=== PATIENT | male | born 1950 | race Caucasian/White ===

== ENCOUNTER 2023-12-16 07:11 | Day surgery (SDC) | payer MEDICARE, SELFPAY ==
[2023-12-16 12:31] VITALS: BP 158/77; BMI 25.2
[2023-12-16] MEDS: TYLENOL 1000 MG PO (12:37)
[2023-12-16] MEDS: CELEBREX 200 MG PO (12:37)
[2023-12-16] MEDS: NORMOSOL-R 1000 IV (12:49)
[2023-12-16 16:51] VITALS: BP 119/63
[2023-12-16 17:00] VITALS: BP 133/67
[2023-12-16 17:15] VITALS: BP 141/69
--- NOTE | 2023-12-16 17:21 | OR.RPT ---
Operative Report
Operative Report
DATE OF OPERATION: 12/16/2023
SURGEON: Chester Santana MD
PREOPERATIVE DIAGNOSIS: Anal pain, anal mass
POSTOPERATIVE DIAGNOSIS: Anal pain, anal mass, moderate anal stenosis
OPERATION: Exam under anesthesia, flexible sigmoidoscopy, diagnostic anoscopy with Rasheed-Cut core biopsy, bilateral pudendal nerve block
ASSISTANTS:
1. None
ANESTHESIA: MAC w/ local
ESTIMATED BLOOD LOSS: 5 mL
FINDINGS:
1. 1.5 cm x 1.2 cm anal mass, located in the left posterior quadrant of the anal canal at the level of the anal verge; within the anal canal at the base of this mass appeared a fissure
2. On retroflexion during sigmoidoscopy, the mass was not visible
SPECIMENS:
1. Anal mass biopsies
DRAINS: None
COMPLICATIONS: None
INDICATIONS: The patient is a 73-year-old male who presented to my office with 3 to 4 months of fecal urgency and 4 weeks of anorectal pain. An anoscopy was attempted in the office, but the patient was unable to tolerate this due to pain.
Therefore, the patient was recommended to have surgery for exam under anesthesia and possible biopsies.
The operation was discussed with the patient in detail, including the risks, benefits and alternatives. Risks described included, but not limited to bleeding, infection, damage to nearby structures such as the anal sphincter, fecal incontinence,
urinary retention, and anesthetic risks. The patient understood and agreed to proceed. The consent was signed and placed in the chart.
PROCEDURE IN DETAIL: The patient was taken to the operating room and placed on the left lateral position on the hospital bed. Sequential compression devices were placed bilaterally. Sedation was commenced without complication. The buttocks were
taped apart. The perineum was shaved, prepped and draped in the usual fashion. A time-out was then performed verifying the correct patient, procedure, operative site, positioning, and special equipment.
I began with the flexible sigmoidoscopy. A digital rectal exam was done, confirming a left posterior hard mass. The sigmoidoscope was passed transanally until about 20 cm without difficulty. The prep was excellent. No intraluminal pathology was
noted at the rectosigmoid junction or in the remainder of the rectum. Retroflexion showed internal hemorrhoids except for an area of flattening with erythema in the left posterior quadrant, but no visible mass was noted.
Next, I proceeded with the exam under anesthesia with the patient in the same position. Local anesthesia used was a mixture of 60 mL of 0.25% Marcaine and 0.6 mL of dexamethasone. 40 mL was injected perianally at the beginning of the case. The
anorectal exam was performed assessing all four quadrants of the anal canal using Hill-Espinosa retractors in progressively increasing size. However, due to anal stenosis, the anus would only accommodate a small Hill-Espinosa and nothing larger.
There were mild-sized internal hemorrhoids in the right anterior and right posterior position that were not irritated, swollen or bleeding. There was a hard 1.2 cm wide mass in the left posterior quadrant of the anal canal, just at the level of the
anal verge. It extended into the anal canal by 1.5 cm. Using the small Hill-Espinosa for visualization, 5 Rasheed-Cut core biopsies were obtained, each from a different location of the mass. Hemostasis was achieved after holding pressure for
approximately 2 minutes. Surgicel was placed in the anal canal prophylactically. At the end of the case, the remaining 20 mL of local were injected. 5 mL was injected bilaterally for a pudendal nerve block. 10 mL was injected around the surgical
site and perianally.
At this point, the procedure was complete. All needle, sponge and instrument counts were correct. The patient tolerated the procedure well and was transferred to the recovery room in stable condition with gauze dressing in place secured with silk
tape.
DICTATED BY: Chester Santana MD
[2023-12-16 17:30] VITALS: BP 120/66
[2023-12-16 17:45] VITALS: BP 150/78
== END 2023-12-16 18:25 | disposition home or self-care (01) ==
LOC: SDS 07:11
PROVIDERS: ATTENDING PHYSICIAN Surgery
DX: C21.0 Malignant neoplasm of anus, unspecified (principal); K62.4 Stenosis of anus and rectum; K64.8 Other hemorrhoids
CPT/HCPCS: 45331; 88305; 88341; 88342

== ENCOUNTER → 2023-12-23 11:56 | Outpatient (REF) | payer MEDICARE, SELFPAY ==
[2023-12-23 13:54] LABS: PSA, Total - Screen 1.14 ng/ml (0.0-4.0)
== END ==
LOC: OLABPV 11:56
PROVIDERS: ATTENDING PHYSICIAN Student in an Organized Health Care Education/Training Program
DX: R39.198 Other difficulties with micturition (principal); Z12.5 Encounter for screening for malignant neoplasm of prostate
CPT/HCPCS: 36415; G0103

== ENCOUNTER → 2023-12-30 09:53 | Outpatient (REF) | payer MEDICARE, SELFPAY ==
[2023-12-30 11:41] LABS: CEA 24.2 ng/ml
== END ==
LOC: REG 09:53
PROVIDERS: ATTENDING PHYSICIAN Surgery; FAMILY PHYSICIAN Student in an Organized Health Care Education/Training Program
DX: C20 Malignant neoplasm of rectum (principal)
CPT/HCPCS: 36415; 82378

== ENCOUNTER 2023-12-31 12:17 | Emergency (ER) | payer MEDICARE, SELFPAY ==
[2023-12-31] VITALS (18 sets, daily range): BP systolic 104–153; BP diastolic 67–117
[2023-12-31 12:52] LABS: % Basophils 0.3 % (0-2); % Eosinophils 1.2 % (0-6); % Immature Granulocytes 0.3 % (0-0.5); % Lymphocytes 14.3 % (20.5-51.1); % Monocytes 7.5 % (1.7-9.3); % Neutrophils 76.4 % (42.2-75.2); Absolute Eosinophils 0.1 10^3/uL (0-0.7); Absolute Monocytes 0.6 10^3/uL (0.1-0.6); Absolute Neutrophils 5.6 10^3/uL (1.4-6.5); Hematocrit 38.4 % (39.0-52.0); Hemoglobin 13.6 g/dL (13.0-18.0); Mean Corp Hgb Conc. 35.4 g/dL (33.0-37.0); Mean Corpuscular Hgb 32.5 pg (27.0-31.0); Mean Corpuscular Volume 91.9 fL (80.0-94.0); Mean Platelet Volume 9.5 fL (7.4-10.4); Nucleated Red Blood Cells % 0 % (-); Platelet Count 215 10^3/uL (130-400); Red Blood Cell Count 4.18 10^6/uL (4.70-6.10); Red Cell Dist. Width 13.1 % (11.5-14.5); White Blood Cell Count 7.3 10^3/uL (4.8-10.8)
[2023-12-31 13:04] LABS: Blood Urea Nitrogen 14 mg/dl (9-20); Calcium 8.8 mg/dl (8.4-10.2); Carbon Dioxide 22 mmol/L (22-30); Chloride 104 mmol/L (98-107); Glucose 100 mg/dl (70-99); Potassium 4.3 mmol/L (3.5-5.1); Sodium 132 mmol/L (135-145); eGFR > 60.00
[2023-12-31 13:35] LABS: TSH Reflex To Free T4 1.31 uIU/ml (0.47-4.68)
--- NOTE | 2023-12-31 13:48 | ED.GENMED ---
History of Present Illness
General
Chief Complaint: Heart Rate Problem
Source: patient
Exam Limitations: none
Time Seen by Provider: 12/31/23 12:28
Travel History
Have you had any contact with someone who has COVID-19?: No
Do you have any symptoms of coronavirus? Fever > 100 degrees, chills, cough, shortness of breath, sore throat, loss of taste or smell, muscle aches, or headache?: No
History of Present Illness
History of Present Illness:
73-year-old male sudden onset of heart racing palpitations and some fatigue at 4 AM. History of atrial fibrillation. On Eliquis. Faithful with meds. Took 200 mg of flecainide at 8 AM.
Past History
Past History
ED Past Medical History: Arrthythmia (Atrial fibrillation/flutter), HTN, Valvular disease and Hypothyroidism; Negative Hypercholesterolemia, IDDM, NIDDM or LA
Social History
Tobacco: Non-smoker
Review of Systems
Review of Systems
All Other Systems: Not applicable
Constitutional: Denies fever
Cardiac: Denies chest pain or syncope
Phy Exam
Physical Exam
Physical Exam:
GENERAL: Alert and oriented in no apparent distress
EYE: Orbits normal.
NECK: Supple, no significant adenopathy. Airway clear. No dentures or bridges
CARDIAC: Irregular irregular tachycardic
LUNGS: Clear breath sounds,normal
ABDOMEN: Soft, without focal tenderness or distention
NEUROLOGICAL: Alert and oriented , grossly non-focal
SKIN: Warm and dry, no rash or lesion, no discoloration, skin intact.
MUSCULOSKELETAL: No edema,no deformity.Good color
PSYCH: Normal and appropriate interaction.
Course
Orders/Labs/Results
Orders:
Orders
12/31/23 12:19
Electrocardiogram (*1) Urgent
Reason for Study: Atrial Fibrillation
EKG- Treatment ONCE
12/31/23 12:41
IV Insert/Care/Rem.- Treatment PRN
12/31/23 12:44
Basic Metabolic Panel Urgent
Complete Blood Count/With Diff Urgent
TSH Reflex To Free T4 Urgent
12/31/23 13:03
Propofol [Diprivan] 20 ml .ROUTE .STK-MED
12/31/23 13:39
Electrocardiogram (*1) Urgent
Reason for Study: Abnormal EKG
12/31/23 13:40
EKG- Treatment ONCE
Abnormal Lab Results
12/31/23
12:44
RBC 4.18 L 10^6/uL
(4.70-6.10)
Hct 38.4 L %
(39.0-52.0)
MCH 32.5 H pg
(27.0-31.0)
Absolute Lymphs (auto) 1.0 L 10^3/uL
(1.2-3.4)
Neutrophils % 76.4 H %
(42.2-75.2)
Lymphocytes % 14.3 L %
(20.5-51.1)
Sodium 132 L mmol/L
(135-145)
Glucose 100 H mg/dl
(70-99)
12/31/23 12:44
12/31/23 12:44
Vital Signs
Initial and Last Documented VS:
Initial Vital Signs
Temp Pulse Resp BP Pulse Ox
97.5 F 84 20 153/67 100
12/31/23 12:20 12/31/23 12:20 12/31/23 12:20 12/31/23 12:20 12/31/23 12:20
Last Documented Vital Signs
Temp Pulse Resp BP Pulse Ox
98.2 F 59 16 131/89 100
12/31/23 13:55 12/31/23 14:10 12/31/23 14:10 12/31/23 14:10 12/31/23 14:10
Procedures
Cardioversion
Indication:: Afib
Performed by:: Myself
Synchronized?: Yes
Energy Used: 150 joules
Number of attempts: 1
Successful?: Yes
Complications: None
Any reaction or bad outcome to prior sedation/anesthesia?: No history of a reaction
Sedation level to be attained: moderate
Chart and allergies reviewed: Yes
Patient reassessed prior to sedation: Yes
Time out completed at (validating right patient & procedure): 13:30
History of difficult intubation: No
Airway free of obstruction: Yes
Patient has a gag reflex: Yes
Patient is able to open mouth: Yes
Patient has no dentures: Yes
Patient has no loose teeth: Yes
Medication administered by Provider during Moderate Sedation: IV Propofol (mg)
Total dose administered: 100
Time drug administered: 13:32
Start Time: 13:30
Stop Time: 13:43
*Pulse Oximetry
Patient hypoxic: no
*EKG
Interpreted by ED Provider?: Yes
Interpretation: abnormal
Comparison EKG: changes noted
Heart Rate: 129
Rate: tachycardiac
Rhythm: a-fib
[place]: left axis deviation
Interval: normal interval
QRS Pattern: wide non-specific
Ischemia: non-specific ST changes
*[employer] Interpretation
Rate: tachycardiac
Interpretation: abnormal
Heart Rate: 125
Rhythm: a-fib
*Critical Care Note
Total Time (30-74mins, 75-104mins- exclusive of procedures): Not Applicable
Update Note
Update Note:
Discussed with cardiology. Reluctant to do rate control with patient's baseline bradycardia. Reviewed with patient. Risk-benefit of cardioversion reviewed carefully.
Patient fully awake. Repeat EKG normal sinus rhythm left axis deviation nonspecific interventricular conduction delay.
1435... Patient has remained stable. Discharged to follow-up with cardiology.
ED Attending Note
-
Portions of this chart may have been created with voice recognition software.� Occasional wrong word or��sound alike� substitutions may have occurred due to the inherent limitations of voice recognition software.
Discharge Plan
Departure
Patient Disposition: Home (Routine Discharge)
Date of Disposition: 12/31/23
Time of Disposition: 14:34
Patient with high blood pressure during this ER visit?: Yes
Discharge Problem:
Paroxysmal atrial fibrillation/flutter, Rapid ventricular response
Instructions: Atrial Fibrillation (DC), Cardioversion (DC), MODERATE SEDATION ADULT, BLOOD PRESSURE
Prescriptions:
No Action
levothyroxine 100 mcg Tablet
100 mcg PO DAILY
tamsulosin 0.4 mg Capsule
0.4 mg PO HS
flecainide 100 mg Tablet
100 mg PO BIDPRN PRN (Reason: high HR)
irbesartan 150 mg Tablet
150 mg PO DAILY
hydrochlorothiazide 12.5 mg Tablet
12.5 mg PO DAILY
Eliquis 5 mg Tablet
5 mg PO BID
acetaminophen [Tylenol] 325 mg Tablet
650 mg PO TIDPRN PRN (Reason: mild pain)
tramadol 50 mg tablet
50 mg PO Q6HPRN PRN (Reason: severe pain)
Patient Comments:
12/31/2023, pt. filled this med. on 12/16/2023 for 20 tablets according to PDMP.
Referrals:
Michaelle Gross DO [Family Provider] - Follow up in 2-3 days
Salomón Campbell MD [Active] - Follow up in 5-7 days
Activity Restrictions/Additional Instructions:
Call your pleater Tuesday for close follow-up
Interventions
Interventions:
*Risk Screen - Suicide Last Done: 12/31/23 12:35
*General Assessment Last Done: 12/31/23 12:35
*Neglect/Abuse Screening Last Done: 12/31/23 12:35
*ED COVID-19 Vaccine History Last Done: 12/31/23 12:35
ED- Cardiac Assessment Last Done: 12/31/23 12:35
ED- Pulmonary Assessment Last Done: 12/31/23 12:35
== END 2023-12-31 14:58 | disposition home or self-care (01) ==
LOC: EMR 12:17
PROVIDERS: EMERGENCY PHYSICIAN Emergency Medicine; FAMILY PHYSICIAN Student in an Organized Health Care Education/Training Program
DX: I48.0 Paroxysmal atrial fibrillation (principal); I48.92 Unspecified atrial flutter; I10 Essential (primary) hypertension; Z79.01 Long term (current) use of anticoagulants
CPT/HCPCS: 92960; 99285; 99152; 80048; 84443; 85025; 93005

== ENCOUNTER → 2024-01-02 12:24 | Outpatient (REF) | payer MEDICARE, SELFPAY | LOC: HWRAD 12:24 | PROVIDERS: ATTENDING PHYSICIAN Surgery; FAMILY PHYSICIAN Student in an Organized Health Care Education/Training Program | DX: C20 Malignant neoplasm of rectum (principal) | CPT/HCPCS: 71260; 74177; Q9967 ==

== ENCOUNTER → 2024-01-03 08:07 | Outpatient (REF) | payer MEDICARE, SELFPAY | LOC: MRI 08:07 | PROVIDERS: ATTENDING PHYSICIAN Surgery; FAMILY PHYSICIAN Student in an Organized Health Care Education/Training Program; REFERRING PHYSICIAN Radiology Diagnostic Radiology | DX: C20 Malignant neoplasm of rectum (principal); Z13.89 Encounter for screening for other disorder | CPT/HCPCS: 72197; 73130; 73560; A9575 ==

== ENCOUNTER → 2024-01-23 06:35 | Day surgery (SDC) | payer MEDICARE, SELFPAY | LOC: GI 06:35 | PROVIDERS: ATTENDING PHYSICIAN Surgery | DX: Z12.11 Encounter for screening for malignant neoplasm of colon (principal); Z86.010 Personal history of colon polyps; K57.30 Diverticulosis of large intestine without perforation or abscess without bleeding; K62.89 Other specified diseases of anus and rectum; D12.2 Benign neoplasm of ascending colon; D12.3 Benign neoplasm of transverse colon; C21.0 Malignant neoplasm of anus, unspecified | CPT/HCPCS: 45385; 88305; 93005 ==

== ENCOUNTER → 2024-01-25 06:28 | Day surgery (SDC) | payer MEDICARE, SELFPAY ==
[2024-01-25] VITALS (9 sets, daily range): BP systolic 101–145; BP diastolic 59–79; BMI 24.7
[2024-01-25] MEDS: NORMOSOL-R 1000 IV (14:49)
[2024-01-25] MEDS: CELEBREX 200 MG PO (14:49)
[2024-01-25] MEDS: TYLENOL 1000 MG PO (14:49)
--- NOTE | 2024-01-25 17:16 | OR.RPT ---
Operative Report
Operative Report
DATE OF OPERATION: 01/25/2024
SURGEON: Chester Santana MD
PREOPERATIVE DIAGNOSIS: Anal adenocarcinoma
POSTOPERATIVE DIAGNOSIS: Anal adenocarcinoma
OPERATION: Right subclavian port-a-cath insertion
ASSISTANTS:
1. None
ANESTHESIA: MAC w/ local
ESTIMATED BLOOD LOSS: 5 mL
FINDINGS:
1. After placement, the tip of port catheter visualized at level of the cavoatrial junction on fluoroscopy
2. Once sutured in position, port tested with Ng needle and there was good withdrawal of blood and instillation of heparinized saline without resistance
SPECIMENS: None
DRAINS: None
COMPLICATIONS: No immediate complications.
INDICATIONS: The patient is a 73-year-old male with anal adenocarcinoma. Neoadjuvant chemotherapy and chemoradiation was recommended. Therefore, I recommended port placement. The operation was discussed with the patient in detail including risks
and benefits. Risks discussed included, but are not limited to, bleeding, infection, hemothorax, pneumothorax, and anesthetic risks. The patient understood and agreed to proceed. The consent was signed and placed in the chart.
PROCEDURE: Patient was taken to the operating room and placed on the operating table in supine position. Sequential compression devices were placed bilaterally. Sedation was commenced without complication. Bilateral arms were tucked and the head
tilted toward the left. The right neck and chest wall area were shaved, prepped and draped in a sterile fashion. A time-out was then performed verifying the correct patient, procedure, operative site, positioning, and special equipment.
The patient was then placed in Trendelenburg position. Local anesthetic consisting of lidocaine 1% with epinephrine was used to numb the skin and soft tissue near the angle of the right clavicle and the planned subcutaneous port pocket. Then using
bony landmarks as a guide, I passed the needle with 10mL syringe under the right collar bone in the direction of the sternal notch while simultaneously aspirating. On the second pass, good venous return was noted indicating that I had accessed the
right subclavian vein. Under fluoroscopic guidance a guidewire was passed through the needle into the patient down to the superior vena cava. This went smoothly.
The needle was removed over the guidewire and a skin opening was enlarged with an 11 blade scalpel. Next, I advanced the dilator and peel-away sheath together over the guidewire into the patient. This went smoothly as well. Next, the guidewire and
inner dilator were removed leaving the outer sheath in place. I advanced the white tubing through the outer sheath into the patient under fluoroscopic guidance to the superior vena cava near the right atrium. Next, the outer sheath was peeled away
while maintaining the white tubing in place.
Using a 15 blade scalpel, I made a 4cm incision over the chest wall near the white tubing exit site. A subcutaneous pocket was created inferiorly to the incision with a combination of Bovie electrocautery and blunt dissection. There was good
hemostasis. The white tubing was connected to the tunneling device and brought through a newly created tunnel to the pocket area, taking care to avoid kinking of the tube. The white tubing was trimmed, connected to the the port reservoir and secured
with the locking mechanism. The port reservoir was accessed with good venous return and flushed with heparinized saline. One last round of fluoroscopy was performed. The tip of the white tubing was at the level of the superior vena cava and there
was no kink in the tubing.
The reservoir was then secured to the chest wall within the pocket with two 3-0 Prolene stitches. The subcutaneous layer was closed with deep dermal interrupted 3-0 Vicryl and the skin was closed with a running subcuticular 4-0 Vicryl. The remaining
local was injected around the subcutaneous pocket, port incision and stab incision. Dermabond was used to dress the port incision and stab incision.
At this point, the procedure was complete. All sponge, needle and instrument counts were correct. The patient tolerated the procedure well and was transferred to the recovery room in stable condition. A portable chest x-ray was ordered in recovery
to confirm port position and rule-out pneumothorax.
DICTATED BY: Chester Santana MD
== END | disposition home or self-care (01) ==
LOC: SDS 06:28
PROVIDERS: ATTENDING PHYSICIAN Surgery
DX: C21.0 Malignant neoplasm of anus, unspecified (principal); Z45.2 Encounter for adjustment and management of vascular access device
CPT/HCPCS: 36561; 71045; 76000; C1788

== ENCOUNTER → 2024-03-09 14:31 | Outpatient (REF) | payer MEDICARE, SELFPAY | LOC: DHCBC HW 14:31 | PROVIDERS: ATTENDING PHYSICIAN Nurse Practitioner; FAMILY PHYSICIAN Student in an Organized Health Care Education/Training Program | DX: I48.0 Paroxysmal atrial fibrillation (principal) | CPT/HCPCS: 93306 ==

== ENCOUNTER → 2024-03-26 15:24 | Outpatient (REF) | payer MEDICARE, SELFPAY | LOC: RAD 15:24 | PROVIDERS: ATTENDING PHYSICIAN Registered Nurse; FAMILY PHYSICIAN Student in an Organized Health Care Education/Training Program | DX: C20 Malignant neoplasm of rectum (principal); R19.7 Diarrhea, unspecified; R22.42 Localized swelling, mass and lump, left lower limb | CPT/HCPCS: 93971 ==

== ENCOUNTER → 2024-04-04 13:06 | Outpatient (REF) | payer MEDICARE, SELFPAY | LOC: RAD 13:06 | PROVIDERS: ATTENDING PHYSICIAN Internal Medicine Hematology & Oncology; FAMILY PHYSICIAN Student in an Organized Health Care Education/Training Program | DX: C20 Malignant neoplasm of rectum (principal) | CPT/HCPCS: 71260; 74177; Q9967 ==

== ENCOUNTER → 2024-04-10 10:50 | Outpatient (REF) | payer MEDICARE, SELFPAY ==
[2024-04-10 12:26] LABS: Hematocrit 34.6 % (39.0-52.0); Hemoglobin 11.8 g/dL (13.0-18.0); Mean Corp Hgb Conc. 34.1 g/dL (33.0-37.0); Mean Corpuscular Hgb 34.1 pg (27.0-31.0); Mean Platelet Volume 9.2 fL (7.4-10.4); Platelet Count 225 10^3/uL (130-400); Red Blood Cell Count 3.46 10^6/uL (4.70-6.10); Red Cell Dist. Width 15.6 % (11.5-14.5); White Blood Cell Count 3.6 10^3/uL (4.8-10.8)
[2024-04-10 13:16] LABS: Band Neutrophils 0 % (0-3); Segmented Neutrophils 58 % (42-75)
[2024-04-10 13:17] LABS: Eosinophils 3 % (0-6); Lymphocytes 18 % (20-51); Monocytes 21 % (2-9); Normal RBC Morphology Yes; Platelets Checked Yes; Total Cells Counted 100
[2024-04-10 13:37] LABS: ALT (SGPT) 11 U/L (0-50); AST (SGOT) 23 U/L (17-59); Albumin 3.5 g/dl (3.5-5.0); Alkaline Phosphatase 61 U/L (38-126); Blood Urea Nitrogen 11 mg/dl (9-20); Calcium 9.2 mg/dl (8.4-10.2); Carbon Dioxide 27 mmol/L (22-30); Chloride 96 mmol/L (98-107); Glucose 104 mg/dl (70-99); Potassium 4.6 mmol/L (3.5-5.1); Sodium 131 mmol/L (135-145); Total Bilirubin 0.6 mg/dl (0.2-1.3); Total Protein 6.1 g/dl (6.3-8.2); eGFR > 60.00
== END ==
LOC: REG 10:50
PROVIDERS: ATTENDING PHYSICIAN Internal Medicine Hematology & Oncology; FAMILY PHYSICIAN Student in an Organized Health Care Education/Training Program
DX: C20 Malignant neoplasm of rectum (principal); R19.7 Diarrhea, unspecified
CPT/HCPCS: 36415; 80053; 85025

== ENCOUNTER → 2024-04-24 10:39 | Outpatient (REF) | payer MEDICARE, SELFPAY ==
[2024-04-24 11:12] LABS: % Basophils 0.4 % (0-2); % Eosinophils 2.8 % (0-6); % Lymphocytes 14.1 % (20.5-51.1); % Monocytes 20.5 % (1.7-9.3); % Neutrophils 62.2 % (42.2-75.2); Absolute Eosinophils 0.1 10^3/uL (0-0.7); Absolute Lymphocytes 0.4 10^3/uL (1.2-3.4); Absolute Monocytes 0.6 10^3/uL (0.1-0.6); Absolute Neutrophils 1.8 10^3/uL (1.4-6.5); Hematocrit 28.5 % (39.0-52.0); Hemoglobin 9.9 g/dL (13.0-18.0); Mean Corp Hgb Conc. 34.7 g/dL (33.0-37.0); Mean Corpuscular Hgb 33.4 pg (27.0-31.0); Mean Corpuscular Volume 96.3 fL (80.0-94.0); Mean Platelet Volume 8.5 fL (7.4-10.4); Nucleated Red Blood Cells % 0 % (-); Platelet Count 146 10^3/uL (130-400); Red Blood Cell Count 2.96 10^6/uL (4.70-6.10); White Blood Cell Count 2.8 10^3/uL (4.8-10.8)
[2024-04-24 11:46] LABS: ALT (SGPT) 18 U/L (0-50); AST (SGOT) 22 U/L (17-59); Albumin 3.4 g/dl (3.5-5.0); Alkaline Phosphatase 64 U/L (38-126); Blood Urea Nitrogen 17 mg/dl (9-20); Calcium 8.9 mg/dl (8.4-10.2); Carbon Dioxide 30 mmol/L (22-30); Chloride 98 mmol/L (98-107); Glucose 99 mg/dl (70-99); Potassium 4.5 mmol/L (3.5-5.1); Sodium 133 mmol/L (135-145); Total Bilirubin 0.7 mg/dl (0.2-1.3); Total Protein 5.8 g/dl (6.3-8.2); eGFR > 60.00
[2024-04-24 15:19] LABS: Iron 80 ug/dl (49-181)
[2024-04-24 15:29] LABS: Percent Saturation 30 % (20-50); Total Iron Binding Capacity 265 ug/dl (261-462)
== END ==
LOC: REG 10:39
PROVIDERS: ATTENDING PHYSICIAN Internal Medicine Hematology & Oncology; FAMILY PHYSICIAN Student in an Organized Health Care Education/Training Program
DX: C20 Malignant neoplasm of rectum (principal); R19.7 Diarrhea, unspecified
CPT/HCPCS: 36415; 80053; 82728; 83540; 83550; 85025

== ENCOUNTER → 2024-05-02 14:17 | Outpatient (REF) | payer MEDICARE, SELFPAY ==
[2024-05-02 16:48] LABS: % Basophils 0.8 % (0-2); % Eosinophils 6.4 % (0-6); % Immature Granulocytes 0.4 % (0-0.5); % Monocytes 10.6 % (1.7-9.3); % Neutrophils 67.8 % (42.2-75.2); Absolute Eosinophils 0.2 10^3/uL (0-0.7); Absolute Lymphocytes 0.4 10^3/uL (1.2-3.4); Absolute Monocytes 0.3 10^3/uL (0.1-0.6); Absolute Neutrophils 1.8 10^3/uL (1.4-6.5); Hematocrit 29.9 % (39.0-52.0); Mean Corp Hgb Conc. 33.4 g/dL (33.0-37.0); Mean Corpuscular Hgb 34.2 pg (27.0-31.0); Mean Corpuscular Volume 102.4 fL (80.0-94.0); Mean Platelet Volume 8.9 fL (7.4-10.4); Nucleated Red Blood Cells % 0 % (-); Platelet Count 181 10^3/uL (130-400); Red Blood Cell Count 2.92 10^6/uL (4.70-6.10); Red Cell Dist. Width 14.7 % (11.5-14.5); White Blood Cell Count 2.7 10^3/uL (4.8-10.8)
== END ==
LOC: OLABPV 14:17
PROVIDERS: ATTENDING PHYSICIAN Internal Medicine Hematology & Oncology
DX: C20 Malignant neoplasm of rectum (principal); R19.7 Diarrhea, unspecified
CPT/HCPCS: 36415; 85025

== ENCOUNTER → 2024-05-08 12:00 | Outpatient (REF) | payer MEDICARE, SELFPAY ==
[2024-05-08 12:27] LABS: Hematocrit 25.3 % (39.0-52.0); Hemoglobin 8.8 g/dL (13.0-18.0); Mean Corp Hgb Conc. 34.8 g/dL (33.0-37.0); Mean Corpuscular Hgb 33.8 pg (27.0-31.0); Mean Corpuscular Volume 97.3 fL (80.0-94.0); Mean Platelet Volume 8.7 fL (7.4-10.4); Platelet Count 128 10^3/uL (130-400); Red Cell Dist. Width 15.5 % (11.5-14.5); White Blood Cell Count 2.2 10^3/uL (4.8-10.8)
[2024-05-08 12:59] LABS: ALT (SGPT) 17 U/L (0-50); AST (SGOT) 25 U/L (17-59); Albumin 3.5 g/dl (3.5-5.0); Alkaline Phosphatase 74 U/L (38-126); Blood Urea Nitrogen 12 mg/dl (9-20); Calcium 8.7 mg/dl (8.4-10.2); Carbon Dioxide 27 mmol/L (22-30); Chloride 99 mmol/L (98-107); Glucose 104 mg/dl (70-99); Potassium 4.6 mmol/L (3.5-5.1); Sodium 131 mmol/L (135-145); Total Bilirubin 0.6 mg/dl (0.2-1.3); Total Protein 5.9 g/dl (6.3-8.2); eGFR > 60.00
[2024-05-08 13:13] LABS: Absolute Neutrophils -Man Diff 1.4 10^3/uL (1.4-6.5); Anisocytosis 1+; Band Neutrophils 0 % (0-3); Eosinophils 2 % (0-6); Hypochromasia Slight; Lymphocytes 18 % (20-51); Monocytes 14 % (2-9); Normal RBC Morphology No; Platelets Checked Yes; Segmented Neutrophils 66 % (42-75); Total Cells Counted 100
== END ==
LOC: REG 12:00
PROVIDERS: ATTENDING PHYSICIAN Internal Medicine Hematology & Oncology; FAMILY PHYSICIAN Student in an Organized Health Care Education/Training Program
DX: C20 Malignant neoplasm of rectum (principal); R19.7 Diarrhea, unspecified
CPT/HCPCS: 36415; 80053; 85025

== ENCOUNTER → 2024-07-23 10:25 | Outpatient (REF) | payer MEDICARE, SELFPAY ==
[2024-07-23 11:23] LABS: Hematocrit 28.1 % (39.0-52.0); Hemoglobin 9.6 g/dL (13.0-18.0); Mean Corp Hgb Conc. 34.2 g/dL (33.0-37.0); Mean Corpuscular Hgb 36.6 pg (27.0-31.0); Mean Corpuscular Volume 107.3 fL (80.0-94.0); Red Blood Cell Count 2.62 10^6/uL (4.70-6.10); Red Cell Dist. Width 16.1 % (11.5-14.5); White Blood Cell Count 7.9 10^3/uL (4.8-10.8)
[2024-07-23 12:06] LABS: ALT (SGPT) 18 U/L (0-50); AST (SGOT) 29 U/L (17-59); Albumin 3.8 g/dl (3.5-5.0); Alkaline Phosphatase 148 U/L (38-126); Blood Urea Nitrogen 11 mg/dl (9-20); Calcium 9.2 mg/dl (8.4-10.2); Carbon Dioxide 25 mmol/L (22-30); Chloride 101 mmol/L (98-107); Glucose 98 mg/dl (70-99); Potassium 4.4 mmol/L (3.5-5.1); Sodium 136 mmol/L (135-145); Total Bilirubin 0.7 mg/dl (0.2-1.3); eGFR > 60.00
[2024-07-23 12:20] LABS: Absolute Neutrophils -Man Diff 6.3 10^3/uL (1.4-6.5); Band Neutrophils 14 % (0-3); Eosinophils 2 % (0-6); Lymphocytes 12 % (20-51); Mean Platelet Volume 10.8 fL (7.4-10.4); Monocytes 6 % (2-9); Platelet Count 70 10^3/uL (130-400); Platelets Checked Yes; Segmented Neutrophils 66 % (42-75)
[2024-07-23 12:21] LABS: Normal RBC Morphology Yes; Total Cells Counted 100
[2024-07-23 20:59] LABS: CEA 2.48 ng/ml
== END ==
LOC: REG 10:25
PROVIDERS: ATTENDING PHYSICIAN Internal Medicine Hematology & Oncology; FAMILY PHYSICIAN Nurse Practitioner Family
DX: C20 Malignant neoplasm of rectum (principal); R19.7 Diarrhea, unspecified
CPT/HCPCS: 36415; 80053; 82378; 85025

== ENCOUNTER → 2024-08-02 07:49 | Outpatient (REF) | payer MEDICARE, SELFPAY | LOC: MRI 07:49 | PROVIDERS: ATTENDING PHYSICIAN Internal Medicine Hematology & Oncology; FAMILY PHYSICIAN Nurse Practitioner Family | DX: C20 Malignant neoplasm of rectum (principal); R19.7 Diarrhea, unspecified | CPT/HCPCS: 72197; A9575 ==

== ENCOUNTER → 2024-08-03 07:36 | Outpatient (REF) | payer MEDICARE, SELFPAY | LOC: RAD 07:36 | PROVIDERS: ATTENDING PHYSICIAN Internal Medicine Hematology & Oncology; FAMILY PHYSICIAN Nurse Practitioner Family | DX: C20 Malignant neoplasm of rectum (principal); R19.7 Diarrhea, unspecified | CPT/HCPCS: 71260; 74177; Q9967 ==

== ENCOUNTER 2024-08-16 06:27 | Day surgery (SDC) | payer MEDICARE, SELFPAY ==
[2024-08-16 12:12] VITALS: BMI 24.8
[2024-08-16 12:13] VITALS: BP 127/65; BMI 24.8
[2024-08-16] MEDS: TYLENOL 1000 MG PO (12:18)
[2024-08-16] MEDS: CELEBREX 200 MG PO (12:18)
[2024-08-16 15:00] VITALS: BP 102/60; BP 127/65
--- NOTE | 2024-08-16 15:10 | W.IMMPOSTOP ---
Addendum entered and electronically signed by Chester Santana MD 08/20/24 22:12:
Correction: anal papilla noted in the right posterior position
Original Note:
Surgical Immed Post Op Note
-
Primary Surgeon: Chester Santana MD
Assisting Surgeon: None
Pre-op Diagnosis: Anal cancer
Post-op Diagnosis: Anal cancer
Procedure Performed: Flexible sigmoidoscopy, exam under anesthesia, anal biopsies
Anesthesia Type: Sedation with local
Specimen / Cultures: 1. Lateral anal fissure edge 2. Posterior anal fissure edge
Estimated Blood Loss: 5 mL
Complications: None
Operative Findings: Flexible sigmoidoscopy advanced to 20 cm, no concerning pathology; on retroflexion, identified an anal papilla, no concerning lesions or scar; an EUA identified anal papilla in the right anterior position; identified subtle scar
in the perianal skin in the left posterior quadrant, no palpable masses; within the anal canal, there appeared to be a superficial anal fissure at the location of the anal cancer; there was palpable scar tissue, no palpable nodularity or masses;
performed biopsy of both edges of the fissure
--- NOTE | 2024-08-16 15:13 | OR.RPT ---
Operative Report
Operative Report
DATE OF OPERATION: 08/16/2024
SURGEON: Chester Santana MD
PREOPERATIVE DIAGNOSIS: Anal adenocarcinoma s/p total neoadjuvant therapy
POSTOPERATIVE DIAGNOSIS: Anal adenocarcinoma s/p total neoadjuvant therapy
OPERATION: Flexible sigmoidoscopy, exam under anesthesia, biopsy of anal fissure, bilateral pudendal nerve block
ASSISTANTS:
1. None
ANESTHESIA: MAC w/ local
ESTIMATED BLOOD LOSS: 5 mL
FINDINGS:
1. Normal-appearing anal papilla in the right posterior mid-anal canal
2. Palpable scar in the left posterior anal canal; no palpable mass; superficial anal fissure in the location of the anal cancer previously; performed biopsy of fissure edges
SPECIMENS:
1. Lateral anal fissure edge
2. Posterior anal fissure edge
DRAINS: N/A
COMPLICATIONS: None
INDICATIONS: The patient is a 74-year-old male who was found to have anal adenocarcinoma. Due to the location, he underwent total neoadjuvant therapy with long-course chemoradiation and FOLFOX. Restaging studies showed no evidence of residual
tumor. Due to significant perianal pain, the patient was unable to tolerate a bedside exam with anoscopy. Therefore, the patient was recommended to have surgery in order to examine the anal canal and assess for any residual disease. The operation
was discussed with the patient in detail, including the risks, benefits and alternatives. Risks described included, but not limited to bleeding, infection, urinary retention, damage to nearby structures such as the anal sphincter, anal stenosis,
missed lesions, colorectal perforation and anesthetic risks. The patient understood and agreed to proceed. The consent was signed and placed in the chart.
PROCEDURE IN DETAIL: The patient was taken to the operating room. Sequential compression devices were placed bilaterally. The patient was placed in left lateral decubitus on the transport bed. A time-out was then performed verifying the correct
patient, procedure, operative site, positioning, and special equipment. Sedation was then induced without complication. The flexible sigmoidoscopy was commenced. I performed a digital rectal exam. I palpated some scar tissue in the left
posterior position and a soft nodule in the right posterior position in the mid anal canal. No masses were palpable. I advanced the sigmoidoscope transanally to about 20 cm, just beyond the rectosigmoid junction. The sigmoidoscope was slowly
withdrawn and the mucosa was evaluated. There was some stool in the rectosigmoid obscuring visualization of this portion. The remainder of the rectum was clear of stool. No concerning mucosal lesions were noted. There was some notable pallor of
the distal rectum, but no areas of inflammation or bleeding. On retroflexion, I noted an anal papilla. No concerning masses were noted at or around the proximal anal canal. The sigmoidoscope was then withdrawn.
The patient was then placed on the operating table in prone position. Two seat belts were secured around the legs and upper back. The buttocks were taped apart. The perineum was prepped and draped in the usual fashion. Local anesthesia used was a
mixture of 60 mL of 0.25% Marcaine epinephrine and 0.6 mg of dexamethasone. 40 mL was injected perianally at the beginning of the case. The anorectal exam was performed assessing all four quadrants of the anal canal using Hill-Espinosa retractors.
Due to known anal stenosis, the anal canal would only accommodate the small Hill-Espinosa, even after perianal block. The epithelium of the anal canal was noted to be pale, without inflammation or bleeding. There were minimal telangiectasias.
There was an anal papilla in the mid anal canal at the right posterior position. In the location of the previously noted anal cancer in the left posterior position, there was minimal subtle scarring in the anoderm perianally within 1 cm of the anal
verge. There was some scarring in the left posterior position within the anal canal. There was what appeared to be a superficial anal fissure in the left posterior position in the distal anal canal. The edges of the fissure were consistent with
the palpable scar tissue noted on ALEXANDRA. There were no obvious masses.
There is no better explanation for his perianal pain except this superficial fissure. Overall, there were slightly raised edges, but this was soft and not concerning for a residual mass. I performed biopsies of each edge of the fissure. I used an
11 blade scalpel to akin the epithelium. Then, I grasped the edge with Adsons, elevated it and excised the appendage with a Metzenbaum scissors. I did this for both biopsies. Hemostasis was achieved with electrocautery.
The remaining 20 mL of local were injected. 5 mL was injected bilaterally for a pudendal nerve block. 10 mL was injected around the surgical site and perianally. Hemostasis was reassessed once more using the small Hill-Espinosa and was confirmed.
At this point, the procedure was complete. All needle, sponge and instrument counts were correct. The patient tolerated the procedure well and was transferred to the recovery room in stable condition with gauze dressing in place secured with silk
tape.
DICTATED BY: Chester Santana MD
[2024-08-16 15:15] VITALS: BP 119/68
[2024-08-16 15:25] VITALS: BP 135/74
[2024-08-16 15:42] VITALS: BP 132/68
== END 2024-08-16 15:55 | disposition home or self-care (01) ==
LOC: SDS 06:27
PROVIDERS: ATTENDING PHYSICIAN Surgery
DX: K62.82 Dysplasia of anus (principal); K60.2 Anal fissure, unspecified; K62.4 Stenosis of anus and rectum; K62.89 Other specified diseases of anus and rectum
CPT/HCPCS: 45331; 88304; 88342

== ENCOUNTER → 2024-10-17 11:42 | Outpatient (REF) | payer MEDICARE, SELFPAY ==
[2024-10-17 11:51] LABS: % Basophils 0.3 % (0-2); % Eosinophils 1.9 % (0-6); % Lymphocytes 14.3 % (20.5-51.1); % Monocytes 11.9 % (1.7-9.3); % Neutrophils 71.6 % (42.2-75.2); Absolute Eosinophils 0.1 10^3/uL (0-0.7); Absolute Lymphocytes 0.5 10^3/uL (1.2-3.4); Absolute Monocytes 0.4 10^3/uL (0.1-0.6); Absolute Neutrophils 2.7 10^3/uL (1.4-6.5); Hematocrit 35.5 % (39.0-52.0); Hemoglobin 11.9 g/dL (13.0-18.0); Mean Corp Hgb Conc. 33.5 g/dL (33.0-37.0); Mean Corpuscular Hgb 33.5 pg (27.0-31.0); Mean Platelet Volume 8.9 fL (7.4-10.4); Platelet Count 154 10^3/uL (130-400); Red Blood Cell Count 3.55 10^6/uL (4.70-6.10); Red Cell Dist. Width 12.8 % (11.5-14.5); White Blood Cell Count 3.7 10^3/uL (4.8-10.8)
[2024-10-17 14:39] LABS: ALT (SGPT) 25 U/L (0-50); AST (SGOT) 34 U/L (17-59); Alkaline Phosphatase 100 U/L (38-126); Blood Urea Nitrogen 17 mg/dl (9-20); Calcium 9.1 mg/dl (8.4-10.2); Carbon Dioxide 29 mmol/L (22-30); Chloride 101 mmol/L (98-107); Glucose 92 mg/dl (70-99); Potassium 4.6 mmol/L (3.5-5.1); Sodium 137 mmol/L (135-145); Total Bilirubin 0.6 mg/dl (0.2-1.3); Total Protein 6.4 g/dl (6.3-8.2); eGFR > 60.00
[2024-10-17 15:08] LABS: CEA 1.72 ng/ml
== END ==
LOC: OIDL 11:42
PROVIDERS: ATTENDING PHYSICIAN Internal Medicine Hematology & Oncology
DX: C20 Malignant neoplasm of rectum (principal)
CPT/HCPCS: 80053; 82378; 85025

== ENCOUNTER 2024-11-13 10:50 | Outpatient (RCR) | payer MEDICARE, SELFPAY | END 2024-11-13 23:59 | disposition home or self-care (01) | LOC: RPT 10:50 | PROVIDERS: ATTENDING PHYSICIAN Family Medicine Geriatric Medicine; FAMILY PHYSICIAN Nurse Practitioner Family | DX: C21.1 Malignant neoplasm of anal canal (principal); M62.89 Other specified disorders of muscle; R10.2 Pelvic and perineal pain; R15.2 Fecal urgency; G62.0 Drug-induced polyneuropathy; Z73.6 Limitation of activities due to disability | CPT/HCPCS: 97014; 97110; 97140; 97162; 97530 ==

== ENCOUNTER 2024-11-22 10:12 | Outpatient (RCR) | payer MEDICARE, SELFPAY | END 2024-11-22 23:59 | disposition home or self-care (01) | LOC: RPT 10:12 | PROVIDERS: ATTENDING PHYSICIAN Family Medicine Geriatric Medicine; FAMILY PHYSICIAN Nurse Practitioner Family | DX: C21.1 Malignant neoplasm of anal canal (principal); M62.89 Other specified disorders of muscle; R10.2 Pelvic and perineal pain; R15.2 Fecal urgency; G62.0 Drug-induced polyneuropathy; Z73.6 Limitation of activities due to disability | CPT/HCPCS: 97014; 97110; 97140; 97530 ==

== ENCOUNTER 2024-11-28 06:24 | Day surgery (SDC) | payer MEDICARE, SELFPAY ==
[2024-11-28 07:55] VITALS: BMI 24.4
[2024-11-28 08:00] VITALS: BP 135/78; BMI 24.4
[2024-11-28] MEDS: TYLENOL 1000 MG PO (08:04)
[2024-11-28] MEDS: NORMOSOL-R/PLASMALYTE-A 1000 IV (08:04)
--- NOTE | 2024-11-28 10:04 | W.IMMPOSTOP ---
Surgical Immed Post Op Note
-
Primary Surgeon: Chester Santana MD
Assisting Surgeon: None
Pre-op Diagnosis: Anal adenocarcinoma s/p DEIDRE
Post-op Diagnosis: Anal adenocarcinoma s/p DEIDRE
Procedure Performed: Flexible sigmoidoscopy, exam under anesthesia, anoscopy with biopsies
Anesthesia Type: Sedation with local
Specimen / Cultures:
1. Posterior anal biopsies (epithelial biopsies)
2. Posterior anal nodule biopsies (full-thickness Rasheed-Cut biopsies)
Estimated Blood Loss: 5 mL
Complications: None
Operative Findings: No concerning findings on flexible sigmoidoscopy except for expected radiation changes; ALEXANDRA, palpable nodule with unclear margins; may represent scar versus new nodule; on anoscopy, superficial tearing from exposure; stable anal
stenosis; superficial posterior fissure, biopsied margin; performed full-thickness Rasheed-Cut biopsies of the palpable nodular area in the left posterior quadrant
[2024-11-28 10:05] VITALS: BP 131/69
--- NOTE | 2024-11-28 10:07 | OR.RPT ---
Operative Report
Operative Report
DATE OF OPERATION: 11/28/2024
SURGEON: Chester Santana MD
PREOPERATIVE DIAGNOSIS: Anal adenocarcinoma s/p total neoadjuvant treatment
POSTOPERATIVE DIAGNOSIS: Anal adenocarcinoma s/p total neoadjuvant treatment
OPERATION: Flexible sigmoidoscopy, exam under anesthesia, anoscopy with biopsies, bilateral pudendal nerve block
ASSISTANTS:
1. None
ANESTHESIA: Sedation with local
ESTIMATED BLOOD LOSS: 5 mL
FINDINGS:
1. Flexible sigmoidoscopy advanced to 30 cm; no mucosal abnormalities; within the distal rectum, noted pallor with telangiectasias, consistent with history of radiation; no bleeding noted
2. On anoscopy, superficial tearing noted from exposure; superficial posterior fissure noted; biopsied margin
3. Palpable nodular area in the left posterior quadrant that seems more pronounced than prior exam, but with unclear margins; performed Rasheed-Cut biopsies
SPECIMENS:
1. Posterior anal biopsies (epithelial layer)
2. Posterior anal nodule biopsies (full-thickness Rasheed-Cut biopsies)
DRAINS: None
COMPLICATIONS: None
INDICATIONS: The patient is a 74-year-old male with a history of anal adenocarcinoma that was treated with total neoadjuvant therapy and was found to have a clinical complete response. He is on the watch and wait protocol. After his treatment, he
developed anal stenosis with chronic anal pain as well as fecal incontinence. Anoscopy is not tolerable in the office. Therefore, the patient was recommended to have his surveillance exam under anesthesia. The operation was discussed with the
patient in detail, including the risks, benefits and alternatives. Risks described included, but not limited to, bleeding, infection, urinary retention, damage to nearby structures such as the anal sphincter, worsening incontinence, anal stenosis,
missed lesions, perforation and anesthetic risks. The patient understood and agreed to proceed. The consent was signed and placed in the chart.
PROCEDURE IN DETAIL: The patient was taken to the operating room. The patient was placed in left lateral decubitus position on the stretcher. SCDs were placed bilaterally. A time-out was performed verifying the correct patient, procedure,
operative site, positioning, and special equipment.
I began by performing flexible sigmoidoscopy. A digital rectal exam was performed with lubrication. A palpable nodularity was noted in the left posterior position, where the previously-noted scar was. This seemed a bit more pronounced than his
last exam. However, there was no obvious margins and the area remained mobile. This could represent a more pronounced scar versus recurrence. I passed the sigmoidoscope transanally up to 30 cm. I encountered stool at this point. I slowly
withdrew and examined the mucosa. There were no mucosal abnormalities. In the distal rectum, the mucosa was noted to be pale with scattered telangiectasias, consistent with history of radiation to the area. There was no concern for bleeding. The
sigmoidoscope was removed.
The patient was placed on the operating table in prone position. Two seat belts were secured around the legs and upper back. The buttocks were taped apart. The perineum was shaved, prepped and draped in the usual fashion. Local anesthesia used
was a mixture of 60 mL of 0.25% Marcaine with epinephrine and 0.6 mg of dexamethasone. 40 mL was injected perianally at the beginning of the case. The anorectal exam was performed assessing all four quadrants of the anal canal. Due to his known
anal stenosis, which appeared stable, he was not able to accommodate anything greater than the small Hill-Espinosa. Superficial tearing was noted in the epithelium of the anal canal, likely due to retraction. Circumferentially, there was noted to
be pallor, but no epithelial changes or nodularity. There was a posterior fissure that was noted previously. However, it was smaller and now superficial. The palpable nodularity was noted in the posterior to left posterior quadrant at the anal
verge. There was no overlying changes to the epithelium.
Due to prior biopsies from the fissure margin coming back as low-grade squamous intraepithelial lesion, I performed repeat biopsies of the same spot. I used DeBakey's to elevate the epithelium and Metzenbaum scissors to transect, taking care to
avoid injury to the underlying sphincter. Hemostasis was achieved with electrocautery. These biopsies were passed off as posterior anal biopsy.
I performed 5 full-thickness Rasheed-Cut biopsies of the palpable nodule in the posterior to left posterior region of his known scar. Hemostasis was easily achieved by holding pressure. These biopsies were passed off as posterior anal nodule biopsies.
The remaining 20 mL of local were injected. 5 mL was injected bilaterally for a pudendal nerve block. 10 mL was injected around the surgical site and perianally. Hemostasis was reassessed once more using the small Konrad-Espinosa and was confirmed.
Surgicel was placed in the operative site prophylactically.
At this point, the procedure was complete. All needle, sponge and instrument counts were correct. The patient tolerated the procedure well and was transferred to the recovery room in stable condition with gauze dressing in place secured with silk
tape.
DICTATED BY: Chester Santana MD
[2024-11-28 10:20] VITALS: BP 118/77
[2024-11-28 10:35] VITALS: BP 133/75
== END 2024-11-28 11:00 | disposition home or self-care (01) ==
LOC: SDS 06:24
PROVIDERS: ATTENDING PHYSICIAN Surgery
DX: C21.0 Malignant neoplasm of anus, unspecified (principal); K60.2 Anal fissure, unspecified; K62.4 Stenosis of anus and rectum; K62.89 Other specified diseases of anus and rectum
CPT/HCPCS: 45331; 88305; 88341; 88342

== ENCOUNTER → 2024-12-11 08:21 | Outpatient (REF) | payer MEDICARE, SELFPAY | LOC: PAVMRI 08:21 | PROVIDERS: ATTENDING PHYSICIAN Internal Medicine Hematology & Oncology; FAMILY PHYSICIAN Nurse Practitioner Family | DX: C20 Malignant neoplasm of rectum (principal); R19.7 Diarrhea, unspecified | CPT/HCPCS: 36415; 72197; 80048; 82378; A9575 ==

== ENCOUNTER → 2024-12-12 13:13 | Outpatient (REF) | payer MEDICARE, SELFPAY | LOC: RAD 13:13 | PROVIDERS: ATTENDING PHYSICIAN Internal Medicine Hematology & Oncology; FAMILY PHYSICIAN Nurse Practitioner Family | DX: C20 Malignant neoplasm of rectum (principal); R19.7 Diarrhea, unspecified | CPT/HCPCS: 71260; 74177; Q9967 ==

== ENCOUNTER 2025-01-08 10:53 | Outpatient (RCR) | payer MEDICARE, SELFPAY | END 2025-01-09 07:07 | disposition home or self-care (01) | LOC: RPT 10:53 | PROVIDERS: ATTENDING PHYSICIAN Family Medicine Geriatric Medicine; FAMILY PHYSICIAN Nurse Practitioner Family | DX: C21.1 Malignant neoplasm of anal canal (principal); M62.89 Other specified disorders of muscle; R10.2 Pelvic and perineal pain; R15.2 Fecal urgency; G62.0 Drug-induced polyneuropathy; Z73.6 Limitation of activities due to disability | CPT/HCPCS: 97014; 97110; 97530 ==

== ENCOUNTER 2025-01-09 12:02 | Inpatient (IN) | payer MEDICARE, SELFPAY ==
[2025-01-01 11:13] LABS: Hematocrit 34.7 % (39.0-52.0); Hemoglobin 11.7 g/dL (13.0-18.0); Mean Corp Hgb Conc. 33.7 g/dL (33.0-37.0); Mean Corpuscular Hgb 33.1 pg (27.0-31.0); Mean Corpuscular Volume 98.3 fL (80.0-94.0); Mean Platelet Volume 9.2 fL (7.4-10.4); Platelet Count 172 10^3/uL (130-400); Red Blood Cell Count 3.53 10^6/uL (4.70-6.10); Red Cell Dist. Width 14.1 % (11.5-14.5); White Blood Cell Count 4.2 10^3/uL (4.8-10.8)
[2025-01-01 11:22] LABS: INR 1.14; PT 14.9 Sec (11.4-14.6)
[2025-01-01 11:23] LABS: APTT 32.9 Sec (23.4-35.0)
[2025-01-01 11:53] LABS: ALT (SGPT) 33 U/L (0-50); AST (SGOT) 38 U/L (17-59); Alkaline Phosphatase 85 U/L (38-126); Blood Urea Nitrogen 16 mg/dl (9-20); Calcium 9.2 mg/dl (8.4-10.2); Carbon Dioxide 28 mmol/L (22-30); Chloride 102 mmol/L (98-107); Glucose 95 mg/dl (70-99); Potassium 4.5 mmol/L (3.5-5.1); Sodium 136 mmol/L (135-145); Total Bilirubin 1.1 mg/dl (0.2-1.3); Total Protein 6.4 g/dl (6.3-8.2); eGFR > 60.00
[2025-01-01 14:07] VITALS: BMI 25.9
[2025-01-09] VITALS (38 sets, daily range): BP systolic 67–159; BP diastolic 42–134; BMI 27.4; BMI 25.3
--- NOTE | 2025-01-09 07:28 | ED.GENMED ---
History of Present Illness
<Jayjay Bridges Jr., PA-C - Last Filed: 01/09/25 10:32>
General
Chief Complaint: Heart Rate Problem
Source: patient
Exam Limitations: none
Time Seen by Provider: 01/09/25 07:18
Nursing documentation reviewed up to this point in time: agreed with
History of Present Illness
History of Present Illness:
74-year-old male with past medical history of A-fib typically on Eliquis but has been holding this over the past 2 days for a surgery for colorectal cancer. Presenting to the emergency department concerns of some significant palpitations since last
night that have been continuous. Denies associated chest pain shortness of breath nausea vomiting recent illness or fevers.
Past History
<Jayjay Bridges Jr., PA-C - Last Filed: 01/09/25 10:32>
Past History
ED Past Medical History: Arrthythmia (Atrial fibrillation/flutter), HTN, Valvular disease and Hypothyroidism; Negative Hypercholesterolemia, IDDM, NIDDM or [place]
Social History
Tobacco: Non-smoker
Review of Systems
<Jayjay Bridges Jr., PA-C - Last Filed: 01/09/25 10:32>
Review of Systems
Allergies reviewed?: Yes
All Other Systems: ROS reviewed and negative except as documented in HPI and ROS
Phy Exam
<Jayjay Bridges Jr., PA-C - Last Filed: 01/09/25 10:32>
Physical Exam
Physical Exam:
GENERAL: Alert , in no apparent distress
EYE: pupils equal and reactive
NECK: Supple, no significant adenopathy.
ENT: o/p clr, mmm.
CARDIAC: Tachycardic initially seems regular
LUNGS: Clear breath sounds bilaterally, no acute respiratory distress, no wheezes/rales/rhonchi
ABDOMEN: Soft, without focal tenderness, no r/g, no cvat
NEUROLOGICAL: Alert and oriented, no focal neuro deficits
SKIN: Warm and dry, skin intact.
MUSCULOSKELETAL: No edema, well perfused.
PSYCH: Normal and appropriate interaction.
Course
<Jayjay Bridges Jr., PA-C - Last Filed: 01/09/25 10:32>
Orders/Labs/Results
Orders:
Orders
01/09/25 07:05
Electrocardiogram (*1) Urgent
Reason for Study: Atrial Fibrillation
EKG- Treatment ONCE
01/09/25 07:26
Diltiazem HCl [Cardizem] 25 mg .ROUTE .STK-MED ONE
01/09/25 07:27
Diltiazem HCl [Cardizem] 20 mg IV NOW STA
Diltiazem HCl [Cardizem] 20 mg IV NOW STA
01/09/25 07:28
Cardiac Monitoring- Treatment ONCE
0.9% Sodium Chloride 1000 ml [Nss] 1,000 ml IV BOLUS
01/09/25 07:33
Etomidate [Amidate 20 mg] 20 mg IV NOW STA
Etomidate [Amidate 20 mg] 7 mg IV NOW STA
01/09/25 07:44
ECG [Electrocardiogram (*1)] Urgent
Reason for Study: Tachycardia
EKG- Treatment ONCE
01/09/25 08:01
Complete Blood Count/With Diff Urgent
Comprehensive Metabolic Panel Urgent
Magnesium Urgent
NT-proBNP Urgent
PTT Urgent
TSH Urgent
Troponin I Urgent
01/09/25 08:25
CT Chest PE Study Urgent
Comment:
Reason For Exam: palpitions/tachy/CA hx no eliquis x 2 days
01/09/25 09:07
Echo 2D MMode Color/Doppler Routine
Reason for Study: afib w RVR
01/09/25 09:30
Diltiazem 125 mg/125 ml Nss [Cardizem] 125 mg in 125 ml IV PER PROTOCOL
Initial dose in mg/hr, then titrate:: 5
Titrate to keep:: Heart rate 80-100 bpm
Titrate by mg/hr:: 5 mg/hr
Frequency of titrations (minutes):: 15
Maximum dose in mg/hr:: 15
01/09/25 12:00
Metoprolol [Lopressor] 25 mg PO Q6
Abnormal Lab Results
01/09/25
08:01
RBC 3.81 L 10^6/uL
(4.70-6.10)
Hgb 12.9 L g/dL
(13.0-18.0)
Hct 38.7 L %
(39.0-52.0)
MCV 101.6 H fL
(80.0-94.0)
MCH 33.9 H pg
(27.0-31.0)
Absolute Lymphs (auto) 0.6 L 10^3/uL
(1.2-3.4)
Lymphocytes % 13.2 L %
(20.5-51.1)
Monocytes % 10.6 H %
(1.7-9.3)
Sodium 131 L mmol/L
(135-145)
Glucose 117 H mg/dl
(70-99)
01/09/25 08:01
01/09/25 08:01
Vital Signs
Initial and Last Documented VS:
Initial Vital Signs
Temp Pulse Resp BP Pulse Ox
98.4 F 186 18 98/63 100
01/09/25 07:07 01/09/25 07:07 01/09/25 07:07 01/09/25 07:07 01/09/25 07:07
Last Documented Vital Signs
Temp Pulse Resp BP Pulse Ox
98.4 F 123 11 115/87 99
01/09/25 07:07 01/09/25 09:50 01/09/25 09:50 01/09/25 09:50 01/09/25 09:50
<Cheyenne Durham MD - Last Filed: 01/09/25 08:28>
Orders/Labs/Results
Orders:
Orders
01/09/25 07:05
Electrocardiogram (*1) Urgent
Reason for Study: Atrial Fibrillation
EKG- Treatment ONCE
01/09/25 07:26
Diltiazem HCl [Cardizem] 25 mg .ROUTE .STK-MED ONE
01/09/25 07:27
Diltiazem HCl [Cardizem] 20 mg IV NOW STA
Diltiazem HCl [Cardizem] 20 mg IV NOW STA
01/09/25 07:28
Cardiac Monitoring- Treatment ONCE
0.9% Sodium Chloride 1000 ml [Nss] 1,000 ml IV BOLUS
01/09/25 07:33
Etomidate [Amidate 20 mg] 20 mg IV NOW STA
Etomidate [Amidate 20 mg] 7 mg IV NOW STA
01/09/25 07:44
ECG [Electrocardiogram (*1)] Urgent
Reason for Study: Tachycardia
EKG- Treatment ONCE
01/09/25 08:01
Complete Blood Count/With Diff Urgent
Comprehensive Metabolic Panel Urgent
Magnesium Urgent
NT-proBNP Urgent
PTT Urgent
TSH Urgent
Troponin I Urgent
01/09/25 08:25
CT Chest PE Study Urgent
Comment:
Reason For Exam: palpitions/tachy/CA hx no eliquis x 2 days
01/09/25 09:07
Echo 2D MMode Color/Doppler Routine
Reason for Study: afib w RVR
01/09/25 09:30
Diltiazem 125 mg/125 ml Nss [Cardizem] 125 mg in 125 ml IV PER PROTOCOL
Initial dose in mg/hr, then titrate:: 5
Titrate to keep:: Heart rate 80-100 bpm
Titrate by mg/hr:: 5 mg/hr
Frequency of titrations (minutes):: 15
Maximum dose in mg/hr:: 15
01/09/25 12:00
Metoprolol [Lopressor] 25 mg PO Q6
Abnormal Lab Results
01/09/25
08:01
RBC 3.81 L 10^6/uL
(4.70-6.10)
Hgb 12.9 L g/dL
(13.0-18.0)
Hct 38.7 L %
(39.0-52.0)
MCV 101.6 H fL
(80.0-94.0)
MCH 33.9 H pg
(27.0-31.0)
Absolute Lymphs (auto) 0.6 L 10^3/uL
(1.2-3.4)
Lymphocytes % 13.2 L %
(20.5-51.1)
Monocytes % 10.6 H %
(1.7-9.3)
Sodium 131 L mmol/L
(135-145)
Glucose 117 H mg/dl
(70-99)
01/09/25 08:01
01/09/25 08:01
Vital Signs
Initial and Last Documented VS:
Initial Vital Signs
Temp Pulse Resp BP Pulse Ox
98.4 F 186 18 98/63 100
01/09/25 07:07 01/09/25 07:07 01/09/25 07:07 01/09/25 07:07 01/09/25 07:07
Last Documented Vital Signs
Temp Pulse Resp BP Pulse Ox
98.4 F 123 11 115/87 99
01/09/25 07:07 01/09/25 09:50 01/09/25 09:50 01/09/25 09:50 01/09/25 09:50
<Jayjay Bridges Jr., PA-C - Last Filed: 01/09/25 10:32>
MDM/Problems Addressed
MDM/Problems Addressed:
74-year-old male presenting to the emergency department today with concerns of palpitations since last night. Initial blood pressures in the high 90s over 60s with heart rate in the 180s. Within the first few minutes of patient's assessment his
blood pressure seem to drop and worsened into the 60s over 40s. Heart rate remained in the 170s. Initial EKG was read but it was unclear whether this was supraventricular tachycardia versus rapid A-fib. Concern the patient seem to be unstable at
this time initial plan was for cardioversion. Fluids were started. After fluids were started after a few minutes while setting up for cardioversion blood pressure significantly increased with heart rate improving. It was then obvious that the
rhythm was atrial fibrillation with rapid ventricular response. Patient had stopped his for 2 days preceding today for his upcoming procedure at this point there was question whether he should be cardioverted emergently. Case was discussed with
cardiology that saw the patient at bedside that at this point recommends rate control concerning his blood pressure significant improved after fluids as well as his heart rate. Patient had significant improvement of symptoms during the ER stay.
Otherwise labs without emergent findings.
<Jayjay Bridges Jr., PA-C - Last Filed: 01/09/25 10:32>
*Critical Care Note
Total Time (30-74mins, 75-104mins- exclusive of procedures): Not Applicable
ED Attending Note
<Jayjay Bridges Jr., PA-C - Last Filed: 01/09/25 10:32>
-
Portions of this chart may have been created with voice recognition software.� Occasional wrong word or��sound alike� substitutions may have occurred due to the inherent limitations of voice recognition software.
<Cheyenne Durham MD - Last Filed: 01/09/25 08:28>
ED Attending Note
Patient seen and examined by attending physician: Yes
I performed the substantive portion of visit, reviewed & personally made and approve the management plan that is documented in note by myself or RASHEED.: Yes
ED Attending Note:
I have seen and evaluated the patient with a [id number] encounter. I have spoken to the [PA] and involved in the medical history, the physical exam, medical decision making.
Evaluation and management service: agree unless noted differently below.
Results interpretation: agree unless noted differently below.
74-year-old male with history of A-fib on Eliquis and as needed flecainide presenting to the emergency room with palpitations. Patient states that he stopped taking Eliquis 3 days ago for colorectal surgery. Last night he developed palpitations.
Some dizziness. Per chart review it appears the patient is in A-fib with RVR a few times requiring 2 emergency department cardioversions. He denies any chest pain. No shortness of breath. No nausea or vomiting. No syncopal events. No recent
illnesses. He was compliant with his Eliquis prior to this. He does follow with Dr. Campbell from cardiology.
GENERAL: in no acute distress
HEENT: normocephalic, extraocular movements intact, moist oral mucosa
NECK: normal inspection
RESPIRATORY: no respiratory distress, clear to auscultation bilaterally
CARDIOVASCULAR: Tachycardic irregularly irregular
ABDOMEN/: soft, non-distended, non-tender to palpation, no rebound or guarding
EXTREMITIES: non-tender, no edema/swelling
NEUROLOGIC: awake and alert, moves all extremities
SKIN: warm
74-year-old with history of A-fib on Eliquis and has needed flecainide presenting to the emerged from palpitation. EKG per my interpretation is a wide-complex tachycardia. Per chart review of patient's prior A-fib he does get a bundle branch block
when he is in A-fib with RVR. Will did try Valsalva maneuver at bedside that did not decrease the rate. Initially patient's blood pressure was normal and we were going to give diltiazem to slow down the heart rate and convert however he then had
worsening of his blood pressure down to the 50s. Given patient's unstable tachycardia decision was made for synchronized cardioversion. Unfortunately there was difficulty with pads and it was unable to be synchronized. During this process patient
did decrease his rate and blood pressure did improve with fluids.. My interpretation the monitor clearly did show atrial fibrillation at that time. Will repeat EKG and reach out to cardiology for further recommendations versus antiarrhythmic.
Cardiology did evaluate patient. Patient has been stable. At this time we will hold off on cardioversion. If he were to become unstable again we will proceed with cardioversion. Cardiology will reach out to colorectal surgery to discuss plans
for heparinization's post cardioversion versus leaving patient in A-fib. Per chart patient's EF has been normal. Will proceed with with fluid resuscitation.
Critical care statement: A total of 45 minutes of critical care time was provided for this patient. This includes management of unstable vital signs, evaluation of the patient at bedside, reviewing the patient's pertinent medical records, ordering
and reviewing studies, arranging urgent treatment with development of a management plan, evaluating patient's response to treatment, frequent reassessment, and discussion with consultants. This time was separate from time utilized to perform the
aforementioned documented procedures.
Discharge Plan
Departure
Patient Disposition: Admit
Date of Disposition: 01/09/25
Time of Disposition: 10:31
Admit to: Telemetry
Admit to doctor: Kei
Presentation/result/management discussed w/ accepting MD/DO: Hospitalist
Patient with high blood pressure during this ER visit?: No
Condition: Fair
Covid-19: Not Applicable
Discharge Problem:
Atrial fibrillation with RVR
Prescriptions:
No Action
levothyroxine 100 mcg Tablet
100 mcg PO DAILY
tamsulosin 0.4 mg Capsule
0.4 mg PO HS
flecainide 100 mg Tablet
100 mg PO BIDPRN PRN (Reason: high HR)
irbesartan 150 mg Tablet
150 mg PO DAILY
hydrochlorothiazide 12.5 mg Tablet
12.5 mg PO DAILY
Eliquis 5 mg Tablet
5 mg PO BID
zolpidem [Ambien] 5 mg Tablet
2.5 mg PO HSPRN PRN (Reason: sleep)
Referrals:
Connie King CRNP [Family Provider] -
Interventions
Interventions:
*Risk Screen - Suicide Last Done: 01/09/25 07:07
*General Assessment Last Done: 01/09/25 07:07
*Neglect/Abuse Screening Last Done: 01/09/25 07:07
ED- Fall Risk Assessment Last Done: 01/09/25 08:06
ED- Cardiac Assessment Last Done: 01/09/25 08:06
ED- Pulmonary Assessment Last Done: 01/09/25 08:06
Discharge Date and Time
Print Language: [place]
[2025-01-09] MEDS: NSS 1000 IV (07:36)
[2025-01-09 08:07] LABS: % Basophils 0.2 % (0-2); % Eosinophils 1.9 % (0-6); % Immature Granulocytes 0.4 % (0-0.5); % Lymphocytes 13.2 % (20.5-51.1); % Monocytes 10.6 % (1.7-9.3); % Neutrophils 73.7 % (42.2-75.2); Absolute Eosinophils 0.1 10^3/uL (0-0.7); Absolute Lymphocytes 0.6 10^3/uL (1.2-3.4); Absolute Monocytes 0.5 10^3/uL (0.1-0.6); Absolute Neutrophils 3.5 10^3/uL (1.4-6.5); Hematocrit 38.7 % (39.0-52.0); Hemoglobin 12.9 g/dL (13.0-18.0); Mean Corp Hgb Conc. 33.3 g/dL (33.0-37.0); Mean Corpuscular Hgb 33.9 pg (27.0-31.0); Mean Corpuscular Volume 101.6 fL (80.0-94.0); Nucleated Red Blood Cells % 0 % (-); Platelet Count 204 10^3/uL (130-400); Red Blood Cell Count 3.81 10^6/uL (4.70-6.10); Red Cell Dist. Width 13.7 % (11.5-14.5); White Blood Cell Count 4.8 10^3/uL (4.8-10.8)
[2025-01-09 08:18] LABS: APTT 28.1 Sec (23.4-35.0)
[2025-01-09 08:22] LABS: ALT (SGPT) 22 U/L (0-50); AST (SGOT) 28 U/L (17-59); Alkaline Phosphatase 83 U/L (38-126); Blood Urea Nitrogen 17 mg/dl (9-20); Calcium 9.2 mg/dl (8.4-10.2); Carbon Dioxide 27 mmol/L (22-30); Chloride 98 mmol/L (98-107); Glucose 117 mg/dl (70-99); Potassium 4.5 mmol/L (3.5-5.1); Sodium 131 mmol/L (135-145); Total Bilirubin 0.7 mg/dl (0.2-1.3); Total Protein 6.4 g/dl (6.3-8.2); eGFR > 60.00
[2025-01-09 08:33] LABS: NT-proBNP 841 pg/ml; Troponin I 0.024 ng/ml
--- NOTE | 2025-01-09 08:47 | CON.CAR ---
Addendum entered and electronically signed by Kuldeep Ramirez MD 01/09/25 09:11:
Anticoagulation should continue to be held due to his upcoming surgery. Plan discussed with patient's primary basic sciences dean (Dr. Campbell), CRC surgery (Dr. Santana), ER team and patient.
Original Note:
Consultation
Consultation Request
Date/Time Consultation Requested: 01/09/25 @ 7:42 AM
Date/Time Consultation Performed: 01/09/25 @ 8:00 AM
Requesting Provider: Andrea Bridges PA-C
Performing Provider: Kuldeep Ramirez MD
Reason for Consultation: afib
Medical History
-
Chief Complaint: afib w RVR
History of Present Illness:
74-year-old male with paroxysmal A fib on eliquis, HTN, mild/moderate MR and TR, mild AR, IVCD, colorectal cancer s/p chemo�with planned colectomy/colostomy on 01/11/[address] Santana. He woke up this morning with symptomatic rapid A-fib and almost
had a syncopal event. He came into the hospital because he knows what his atrial fibrillation feels like. He stopped his Eliquis on Tuesday in preparation for his colorectal surgery which is scheduled for Tuesday. On initial presentation to the ED,
HR was in the 170s and BPs dropped as low as 70s/50s. I was called urgently to bedside. With IV fluids, his HR is improved to 130s�140s and BP improved to 110s/80s. At the time of my assessment, his BP was improving. He was comfortable but had
palpitations. He denies chest pain.
Past Medical History
Past Medical History: Arrhythmias, Cancer, HTN and Valvular Disease
Family History
Family History: Reviewed & Not Pertinent
Allergies / Home Medications
Allergy/AdvReac Type Severity Reaction Status Date / Time
No Known Allergies Allergy Verified 01/09/25 07:06
�Medication �Instructions �Recorded �Confirmed �Type
apixaban 5 mg tablet (Eliquis) 5 mg PO BID 12/15/23 01/09/25 History
flecainide 100 mg tablet 100 mg PO BIDPRN PRN high HR 12/15/23 01/09/25 History
hydrochlorothiazide 12.5 mg tablet 12.5 mg PO DAILY 12/15/23 01/09/25 History
irbesartan 150 mg tablet 150 mg PO DAILY 12/15/23 01/09/25 History
levothyroxine 100 mcg tablet 100 mcg PO DAILY 12/15/23 01/09/25 History
tamsulosin 0.4 mg capsule 0.4 mg PO HS 12/15/23 01/09/25 History
zolpidem 5 mg tablet (Ambien) 2.5 mg PO HSPRN PRN sleep 01/04/25 01/09/25 History
Review of Systems
-
All other systems: Negative unless noted
Physical Exam
Vital Signs
Temp Pulse Resp BP Pulse Ox
98.4 F 140 15 117/85 99
01/09/25 07:07 01/09/25 08:00 01/09/25 08:00 01/09/25 08:00 01/09/25 08:00
Lab Results
01/09/25 08:01
01/09/25 08:01
Troponin I 0.024 ng/ml 01/09/25 08:01
Ubs-[id number]-[id number] Pept 841 pg/ml 01/09/25 08:01
Physical Exam
General: Well Developed and Well Nourished
HEENT: Normocephalic and Anicteric
Respiratory: Clear
Cardiac: S1/S2, Irregular Rhythm and Peripheral Edema (trace bilateral); Negative Murmur
Neuro: AO x 3
Impression / Plan
-
74-year-old male with paroxysmal A fib on eliquis, HTN, mild/moderate MR and TR, mild AR, IVCD, colorectal cancer s/p chemo�with planned colectomy/colostomy on 01/11/[address] Santana, who presented to ER in unstable afib w RVR.
Atrial fibrillation with RVR
-Initially he was unstable with rapid AF. HRs and BPs improved with IVF. Now that BPs have improved, we will attempt to rate control with beta-sean
-Start metoprolol tartrate 25 mg every 6 hours and uptitrate as tolerated for goal HR 110
-[id number] 3 (age x 2, hypertension)
-No plan for cardioversion (chemical or mechanical) because he cannot be on AC due to his upcoming surgery on Tuesday
-Hold flecainide for now. Once he is back in sinus rhythm, he will need to be on standing flecainide 100 mg twice daily with beta-sean
-Update echocardiogram
Colorectal cancer
-Plan discussed with Dr. Santana
-Plan is still for colectomy/colostomy on 01/11/2025 as an inpatient
Hypertension
-Hold HCTZ and irbesartan to give us blood pressure room as we attempt to get on rate control agents
Critical care time: 42 minutes, patient in unstable A-fib with RVR
Data Reviewed
-
EKG: Tracing Personally Visualized and interpreted, Discussed with Physician, Discussed with Nurse and Discussed with Patient
Medical Tests (Nuc Med, Echo etc): Report Reviewed by me and Discussed with Physician
Labs: Labs Reviewed by me, Discussed with Physician, Discussed with Nurse and Discussed with Patient
Old Records: Reviewed
Critical Care Time (in minutes): 42
[2025-01-09 09:22] LABS: TSH 2.29 uIU/ml (0.47-4.68)
[2025-01-09] MEDS: CARDIZEM 125 IV (09:40)
--- NOTE | 2025-01-09 11:27 | HPS.HSE ---
Family Physician
-
Family Physician: TAYE Kimble
Chief Complaint
-
Palpitations
History of Present Illness
Patient is a 74-year-old male with history of paroxysmal A-fib, hypertension, recently diagnosed colorectal carcinoma been in preparation for elective colorectal surgery and discontinued with Eliquis 3 days prior to presentation. In the morning
prior to presentation patient woke up with palpitations and rapid A-fib and had a presyncopal event at home. On arrival to the emergency room patient in A-fib with rapid ventricular response and hypotension. Preparations were made for
cardioversion although patient responded to IV fluid bolus with normalization of blood pressure. Initiated IV Cardizem drip and later converted to sinus rhythm. At the time my examination patient is not in distress with no complaints of chest
pain, palpitations, shortness of breath.
Additional workup in ED with CT chest PE protocol was negative for pulm embolism or parenchymal findings.
Medical History
Past Medical History
Past Medical History: Reports Arrhythmia (Paroxysmal A-fib) and HTN
Additional Past Medical History:
Colorectal adenocarcinoma
Past Surgical History: Reports None
Social History
Tobacco: Non-smoker
Alcohol: None
Drug: None
Personal:
Living: With Family
Family History
Family History: Not pertinent
Allergies / Home Medications
Allergies reflects when Allergies were last updated in [facility].
Home Medications with original date entered in [facility]
Allergy/Medication List:
Allergies
Allergy/AdvReac Type Severity Reaction Status Date / Time
No Known Allergies Allergy Verified 01/09/25 07:06
Home Medications
apixaban 5 mg tablet (Eliquis) 5 mg PO BID 12/15/23
flecainide 100 mg tablet 100 mg PO BIDPRN PRN high HR 12/15/23
hydrochlorothiazide 12.5 mg tablet 12.5 mg PO DAILY 12/15/23
irbesartan 150 mg tablet 150 mg PO DAILY 12/15/23
levothyroxine 100 mcg tablet 100 mcg PO DAILY 12/15/23
tamsulosin 0.4 mg capsule 0.4 mg PO HS 12/15/23
zolpidem 5 mg tablet (Ambien) 2.5 mg PO HSPRN PRN sleep 01/04/25
Review of Systems
-
A 12 point ROS was completed and negative except as noted: Yes
Physical Exam
Vital Signs
Vital Signs
Temp Pulse Resp BP Pulse Ox
98.4 F 94 15 118/82 100
01/09/25 07:07 01/09/25 11:15 01/09/25 11:15 01/09/25 11:10 01/09/25 11:15
Physical Exam
General: Well Developed, Well Nourished and No Apparent Distress
HEENT: NormoCephalic, Moist mucous membranes and Atraumatic
Respiratory: Clear
Cardiac: S1/S2 and Regular Rhythm; No Murmur or Rub
GI: Soft, Non Tender, Non Distended and Normal Bowel Sounds; No Organomegaly
Rectal: Deferred by Provider
Musculoskeletal: No Clubbing, No Cyanosis and No Edema
Skin: No Rash
Neuro: Nonfocal/grossly intact
Laboratory Results
-
01/09/25 08:01
01/09/25 08:01
Laboratory Results
APTT 28.1 Sec (23.4-35.0) 01/09/25 08:01
Total Bilirubin 0.7 mg/dl (0.2-1.3) 01/09/25 08:01
AST 28 U/L (17-59) 01/09/25 08:01
ALT 22 U/L (0-50) 01/09/25 08:01
Alkaline Phosphatase 83 U/L (38-126) 01/09/25 08:01
Troponin I 0.024 ng/ml 01/09/25 08:01
Impression/Plan
-
IMPRESSION:
A-fib with rapid ventricular response and hemodynamic instability
Hyponatremia
Other conditions:
Colorectal adenocarcinoma.
Hypothyroidism.
Hypertension.
BPH
PLAN:
Atrial fibrillation with rapid ventricular response and hemodynamic instability.
Hypotension improved with IV fluid bolus in ED and later converted to sinus rhythm after initiation of IV Cardizem drip
CT scan of the chest negative for pulmonary embolism.
Admitted for close cardiac monitoring.
Cardiology consulted
Update echocardiogram
Initiate flecainide 100 mg twice daily
Initiate short acting metoprolol 25 mg every 6 hours
Has been off anticoagulation with last dose of Eliquis 01/06 PM in preparation for surgery
Essential hypertension.
Hold hydrochlorothiazide and irbesartan given significant hypotension. Monitor BP trend closely
Mild hyponatremia likely in the settings of thiazide diuretic
Hold. Follow BMP. If persistent additional workup for hyponatremia including urine osmolarity
Update TSH
Colorectal carcinoma status post neoadjuvant chemotherapy per
Plan for colectomy colostomy on 01/[address] Santana
BPH
Continue Flomax with caution for hypotension
Hypothyroidism on replacement
Full code
DVT prophylaxis subcu heparin while off Eliquis
[2025-01-09] MEDS: HEPARIN 5000 UNITS SC ×2 (16:01→23:18)
[2025-01-09] MEDS: SYNTHROID 100 MCG PO (16:01)
[2025-01-09] MEDS: FLOMAX 0.4 MG PO (23:18)
--- NOTE | 2025-01-10 | PTCARENOTE ---
Pt received as admission from ED. Ambulated from stretcher to bed without difficulty. Pt placed on tele monitor reading NSR/SB with HR 40s-60s. Admission assessment completed as documented. No complaints of pain or SOB. Plan of care discussed
and pt verbalizes understanding. Can make needs known. Call barajas within reach.
[2025-01-10 06:00] VITALS: BMI 25.3
[2025-01-10 06:03] VITALS: BP 144/76
[2025-01-10] MEDS: SYNTHROID 100 MCG PO (06:12)
[2025-01-10 06:46] LABS: % Basophils 0.3 % (0-2); % Immature Granulocytes 0.3 % (0-0.5); % Lymphocytes 16.1 % (20.5-51.1); % Monocytes 11.6 % (1.7-9.3); % Neutrophils 68.7 % (42.2-75.2); Absolute Eosinophils 0.1 10^3/uL (0-0.7); Absolute Lymphocytes 0.6 10^3/uL (1.2-3.4); Absolute Monocytes 0.4 10^3/uL (0.1-0.6); Absolute Neutrophils 2.5 10^3/uL (1.4-6.5); Hematocrit 31.3 % (39.0-52.0); Hemoglobin 10.7 g/dL (13.0-18.0); Mean Corp Hgb Conc. 34.2 g/dL (33.0-37.0); Mean Corpuscular Hgb 33.6 pg (27.0-31.0); Mean Corpuscular Volume 98.4 fL (80.0-94.0); Mean Platelet Volume 9.4 fL (7.4-10.4); Nucleated Red Blood Cells % 0 % (-); Platelet Count 169 10^3/uL (130-400); Red Blood Cell Count 3.18 10^6/uL (4.70-6.10); Red Cell Dist. Width 13.7 % (11.5-14.5); White Blood Cell Count 3.6 10^3/uL (4.8-10.8)
[2025-01-10 07:02] LABS: Blood Urea Nitrogen 10 mg/dl (9-20); Calcium 8.9 mg/dl (8.4-10.2); Carbon Dioxide 24 mmol/L (22-30); Chloride 102 mmol/L (98-107); Estimated Creatinine Clearance 99 ml/min; Glucose 106 mg/dl (70-99); Potassium 4.3 mmol/L (3.5-5.1); Sodium 133 mmol/L (135-145); eGFR > 60.00
[2025-01-10 07:41] VITALS: BP 118/64
--- NOTE | 2025-01-10 08:26 | W.PN.CD ---
Addendum entered and electronically signed by Leo Coker MD 01/14/25 11:57:
atrial flutter ( atypical)
Addendum entered and electronically signed by Leo Coker MD 01/10/25 17:28:
Hide should be noted that although metoprolol was prescribed. Doses have been held due to bradycardia. Patient has a history of asymptomatic sinus bradycardia based on previous outpatient records. Heart rates in the 50s. Holding off on addition
of beta-sean.
Original Note:
Today's Communication / Plan
-
Remains in sinus rhythm.
Continue metoprolol
Remains off Eliquis due to upcoming surgery.
Overall stable to proceed with surgery as scheduled
Impression / Plan
-
74-year-old male with paroxysmal A fib on eliquis, HTN, mild/moderate MR and TR, mild AR, IVCD, colorectal cancer s/p chemo�with planned colectomy/colostomy on 01/11/[address] Santana, who presented to ER in unstable afib w RVR.
Atrial fibrillation with RVR
-Initially he was unstable with rapid AF. HRs and BPs improved with IVF.
-Patient spontaneously converted to sinus rhythm and has remained in sinus rhythm overnight
-[id number] 3 (age x 2, hypertension)
-AC on hold due to his upcoming surgery on Tuesday
-Continue beta-sean
-For now just continuing with beta-sean. Although notes reflect that there was consideration for putting patient on standing flecainide patient had suggestion of atrial flutter and decision made to just use metoprolol at this time.
-Update echocardiogram
Colorectal cancer
-Plan is still for colectomy/colostomy on 01/11/2025 as an inpatient
Hypertension
-Hold HCTZ and irbesartan to give us blood pressure room as we attempt to get on rate control agents
Physical Exam
Vital Signs/Labs
Vital Signs
Temp Pulse Resp BP Pulse Ox
98 F 47 20 118/64 97
01/10/25 07:41 01/10/25 08:00 01/10/25 07:41 01/10/25 07:41 01/10/25 07:41
01/09/25 01/10/25 01/11/25
06:59 06:59 06:59
Actual Weight 84.4 kg
01/10/25 06:08
01/10/25 06:08
APTT 28.1 Sec (23.4-35.0) 01/09/25 08:01
Magnesium 2.0 mg/dl (1.6-2.3) 01/09/25 08:01
TSH 2.29 uIU/ml (0.47-4.68) 01/09/25 08:01
01/09/25
08:01
Mvp-[id number] Pept 841
LAB Results
01/09/25
08:01
Troponin I 0.024
Physical Exam
Constitutional: No acute distress
Cardiovascular: Rhythm & rate is regular
Respiratory: Respiratory effort normal
GI: Soft
Neuro/Psych: Alert
Data Reviewed
-
Date of Service: January 10, 2025
Medical Decision Making: Reviewed Test Results
X-Ray/CT/US/MRI/NUC/PET: Report Reviewed by me
Medical Tests (PFT, Pathology etc): Report Reviewed by me
Labs: Labs Reviewed by me
[2025-01-10] MEDS: HEPARIN 5000 UNITS SC ×3 (11:21→23:52)
[2025-01-10 11:26] VITALS: BP 153/81
--- NOTE | 2025-01-10 11:29 | W.PN.HOSP.TC ---
Today's Communication/Plan
-
Cardiac monitoring
Continue metoprolol
Prep for colorectal surgery
Assessment / Plan
Assessment / Plan
IMPRESSION:
A-fib with rapid ventricular response and hemodynamic instability
Hyponatremia
Other conditions:
Colorectal adenocarcinoma.
Hypothyroidism.
Hypertension.
BPH
PLAN:
Atrial fibrillation with rapid ventricular response and hemodynamic instability.
Hypotension improved with IV fluid bolus in ED and later converted to sinus rhythm after initiation of IV Cardizem drip
CT scan of the chest negative for pulmonary embolism.
Admitted for close cardiac monitoring.
Cardiology consulted
Updated echocardiogram with LVEF 55-60%. No regional wall motion abnormalities. Mild to moderate MR. Mild TR. Pulmonary pressure 25-30 mmHg. No changes since prior study.
Has been off flecainide
Initiated on short acting metoprolol 25 mg every 6 hours
Converted and remains in sinus rhythm
[id number] 3 (age x 2, hypertension)
Has been off anticoagulation with last dose of Eliquis 01/06 PM in preparation for surgery.
With relatively low score, no clear indication for heparin bridging pending surgery on 01/11
Essential hypertension.
Hold hydrochlorothiazide and irbesartan given significant hypotension. Monitor BP trend closely
Mild hyponatremia likely in the settings of thiazide diuretic
Hold. Follow BMP. If persistent additional workup for hyponatremia including urine osmolarity
Update TSH
Colorectal carcinoma status post neoadjuvant chemotherapy
Plan for colectomy colostomy on 01/[address] Santana
BPH
Continue Flomax with caution for hypotension
Hypothyroidism on replacement
Full code
DVT prophylaxis subcu heparin while off Eliquis
Anticipated Discharge: > 48 hours
Subjective/Interval History
-
Date of Service: January 10, 2025
Objective Data
-
Labs:
Laboratory Results
01/10/25
06:08
WBC 3.6 L
Hgb 10.7 L
Hct 31.3 L
Plt Count 169
Sodium 133 L
Potassium 4.3
Chloride 102
Carbon Dioxide 24
BUN 10
Creatinine 0.7
Glucose 106 H
Calcium 8.9
Vital Signs:
Vital Signs
Temp Pulse Resp BP Pulse Ox
98.1 F 47 20 118/64 99
01/10/25 11:26 01/10/25 08:00 01/10/25 11:26 01/10/25 07:41 01/10/25 11:26
Physical Exam
-
General: Well Developed and No Apparent Distress
HEENT: Normocephalic, Atraumatic and Moist Mucous Membranes
Respiratory: Clear to Auscultation
Cardiac: Regular Rhythm and S1/S2; Negative Murmur, Rub or Gallop
GI: Soft, Nontender, Nondistended and Normal Bowel Sounds; Negative Organomegaly
Rectal: Deferred by Provider
Musculoskeletal: No Clubbing, No Cyanosis and No Edema
Skin: Negative Rash
Neuro: Nonfocal/Grossly Intact
--- NOTE | 2025-01-10 12:29 | CM ---
spoke to pt in room, he is pre vindep, he cares for his at home. he lives in [place] at [facility]. his [facility] in [facility]. the plan is for colorectal surgery 01/11- pt admitted with bj FIGUEROA and plan is to
stay for his surgery. dc plan is undetermined at this time, cm to re-eval after surgery.
--- NOTE | 2025-01-10 13:09 | PN.CDI ---
CDI
- -
CDI:
Physician Documentation Request
Admit Date: 01/09/25 12:02
Dear Doctor Sheela,
Patient admitted with Atrial fibrillation with RVR.
Cardiology note states '....patient had suggestion of atrial flutter and decision made to just use metoprolol at this time'
Please provide further specificity regarding atrial flutter:
Typical Atrial Flutter - Type I: Classic or common atrial flutter, Rate is 240-340 beats/min. Usually responds to atrial pacing.
Atypical Atrial Flutter - Type II: Less common and more unstable. Rate is 340-440 beats/min. Less responsive to atrial pacing.
Other - please specify
Use of terms such as suspected, likely, concern for, or probable (associated with a specific diagnosis that is being evaluated, monitored, or treated as if it exists) are acceptable and can be coded in the inpatient setting, when documented at the
time of discharge.
Thank you,
Rhonda Bliss RN, BSN
CDI Specialist
tiger text
Please use your independent medical judgment in providing your response.
--- NOTE | 2025-01-10 13:35 | CON.CRS ---
Consultation
-
Date/Time Consultation Requested: 01/10/2025, 09:00
Date/Time Consultation Performed: 01/10/2025, 09:00
Requesting Provider: Jason Gomez MD
Performing Provider: Stanton Paredes MD
Reason for Consultation: Anal adenocarcinoma
Medical History
-
Chief Complaint: Atrial fibrillation
History of Present Illness:
74-year-old male presents to [place] ER complaining of rapid A-fib and a presyncopal event at home. He was in rapid A-fib in the ER and hypotension. The patient responded to IV fluids and his blood pressure normalized. An IV Cardizem drip was
started and he converted to sinus rhythm. The patient has a known anal adenocarcinoma and was scheduled for APR with Dr. Santana tomorrow.
Past Medical History
Past Medical History: Arrhythmias (Atrial fibrillation), HTN and Hypothyroidism
Social History
Tobacco: Non-Smoker
Alcohol: None
Drug: None
Personal:
Family History
Family History: Reviewed & Not Pertinent
Allergies / Home Medications
Allergy/AdvReac Type Severity Reaction Status Date / Time
No Known Allergies Allergy Verified 01/09/25 07:06
�Medication �Instructions �Recorded �Confirmed �Type
apixaban 5 mg tablet (Eliquis) 5 mg PO BID Blood Clot 12/15/23 01/09/25 History
Prevention/Tx
flecainide 100 mg tablet 100 mg PO BIDPRN PRN high HR 12/15/23 01/09/25 History
hydrochlorothiazide 12.5 mg tablet 12.5 mg PO DAILY Fluid 12/15/23 01/09/25 History
Retention/Swelling
irbesartan 150 mg tablet 150 mg PO DAILY Blood Pressure 12/15/23 01/09/25 History
levothyroxine 100 mcg tablet 100 mcg PO DAILY Thyroid 12/15/23 01/09/25 History
tamsulosin 0.4 mg capsule 0.4 mg PO HS Urinary Issue 12/15/23 01/09/25 History
zolpidem 5 mg tablet (Ambien) 2.5 mg PO HSPRN PRN sleep 01/04/25 01/09/25 History
Review of Systems
-
History Source: Patient
All other systems: Negative unless noted
Cardiac: Palpitations
A 10 point review of systems was completed, and was negative except as per HPI.
Physical Exam
Vital Signs
Temp 98.1 F 01/10/25 11:26
Pulse 51 01/10/25 11:26
Resp Rate 20 01/10/25 11:26
Blood pressure 153/81 01/10/25 11:26
SaO2 99 01/10/25 11:26
01/09/25 01/10/25 01/11/25
06:59 06:59 06:59
Actual Weight 84.4 kg
Body Mass Index (BMI) 25.3
Lab Results / Allergies
01/10/25 06:08
01/10/25 06:08
WBC 3.6 10^3/uL (4.8-10.8) L 01/10/25 06:08
Hgb 10.7 g/dL (13.0-18.0) L 01/10/25 06:08
Hct 31.3 % (39.0-52.0) L 01/10/25 06:08
Plt Count 169 10^3/uL (130-400) 01/10/25 06:08
Abs Immat Gran (auto) 0.0 10^3/uL (0-0.05) 01/10/25 06:08
Neutrophils % 68.7 % (42.2-75.2) 01/10/25 06:08
Allergy/AdvReac Type Severity Reaction Status Date / Time
No Known Allergies Allergy Verified 01/09/25 07:06
Physical Exam
General: Well Developed, Well Nourished and No Apparent Distress
GI: Soft, Non Tender and Non Distended
Skin: Warm and Dry
Neuro: AO x 3
Psych: Calm
Data Reviewed
-
Labs: Labs Reviewed by me, Discussed with Physician and Discussed with Patient
Old Records: Reviewed
Assessment / Plan
-
Assessment: 74-year-old male with known adenocarcinoma of the anus presents to [facility] in rapid A-fib which has resolved
Plan:
-Cardiology has seen the patient and states he is stable to proceed with the surgery as scheduled tomorrow
-Remains off of Eliquis
-Preop orders in place
-Bowel prep today, clear liquids, n.p.o. at midnight
-APR tomorrow with Dr. Santana
[2025-01-10] MEDS: FLAGYL 1000 MG PO ×3 (14:00→23:53)
[2025-01-10] MEDS: NEOMYCIN 1000 MG PO ×3 (14:00→23:53)
[2025-01-10] MEDS: NON-FORMULARY ITEM 1 BOX PO (15:33)
[2025-01-10 15:56] VITALS: BP 152/76
[2025-01-10 15:58] VITALS: BP 152/76
--- NOTE | 2025-01-10 16:00 | WOUNDNOTE ---
[facility] RN NOTE: Patient visited for stoma siting. Plan is for APR on 01/11. Patient declined ostomy teaching and would like to wait until after surgery. Stoma sited x 4 quadrants. The rectus muscle was identified and care was taken to avoid creases and
folds. Patient made aware that the surgeon will make final determination for ostomy location. TT Dr. Santana after siting and recommended higher stoma. Will follow with patient for post-op ostomy teaching and pouch change on 01/14.
--- NOTE | 2025-01-10 16:23 | W.PN.UPDATE ---
Update Note
Progress Note Update
Per Dr. Coker (who saw patient this AM), with patient history of bradycardia and metoprolol being held here for HR, he recommends holding off on metoprolol at this time- I will stop. Tele SR in 50's-60's here. Nursing made aware.
[2025-01-10 18:48] VITALS: BP 148/80
--- NOTE | 2025-01-10 19:15 | PTCARENOTE ---
Pt denies any discomfort. Telemetry shows sinus rhythm at rate of 40's when he is resting, up to 60 with activity. No metr=oprolol given due to low heart rates, aware and metoprolol was DC'd. Pt had @10 seconds af atrial tach at a rate of
135 when rushing to the bathroom. Pt stated preference for his home surgical bowel prep of 'Almanza tabs', Dr. Santana notified and pt is tolerating that prep. Pt currently reports passing yellow liquid watery stools. Plan for OR tomorrow.
--- NOTE | 2025-01-10 22:00 | PTCARENOTE ---
Pt remains SR/SB on tele with HR 50s-60s. No complaints of SOB or pain. Pt completed box of Almanza tabs per order and continues with frequent liquid stool that is yellow in color. Pt remains on clear liquid diet at this time and understands plan of
care for surgery prep tonight and to be NPO at midnight for procedure in AM. Antibiotics administered per orders, see MAR. Ambulating independently in room without difficulty. Can make needs known. Call barajas within reach.
[2025-01-10] MEDS: FLOMAX 0.4 MG PO (23:53)
[2025-01-11] VITALS (16 sets, daily range): BP systolic 5–156; BP diastolic 64–84; BMI 25.5
[2025-01-11] MEDS: HEPARIN 5000 UNITS SC (06:35)
[2025-01-11] MEDS: SYNTHROID 100 MCG PO (06:35)
[2025-01-11] MEDS: ENTEREG 12 MG PO (06:35)
[2025-01-11] MEDS: TYLENOL 1000 MG PO ×2 (06:35→19:57)
--- NOTE | 2025-01-11 16:15 | W.IMMPOSTOP ---
Surgical Immed Post Op Note
-
Primary Surgeon: LESA Ochoa MD
Assisting Surgeon:
Pre-op Diagnosis: Colorectal cancer, h/o radiation
Post-op Diagnosis: Same
Procedure Performed: Vertical rectus myocutaneous flap for perineal reconstruction
Anesthesia Type: General
Specimen / Cultures: Per colorectal
Estimated Blood Loss: 10cc
Complications: None
Operative Findings: As expected
--- NOTE | 2025-01-11 16:19 | OR.RPT ---
Operative Report
Operative Report
Date of surgery: 01/11/2025
Surgeon: LESA Ochoa MD
Preoperative diagnosis: Colorectal cancer, history of radiation
Postoperative diagnosis: Same
Procedure:
1. Vertical rectus myocutaneous flap
2. Repair initial incisional hernia
3. Adjacent tissue transfer 10 x 25 cm
Anesthesia: General
EBL: 10 cc
Complications: None
Specimens: Per colorectal surgery
Indications for procedure: Patient is a 74-year-old male with a history of colorectal cancer. He underwent previous radiation therapy approximately 8 months ago. His colorectal surgeon recommended an APR which would result in a large perineal
defect. As such I was asked to be involved for the reconstructive portion of the case. We discussed both a vertical rectus abdominis myocutaneous flap as well as gracilis flaps for closure. Given the history of radiation anticipated skin defect,
we will plan to use the VRAM as a primary reconstructive modality. Risk of the procedure including hernia, flap loss or failure, wound healing issues and need for repeat procedure reviewed at length. Normal surgical risk applied including hematoma
seroma and delayed wound healing. He understood these risk desire to proceed
Procedure in detail: Patient was identified preoperatively and the surgical sites were confirmed. With the patient supine on the table I was able to stevie the vertical rectus myocutaneous flap for the colorectal surgeon. We then planned his
laparoscopy sites to allow for the robotic assisted APR. Timeout for patient safety was performed was confirmed that preoperative antibiotics have been administered and SCDs were in place. Patient was prepped and draped in usual sterile fashion
with ChloraPrep. Dr. Max Paredes began their portion of the case and their op report will be dictated separately.
When I entered the procedure, there was a large peritoneal defect where the anus and rectum had been removed. This was measured and a template was made which was then transposed to the abdominal wall. The markings were confirmed in the abdomen was
reprepped with Betadine. The markings were incised with a 15 blade and dissection continued down to the anterior fascia with Bovie electrocautery. Care was taken to delineate the medial and lateral row perforators from the deep inferior epigastric
system. Careful dissection was performed to limit the fascial defect and allow for primary repair of the inevitable incisional hernia. The fascia was split at the edge of the medial perforators and dissection could carried down along the rectus
muscle to the posterior fascia. Dissection was continued around the rectus muscle identifying the deep inferior epigastric artery and vein and ensuring it was protected. The lateral fascial incision was then made and dissection continued on the
lateral aspect of the muscle. Once the muscles freed circumferentially the superior continuation of the rectus was divided. This allowed for the flap to be lifted up into the air and adequately transposed into the pelvic defect. Posterior rectus
sheath remained intact to the level of the arcuate line. At this point in time Dr. Santana performed a laparotomy to get into the abdomen. The bowel was clear from the pelvis and the flap was transposed into the perineal defect without undue tension
or kinking of the pedicle. The amount of skin that was required was then marked out and the flap was de-epithelialized accordingly with scissors. The flap was inset with a series of 0 Vicryl followed by 2-0 Vicryl running. A deep drain was left
in the pelvis. Looking at the abdominal wall donor site, an incisional hernia repair would need to be performed with reapproximation of the peritoneum as well as posterior and anterior sheath. These were all able to be performed primarily. An
adjacent tissue transfer was then performed to allow for adequate mobilization of the skin flap based on the lateral intercostal perforators. This included wide undermining and a backcut to avoid skin redundancy were needed. Kale's was closed
over a drain with 2-0 Vicryl. INSORB stapler was used in the deep dermis and then a 3 oh barbed suture was used in the skin.
After inset, the flap is well-perfused without evidence of venous congestion. Dr. Santana concluded the case performing a left lower quadrant ostomy. All counts were correct at the end the case. Patient tolerated the procedure well and was
performed out complication.
--- NOTE | 2025-01-11 17:14 | W.PN.HOSP.TC ---
Today's Communication/Plan
-
Postoperative care as per surgery.
Monitor A-fib rate and rhythm, monitor for bradycardia.
Has been off Eliquis prior to presentation in preparation for surgical intervention.
Assessment / Plan
Assessment / Plan
IMPRESSION:
A-fib with rapid ventricular response and hemodynamic instability
Hyponatremia
Other conditions:
Colorectal adenocarcinoma.
Hypothyroidism.
Hypertension.
BPH
PLAN:
Status post robotic APR with perineal reconstruction on 01/11
Postoperative care as per surgery
Presented with atrial fibrillation with rapid ventricular response and hemodynamic instability.
Hypotension improved with IV fluid bolus in ED and later converted to sinus rhythm after initiation of IV Cardizem drip
CT scan of the chest negative for pulmonary embolism.
Admitted for close cardiac monitoring.
Cardiology consulted
Updated echocardiogram with LVEF 55-60%. No regional wall motion abnormalities. Mild to moderate MR. Mild TR. Pulmonary pressure 25-30 mmHg. No changes since prior study.
Has been off flecainide
Initiated on short acting metoprolol 25 mg every 6 hours
Converted and remains in sinus rhythm
[id number] 3 (age x 2, hypertension)
Has been off anticoagulation with last dose of Eliquis 01/06 PM in preparation for surgery.
With relatively low score, no clear indication for heparin bridging pending surgery on 01/11
Essential hypertension.
Hold hydrochlorothiazide and irbesartan given significant hypotension. Monitor BP trend closely
Mild hyponatremia likely in the settings of thiazide diuretic
Hold. Follow BMP. If persistent additional workup for hyponatremia including urine osmolarity
Update TSH
BPH
Continue Flomax with caution for hypotension
Hypothyroidism on replacement
Full code
DVT prophylaxis subcu heparin while off Eliquis
Anticipated Discharge: > 48 hours
Subjective/Interval History
-
Date of Service: January 11, 2025
Objective Data
-
Vital Signs:
Vital Signs
Temp Pulse Resp BP Pulse Ox
97.7 F 64 16 145/84 100
01/11/25 05:43 01/11/25 05:52 01/11/25 05:43 01/11/25 05:52 01/11/25 05:43
I&O
01/10/25 01/11/25 01/12/25
06:59 06:59 06:59
Intake Total 1500 / 1500
Output Total 0 / 0
Balance 1500 / 1500 0 / 0
Physical Exam
-
General: Well Developed and No Apparent Distress
HEENT: Normocephalic, Atraumatic and Moist Mucous Membranes
Respiratory: Clear to Auscultation
Cardiac: Regular Rhythm and S1/S2; Negative Murmur, Rub or Gallop
GI: Soft, Nontender, Nondistended and Normal Bowel Sounds; Negative Organomegaly
Rectal: Deferred by Provider
Musculoskeletal: No Clubbing, No Cyanosis and No Edema
Skin: Negative Rash
Neuro: Nonfocal/Grossly Intact
--- NOTE | 2025-01-11 17:23 | W.IMMPOSTOP ---
Surgical Immed Post Op Note
-
Primary Surgeon: Chester Santana MD
Assisting Surgeon: Stanton Paredes MD
Co-surgeon:
-Dr. Cj Morales - urology
-Dr. Mason Ochoa - plastics
Pre-op Diagnosis: Anal adenocarcinoma
Post-op Diagnosis: Anal adenocarcinoma
Procedure Performed: Robotic APR, creation of end colostomy, exclusion of the pelvis, laparoscopic TAP block; cystoscopy with bilateral ureteral stents by urology; VRAM reconstruction of perineal wound by plastics
Anesthesia Type: General
Specimen / Cultures: Sigmoid rectum and anus
Estimated Blood Loss: 100 mL
IVF: 3.8 L
UOP: 400 mL
Complications: None
Operative Findings: Dr. Morales performed cysto and stent placement without concerning findings; marked out likely flap and port sites with Dr. Ochoa; veress needle entry and placement of 4 robotic ports with assist port; mobilized sigmoid from
medial to lateral and lateral to medial; identified left ureter on firefly; ligated SHAYLA and high ligation fashion; mobilized sigmoid up to the mid descending colon; the sigmoid colon was redundant; performed total mesorectal excision, starting
posteriorly, taking the lateral stalks, then working anteriorly; simultaneously, Dr. Paredes worked from a transperineal approach; he created an incision around the external sphincters, starting posteriorly and dissecting laterally than anteriorly, it
taking care to include the anal cancer with good margins; meanwhile, injected ICG to select my transection point in the entire colon remained well-perfused; I ligated the mesentery up to the mid sigmoid colon starting from the SHAYLA pedicle; I came
across the IMV during this dissection and ligated this with the vessel sealer; after the mesentery was divided, I performed another ICG injection and my proposed transection point was well-perfused; I stapled the mid sigmoid colon with a blue load
of the 60 mm robotic stapler; I turned back to the pelvis and I met the transperineal approach posteriorly at the level of the coccyx; Dr. Paredes then incised the anal sphincter complex circumferentially and the specimen was removed; hemostasis was
assured; I performed a laparoscopic tap block and closed the RLQ 12 mm port site with the Leroy Michaud and an 0 Vicryl; I closed the port site incisions with 4-0 Monocryl in a running fashion; Dr. Ochoa then harvested his VRAM flap; while he
sutured the flap in place at the perineal defect, I placed a 19 [place] Frank drain in the RLQ and directed this into the pelvis; I excluded the pelvis by reapproximating the edges of the peritoneum, starting at the superior aspect of the pelvis and
then running this to the sacral promontory and sewing this to the fascia of the sacral promontory; I brought up the end sigmoid colostomy at the left mid abdominal ostomy marking site; I closed the abdominal wall in layers; I closed the posterior
fascia with 0 PDS starting from the arcuate line and up to its superior extent at the level of the umbilicus; I closed the remaining anterior fascia to the midline with a running 0 PDS starting from the inferior aspect and ending at the superior
aspect; this easily came together without undue tension; placed a another Frank drain in the RLQ and threaded this into the subcutaneous space; closed the Kale's fascia with interrupted 0 Vicryl's; closed the skin with the insorb skin stapler and
running 4-0 Monocryl; covered the Ferrell's point incision and RLQ port site with Dermabond; I matured the ostomy in a Angeles fashion; the ostomy appliance was placed and the Aquacel was placed over the midline incision
Rectal Cancer Synoptic Report
Cancer Report
ASA Score: II
Case Status: Elective
Operation: Abdominoperineal resection
Modailty: Robotic
Location of tumor within rectum: Low
Height of lower edge of tumor from anal verge: 2cm
Mobilization of splenic flexure: No
Level of ligation of inferior mesenteric artery: Inferior mesenteric artery
Level of ligation of inferior mesenteric vein: Low
Level of rectal transectiondistal to distal edge of tumor: n/a
Type of Reconstruction: None (n/a)
Anastomotic testing method(s): None (n/a)
Creation of stoma: Colostomy
En bloc resection: No
Metastectomy: No
Completeness of tumor resection: R0
Interoperative Complications: No
Blood transfusion: No
Total Mesorectal Excision photographed: in operative report
[2025-01-11] MEDS: NORMOSOL-R/PLASMALYTE-A 1000 IV (18:17)
[2025-01-11] MEDS: TORADOL 15 MG IV (19:57)
[2025-01-11] MEDS: HEPARIN SC ×2 (19:58)
[2025-01-11] MEDS: FLOMAX 0.4 MG PO (21:48)
[2025-01-12] VITALS (7 sets, daily range): BP systolic 118–165; BP diastolic 57–81; PULSE 58–61; O2SAT 98; BMI 25.5
[2025-01-12] MEDS: TORADOL 15 MG IV ×4 (00:26→17:15)
[2025-01-12] MEDS: TYLENOL 1000 MG PO ×4 (00:26→23:05)
[2025-01-12] MEDS: HEPARIN 5000 UNITS SC ×4 (00:27→23:04)
[2025-01-12] MEDS: SYNTHROID 100 MCG PO (05:59)
[2025-01-12 07:46] LABS: % Immature Granulocytes 0.4 % (0-0.5); % Lymphocytes 6.6 % (20.5-51.1); Absolute Lymphocytes 0.5 10^3/uL (1.2-3.4); Absolute Neutrophils 6.6 10^3/uL (1.4-6.5); Hematocrit 30.5 % (39.0-52.0); Hemoglobin 10.4 g/dL (13.0-18.0); Mean Corp Hgb Conc. 34.1 g/dL (33.0-37.0); Mean Corpuscular Hgb 33.3 pg (27.0-31.0); Mean Corpuscular Volume 97.8 fL (80.0-94.0); Mean Platelet Volume 9.2 fL (7.4-10.4); Nucleated Red Blood Cells % 0 % (-); Platelet Count 177 10^3/uL (130-400); Red Blood Cell Count 3.12 10^6/uL (4.70-6.10); Red Cell Dist. Width 13.9 % (11.5-14.5); White Blood Cell Count 8.1 10^3/uL (4.8-10.8)
[2025-01-12] MEDS: NORMOSOL-R/PLASMALYTE-A 1000 IV ×2 (08:19→17:41)
[2025-01-12] MEDS: ENTEREG 12 MG PO ×2 (08:20→20:08)
[2025-01-12 08:25] LABS: Blood Urea Nitrogen 15 mg/dl (9-20); Calcium 8.2 mg/dl (8.4-10.2); Carbon Dioxide 21 mmol/L (22-30); Chloride 101 mmol/L (98-107); Estimated Creatinine Clearance 77 ml/min; Glucose 103 mg/dl (70-99); Magnesium 2.1 mg/dl (1.6-2.3); Potassium 4.1 mmol/L (3.5-5.1); Sodium 131 mmol/L (135-145); eGFR > 60.00
--- NOTE | 2025-01-12 08:56 | PTCARENOTE ---
pt RT ERVIN drain A has put out 170mls sanguineous while doing care, His VRAM flap has drainage, his blue sheet was heavily saturated. notified Dr. Spain and then POWERHOUSE ENGINEER Tonya Bhakta
[2025-01-12] MEDS: NSS 500 IV ×2 (10:25→18:36)
--- NOTE | 2025-01-12 11:03 | W.PN.CD ---
Today's Communication / Plan
-
Hold rate/rhythm control agents for now
Resume AC when safe from a surgical perspective
Impression / Plan
-
74-year-old male with paroxysmal A fib on eliquis, HTN, mild/moderate MR and TR, mild AR, IVCD, anal adenocarcinoma s/p chemo�with planned colectomy/colostomy on 01/11/[address] Santana, who presented to ER in unstable afib w RVR, now back in sinus
rhythm s/p colectomy/colostomy on 01/11/25.
Atrial flutter/fibrillation with RVR, resolved
-Initially he was unstable with rapid AFib/flutter. HRs and BPs improved with IVF. Patient spontaneously converted to sinus rhythm and has remained in sinus rhythm
-[id number] 3 (age x 2, hypertension)
-AC on hold for recent surgery. Resume when safe from a surgical perspective.
-Beta-sean had to be stopped due to bradycardia
-Was on flecainide as needed prior to admission. Will review plan for home meds with Dr. Campbell prior to discharge. May not use flecainide as he had atrial flutter this admission
-No rate/rhythm control agents for now
Anal adenocarcinoma
-Status post surgical correction on 01/11/2025
-Routine postoperative care per colorectal surgery
Hypertension
-Hold HCTZ and irbesartan for now. BPs have been normal.
Subjective: Feeling okay after surgery. No CV complaints. No recurrent atrial fibrillation on telemetry.
Physical Exam
Vital Signs/Labs
Vital Signs
Temp Pulse Resp BP Pulse Ox
98.2 F 65 16 132/64 98
01/12/25 07:15 01/12/25 07:15 01/12/25 07:15 01/12/25 07:15 01/12/25 07:15
01/11/25 01/12/25 01/13/25
06:59 06:59 06:59
Actual Weight 85.275 kg
01/12/25 07:22
01/12/25 07:22
APTT 28.1 Sec (23.4-35.0) 01/09/25 08:01
Magnesium 2.1 mg/dl (1.6-2.3) 01/12/25 07:22
TSH 2.29 uIU/ml (0.47-4.68) 01/09/25 08:01
01/09/25
08:01
Jme-K-[id number] Pept 841
Physical Exam
Constitutional: No acute distress and Comfortable
Cardiovascular: Rhythm & rate is regular, Pedal edema is absent, S1S2 is normal and Murmur/rub/gallop absent
Respiratory: Respiratory effort normal
Neuro/Psych: AO x 3
Data Reviewed
-
Date of Service: January 12, 2025
Medical Decision Making: Reviewed Test Results, Independent Historian Assessment, Test Interpretation and Review of Case with other Provider
EKG: Tracing Personally Visualized and interpreted
Echo: Report Reviewed by me
Labs: Labs Reviewed by me
[2025-01-12] MEDS: DILAUDID 0.5 MG IV ×3 (11:35→20:16)
--- NOTE | 2025-01-12 12:02 | W.PN.HOSP.TC ---
Today's Communication/Plan
-
Monitor vital signs see plan
Trial of clears
Restart Eliquis once okay with surgery
Monitor sodium
Assessment / Plan
Assessment / Plan
IMPRESSION:
A-fib with rapid ventricular response and hemodynamic instability
Hyponatremia
Other conditions:
Colorectal adenocarcinoma.
Hypothyroidism.
Hypertension.
BPH
PLAN:
Status post robotic APR with perineal reconstruction on 01/11
Postoperative care as per surgery
Trial of clears
Pain control
Monitor bowel function
Presented with atrial fibrillation with rapid ventricular response and hemodynamic instability.
Hypotension improved with IV fluid bolus in ED and later converted to sinus rhythm after initiation of IV Cardizem drip
CT scan of the chest negative for pulmonary embolism.
Admitted for close cardiac monitoring.
Cardiology consulted
Updated echocardiogram with LVEF 55-60%. No regional wall motion abnormalities. Mild to moderate MR. Mild TR. Pulmonary pressure 25-30 mmHg. No changes since prior study.
Has been off flecainide
Was initially started on metoprolol however then was bradycardic. Now rate controlled off metoprolol. Monitor
Converted and remains in sinus rhythm
[id number] 3 (age x 2, hypertension)
Has been off anticoagulation with last dose of Eliquis 01/06 PM in preparation for surgery. Restart Eliquis once okay with surgery
With relatively low score, no clear indication for heparin bridging pending surgery on 01/11
Essential hypertension.
Hold hydrochlorothiazide and irbesartan given significant hypotension. Monitor BP trend closely
Mild hyponatremia likely in the settings of thiazide diuretic
Hold. Follow BMP. If persistent additional workup for hyponatremia including urine osmolarity
Update TSH
BPH
Continue Flomax with caution for hypotension
Hypothyroidism on replacement
Full code
DVT prophylaxis subcu heparin while off Eliquis
General: Well Developed and No Apparent Distress
HEENT: Normocephalic, Atraumatic and Moist Mucous Membranes
Respiratory: Clear to Auscultation
Cardiac: Regular Rhythm and S1/S2; Negative Murmur, Rub or Gallop
GI: Soft, Nontender, Nondistended,+ drain
Musculoskeletal: No Edema
Skin: Negative Rash
Neuro: Nonfocal/Grossly Intact
Anticipated Discharge: > 48 hours
Subjective/Interval History
-
Date of Service: January 12, 2025
Denies nausea
Objective Data
-
Labs:
Laboratory Results
01/12/25
07:22
WBC 8.1
Hgb 10.4 L
Hct 30.5 L
Plt Count 177
Sodium 131 L
Potassium 4.1
Chloride 101
Carbon Dioxide 21 L
BUN 15
Creatinine 0.9
Glucose 103 H
Calcium 8.2 L
Vital Signs:
Vital Signs
Temp Pulse Resp BP Pulse Ox
98.2 F 60 14 118/57 98
01/12/25 11:05 01/12/25 11:05 01/12/25 11:05 01/12/25 11:05 01/12/25 11:05
I&O
01/11/25 01/12/25 01/13/25
06:59 06:59 06:59
Intake Total 1500 / 1500 800 / 800 1080 / 1080
Output Total 540 / 540 445 / 445
Balance 1500 / 1500 260 / 260 635 / 635
--- NOTE | 2025-01-12 13:22 | W.PN.CRS1 ---
Today's Communication / Plan
-
Clear liquids
Pain management
Assessment/Plan
-
74 yo male with a h/o pAfib (Phylicia held) anal adenocarcinoma s/p XRT and DEIDRE now POD #1 Robotic APR, creation of end colostomy, exclusion of the pelvis, laparoscopic TAP block; cystoscopy with bilateral ureteral stents by urology; VRAM
reconstruction of perineal wound by plastics
AFVSS
Labs stable post op
Cardiology for presyncope pre op, appreciate recs
ERVIN A (pelvic) with SSF, higher outputs expected. ERVIN B (SQ space) with light SSF
Stoma with mild edema/pink and some flatus in appliance
Low UO, suspect hypovolemic. Final stent removed at bedside with keita continued
--Continue keita, follow UO. Void trial in AM
--IVF bolus this am and increased IVF to 100ml/hr
--Continue clear liquids
--Continue with both drains
--Analgesics schedueld and prn
--Entereg while inpatient
--OOB/ambulate. PT eval. Avoid prolonged sitting.
--Ok for heparin SQ for VTE ppx, hold full AC until 48-72 hours post op
Medical management as per primary team
Subjective Data
Procedure
01/11/25
Max:
Robotic APR, creation of end colostomy, exclusion of the pelvis, laparoscopic TAP block
Andrew:
Cystoscopy, Placement of bilateral open-ended ureteral catheters, Installation of ICG green via each open-ended ureteral catheter.
Paliga:
Vertical rectus myocutaneous flap, Repair initial incisional hernia, Adjacent tissue transfer 10 x 25 cm
Subjective Data
Date of Service: January 12, 2025
Patient seen and examined at bedside with Dr. Paredes. Denies n/v. Post op discomfort present but manageable. Some flatus from stoma.
Objective Data
-
Vital Signs
Temp Pulse Resp BP Pulse Ox
98.2 F 60 14 118/57 98
01/12/25 11:05 01/12/25 11:05 01/12/25 11:05 01/12/25 11:05 01/12/25 11:05
Intake & Output
01/11/25 01/12/25 01/13/25
06:59 06:59 06:59
Intake Total 1500 / 1500 800 / 800 1080 / 1080
Output Total 540 / 540 445 / 445
Balance 1500 / 1500 260 / 260 635 / 635
Intake:
Oral fluids 1500 / 1500 480 / 480
IV fluids (Total) 800 / 800 600 / 600
Normosol 200 / 200
Output:
Drain Output (Total) 190 / 190 350 / 350
Left Abdomen Alberto-Martinez A 145 / 145 330 / 330
Left Abdomen Alberto-Martinez B 45 / 45 20 / 20
Urinary Drain Output (Total) 0 / 0
Left Ureteral stent 0 / 0
Right Ureteral stent 0 / 0
Urine, Keita 350 / 350 95 / 95
Lab Results
01/12/25 07:22
01/12/25 07:22
Physical Exam
-
General: No Acute Distress
HEENT: Grossly Normal
Abdomen: Soft, Distended (very minimal) and Other (stoma pink some edema: some air/bowel sweat in appliance. Keita with roly urine, final stent removed)
Rectal: Other (flap edges well approximated, flap itself is pink and without areas of necrosis)
Skin: Warm and Dry
Incision: Clear, Dry, Intact and Other (ERVIN A (pelvic) SSF, ERVIN B (SQ) SSF)
[2025-01-12] MEDS: TYLENOL PO (17:18)
--- NOTE | 2025-01-12 17:31 | W.PN.UPDATE ---
Update Note
Progress Note Update
saw patient and updated him on how the surgery went; urine output low (~75mL for 6 hours), stopped toradol, cont IVF, may need renal U/S and urine lytes in AM if persists; ERVIN-serosang, ostomy pink with flatus, no stool, mildly distended; cont clears
--- NOTE | 2025-01-12 18:34 | PTCARENOTE ---
1730: notified that since 500ml bolus at 1030 (when there was 95mls of UOP) he has only put out 110mls tea color urine. Dr. Santana stopped by while nurse was emptying drains, he d/c Toradol for kidney component . additional 500ml bolus
ordered
[2025-01-12] MEDS: FLOMAX 0.4 MG PO (23:04)
[2025-01-13] VITALS (7 sets, daily range): BP systolic 122–177; BP diastolic 66–92; PULSE 57; O2SAT 98; BMI 26.6
[2025-01-13 05:38] LABS: % Basophils 0.2 % (0-2); % Eosinophils 2.2 % (0-6); % Immature Granulocytes 0.2 % (0-0.5); % Lymphocytes 10.9 % (20.5-51.1); % Monocytes 11.8 % (1.7-9.3); % Neutrophils 74.7 % (42.2-75.2); Absolute Eosinophils 0.1 10^3/uL (0-0.7); Absolute Lymphocytes 0.5 10^3/uL (1.2-3.4); Absolute Monocytes 0.5 10^3/uL (0.1-0.6); Absolute Neutrophils 3.4 10^3/uL (1.4-6.5); Hematocrit 28.4 % (39.0-52.0); Hemoglobin 9.4 g/dL (13.0-18.0); Mean Corp Hgb Conc. 33.1 g/dL (33.0-37.0); Mean Corpuscular Hgb 33.2 pg (27.0-31.0); Mean Corpuscular Volume 100.4 fL (80.0-94.0); Mean Platelet Volume 9.6 fL (7.4-10.4); Nucleated Red Blood Cells % 0 % (-); Platelet Count 146 10^3/uL (130-400); Red Blood Cell Count 2.83 10^6/uL (4.70-6.10); Red Cell Dist. Width 13.8 % (11.5-14.5); White Blood Cell Count 4.6 10^3/uL (4.8-10.8)
[2025-01-13] MEDS: SYNTHROID 100 MCG PO (05:59)
[2025-01-13] MEDS: TYLENOL 1000 MG PO ×4 (06:00→23:04)
[2025-01-13] MEDS: NORMOSOL-R/PLASMALYTE-A 1000 IV (06:01)
[2025-01-13] MEDS: DILAUDID 0.5 MG IV ×2 (06:07→10:19)
[2025-01-13 06:09] LABS: Blood Urea Nitrogen 11 mg/dl (9-20); Carbon Dioxide 25 mmol/L (22-30); Chloride 101 mmol/L (98-107); Estimated Creatinine Clearance 77 ml/min; Glucose 84 mg/dl (70-99); Magnesium 2.3 mg/dl (1.6-2.3); Phosphorus 3.2 mg/dl (2.5-4.5); Potassium 3.8 mmol/L (3.5-5.1); Sodium 130 mmol/L (135-145); eGFR > 60.00
[2025-01-13] MEDS: ENTEREG 12 MG PO ×2 (07:38→20:21)
[2025-01-13] MEDS: HEPARIN 5000 UNITS SC ×3 (07:40→23:04)
[2025-01-13] MEDS: NSS 1000 IV ×2 (09:01→18:24)
--- NOTE | 2025-01-13 10:35 | W.PN.CRS1 ---
Addendum entered and electronically signed by TAYE Ramirez 01/18/25 07:20:
Clarification: Mild acute anemia secondary to expected blood loss and hemodilution with IVF boluses
Original Note:
Today's Communication / Plan
-
FLD
OOB/increase activity
Void trial
Assessment/Plan
-
74 yo male with a h/o pAfib (Eliquis held) anal adenocarcinoma s/p XRT and DEIDRE now POD #1 Robotic APR, creation of end colostomy, exclusion of the pelvis, laparoscopic TAP block; cystoscopy with bilateral ureteral stents by urology; VRAM
reconstruction of perineal wound by plastics
AFVSS
Labs stable post op. Mild hyponatremia noted
Mild acute anemia secondary to expected losses and hemodilution with IVF boluses yesterday
Cardiology for presyncope pre op, appreciate recs
ERVIN A (pelvic) with SSF, higher outputs expected. ERVIN B (SQ space) with light SSF
Stoma with mild edema/pink and some flatus in appliance
UO improved/normalized
--Void trial today
--Continue IVF, will change to NSS given hyponatremia
--Advance to FLD
--Continue with both drains
--Analgesics scheduled and prn
--Entereg while inpatient
--OOB/ambulate. PT eval. Avoid prolonged sitting.
--Ok for heparin SQ for VTE ppx, hold full AC until 72 hours post op if h/h remains stable
Medical management as per primary team
Subjective Data
Procedure
01/11/25
Max:
Robotic APR, creation of end colostomy, exclusion of the pelvis, laparoscopic TAP block
Andrew:
Cystoscopy, Placement of bilateral open-ended ureteral catheters, Installation of ICG green via each open-ended ureteral catheter.
Paliga:
Vertical rectus myocutaneous flap, Repair initial incisional hernia, Adjacent tissue transfer 10 x 25 cm
Subjective Data
Date of Service: January 13, 2025
Patient seen and examined at bedside with Dr. Paredes. Wilbert n/v. Tolerating clears. Not much appetite yet. More energy today.
Objective Data
-
Vital Signs
Temp Pulse Resp BP Pulse Ox
97.9 F 62 16 122/68 95
01/13/25 07:10 01/13/25 07:10 01/13/25 07:10 01/13/25 07:10 01/13/25 07:48
Intake & Output
01/12/25 01/13/25 01/14/25
06:59 06:59 06:59
Intake Total 800 / 800 4460 / 4460 830 / 830
Output Total 540 / 540 1780 / 1780 450 / 450
Balance 260 / 260 2680 / 2680 380 / 380
Intake:
Oral fluids 1560 / 1560 480 / 480
IV fluids (Total) 800 / 800 2400 / 2400 350 / 350
Normosol 200 / 200
IV piggybacks 500 / 500
Output:
Drain Output (Total) 190 / 190 730 / 730 30 / 30
Left Abdomen Alberto-Martienz A 145 / 145 640 / 640 30 / 30
Left Abdomen Alberto-Martinez B 45 / 45 90 / 90
Urinary Drain Output (Total) 0 / 0
Left Ureteral stent 0 / 0
Right Ureteral stent 0 / 0
Urine, Caruso 350 / 350 1050 / 1050 420 / 420
Lab Results
01/13/25 04:20
01/13/25 04:20
Physical Exam
-
General: No Acute Distress
HEENT: Grossly Normal
Abdomen: Soft, Distended (very minimal) and Other (stoma pink some edema: some flatus/bowel sweat in appliance. Caruso with light roly urine)
Rectal: Other (flap edges well approximated, flap itself is pink and without areas of necrosis)
Skin: Warm and Dry
Incision: Clear, Dry, Intact and Other (ERVIN A (pelvic) SSF, ERVIN B (SQ) SSF)
--- NOTE | 2025-01-13 11:06 | W.PN.HOSP.TC ---
Today's Communication/Plan
-
Monitor vitals
See plan
Monitor urine output
Monitor off metoprolol
Restart Eliquis when okay with surgery
Monitor hemoglobin
Assessment / Plan
Assessment / Plan
IMPRESSION:
A-fib with rapid ventricular response and hemodynamic instability
Hyponatremia
Other conditions:
Colorectal adenocarcinoma.
Hypothyroidism.
Hypertension.
BPH
PLAN:
Status post robotic APR with perineal reconstruction on 01/11
Postoperative care as per surgery
Advance diet to fulls per surgery
Pain control
Monitor bowel function
Voiding trial per surgery
Monitor drain
Presented with atrial fibrillation with rapid ventricular response and hemodynamic instability.
Hypotension improved with IV fluid bolus in ED and later converted to sinus rhythm after initiation of IV Cardizem drip
CT scan of the chest negative for pulmonary embolism.
Admitted for close cardiac monitoring.
Cardiology consulted
Updated echocardiogram with LVEF 55-60%. No regional wall motion abnormalities. Mild to moderate MR. Mild TR. Pulmonary pressure 25-30 mmHg. No changes since prior study.
Has been off flecainide
Was initially started on metoprolol however then was bradycardic. Now rate controlled off metoprolol. Monitor
Converted and remains in sinus rhythm
[id number] 3 (age x 2, hypertension)
Has been off anticoagulation with last dose of Eliquis 01/06 PM in preparation for surgery. Restart Eliquis once okay with surgery
With relatively low score, no clear indication for heparin bridging pending surgery on 01/11
Essential hypertension.
Hold hydrochlorothiazide and irbesartan given significant hypotension. Monitor BP trend closely
Mild hyponatremia likely in the settings of thiazide diuretic
Hold. Follow BMP. If persistent additional workup for hyponatremia including urine osmolarity
Update TSH
BPH
Continue Flomax with caution for hypotension
Hypothyroidism on replacement
Full code
DVT prophylaxis subcu heparin while off Eliquis
General: Well Developed and No Apparent Distress
HEENT: Normocephalic, Atraumatic and Moist Mucous Membranes
Respiratory: Clear to Auscultation
Cardiac: Regular Rhythm and S1/S2; Negative Murmur, Rub or Gallop
GI: Soft, Nontender, Nondistended,+ drain
Musculoskeletal: No Edema
Skin: Negative Rash
Neuro: Nonfocal/Grossly Intact
Anticipated Discharge: 24 - 48 hours
Subjective/Interval History
-
Date of Service: January 13, 2025
Denies nausea
Objective Data
-
Labs:
Laboratory Results
01/13/25
04:20
WBC 4.6 L
Hgb 9.4 L
Hct 28.4 L
Plt Count 146
Sodium 130 L
Potassium 3.8
Chloride 101
Carbon Dioxide 25
BUN 11
Creatinine 0.9
Glucose 84
Calcium 8.0 L
Vital Signs:
Vital Signs
Temp Pulse Resp BP Pulse Ox
97.9 F 62 16 122/68 95
01/13/25 07:10 01/13/25 07:10 01/13/25 07:10 01/13/25 07:10 01/13/25 07:48
I&O
01/12/25 01/13/25 01/14/25
06:59 06:59 06:59
Intake Total 800 / 800 4460 / 4460 830 / 830
Output Total 540 / 540 1780 / 1780 450 / 450
Balance 260 / 260 2680 / 2680 380 / 380
[2025-01-13] MEDS: DILAUDID 0.25 MG IV (12:10)
[2025-01-13] MEDS: TORADOL 15 MG IV ×2 (15:09→20:22)
[2025-01-13] MEDS: FLOMAX 0.4 MG PO (23:04)
[2025-01-14] VITALS (7 sets, daily range): BP systolic 126–167; BP diastolic 59–91; BMI 26.3
[2025-01-14] MEDS: TORADOL 15 MG IV ×4 (01:57→19:51)
[2025-01-14] MEDS: SYNTHROID 100 MCG PO (05:24)
[2025-01-14] MEDS: TYLENOL 1000 MG PO ×4 (05:24→23:07)
[2025-01-14] MEDS: NSS 1000 IV (05:24)
[2025-01-14 06:38] LABS: % Basophils 0.1 % (0-2); % Eosinophils 2.9 % (0-6); % Immature Granulocytes 0.3 % (0-0.5); % Lymphocytes 4.1 % (20.5-51.1); % Neutrophils 83.6 % (42.2-75.2); Absolute Eosinophils 0.2 10^3/uL (0-0.7); Absolute Lymphocytes 0.3 10^3/uL (1.2-3.4); Absolute Monocytes 0.6 10^3/uL (0.1-0.6); Absolute Neutrophils 5.8 10^3/uL (1.4-6.5); Hematocrit 28.2 % (39.0-52.0); Hemoglobin 9.7 g/dL (13.0-18.0); Mean Corp Hgb Conc. 34.4 g/dL (33.0-37.0); Mean Corpuscular Hgb 33.7 pg (27.0-31.0); Mean Corpuscular Volume 97.9 fL (80.0-94.0); Mean Platelet Volume 9.5 fL (7.4-10.4); Nucleated Red Blood Cells % 0 % (-); Platelet Count 153 10^3/uL (130-400); Red Blood Cell Count 2.88 10^6/uL (4.70-6.10); Red Cell Dist. Width 13.3 % (11.5-14.5)
[2025-01-14 06:43] LABS: Blood Urea Nitrogen 7 mg/dl (9-20); Calcium 8.3 mg/dl (8.4-10.2); Carbon Dioxide 23 mmol/L (22-30); Chloride 106 mmol/L (98-107); Estimated Creatinine Clearance 86 ml/min; Glucose 88 mg/dl (70-99); Magnesium 2.2 mg/dl (1.6-2.3); Phosphorus 3.3 mg/dl (2.5-4.5); Potassium 3.9 mmol/L (3.5-5.1); Sodium 134 mmol/L (135-145); eGFR > 60.00
[2025-01-14] MEDS: HEPARIN 5000 UNITS SC ×3 (08:23→23:07)
[2025-01-14] MEDS: ENTEREG 12 MG PO ×2 (08:24→19:51)
--- NOTE | 2025-01-14 08:48 | W.PN.CD ---
Addendum entered and electronically signed by Salomón Campbell MD 01/14/25 11:11:
I saw and examined the patient.
The COMMERCIAL CLEANER's note was reviewed and I agree with the note.
Comment: He is in sinus. Surgery ok with Eliquis, will restart in AM. I reviewed options for AFib and for now we will continue as he has done for many years. He has AFib less than than 1/yr. He is quite symptomatic with AFib tut so far it has been
quite infrequent. Will intensify AFib treatment when pt wishes. Let's start Eliquis on Jan 16 when I hope he is taking less NSAID. Resume HTN meds at discharge but for now no diuretic and add that back later perhaps in 2-3 weeks.
We will sign off.
Original Note:
Today's Communication / Plan
-
Eliquis to be resumed when safe per surgical perspective.
Consider PIP propafenone as an outpatient. To be determined by EP.
Impression / Plan
-
IMPRESSION/PLAN: 74-year-old male with paroxysmal A fib on eliquis, HTN, mild/moderate MR and TR, mild AR, IVCD, anal adenocarcinoma s/p chemo�with planned colectomy/colostomy on 01/11/[address] Santana, who presented to ER in unstable afib w RVR, now
back in sinus rhythm s/p colectomy/colostomy on 01/11/25.
Atrial flutter/fibrillation with RVR - resolved
-Initially he was unstable with rapid atrial fibrillation/flutter. HRs and BPs improved with IVF. Patient spontaneously converted to sinus rhythm.
-Would not resume outpatient PIP flecainide with atrial flutter. He has never tried propafenone.
-[id number] 3 (age x 2, hypertension)
-Anticoagulation: Resume apixaban 5mg BID when surgeon allows
-Beta-sean had to be stopped due to bradycardia
-No rate/rhythm control agents for now
Anal adenocarcinoma
-Status post surgical resection on 01/11/2025, no significant blood loss
-Routine postoperative care per colorectal surgery
Hypertension
-Hold HCTZ and irbesartan for now, on IV fluids for hyponatremia
-BPs have been stable
SUBJECTIVE:
Telemetry stable. Feeling well. Ambulation encouraged.
Physical Exam
Vital Signs/Labs
Vital Signs
Temp Pulse Resp BP Pulse Ox
97.9 F 60 16 126/59 94
01/14/25 07:03 01/14/25 07:03 01/14/25 07:03 01/14/25 07:03 01/14/25 07:03
01/13/25 01/14/25 01/15/25
06:59 06:59 06:59
Actual Weight 88.904 kg 88.042 kg
01/14/25 05:20
01/14/25 05:20
APTT 28.1 Sec (23.4-35.0) 01/09/25 08:01
Magnesium 2.2 mg/dl (1.6-2.3) 01/14/25 05:20
TSH 2.29 uIU/ml (0.47-4.68) 01/09/25 08:01
01/09/25
08:01
Akm-A-Hozqptllpkz Pept 841
Physical Exam
Constitutional: No acute distress and Comfortable
EENT: Anicteric and Moist mucous membranes
Cardiovascular: Rhythm & rate is regular, Pedal edema is absent and S1S2 is normal
Respiratory: Respiratory effort normal and Lungs clear to auscul.
GI: Soft and Normal bowel sounds
Neuro/Psych: AO x 3
Other: Skin (warm and dry without edema)
Data Reviewed
-
Date of Service: January 14, 2025
Labs: Labs Reviewed by me
Old Records: Reviewed
--- NOTE | 2025-01-14 10:10 | W.PN.CRS1 ---
Today's Communication / Plan
-
regular diet
drain teaching
VN for drain care
okay to restart eliquis from our standpoint
?d/c later today
Assessment/Plan
-
74 yo male with a h/o pAfib (Eliquis held) anal adenocarcinoma s/p XRT and DEIDRE now POD #1 Robotic APR, creation of end colostomy, exclusion of the pelvis, laparoscopic TAP block; cystoscopy with bilateral ureteral stents by urology; VRAM
reconstruction of perineal wound by plastics
AFVSS
Labs stable post op. Mild hyponatremia noted
Mild acute anemia secondary to expected losses and hemodilution with IVF boluses yesterday
Cardiology for presyncope pre op, appreciate recs
ERVIN A (pelvic) with SSF, P B (SQ space) with SSF
Stoma with mild edema/pink and some flatus in appliance
--Voiding post foely removal
--Advance to a regular diet
--Continue with both drains. Will go home with both. Will need drain teaching and ?VN. Will need to record daily output and will discuss next steps with Dr. Santana at his 2 week post op appt.
--Analgesics scheduled and prn
--Entereg while inpatient
--OOB/ambulate. PT eval. Avoid prolonged sitting.
--Change IV pain medication to po
--Okay to restart Eliquis today from our perspective
--If tolerates a regular diet today, okay for discharge later today from our perspective if okay with plastic surgery.
Medical management as per primary team
Subjective Data
Procedure
01/11/25
Max:
Robotic APR, creation of end colostomy, exclusion of the pelvis, laparoscopic TAP block
Morales:
Cystoscopy, Placement of bilateral open-ended ureteral catheters, Installation of ICG green via each open-ended ureteral catheter.
Paliga:
Vertical rectus myocutaneous flap, Repair initial incisional hernia, Adjacent tissue transfer 10 x 25 cm
Subjective Data
Date of Service: January 14, 2025
Patient states he has no nausea or vomiting. He tolerated fulls. His pain is controlled. He feels a little bloated. His colostomy has function.
Objective Data
-
Vital Signs
Temp Pulse Resp BP Pulse Ox
97.9 F 60 16 126/59 94
01/14/25 07:03 01/14/25 07:03 01/14/25 07:03 01/14/25 07:03 01/14/25 07:03
Intake & Output
01/13/25 01/14/25 01/15/25
06:59 06:59 06:59
Intake Total 4460 / 4460 3120 / 3120
Output Total 1780 / 1780 3010 / 3010 450 / 450
Balance 2680 / 2680 110 / 110 -450 / -450
Intake:
Oral fluids 1560 / 1560 1920 / 1920
IV fluids (Total) 2400 / 2400 1200 / 1200
IV piggybacks 500 / 500
Output:
Liquid stool amount
Colostomy
Drain Output (Total) 730 / 730 455 / 455 50 / 50
Left Abdomen Alberto-Martinez A 640 / 640 375 / 375 40 / 40
Left Abdomen Alberto-Martinez B 90 / 90 80 / 80 10 / 10
Urine, Caruso 1050 / 1050 740 / 740
Urine, Voided 1790 / 1790 400 / 400
Lab Results
01/14/25 05:20
01/14/25 05:20
Physical Exam
-
General: No Acute Distress and AOx3
Abdomen: Soft, Non Distended, Non Tender and Other (colostomy warm and pink with function. ERVIN drains x 2: serosanginous. )
Rectal: Other (rectal flap warm, no erythema)
Skin: Warm and Dry
Incision: Clear, Dry, Intact
[2025-01-14] MEDS: DILAUDID 0.25 MG IV (10:16)
--- NOTE | 2025-01-14 10:32 | CM ---
Addendum entered by Melisa Carey 01/14/25 10:50:
Given IMM
Original Note:
Chart reviewed and met with pt
Pt to be d/c'ed with drains and new ostomy - discussed VN
No preference per pt - referred to [facility]; Met with [facility] Liaison
Plan - anticipate home with [facility] when medically ready
--- NOTE | 2025-01-14 10:40 | VNURNOTE ---
Home Health Liaison met with patient at bedside to discuss [facility] nurse/therapy, visits, schedule and homebound status. Patient is agreeable and understands that visits at home will be 2-3 x per week to assess and teach medical management. Patient is
aware that [facility] will contact them for start of care in 1-2 days after discharge from .
[facility] referral completed in [facility].
--- NOTE | 2025-01-14 11:31 | W.PN.HOSP.TC ---
Today's Communication/Plan
-
LRD and observe
Colostomy care and teaching
Resume ARB at lower dose
Dc planning for 01/15
Assessment / Plan
Assessment / Plan
IMPRESSION:
A-fib with rapid ventricular response and hemodynamic instability
Hyponatremia
Colorectal CA, S/P Status post robotic APR with perineal reconstruction on 01/11
Other conditions:
Colorectal adenocarcinoma.
Hypothyroidism.
Hypertension.
BPH
PLAN:
Status post robotic APR with perineal reconstruction on 01/11
Postoperative care as per surgery
Advance diet to fulls per surgery
Colostomy care and teaching
ERVIN drain in place to follow up with CRS as op
LRD today
Presented with atrial fibrillation with rapid ventricular response and hemodynamic instability.
Hypotension improved with IV fluid bolus in ED and later converted to sinus rhythm after initiation of IV Cardizem drip
CT scan of the chest negative for pulmonary embolism.
Updated echocardiogram with LVEF 55-60%. No regional wall motion abnormalities. Mild to moderate MR. Mild TR. Pulmonary pressure 25-30 mmHg. No changes since prior study.
Has been off flecainide
Was initially started on metoprolol however then was bradycardic. Now rate controlled off metoprolol. Monitor
Converted and remains in sinus rhythm
Currently not on AVN blocking or antiarrhythmic medications
[id number] 3 (age x 2, hypertension)
Has been off anticoagulation with last dose of Eliquis 01/06 PM in preparation for surgery. Restart Eliquis on 01/16
With relatively low score, no clear indication for heparin bridging pending surgery on 01/11
Essential hypertension.
Hold hydrochlorothiazide
Resume Valsartan at lower dose 80mg for the first week
Mild hyponatremia likely in the settings of thiazide diuretic
Hold. Follow BMP. If persistent additional workup for hyponatremia including urine osmolarity
Update TSH
BPH
Continue Flomax with caution for hypotension
Hypothyroidism on replacement
Full code
DVT prophylaxis subcu heparin while off Eliquis
Anticipated Discharge: Within 24 hours
Subjective/Interval History
-
Date of Service: January 14, 2025
Objective Data
-
Labs:
Laboratory Results
01/14/25
05:20
WBC 7.0
Hgb 9.7 L
Hct 28.2 L
Plt Count 153
Sodium 134 L
Potassium 3.9
Chloride 106
Carbon Dioxide 23
BUN 7 L
Creatinine 0.8
Glucose 88
Calcium 8.3 L
Vital Signs:
Vital Signs
Temp Pulse Resp BP Pulse Ox
97.9 F 71 16 167/86 96
01/14/25 11:10 01/14/25 11:10 01/14/25 11:10 01/14/25 11:10 01/14/25 11:10
I&O
01/13/25 01/14/25 01/15/25
06:59 06:59 06:59
Intake Total 4460 / 4460 3120 / 3120
Output Total 1780 / 1780 3010 / 3010 750 / 750
Balance 2680 / 2680 110 / 110 -750 / -750
Physical Exam
-
General: Well Developed and No Apparent Distress
HEENT: Normocephalic, Atraumatic and Moist Mucous Membranes
Respiratory: Clear to Auscultation
Cardiac: Regular Rhythm and S1/S2; Negative Murmur, Rub or Gallop
GI: Soft, Nontender, Nondistended, Normal Bowel Sounds, Ostomy and Other (RLQ ERVIN drain in place ); Negative Organomegaly
Rectal: Deferred by Provider
Musculoskeletal: No Clubbing, No Cyanosis and No Edema
Skin: Negative Rash
Neuro: Nonfocal/Grossly Intact
[2025-01-14] MEDS: DIOVAN 80 MG PO (12:43)
--- NOTE | 2025-01-14 15:30 | WOUNDNOTE ---
[facility] RN note: Patient s/p ostomy surgery 01/11/25 Colostomy APR.
See H&P for complete history.
PMH:
Ostomy location and type: Colostomy L side. Stoma pink and budded about 1 3/4 inches in diameter. Stoma functioning for liquid brown stool.
Instructed patient ostomy pouch emptying and changing appliance using Joe wafer # [id number],
Joe pouch #[id number]. Midline incision approximated. ERVIN sites intact. Gauze dressing changed on midline incision and around ERVIN sites.
Ostomy supplies ordered from [facility] and at bedside. Colostomy teaching folder given. Patient gave verbal permission to order a [place] ostomy secure starter kit.
Note to case management: VN services planned for ostomy teaching.
Nursing care plan updated, will follow as needed.
--- NOTE | 2025-01-14 15:30 | WOUNDNOTE ---
STOMA LEFT ABDOMEN
--- NOTE | 2025-01-14 18:00 | WOUNDNOTE ---
WOC RN note: t/c Soila at [facility] and ordered a colostomy secure starter kit.
[2025-01-14] MEDS: ROXICODONE 5 MG PO (18:27)
[2025-01-14] MEDS: FLOMAX 0.4 MG PO (21:14)
[2025-01-15] MEDS: TORADOL 15 MG IV ×3 (02:46→14:03)
[2025-01-15 03:05] VITALS: BP 153/88
[2025-01-15] MEDS: SYNTHROID 100 MCG PO (05:00)
[2025-01-15] MEDS: TYLENOL 1000 MG PO ×2 (05:31→14:03)
[2025-01-15 06:00] VITALS: BMI 26.4
--- NOTE | 2025-01-15 07:09 | W.PN.UPDATE ---
Update Note
Progress Note Update
RN reported patient had a strip that showed R on T PVCs with a HR 88 BP 140/77 asymptomatic with no new complaints. Will order EKG in AM
EKG results noted. No significant change found.
[2025-01-15 07:37] VITALS: BP 139/79
[2025-01-15] MEDS: ENTEREG 12 MG PO (09:10)
[2025-01-15] MEDS: DIOVAN 80 MG PO (09:10)
[2025-01-15] MEDS: HEPARIN 5000 UNITS SC (09:11)
[2025-01-15] MEDS: ROXICODONE 10 MG PO (09:15)
[2025-01-15 10:51] LABS: % Eosinophils 0.2 % (0-6); % Immature Granulocytes 0.4 % (0-0.5); % Lymphocytes 1.6 % (20.5-51.1); % Monocytes 4.4 % (1.7-9.3); % Neutrophils 93.4 % (42.2-75.2); Absolute Lymphocytes 0.1 10^3/uL (1.2-3.4); Absolute Monocytes 0.3 10^3/uL (0.1-0.6); Absolute Neutrophils 5.3 10^3/uL (1.4-6.5); Hematocrit 29.6 % (39.0-52.0); Hemoglobin 10.5 g/dL (13.0-18.0); Mean Corp Hgb Conc. 35.5 g/dL (33.0-37.0); Mean Corpuscular Hgb 34.1 pg (27.0-31.0); Mean Corpuscular Volume 96.1 fL (80.0-94.0); Nucleated Red Blood Cells % 0 % (-); Platelet Count 170 10^3/uL (130-400); Red Blood Cell Count 3.08 10^6/uL (4.70-6.10); Red Cell Dist. Width 13.4 % (11.5-14.5); White Blood Cell Count 5.7 10^3/uL (4.8-10.8)
[2025-01-15] MEDS: DILAUDID 0.5 MG IV (10:51)
[2025-01-15 11:13] VITALS: BP 112/80
[2025-01-15 11:17] LABS: Blood Urea Nitrogen 8 mg/dl (9-20); Calcium 8.3 mg/dl (8.4-10.2); Carbon Dioxide 24 mmol/L (22-30); Chloride 102 mmol/L (98-107); Estimated Creatinine Clearance 99 ml/min; Glucose 109 mg/dl (70-99); Potassium 3.8 mmol/L (3.5-5.1); Sodium 131 mmol/L (135-145); eGFR > 60.00
--- NOTE | 2025-01-15 11:19 | W.PN.CRS1 ---
Today's Communication / Plan
-
As below
Assessment/Plan
-
74-year-old male with PMH of A-fib (s/p cardioversion 2022, on Eliquis), HTN, hypothyroidism and anal adenocarcinoma, s/p DEIDRE with complete response, complicated by local recurrence, who presented for elective surgery
POD 4 robotic APR with VRAM flap
AFVSS
WBC 5.7 from 7.0, Hb 10.5 from 9.7, Cr 0.7
� Continue regular diet
� Pain control with Tylenol, oxycodone and Dilaudid as needed
�Pain appears related to surgical incisions; labs and vitals not consistent with something more concerning
� Continue Eliquis
� Continue ERVIN to bulb suction; will need VNA for discharge
� Appreciate plastic surgery
� Appreciate cardiology, CCM, signed off
� Appreciate hospitalist
Dispo�will monitor pain control throughout the day and consider discharge this afternoon, but more likely tomorrow
Subjective Data
Subjective Data
Date of Service: January 15, 2025
No issues overnight. Had significant pain this morning, but just received oxycodone 10 mg. Pain significant enough that he cannot take deep breaths or get out of bed.
Denies nausea or vomiting. Having ostomy output and tolerating regular diet
Objective Data
-
Vital Signs
Temp Pulse Resp BP Pulse Ox
98.0 F 100 16 112/80 95
01/15/25 11:13 01/15/25 11:13 01/15/25 11:13 01/15/25 11:13 01/15/25 11:13
Intake & Output
01/14/25 01/15/25 01/16/25
06:59 06:59 06:59
Intake Total 3120 / 3120 820 / 820
Output Total 3010 / 3010 1600 / 1600
Balance 110 / 110 -780 / -780
Intake:
Oral fluids 1920 / 1920 720 / 720
IV fluids (Total) 1200 / 1200 100 / 100
Output:
Liquid stool amount 300 / 300
Colostomy 300 / 300
Drain Output (Total) 455 / 455 400 / 400
Left Abdomen Alberto-Martinez A 375 / 375 330 / 330
Left Abdomen Alberto-Martinez B 80 / 80 70 / 70
Urine, Caruso 740 / 740
Urine, Voided 1790 / 1790 900 / 900
Other:
Number of approximated MODERATE 2
amounts of urine
Number of approximated LARGE 2
amounts of urine
Lab Results
01/15/25 10:40
01/15/25 10:40
Physical Exam
-
General: Mild Distress, AOx3 and Well Developed
HEENT: Grossly Normal
Abdomen: Soft, Non Distended, Tender (Tender near midline incision and ostomy), No Guarding, No Rebound and Other (midline incision well-approximated without erythema or purulent drainage; port site incisions well-approximated without erythema or
drainage; ostomy pink, edematous, productive of flatus and some stool; ERVIN drains with serosanguineous output)
Rectal: Other (Peritoneal flap pink/well-perfused, well-approximated without erythema or drainage)
Skin: Warm and Dry
Wound: No Signs of Infection and No Skin Erythema
[2025-01-15 15:17] VITALS: BP 93/48
[2025-01-15] MEDS: HEPARIN SC (16:08)
--- NOTE | 2025-01-15 16:18 | W.PN.HOSP.TC ---
Today's Communication/Plan
-
Discharge planning
Assessment / Plan
Assessment / Plan
IMPRESSION:
A-fib with rapid ventricular response and hemodynamic instability
Hyponatremia
Colorectal CA, S/P Status post robotic APR with perineal reconstruction on 01/11
Other conditions:
Colorectal adenocarcinoma.
Hypothyroidism.
Hypertension.
BPH
PLAN:
Status post robotic APR with perineal reconstruction on 01/11
Postoperative care as per surgery
Advance diet to fulls per surgery
Colostomy care and teaching
ERVIN drain in place to follow up with CRS as op
LRD today
Presented with atrial fibrillation with rapid ventricular response and hemodynamic instability.
Hypotension improved with IV fluid bolus in ED and later converted to sinus rhythm after initiation of IV Cardizem drip
CT scan of the chest negative for pulmonary embolism.
Updated echocardiogram with LVEF 55-60%. No regional wall motion abnormalities. Mild to moderate MR. Mild TR. Pulmonary pressure 25-30 mmHg. No changes since prior study.
Has been off flecainide
Was initially started on metoprolol however then was bradycardic. Now rate controlled off metoprolol. Monitor
Converted and remains in sinus rhythm
Currently not on AVN blocking or antiarrhythmic medications
[id number] 3 (age x 2, hypertension)
Has been off anticoagulation with last dose of Eliquis 01/06 PM in preparation for surgery. Restart Eliquis on 01/16
With relatively low score, no clear indication for heparin bridging pending surgery on 01/11
Essential hypertension.
Hold hydrochlorothiazide
Resume Valsartan at lower dose 80mg for the first week
Mild hyponatremia likely in the settings of thiazide diuretic
Hold. Follow BMP. If persistent additional workup for hyponatremia including urine osmolarity
Update TSH
BPH
Continue Flomax with caution for hypotension
Hypothyroidism on replacement
Full code
DVT prophylaxis subcu heparin while off Eliquis
Anticipated Discharge: Within 24 hours
Subjective/Interval History
-
Date of Service: January 15, 2025
Objective Data
-
Labs:
Laboratory Results
01/15/25
10:40
WBC 5.7
Hgb 10.5 L
Hct 29.6 L
Plt Count 170
Sodium 131 L
Potassium 3.8
Chloride 102
Carbon Dioxide 24
BUN 8 L
Creatinine 0.7
Glucose 109 H
Calcium 8.3 L
Vital Signs:
Vital Signs
Temp Pulse Resp BP Pulse Ox
97.2 F 97 16 93/48 96
01/15/25 15:17 01/15/25 15:17 01/15/25 15:17 01/15/25 15:17 01/15/25 15:17
I&O
01/14/25 01/15/25 01/16/25
06:59 06:59 06:59
Intake Total 3120 / 3120 820 / 820
Output Total 3010 / 3010 1600 / 1600
Balance 110 / 110 -780 / -780
Physical Exam
-
General: Well Developed and No Apparent Distress
HEENT: Normocephalic, Atraumatic and Moist Mucous Membranes
Respiratory: Clear to Auscultation
Cardiac: Regular Rhythm and S1/S2; Negative Murmur, Rub or Gallop
GI: Soft, Nontender, Nondistended, Normal Bowel Sounds, Ostomy and Other (RLQ ERVIN drain in place ); Negative Organomegaly
Rectal: Deferred by Provider
Musculoskeletal: No Clubbing, No Cyanosis and No Edema
Skin: Negative Rash
Neuro: Nonfocal/Grossly Intact
--- NOTE | 2025-01-16 09:47 | CM ---
TC from MD, patient left hospital 01/15/25.
CM spoke with VN, they added patient to the schedule for today.
--- NOTE | 2025-01-16 10:32 | PN.CDI ---
CDI
- -
CDI:
Physician Documentation Request
Admit Date: 01/09/25 12:02
Dear Tonya Bhakta,
01/13 progress note states 'Mild acute anemia secondary to expected losses and hemodilution with IVF boluses yesterday'
Could you please further specify 'expected losses'
Acute blood loss anemia
Other
Use of terms such as suspected, likely, concern for, or probable (associated with a specific diagnosis that is being evaluated, monitored, or treated as if it exists) are acceptable and can be coded in the inpatient setting, when documented at the
time of discharge.
Thank you,
Rhonda Bliss RN, BSN
CDI Specialist
tiger text
Please use your independent medical judgment in providing your response.
== END 2025-01-15 17:15 | disposition home health service (06) | DRG 330 ==
LOC: 2 SOUTH 12:02
PROVIDERS: Internal Medicine; Physician Assistant; Specialist; Surgery; Surgery Plastic and Reconstructive Surgery; ADMITTING PHYSICIAN Internal Medicine; CONSULT PHYSICIAN Student in an Organized Health Care Education/Training Program; EMERGENCY PHYSICIAN Student in an Organized Health Care Education/Training Program; FAMILY PHYSICIAN Nurse Practitioner Family; OTHER PHYSICIAN Surgery
PROC: 0WQF0ZZ Repair Abdominal Wall, Open Approach (ICD-10-PCS; 2025-01-11)
PROC: 0DTQ0ZZ Resection of Anus, Open Approach (ICD-10-PCS; 2025-01-11)
PROC: 0D1N074 Bypass Sigmoid Colon to Cutaneous with Autologous Tissue Substitute, Open Approach (ICD-10-PCS; 2025-01-11)
PROC: 8E0W0CZ Robotic Assisted Procedure of Trunk Region, Open Approach (ICD-10-PCS; 2025-01-11)
PROC: 0KXK0Z6 Transfer Right Abdomen Muscle, Transverse Rectus Abdominis Myocutaneous Flap, Open Approach (ICD-10-PCS; 2025-01-11)
PROC: 0DTP0ZZ Resection of Rectum, Open Approach (ICD-10-PCS; 2025-01-11)
PROC: 0KXL0Z6 Transfer Left Abdomen Muscle, Transverse Rectus Abdominis Myocutaneous Flap, Open Approach (ICD-10-PCS; 2025-01-11)
PROC: 0DBN0ZZ Excision of Sigmoid Colon, Open Approach (ICD-10-PCS; 2025-01-11)
PROC: 0T788DZ Dilation of Bilateral Ureters with Intraluminal Device, Via Natural or Artificial Opening Endoscopic (ICD-10-PCS; 2025-01-11)
DX: C19 Malignant neoplasm of rectosigmoid junction (principal); C21.0 Malignant neoplasm of anus, unspecified; E87.1 Hypo-osmolality and hyponatremia; I48.92 Unspecified atrial flutter; I48.4 Atypical atrial flutter; Q43.8 Other specified congenital malformations of intestine; D62 Acute posthemorrhagic anemia; I48.0 Paroxysmal atrial fibrillation; E03.9 Hypothyroidism, unspecified; I10 Essential (primary) hypertension; N40.0 Benign prostatic hyperplasia without lower urinary tract symptoms; I95.9 Hypotension, unspecified; Z79.890 Hormone replacement therapy; Z79.01 Long term (current) use of anticoagulants; Z92.21 Personal history of antineoplastic chemotherapy; Z92.3 Personal history of irradiation; Z93.3 Colostomy status
CPT/HCPCS: 88309; 36415; 71046; 71275; 80048; 80053; 83735; 83880; 84100; 84443; 84484; 85025; 85027; 85610; 85730; 86850; 86900; 86901; 88341; 88342; 93005; 93306; 96374; 96375; 96376; 97116; 97163; 97167; 97530; 99291; A4648; C1713; C1729; J1335; Q9967

== ENCOUNTER 2025-01-17 13:24 | Inpatient (IN) | payer MEDICARE, SELFPAY ==
[2025-01-16 12:25] VITALS: BP 129/81
--- NOTE | 2025-01-16 12:55 | ED.GENMED ---
History of Present Illness
General
Chief Complaint: Post Operative Problem(s)
Source: patient
Exam Limitations: none
Time Seen by Provider: 01/16/25 12:15
Nursing documentation reviewed up to this point in time: agreed with
History of Present Illness
History of Present Illness:
74-year-old male presents emergency department complaining of abdominal pain and fever.
Past History
Past History
ED Past Medical History: Arrthythmia (Atrial fibrillation/flutter), HTN, Valvular disease and Hypothyroidism; Negative Hypercholesterolemia, IDDM, NIDDM or ME
Social History
Tobacco: Non-smoker
Alcohol: None
Drug: None
Living: [facility]ci
Review of Systems
Review of Systems
Allergies reviewed?: Yes
All Other Systems: Not applicable
Constitutional: Reports fever
EENT: Reports no symptoms
Respiratory: Reports no symptoms
Cardiac: Reports no symptoms
ABD/GI: Reports abdominal pain
: Reports no symptoms
Musculoskeletal: Reports no symptoms
Skin: Reports no symptoms
Neurological: Reports no symptoms
Endocrine: Reports no symptoms
Hematologic/Lymphatic: Reports no symptoms
Psychiatric: Reports no symptoms
Phy Exam
Physical Exam
Physical Exam:
Physical Exam
General: no apparent distress, not acutely ill
Neck: supple. no meningeal signs. normal posterior pharynx
Heart: s1/s2 tachycardia, no murmur. equal radial
pulses.
HEENT: Pupils equal round reactive to light, EOMI
Lungs: no acute respiratory distress. clear bilaterally
Abdomen: normal bowel sounds. not tender. no CVAT, bilateral Alberto-Martinez drains, colostomy with pink mucosa draining brown stool
Neuro: alert and oriented. no focal neurological deficits cranial nerves II through XII intact
Skin: no rash
Psychiatric: well kept. interactive and cooperative
Extremities: no edema. no calf tenderness. negative homans. good distal pulses
Course
Orders/Labs/Results
Orders:
Orders
01/16/25 12:44
Bladder Scan- Treatment ONCE
Cardiac Monitoring- Treatment ONCE
IV Insert/Care/Rem.- Treatment PRN
Urinalysis Reflex To Culture Urgent
Date Specimen was Collected: 01/16/25
Time Specimen was Collected: 12:46
Pulse Ox/cont/shift [RESP] Urgent
Quantity: 1
01/16/25 12:45
Electrocardiogram (*1) Urgent
Reason for Study: Other
Other Reason for Exam: sepsis
EKG- Treatment ONCE
CR Chest - 2 Views Urgent
Comment:
Reason For Exam: fever
01/16/25 12:53
CT Abd/pel W Iv And Oral Contr Urgent
Comment:
Reason For Exam: fever, lower abd pain, recent robotic APR
Iohexol [Omnipaque] See Protocol PO NOW STA
01/16/25 12:56
Complete Blood Count/With Diff Urgent
Comprehensive Metabolic Panel Urgent
Blood Culture Q30M
EUNICE Source: Blood/Venous
Specimen Description:
Blood Culture Q30M
EUNICE Source: Blood/Venous
Specimen Description:
01/16/25 12:57
Lactic Acid Q4H
Comment: CANCEL 2nd LACTIC ACID IF 1st LACTIC ACID IS LESS THAN 2
Influenza A+B Rapid Molecular Urgent
EUNICE Source: Nasal Swab
Specimen Description:
01/16/25 13:30
Acetaminophen [Tylenol] 650 mg .ROUTE .STK-MED ONE
Acetaminophen [Tylenol] 650 mg PO NOW STA
01/16/25 13:34
COVID-19 Antigen Urgent
Source: Nasal Swab
01/16/25 13:55
Piperacillin/Tazo 4.5 Gram [Zosyn] 4.5 gram in 100 ml IV NOW
01/16/25 14:38
Vancomycin [Vancocin] 2,000 mg 0.9% Sodium Chloride 500 ml [Nss] 500 ml IV NOW
01/16/25 16:45
Lactic Acid Q4H
Comment: CANCEL 2nd LACTIC ACID IF 1st LACTIC ACID IS LESS THAN 2
Abnormal Lab Results
01/16/25
12:56
RBC 2.93 L 10^6/uL
(4.70-6.10)
Hgb 9.8 L g/dL
(13.0-18.0)
Hct 28.7 L %
(39.0-52.0)
MCV 98.0 H fL
(80.0-94.0)
MCH 33.4 H pg
(27.0-31.0)
Abs Immat Gran (auto) 0.1 H 10^3/uL
(0-0.05)
Absolute Neuts (auto) 8.5 H 10^3/uL
(1.4-6.5)
Absolute Lymphs (auto) 0.1 L 10^3/uL
(1.2-3.4)
Immature Gran % 1.1 H %
(0-0.5)
Neutrophils % 91.8 H %
(42.2-75.2)
Lymphocytes % 1.3 L %
(20.5-51.1)
Sodium 126 L mmol/L
(135-145)
Chloride 97 L mmol/L
(98-107)
Glucose 109 H mg/dl
(70-99)
Calcium 8.2 L mg/dl
(8.4-10.2)
Total Protein 5.1 L g/dl
(6.3-8.2)
Albumin 2.8 L g/dl
(3.5-5.0)
01/16/25 12:56
01/16/25 12:56
Vital Signs
Initial and Last Documented VS:
Initial Vital Signs
Pulse Resp BP Pulse Ox
104 24 129/81 92
01/16/25 12:25 01/16/25 12:25 01/16/25 12:25 01/16/25 12:25
Last Documented Vital Signs
Temp Pulse Resp BP Pulse Ox
103 F H 105 20 130/78 94
01/16/25 13:33 01/16/25 14:28 01/16/25 14:28 01/16/25 14:28 01/16/25 14:28
MDM/Problems Addressed
Differential Diagnosis Includes:
Pneumonia, abscess
MDM/Problems Addressed:
74-year-old male with left lower lobe pneumonia, fever. CT abdomen pelvis pending. Discussed with Dr. Paredes and hospitalist, Dr. Dhaliwal. Admit to hospitalist. IV Zosyn and vancomycin given. Patient also with mild hyponatremia. This is affected
by his low albumin.
Chronic conditions affecting care: Arrhythmia and Previous abdomnial surgery
Acute Exacerbation and/or Progression of Chronic Illness: Arrhythmia and Previous abdomnial surgery
*Radiology
Radiology exam reviewed: radiology read reviewed (Chest x-ray left lower lobe pneumonia)
*Pulse Oximetry
Patient hypoxic: no
*EKG
Interpreted by ED Provider?: Yes
EKG Intrepretation Date: 01/16/25
EKG Intrepretation Time: 13:09
Interpretation: abnormal
Comparison EKG: no comparison EKG present
Heart Rate: 92
Rate: normal
Rhythm: sinus
[place]: left axis deviation
Interval: normal interval
QRS Pattern: normal QRS
Ischemia: no ischemia
*Eligibility Counselor Interpretation
Rate: normal
Interpretation: normal
Heart Rate: 90
Rhythm: sinus
*Critical Care Note
Total Time (30-74mins, 75-104mins- exclusive of procedures): Not Applicable
Data Reviewed
Review of Other/Old Records Reveals: Operative Reports (robotic APR by Dr. Santana)
Source: records
Patient Management
Social determinants of health affecting care: Living situation and Strong social support
Discussion with other providers: Hospitalist and Broach Grinder (Dr. Paredes)
Escalation/DeEscalation of care consider admission/obs:
admit indicated
ED Attending Note
-
Portions of this chart may have been created with voice recognition software.� Occasional wrong word or��sound alike� substitutions may have occurred due to the inherent limitations of voice recognition software.
Discharge Plan
Departure
Patient Disposition: Admit
Date of Disposition: 01/16/25
Time of Disposition: 14:32
Admit to: Telemetry
Presentation/result/management discussed w/ accepting MD/DO: Hospitalist
Patient with high blood pressure during this ER visit?: Yes
Condition: Fair
Discharge Problem:
Pneumonia, Acute postoperative abdominal pain, Fever
Prescriptions:
No Action
levothyroxine 100 mcg Tablet
100 mcg PO DAILY
tamsulosin 0.4 mg Capsule
0.4 mg PO HS
Eliquis 5 mg Tablet
5 mg PO BID
zolpidem [Ambien] 5 mg Tablet
2.5 mg PO HSPRN PRN (Reason: sleep)
irbesartan 150 mg Tablet
150 mg PO DAILY Qty: 0 0RF
acetaminophen [Tylenol] 325 mg Tablet
650 mg PO Q6HPRN PRN (Reason: mild pain)
oxycodone 5 mg tablet
5 mg PO Q6HPRN PRN (Reason: mild Pain)
Referrals:
Connie King CRNP [Family Provider] -
Interventions
Interventions:
*General Assessment Last Done: 01/16/25 12:32
Discharge Date and Time
Print Language: ESTONIAN
[2025-01-16] MEDS: OMNIPAQUE 50 ML PO (13:11)
[2025-01-16] MEDS: TYLENOL 650 MG PO (13:34)
[2025-01-16 13:55] LABS: % Basophils 0.2 % (0-2); % Eosinophils 0.2 % (0-6); % Immature Granulocytes 1.1 % (0-0.5); % Lymphocytes 1.3 % (20.5-51.1); % Monocytes 5.4 % (1.7-9.3); % Neutrophils 91.8 % (42.2-75.2); Absolute Immature Granulocytes 0.1 10^3/uL (0-0.05); Absolute Lymphocytes 0.1 10^3/uL (1.2-3.4); Absolute Monocytes 0.5 10^3/uL (0.1-0.6); Absolute Neutrophils 8.5 10^3/uL (1.4-6.5); Hematocrit 28.7 % (39.0-52.0); Hemoglobin 9.8 g/dL (13.0-18.0); Mean Corp Hgb Conc. 34.1 g/dL (33.0-37.0); Mean Corpuscular Hgb 33.4 pg (27.0-31.0); Mean Platelet Volume 9.3 fL (7.4-10.4); Nucleated Red Blood Cells % 0 % (-); Platelet Count 171 10^3/uL (130-400); Red Blood Cell Count 2.93 10^6/uL (4.70-6.10); Red Cell Dist. Width 13.5 % (11.5-14.5); White Blood Cell Count 9.3 10^3/uL (4.8-10.8)
[2025-01-16 14:08] LABS: ALT (SGPT) 22 U/L (0-50); AST (SGOT) 30 U/L (17-59); Albumin 2.8 g/dl (3.5-5.0); Alkaline Phosphatase 79 U/L (38-126); Blood Urea Nitrogen 15 mg/dl (9-20); Calcium 8.2 mg/dl (8.4-10.2); Carbon Dioxide 24 mmol/L (22-30); Chloride 97 mmol/L (98-107); Glucose 109 mg/dl (70-99); Potassium 3.9 mmol/L (3.5-5.1); Sodium 126 mmol/L (135-145); Total Bilirubin 0.8 mg/dl (0.2-1.3); Total Protein 5.1 g/dl (6.3-8.2); eGFR > 60.00
[2025-01-16 14:09] LABS: COVID-19 Antigen Negative (Negative)
[2025-01-16 14:09] LABS: Lactic Acid 1.1 mmol/L (0.7-2.0)
[2025-01-16 14:28] VITALS: BP 130/78
[2025-01-16 14:36] VITALS: BMI 26.9
[2025-01-16] MEDS: ZOSYN 100 IV (15:26)
[2025-01-16] MEDS: VANCOCIN 540 MG IV (15:26)
[2025-01-16 16:29] VITALS: BP 122/74
--- NOTE | 2025-01-16 17:22 | HPS.HSE ---
Family Physician
-
Family Physician: TAYE Kimble
Chief Complaint
-
Fever and abdominal pain
History of Present Illness
Patient is a 74 years old gentleman with history of paroxysmal atrial fibrillation, rectal adenocarcinoma who underwent robotic APR with perineal reconstruction on 01/11 with colostomy and [address] Postoperative course was uneventful.
Patient was discharged home, although comes back to the emergency room today with episode of fever. Describes diffuse abdominal pain which is not much different from his immediate postoperative pain. He denies any chest pain, shortness of breath,
denies any respiratory symptoms or urinary complaints.
On presentation to the emergency room patient was febrile at 103. He is mildly hypotensive. Additional workup was consistent for hyponatremia of sodium 126. He is not in distress and did not has nontoxic appearance.
Medical History
Past Medical History
Past Medical History: Reports Arrhythmia (Paroxysmal A-fib), HTN and Other (Colorectal carcinoma)
Past Surgical History: Reports Other (APR with perineal reconstruction)
Social History
Tobacco: Non-smoker
Drug: None
Personal:
Living: With Family
Family History
Family History: Not pertinent
Allergies / Home Medications
Allergies reflects when Allergies were last updated in [facility].
Home Medications with original date entered in [facility]
Allergy/Medication List:
Allergies
Allergy/AdvReac Type Severity Reaction Status Date / Time
No Known Allergies Allergy Verified 01/16/25 12:32
Home Medications
apixaban 5 mg tablet (Eliquis) 5 mg PO BID Blood Clot Prevention/Tx 12/15/23
levothyroxine 100 mcg tablet 100 mcg PO DAILY Thyroid 12/15/23
tamsulosin 0.4 mg capsule 0.4 mg PO HS Urinary Issue 12/15/23
zolpidem 5 mg tablet (Ambien) 2.5 mg PO HSPRN PRN sleep 01/04/25
irbesartan 150 mg tablet 150 mg PO DAILY Blood Pressure #0 tabs 01/15/25
acetaminophen 325 mg tablet (Tylenol) 650 mg PO Q6HPRN PRN mild pain 01/16/25
oxycodone 5 mg tablet 5 mg PO Q6HPRN PRN mild Pain 01/16/25
Review of Systems
-
A 12 point ROS was completed and negative except as noted: Yes
Physical Exam
Vital Signs
Vital Signs
Temp Pulse Resp BP Pulse Ox
103 F H 106 20 122/74 93
01/16/25 13:33 01/16/25 16:29 01/16/25 16:29 01/16/25 16:29 01/16/25 16:29
Physical Exam
General: Well Developed, Well Nourished and No Apparent Distress
HEENT: NormoCephalic, Moist mucous membranes and Atraumatic
Respiratory: Clear
Cardiac: S1/S2 and Regular Rhythm; No Murmur or Rub
GI: Soft, Non Tender, Non Distended, Normal Bowel Sounds and Other (Right lower quadrant ERVIN drains x 2 with colostomy); No Organomegaly
Rectal: Deferred by Provider
Musculoskeletal: No Clubbing, No Cyanosis and No Edema
Skin: No Rash
Neuro: Nonfocal/grossly intact
Laboratory Results
-
01/16/25 12:56
01/16/25 12:56
Laboratory Results
Lactic Acid 1.1 mmol/L (0.7-2.0) 01/16/25 12:57
Total Bilirubin 0.8 mg/dl (0.2-1.3) 01/16/25 12:56
AST 30 U/L (17-59) 01/16/25 12:56
ALT 22 U/L (0-50) 01/16/25 12:56
Alkaline Phosphatase 79 U/L (38-126) 01/16/25 12:56
Impression/Plan
-
Impression
Presentation with fever and diffuse abdominal pain
Status post robotic APR with perineal reconstruction on 01/11
Hyponatremia
Hypertension secondary to dehydration with no evidence of shock
Other conditions:
Paroxysmal atrial fibrillation.
Anticoagulation with Eliquis
Essential hypertension
BPH.
Hypothyroidism on replacement
Plan
Episode of fever
His only complaint is postoperative diffuse abdominal pain
No respiratory complaints per
COVID/influenza negative on admission.
Chest x-ray with questionable left lower lobe consolidation atelectasis versus pneumonia.
CT scan of the abdomen and pelvis with IV and oral contrast with no evidence of abscess. Consistent with postoperative findings.
Follow blood cultures.
Empiric antibiotics vancomycin/Zosyn to cover nosocomial dalia including possible pneumonia.
Check procalcitonin
Colorectal surgery follow-up
Hyponatremia
Mildly hypotensive suspect secondary dehydration
TFTs within normal limits.
Hold Advair Zartan.
Continue isotonic solution.
Follow BMP.
Continue oxycodone to avoid persistent pain
Paroxysmal atrial fibrillation
Currently in normal sinus rhythm
Not on any arrhythmics or AV suri blocking agent at this point
[id number] 3 (age x 2, hypertension
Continue Eliquis
BPH on Flomax
Check UA and reflex to cultures
Monitor for retention
--- NOTE | 2025-01-16 18:08 | W.PN.UPDATE ---
Update Note
Progress Note Update
The patient was seen and examined, and I reviewed the medical record and imaging studies. Full consult to follow.
74-year-old male who underwent a robotic APR and VRAM perineal reconstruction on 01/09/25 for recurrent distal rectal cancer following total neoadjuvant therapy including chemoradiation and chemotherapy. His postoperative course was uneventful and he
was discharged to [facility] yesterday.� He developed a fever and referred to our ED. He has no specific complaints. He is eating but his appetite has not returned to normal. He denies any nausea. He is having some incisional pain that is unchanged from
postop. The ostomy is working and he denies anorectal pain.
In the ED his temp was 103 with a normal BP and a pulse around 100. He is no acute distress. He appears edematous but his abdomen is soft and nontender. The incision is healing well and there is no infection. The ostomy is viable and still somewhat
swollen. There is some semi-formed output. The VRAM is intact and is healing well. There is no infection and both drains are draining serosanguineous output. His legs are also edematous as well as his penis/scrotum. There is no leg tenderness.
His wbc is normal and his hemoglobin of 9.6 g/dL is stable. His electrolytes are normal with the exception of a low sodium. His chest x-ray suggests a possible LLL pneumonia. There is no abscess on the CT scan of the abdomen and pelvis with
contrast. �
The source of the fever might be due to pneumonia. Urine and blood cultures are pending. The bladder is somewhat distended on the CT scan and he denies any urinary symptoms. Will order a urine culture and post-void residual.� He is being admitted to
the medical service and started on antibiotics. He is ok for a diet and we will follow. PT and ostomy care consults placed. His son was present at the bedside, all questions answered.
[2025-01-16 18:47] LABS: Urine Albumin 2+ (Neg - Trace); Urine Bilirubin Negative (Negative); Urine Character Clear (Clear); Urine Color Amber; Urine Glucose Negative (Negative); Urine Ketone Negative (Negative); Urine Leukocyte Negative (Negative); Urine Nitrite Negative (Negative); Urine Occult Blood 4+ (Negative); Urine Specific Gravity 1.015 (<1.030); Urine Urobilinogen Negative (Neg - 1+)
[2025-01-16 19:02] LABS: Urine Squamous Cell 0-2 /LPF (Few)
[2025-01-16 19:03] LABS: Urine Bacteria Moderate (Negative); Urine Red Blood Cell >100 /HPF (0-2); Urine White Cell 0-2 /HPF (0-5)
[2025-01-16 19:21] VITALS: BP 128/70
[2025-01-16 19:36] VITALS: BP 147/83
[2025-01-16 19:43] VITALS: BMI 25.1
[2025-01-16] MEDS: ELIQUIS 5 MG PO (20:13)
[2025-01-16] MEDS: ROXICODONE 5 MG PO (20:13)
[2025-01-16] MEDS: LR 1000 IV (20:13)
[2025-01-16] MEDS: FLOMAX 0.4 MG PO (21:55)
[2025-01-16 22:34] VITALS: BMI 25.1
--- NOTE | 2025-01-16 22:50 | PTCARENOTE ---
Patient arrived from the ED via stretcher at approximately 1930. Patient stood and pivoted from stretcher to bed x2 assist. Patient AAOx3, flat. VSS as documented. Assessment as documented. Patient oriented to room. Bed in lowest position. Call barajas
within reach.
[2025-01-16 23:28] VITALS: BP 114/68
[2025-01-17] VITALS (34 sets, daily range): BP systolic 99–138; BP diastolic 65–111; BMI 26.8
[2025-01-17] MEDS: TYLENOL 650 MG PO ×2 (01:16→17:35)
[2025-01-17] MEDS: ZOSYN 50 IV ×4 (02:17→22:10)
[2025-01-17] MEDS: DILAUDID 0.5 MG IV ×4 (03:04→18:32)
[2025-01-17] MEDS: MYLICON 80 MG PO (03:15)
[2025-01-17] MEDS: ZOFRAN 4 MG IV (04:53)
[2025-01-17] MEDS: SYNTHROID 100 MCG PO (04:54)
[2025-01-17] MEDS: NSS (PRESERVATIVE FREE) 10 ML IV (04:54)
[2025-01-17] MEDS: PROTONIX IV 40 MG IV (04:54)
--- NOTE | 2025-01-17 06:10 | PTCARENOTE ---
At approximately 0230, patient complaining of worsening abdominal pain, fullness and bloating. Patient's abd mildly distended with hypoactive bowel sounds. Abdomen tender throughout to light touch. Pts colostomy with minimal output throughout shift.
Patient also complaining of reflux feeling/nausea. Bladder scanned for 210mls. Patient's perineal flap noted to be draining a moderate amount of serosang/sang drainage with areas that may possibly be beginning to dehisce on R side. Patient's R
buttock mildly firm next to flap. DISTRIBUTION COORDINATOR notified of findings. IV Dilaudid, Zofran, and protonix and PO simethicone ordered and administered - see MAR. call worker person CRS notified per DISTRIBUTION COORDINATOR rec.
[2025-01-17] MEDS: ROXICODONE 5 MG PO (07:12)
[2025-01-17 07:18] LABS: Hematocrit 30.9 % (39.0-52.0); Hemoglobin 10.6 g/dL (13.0-18.0); Mean Corp Hgb Conc. 34.3 g/dL (33.0-37.0); Mean Corpuscular Hgb 33.1 pg (27.0-31.0); Mean Corpuscular Volume 96.6 fL (80.0-94.0); Mean Platelet Volume 9.4 fL (7.4-10.4); Platelet Count 222 10^3/uL (130-400); Red Cell Dist. Width 13.6 % (11.5-14.5); White Blood Cell Count 11.5 10^3/uL (4.8-10.8)
[2025-01-17 07:37] LABS: % Basophils 0.5 % (0-2); % Eosinophils 0.4 % (0-6); % Immature Granulocytes 2.4 % (0-0.5); % Lymphocytes 2.2 % (20.5-51.1); % Monocytes 7.2 % (1.7-9.3); % Neutrophils 87.3 % (42.2-75.2); Absolute Basophils 0.1 10^3/uL (0-0.2); Absolute Eosinophils 0.1 10^3/uL (0-0.7); Absolute Immature Granulocytes 0.3 10^3/uL (0-0.05); Absolute Lymphocytes 0.3 10^3/uL (1.2-3.4); Absolute Monocytes 0.8 10^3/uL (0.1-0.6); Nucleated Red Blood Cells % 0 % (-)
[2025-01-17 07:45] LABS: Blood Urea Nitrogen 14 mg/dl (9-20); Calcium 8.8 mg/dl (8.4-10.2); Carbon Dioxide 26 mmol/L (22-30); Chloride 96 mmol/L (98-107); Estimated Creatinine Clearance 77 ml/min; Glucose 102 mg/dl (70-99); Potassium 4.1 mmol/L (3.5-5.1); Sodium 128 mmol/L (135-145); eGFR > 60.00
[2025-01-17] MEDS: LR 1000 IV ×3 (07:48→14:34)
--- NOTE | 2025-01-17 07:50 | PHA.VAN.IN ---
Assessment
- Assessment
Renal Function: Appears similar to baseline
Maximum Temperature: 103
Minimum Temperature: 98.6
Concomitant Antimicrobials: Pip/Tazo 3.375gm Q6H
AUC Dosing Plan
- Dosing Variables
Dosing Weight (kg): 89.5
Dosing CrCl (ml/min): 77
Vd coefficient (L/kg): 0.7
- Empiric Dosing
Initial / Loading Dose: 2000mg on 01/16 @1526
Maintenance Regimen: 1000mg Q12H to start on 01/17
Estimated AUC (mcg*h/mL): 483
Estimated Peak (mcg*h/mL): 28.5
Estimated Trough (mcg/ml): 13.5
Estimated Half Life (H): 10.1
- Monitoring
No levels ordered at this time: Consider levels in next few days
Pharmacokinetics Vancomycin I
- -
Patient Age: 74
Patient Sex: Male
Vancomycin Day #: 1
Indication: Pulmonary/Respiratory
Requesting Provider: Dr. Gomez
Pertinent Antimicrobial Allergies:
NKDA
Height / Weight:
Height 6 ft
Actual Weight 89.539 kg
- Vital Signs / Lab Results
Temp Pulse Resp BP Pulse Ox
99.1 F 80 24 130/68 92
01/17/25 03:04 01/17/25 03:04 01/17/25 03:04 01/17/25 03:04 01/17/25 03:04
Lab Results - Hematology
01/16/25 01/17/25
12:56 06:47
WBC 9.3 11.5 H
Lab Results - Chemistry
01/16/25 01/17/25
12:56 06:47
BUN 15 14
Creatinine 1.0 0.9
Estimated Creat Clear 77
Albumin 2.8 L
01/16/25 01/16/25
12:57 16:45
Lactic Acid 1.1 Cancelled
Lab Results - Urine
01/16/25
12:57
Urine Nitrite (Reflex) Negative
Leukocyte Esterase Rfl Negative
Urine WBC (Reflex) 0-2
Ur Squamous Epith Cells 0-2
Urine Bacteria (Reflex) Moderate A
Microbiology Results
01/16/25 12:57 Influenza Types A & B (CELIA) - Final
Nasal Swab Negative for Influenza A & B, NAAT
Negative results must be combined with clinical observations
and patient history.
Nucleic Acid Amplification test (NAAT)performed on the
Sandbox platform.
[2025-01-17 07:54] LABS: Procalcitonin 5.38 ng/ml (0.0-0.25)
[2025-01-17] MEDS: ELIQUIS PO (09:06)
--- NOTE | 2025-01-17 09:47 | WOUNDNOTE ---
PERINEAL FLAP/SACRAL CREASE
--- NOTE | 2025-01-17 09:53 | WOUNDNOTE ---
[facility] RN note: Patient admitted with possible pneumonia, abdominal pain, fever. Abdomen distended, stoma swollen and budded. Scant loose stool in pouch. Peristomal skin intact. Jasmine midline incision approximated with healing blister to L of incision.
1.6l3iotw silicone border foam changed on blister. Colostomy appliance changed using Joe wafer # [id number] and Deshler pouch # [id number]. Perineal flap appears viable with large amount of sanguinous drainage/some sanguinous drainage slightly cloudy
coming from proximal edge of graft. Coccyx crease dull red and intact. Gauze pads and ABD pads changed on perineum. RED Rendon stated Dr. Paredes evaluated perineum this morning and is aware of bloody drainage. Skin on heels blanchable mild red and
intact. Static air overlay applied with help from RED Whiting and PCT Chele. Patient's heels off bed with air chair cushion. Instructed patient pressure injury prevention measures. Patient currently NPO and has a CT scan on order. Ostomy supplies
left at bedside. Next appliance change due Tuesday or Tuesday. Patient did not feel well enough for ostomy teaching today.
[2025-01-17] MEDS: VANCOCIN 200 IV ×2 (10:02→17:35)
--- NOTE | 2025-01-17 10:33 | CON.CRS ---
Consultation
-
Date/Time Consultation Requested: 01/16/2025, 17:00
Date/Time Consultation Performed: 01/17/2025, 18:08
Requesting Provider: Jason Gomez MD
Performing Provider: Stanton Paredes MD
Reason for Consultation: fever
Medical History
-
Chief Complaint: fever
History of Present Illness:
74-year-old male who underwent a robotic APR and VRAM perineal reconstruction on 01/09/25 for recurrent distal rectal cancer following total neoadjuvant therapy including chemoradiation and chemotherapy. His postoperative course was uneventful and he
was discharged to [facility] yesterday.� He developed a fever and referred to our ED. He has no specific complaints. He is eating but his appetite has not returned to normal. He denies any nausea. He is having some incisional pain that is unchanged from
postop. The ostomy is working and he denies anorectal pain.
In the ED his temp was 103 with a normal BP and a pulse around 100. He is no acute distress. He appears edematous but his abdomen is soft and nontender. The incision is healing well and there is no infection. The ostomy is viable and still somewhat
swollen. There is some semi-formed output. The VRAM is intact and is healing well. There is no infection and both drains are draining serosanguineous output. His legs are also edematous as well as his penis/scrotum. There is no leg tenderness.
His wbc is normal and his hemoglobin of 9.6 g/dL is stable. His electrolytes are normal with the exception of a low sodium. His chest x-ray suggests a possible LLL pneumonia. There is no abscess on the CT scan of the abdomen and pelvis with
contrast. �Given his history and findings, we have been consulted for surgical opinion.
Past Medical History
Past Medical History: Other (Arrhythmia (Paroxysmal A-fib), HTN and Other (Colorectal carcinoma))
Past Surgical History: Other (APR with perineal reconstruction)
Social History
Tobacco: Non-Smoker
Alcohol: None
Personal:
Living: With Family
Family History
Family History: Reviewed & Not Pertinent
Allergies / Home Medications
Allergy/AdvReac Type Severity Reaction Status Date / Time
No Known Allergies Allergy Verified 01/16/25 12:32
�Medication �Instructions �Recorded �Confirmed �Type
apixaban 5 mg tablet (Eliquis) 5 mg PO BID Blood Clot 12/15/23 01/16/25 History
Prevention/Tx
levothyroxine 100 mcg tablet 100 mcg PO DAILY Thyroid 12/15/23 01/16/25 History
tamsulosin 0.4 mg capsule 0.4 mg PO HS Urinary Issue 12/15/23 01/16/25 History
zolpidem 5 mg tablet (Ambien) 2.5 mg PO HSPRN PRN sleep 01/04/25 01/16/25 History
irbesartan 150 mg tablet 150 mg PO DAILY Blood Pressure #0 01/15/25 01/16/25 Rx
tabs
acetaminophen 325 mg tablet 650 mg PO Q6HPRN PRN mild pain 01/16/25 01/16/25 History
(Tylenol)
oxycodone 5 mg tablet 5 mg PO Q6HPRN PRN mild Pain 01/16/25 01/16/25 History
Review of Systems
-
History Source: Patient
Constitutional: Fever
A 10 point review of systems was completed, and was negative except as per HPI.
Physical Exam
Vital Signs
Temp 98.3 F 01/17/25 07:45
Pulse 80 01/17/25 07:45
Resp Rate 18 01/17/25 07:45
Blood pressure 125/76 01/17/25 07:45
SaO2 95 01/17/25 07:45
01/16/25 01/17/25 01/18/25
06:59 06:59 06:59
Actual Weight 89.539 kg
Body Mass Index (BMI) 26.8
Lab Results / Allergies
01/17/25 06:47
01/17/25 06:47
WBC 11.5 10^3/uL (4.8-10.8) H 01/17/25 06:47
Hgb 10.6 g/dL (13.0-18.0) L 01/17/25 06:47
Hct 30.9 % (39.0-52.0) L 01/17/25 06:47
Plt Count 222 10^3/uL (130-400) D 01/17/25 06:47
Abs Immat Gran (auto) 0.3 10^3/uL (0-0.05) H 01/17/25 06:47
Neutrophils % 87.3 % (42.2-75.2) H 01/17/25 06:47
Allergy/AdvReac Type Severity Reaction Status Date / Time
No Known Allergies Allergy Verified 01/16/25 12:32
Physical Exam
General: Well Developed, Well Nourished and No Apparent Distress
GI: Soft, Non Tender, Incisions (incision c/d/i, VRAM is intact and is healing well) and Other ( both drains are draining serosanguineous output, ostomy is viable and still somewhat swollen)
Musculoskeletal: Other (legs are also edematous as well as his penis/scrotum)
Neuro: AO x 3
Data Reviewed
-
CT Scan: Image Personally Visualized and interpreted, Report Reviewed by me and Discussed with Patient
Labs: Labs Reviewed by me, Discussed with Physician and Discussed with Patient
Old Records: Reviewed
Assessment / Plan
-
The source of the fever might be due to pneumonia. Urine and blood cultures are pending. The bladder is somewhat distended on the CT scan and he denies any urinary symptoms. Will order a urine culture and post-void residual.� He is being admitted to
the medical service and started on antibiotics. He is ok for a diet and we will follow. PT and ostomy care consults placed. His son was present at the bedside, all questions answered.
--- NOTE | 2025-01-17 10:48 | W.PN.CRS1 ---
Today's Communication / Plan
-
abdominal xrays
npo
zosyn
keita
wound care
Assessment/Plan
-
74-year-old male who underwent a robotic APR and VRAM perineal reconstruction on 01/09/25 for recurrent distal rectal cancer following total neoadjuvant therapy including chemoradiation and chemotherapy, now with fever
WBC 11.5 (9.3), Hgb 11.6
Tmax 103.0
-Continue to trend labs/vitals
-Place keita due to ?retention and I/O's
-Remain NPO with IVFs
-I/S ordered
-May need TPN in the next coming days if no improvement
-Daily and PRN dressing changes to flap
-Continue IV antibiotics
-OOB with PT
-HOld Eliquis (vomiting)
-Compazine ordered PRN
-Wound RN for ostomy care
Subjective Data
Subjective Data
Date of Service: January 17, 2025
Patient vomited a few minutes prior to us entering the room. The RN states he has been bleeding from the flap. He has worsening abdominal pain.
Objective Data
-
Vital Signs
Temp Pulse Resp BP Pulse Ox
98.3 F 80 18 125/76 95
01/17/25 07:45 01/17/25 07:45 01/17/25 07:45 01/17/25 07:45 01/17/25 07:45
Intake & Output
01/16/25 01/17/25 01/18/25
06:59 06:59 06:59
Intake Total 1000 / 1000 250 / 250
Output Total 345 / 345
Balance 655 / 655 250 / 250
Intake:
Oral fluids 250 / 250
IV fluids (Total) 700 / 700
IV piggybacks 50 / 50 250 / 250
Output:
Drain Output (Total) 95 / 95
Right Lower Abdomen Alberto- 55 /
Martinez A
Right Lower Abdomen Alberto- 40 / 40
Martinez B
Urine, Voided 250 / 250
Lab Results
01/17/25 06:47
01/17/25 06:47
Physical Exam
-
General: AOx3
Abdomen: Soft, Distended and Non Tender
Incision: Clear, Dry, Intact (abdominal) and Other (bloody drainage from pelvic flap)
[2025-01-17] MEDS: COMPAZINE 10 MG IV (11:11)
[2025-01-17 12:25] LABS: Glucose - Point of Care 110 mg/dl (70-99)
--- NOTE | 2025-01-17 12:58 | W.PN.UPDATE ---
Update Note
Progress Note Update
Informed by colorectal team that patient had elevated HR to 200s and rapid called. Saw and examined patient. Very bloated, denies chest pain or n/v. No ostomy function. Having difficulty breathing due to the bloating. On exam afeb, SBP 140s, HR
110s, abd taut, very distended, appropriately tender near incisions, o rebound or guarding, ostomy pink without output
-Agree with hospitalist, transfer to IMU/ICU, start amio gtt; seems less likely pneumonia, no obvious other infectious source; cont empiric IV abx and consider BLE duplex to rule out DVT
-Developing ileus, recommend NPO/IVF and placement of NGT
-No evidence of acute abdomen, no emergency surgery needed at this time
--- NOTE | 2025-01-17 13:02 | CM ---
Reviewed the chart notes and spoke with the patient at the bedside. The patient is admitted under observational status. The ARIAS letter was provided and explained. The patient had no questions with regards to the letter.
The patient resides alone in independent living at [facility]. The patient was recently discharged from (01/10-01/16) to home with [facility] services. The patient has been to [facility] in the past. The patient confirm his pharmacy of choice is [facility]. Patient is now being transferred to ICU. CM continues to be available to patient/family and is monitoring medical plan for needs at discharge.
Plan: Discharge plans will depend on the patient's progress.
[2025-01-17 13:03] LABS: Hematocrit 32.6 % (39.0-52.0); Hemoglobin 11.1 g/dL (13.0-18.0); Mean Corpuscular Hgb 33.1 pg (27.0-31.0); Mean Corpuscular Volume 97.3 fL (80.0-94.0); Mean Platelet Volume 9.7 fL (7.4-10.4); Platelet Count 316 10^3/uL (130-400); Red Blood Cell Count 3.35 10^6/uL (4.70-6.10); Red Cell Dist. Width 13.6 % (11.5-14.5); White Blood Cell Count 17.4 10^3/uL (4.8-10.8)
[2025-01-17 13:04] LABS: INR 1.09; PT 14.6 Sec (11.4-14.6)
[2025-01-17 13:05] LABS: APTT 39.5 Sec (23.4-35.0)
[2025-01-17 13:06] LABS: Lactic Acid 2.8 mmol/L (0.7-2.0)
[2025-01-17 13:11] LABS: ALT (SGPT) 23 U/L (0-50); AST (SGOT) 33 U/L (17-59); Albumin 3.4 g/dl (3.5-5.0); Alkaline Phosphatase 93 U/L (38-126); Blood Urea Nitrogen 14 mg/dl (9-20); Calcium 9.3 mg/dl (8.4-10.2); Carbon Dioxide 25 mmol/L (22-30); Chloride 93 mmol/L (98-107); Estimated Creatinine Clearance 86 ml/min; Glucose 113 mg/dl (70-99); Potassium 4.3 mmol/L (3.5-5.1); Sodium 128 mmol/L (135-145); Total Bilirubin 1.3 mg/dl (0.2-1.3); Total Protein 6.1 g/dl (6.3-8.2); eGFR > 60.00
[2025-01-17] MEDS: CORDARONE 518 MG IV (13:12)
[2025-01-17 13:18] LABS: Troponin I < 0.012 ng/ml
[2025-01-17 13:25] LABS: % Basophils 0.2 % (0-2); % Eosinophils 0.3 % (0-6); % Immature Granulocytes 0.8 % (0-0.5); % Lymphocytes 4.7 % (20.5-51.1); % Monocytes 8.6 % (1.7-9.3); % Neutrophils 85.4 % (42.2-75.2); Absolute Eosinophils 0.1 10^3/uL (0-0.7); Absolute Immature Granulocytes 0.1 10^3/uL (0-0.05); Absolute Lymphocytes 0.8 10^3/uL (1.2-3.4); Absolute Monocytes 1.5 10^3/uL (0.1-0.6); Absolute Neutrophils 14.9 10^3/uL (1.4-6.5); Nucleated Red Blood Cells % 0 % (-)
--- NOTE | 2025-01-17 13:25 | CON.INTV ---
Addendum entered and electronically signed by Colton Olivera MD 01/17/25 14:25:
Critical Care time 45 mins -- The patient is admitted for acute critical illness for the treatment of vital organ failure and/or prevention of further life-threatening conditions. Total care includes time spent in review of history, physical exam,
medications, hemodynamic/ventilator parameters, laboratory data, imaging and discussion with house staff, pharmacy, respiratory therapy, plant biology professor, and nursing.
Original Note:
Consultation
Consultation Request
Date/Time Consultation Requested: 01/17/2025
Date/Time Consultation Performed: -01/17/2025 1 pm
Requesting Provider: Jason Gomez
Performing Provider: Colton Olivera
Reason for Consultation: Tachyarrhythmias
Medical History
-
Chief Complaint: Abdominal pain
History of Present Illness:
Very pleasant 74-year-old gentleman was recently diagnosed with rectal adenocarcinoma and underwent robotic APR with perineal reconstruction on 01/11 with colostomy and [address]. Patient was discharged home however he presented back to
emergency room yesterday with episode of fever. He also reported diffuse abdominal pain which was not much changed from prior. Patient otherwise denied any shortness of breath cough wheezing, hemoptysis or dysuria.
Patient was febrile on initial admission. Patient had a CT scan performed which was not suggestive of an abscess or obstruction. Blood cultures were drawn and he was started on empiric antibiotics. Colorectal surgery service evaluated the patient
and no surgical intervention was recommended. Earlier today patient developed significant tachycardia with heart rate above 200 and dropped systolic blood pressure to about 90 along with increased abdominal discomfort. Rapid response was called,
patient was noted to be in SVT versus a flutter with aberrancy and did not respond to IV Lopressor. Subsequently amiodarone bolus was given and patient converted to normal sinus rhythm and then eventually back to atrial fibrillation. Patient was
started on amiodarone drip and was transferred to ICU. Groundskeeper consultation was requested for further management.
During my evaluation, patient was sitting in bed and was complaining of diffuse abdominal pain and some nausea. Patient denied any cough however did report having difficulty taking a deep breath due to abdominal distention. No output was noted in
the colostomy bag during my exam. Abdomen distended but does not have rebound tenderness.
Past Medical History
Past Surgical History: Other (Paroxysmal atrial fibrillation, hypertension, rectal adenocarcinoma)
Social History
Tobacco: Non-smoker
Family History
Family History: Reviewed & Not Pertinent
Allergies / Home Medications
Allergies
Allergy/AdvReac Type Severity Reaction Status Date / Time
No Known Allergies Allergy Verified 01/16/25 12:32
Home Medications
�Medication �Instructions �Recorded �Confirmed �Last Taken �Type
apixaban 5 mg tablet (Eliquis) 5 mg PO BID Blood Clot 12/15/23 01/16/25 01/16/25 History
Prevention/Tx
levothyroxine 100 mcg tablet 100 mcg PO DAILY Thyroid 12/15/23 01/16/25 01/16/25 History
tamsulosin 0.4 mg capsule 0.4 mg PO HS Urinary Issue 12/15/23 01/16/25 01/15/25 History
zolpidem 5 mg tablet (Ambien) 2.5 mg PO HSPRN PRN sleep 01/04/25 01/16/25 Unknown History
irbesartan 150 mg tablet 150 mg PO DAILY Blood Pressure #0 01/15/25 01/16/25 01/16/25 Rx
tabs
acetaminophen 325 mg tablet 650 mg PO Q6HPRN PRN mild pain 01/16/25 01/16/25 01/16/25 History
(Tylenol)
oxycodone 5 mg tablet 5 mg PO Q6HPRN PRN mild Pain 01/16/25 01/16/25 01/16/25 History
Review of Systems
-
Hematologic/Lymphatic: Other (Patient complains of feeling weak, abdominal pain, nausea, mild difficulty taking a deep breath otherwise unremarkable)
Vitals / Labs / Diagnostic Testing
Vital Signs
Temp Pulse Resp BP Pulse Ox
98.4 F 79 16 135/79 95
01/17/25 11:05 01/17/25 11:05 01/17/25 11:05 01/17/25 11:05 01/17/25 11:05
Lab Data
01/17/25 12:34
01/17/25 12:34
Laboratory Results
01/17/25
12:34
PT 14.6
INR 1.09
APTT 39.5 H
Microbiology
01/16/25 12:57 Nasal Swab Influenza Types A & B (CELIA) - Final
Negative for Influenza A & B, NAAT
Negative results must be combined with clinical observations
and patient history.
Nucleic Acid Amplification test (NAAT)performed on the
[employer] platform.
Diagnostic Testing:
Physical Exam
-
HEENT: Normocephalic
Cardiovascular: Irregular Rhythm
Respiratory: Clear and Non-Labored Respirations
GI: Distended and Tender
Neurology: Awake and Alert
Skin: Warm
General: Respiratory Distress (No respiratory distress)
Assessment
-
#1. Narrow-complex tachycardia, appears to be atrial flutter versus SVT with aberrancy
-S/p amiodarone and metoprolol bolus followed by infusion of amiodarone
-Stat another 5 mg of IV Lopressor considering heart rate more than 145
-Cardiology consult
-Continue telemetry monitoring
#2. Rectal cancer s/p robotic APR with perineal reconstruction 01/11, increased abdominal pain
-No acute surgical intervention needed per colorectal surgery evaluation
-CT from 01/16, not suggestive of obstruction or abscess
-KUB suggestive of developing ileus versus small bowel obstruction, place NG tube to low intermittent suction
-LR bolus 1 L stat
-Stat ABG and follow-up on lactate considering diffuse abdominal tenderness, tachycardia, recent surgery and concern for sepsis (ABG 7.46, 32, 103)
-Continue maintenance IV fluids
-Strict n.p.o.
-Continue vancomycin and Zosyn
-Follow-up on blood cultures
#3. History of paroxysmal atrial fibrillation
-Continue amiodarone infusion
-Hold Eliquis in the setting of increased abdominal pain, NG tube placement
-Depending on patient's clinical course over next 24 hours, will consider starting heparin infusion instead
-Continue to monitor closely in the ICU
Critical Care time 45 mins -- The patient is admitted for acute critical illness for the treatment of vital organ failure and/or prevention of further life-threatening conditions. Total care includes time spent in review of history, physical exam,
medications, hemodynamic/ventilator parameters, laboratory data, imaging and discussion with house staff, pharmacy, respiratory therapy, plant biology professor, and nursing.
CT Abd/Pelvis: 01/16:
Postsurgical change of the abdomen and pelvis including presacral edema, mild extraluminal air in the pelvis, percutaneous drainage catheters and subcutaneous emphysema.
No abscess identified.
Small bilateral pleural effusions.
Moderate bibasilar consolidation which may represent atelectasis or developing pneumonia.
Moderate fecal material in the colon. Mild diverticulosis..
[2025-01-17 13:28] LABS: Glucose - Point of Care 120 mg/dl (70-99)
[2025-01-17] MEDS: LOPRESSOR 5 MG IV (13:37)
--- NOTE | 2025-01-17 13:38 | CON.CAR ---
Consultation
Consultation Request
Date/Time Consultation Requested: 01/17/2025
Date/Time Consultation Performed: 01/17/2025
Requesting Provider: Dr. Gomez
Performing Provider: Dr. Reinoso
Reason for Consultation: Tachycardia
Medical History
-
Chief Complaint: Tachycardia
History of Present Illness:
74-year-old male (known to Dr. Campbell, his primary Senior Specialist) with paroxysmal A fib (on eliquis), HTN, mild/moderate MR and TR, mild AR, IVCD, colorectal cancer s/p chemo, recent colectomy/colostomy/perineal reconstruction on 01/11/25 (Dr Santana)
readmitted with developing sepsis. Cardiology consulted for tachycardia with heart rates of 235 bpm (narrow complex). Patient currently complaining of abdominal pain and shortness of breath; denies chest pain.
Past Medical History
Past Medical History: Arrhythmias, Cancer, HTN and Valvular Disease
Past Surgical History: Bowel Resection (Colectomy/colostomy/perineal reconstruction 01/11/2025)
Social History
Tobacco: Non-Smoker
Alcohol: None
Living: With Family
Family History
Family History: Reviewed & Not Pertinent
Allergies / Home Medications
Allergy/AdvReac Type Severity Reaction Status Date / Time
No Known Allergies Allergy Verified 01/16/25 12:32
�Medication �Instructions �Recorded �Confirmed �Type
apixaban 5 mg tablet (Eliquis) 5 mg PO BID Blood Clot 12/15/23 01/16/25 History
Prevention/Tx
levothyroxine 100 mcg tablet 100 mcg PO DAILY Thyroid 12/15/23 01/16/25 History
tamsulosin 0.4 mg capsule 0.4 mg PO HS Urinary Issue 12/15/23 01/16/25 History
zolpidem 5 mg tablet (Ambien) 2.5 mg PO HSPRN PRN sleep 01/04/25 01/16/25 History
irbesartan 150 mg tablet 150 mg PO DAILY Blood Pressure #0 01/15/25 01/16/25 Rx
tabs
acetaminophen 325 mg tablet 650 mg PO Q6HPRN PRN mild pain 01/16/25 01/16/25 History
(Tylenol)
oxycodone 5 mg tablet 5 mg PO Q6HPRN PRN mild Pain 01/16/25 01/16/25 History
Review of Systems
-
History Source: Patient
All other systems: Negative unless noted
Abdomen/GI: Abdominal Pain
Physical Exam
Vital Signs
Temp Pulse Resp BP Pulse Ox
98.4 F 79 16 135/79 95
01/17/25 11:05 01/17/25 11:05 01/17/25 11:05 01/17/25 11:05 01/17/25 11:05
Lab Results
01/17/25 12:34
01/17/25 12:34
Troponin I < 0.012 ng/ml 01/17/25 12:34
Physical Exam
General: Other (Uncomfortable-appearing)
HEENT: Anicteric
Respiratory: Clear
Cardiac: S1/S2 and Other (Regular rhythm, tachycardic)
Breast: N/A
GI: Tender and Distended
Rectal: Deferred by Provider
Musculoskeletal: No Edema
Skin: Warm
Neuro: AO x 3
Psych: Calm
Impression / Plan
-
IMPRESSION/PLAN: 74-year-old male (known to Dr. Campbell, his primary Senior Specialist) with paroxysmal A fib (on eliquis), HTN, mild/moderate MR and TR, mild AR, IVCD, colorectal cancer s/p chemo, recent colectomy/colostomy/perineal reconstruction on
01/11/25 (Dr Santana) readmitted with developing sepsis. Cardiology consulted for tachycardia with heart rates of 235 bpm (narrow complex).
Developing unstable narrow-complex tachycardia (SVT):
-Patient given Lopressor 5 mg IV by hospitalist with minimal improvement in heart rate.
-Arrived at patient's bedside with heart rates in 200s.
-Given amiodarone 150 mg IV push--> successful conversion to sinus rhythm with subsequent atrial fibrillation with heart rates of 130s.
-Patient was not on a standing dose of a beta-sean secondary to previous underlying bradycardia; will place on amiodarone drip for now and monitor heart rate closely on telemetry.
-[id number] 3 (age x 2, hypertension)
-Anticoagulation: On Eliquis.
-Patient to be reevaluated by his primary EP Senior Specialist tomorrow.
-Recommend transfer to ICU.
Anal adenocarcinoma/sepsis:
-Status-post surgical resection on 01/11/2025; likely now developing sepsis.
-Recommendations as per Colorectal Surgery.
-Antibiotics as per primary team.
Hypertension
-Holding antihypertensive medications, given developing sepsis.
Data Reviewed
-
EKG: Tracing Personally Visualized and interpreted (SVT at 235 bpm)
Medical Tests (Nuc Med, Echo etc): Image Personally Visualized and interpreted (Transthoracic echocardiogram 01/09/2025: LVEF 55-60%; mild to moderate MR/TR, PASP 25-30 mmHg.)
Labs: Labs Reviewed by me, Discussed with Physician, Discussed with Nurse and Discussed with Patient
Critical Care Time (in minutes): 55
[2025-01-17 13:46] LABS: B.E. -0.3 mmol/L; HCO3 22.8 mmol/L (21-28); O2 Saturation % 98.8 % (94-98); PCO2 32 mmHg (35-48); PO2 103 mmHg (83-108); pH 7.46 (7.35-7.45)
--- NOTE | 2025-01-17 14:21 | PTCARENOTE ---
Received pt s/p rapid response into ICU rm 3362 @ approx 1345. Pt. oriented x3, c/o mod-severe pain throughout abd/rectal reconstruction area- see MAR. Cardiac rhythm in rapid a fib on monitor; received amio bolus during rapid and amio gtt
initiated on admit to unit-see MAR/flow sheet. IV Lopressor x 1 dose admin per orders- see MAR. HR remains uncontrolled. BP stable. Afebrile. SpO2 100% on 3LNC, shallow breaths/tachypneic @ x's. ABG drawn and sent to lab, results pending. Hypo
BS, abd round/firm. LUQ colostomy; stoma red/budded; no stool output. Midline incision approximated. ERVIN drain x 2 on R side of abd; A drain w small amt ser/sang fluid; B drain with serous fluid. Caruso in place draining roly urine. R SC port w
amio gtt; #20 R FA w LR bolus x1; #20 L hand w KVO+ abx. Dr. Olivera to bedside, aware of elevated lactic. Dr. Gomez to bedside as well, updated son on ICU transfer. Complete hygiene provided. Pt. assisted w repositioning but able to shift
weight in bed. Instructed on how to report care concerns and call barajas in reach.
--- NOTE | 2025-01-17 15:07 | W.PN.HOSP.TC ---
Today's Communication/Plan
-
Total Critical Care Time__45___ minutes. I was immediately available to the patient and staff. I personally examined, reviewed labs, diagnostic images/reports, interpretations, treatment plans, discussed patient care with other providers and
family or caregivers (if patient is unable to make decisions), entered orders as appropriate and documented the medical record.
Assessment / Plan
Assessment / Plan
Impression:
Presentation with fever and abdominal pain.
Left lower lobe pneumonia.
Ileus.
SVT with transition to rapid A-fib and hemodynamic instability.
Hyponatremia
Lactic acidosis in the settings of hypotension
Leukocytosis
Conditions prior to admission
Status post robotic APR with perineal reconstruction on 01/11
Colorectal carcinoma status post chemo/radiation
Paroxysmal atrial fibrillation baseline anticoagulation with Eliquis
Essential hypertension
BPH
Hypothyroidism replacement
Plan:
Episode of narrow complex SVT with hemodynamic instability later transition to A-fib with RVR.
Initiated on amiodarone drip.
IV fluid bolus for hypotension.
[id number] 3 (age x 2, hypertension
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
Fever on presentation.
Left lower lobe infiltrate on chest x-ray. His no respiratory complaints
COVID/influenza negative upon admission
Blood culture pending
Urine culture pending
Initiated on broad-spectrum antibiotics to cover nosocomial pathogens/pneumonia
Cardiology/EP cardiology consult: Input appreciated
Abdominal pain persisted upon presentation
Of abdomen and pelvis with IV and oral contrast with no evidence of abscess
Follow-up imaging consistent with ileus.
NPO.
Minimize narcotics.
ERVIN drain remains in place.
Colostomy care
IV fluids and replete electrolytes.
Hold Eliquis acutely
Hyponatremia acute on chronic pain
Given hypotension likely prerenal causes.
Check urine osmolarity and sodium
Has been off of HCTZ.
Hold irbesartan to avoid hypotension
Continue lactated Ringer
Follow BMP
BPH on Flomax
Check UA and reflex to cultures
Monitor for retention
Given hemodynamic instability, A-fib with RVR, concern for systemic infection, monitor in ICU
Anticipated Discharge: > 48 hours
Subjective/Interval History
-
Date of Service: January 17, 2025
Objective Data
-
Labs:
Laboratory Results
01/17/25 01/17/25 01/17/25
06:47 12:34 13:31
WBC 11.5 H 17.4 H
Hgb 10.6 L 11.1 L
Hct 30.9 L 32.6 L
Plt Count 222 D 316 D
PT 14.6
INR 1.09
APTT 39.5 H
HCO3 22.8
Sodium 128 L 128 L
Potassium 4.1 4.3
Chloride 96 L 93 L
Carbon Dioxide 26 25
BUN 14 14
Creatinine 0.9 0.8
Glucose 102 H 113 H
Calcium 8.8 9.3
Total Bilirubin 1.3
AST 33
ALT 23
Alkaline Phosphatase 93
Vital Signs:
Vital Signs
Temp Pulse Resp BP Pulse Ox
98.4 F 79 16 135/79 95
01/17/25 11:05 01/17/25 11:05 01/17/25 11:05 01/17/25 11:05 01/17/25 11:05
I&O
01/16/25 01/17/25 01/18/25
06:59 06:59 06:59
Intake Total 1000 / 1000 370 / 370
Output Total 345 / 345 440 / 440
Balance 655 / 655 -70 / -70
Physical Exam
-
General: Well Developed and No Apparent Distress
HEENT: Normocephalic, Atraumatic and Moist Mucous Membranes
Respiratory: Clear to Auscultation
Cardiac: Regular Rhythm and S1/S2; Negative Murmur, Rub or Gallop
GI: Soft, Nontender, Nondistended, Normal Bowel Sounds, Ostomy and Other (RLQ ERVIN drain in place ); Negative Organomegaly
Rectal: Deferred by Provider
Musculoskeletal: No Clubbing, No Cyanosis and No Edema
Skin: Negative Rash
Neuro: Nonfocal/Grossly Intact
--- NOTE | 2025-01-17 16:00 | RR ---
A Rapid Response was called on this patient, please see Rapid Response form.
Patient went into SVT with HR sustaining 200s. Rapid response called.
--- NOTE | 2025-01-17 16:00 | PTCARENOTE ---
Critical received, blood cultures positive. Dr. Olivera made aware. ABG/lactic results also relayed, no changes in plan of care. Remains in uncontrolled afib w rates up to 140's; plan to await amio gtt to take effect per MD. Call barajas remains w in
reach.
[2025-01-17 17:09] LABS: Lactic Acid 1.1 mmol/L (0.7-2.0)
--- NOTE | 2025-01-17 20:30 | PTCARENOTE ---
Received patient AAOx3, pain at tolerable level. Remains in afib 120s-150s, BP stable, normothermic. +1 LE edema, weak pedal pulses b/l. 97% on 3 liters nasal cannula, lung sounds diminished. Colostomy MIKE red and budded, no output. 2 ERVIN drains on
RLQ, draining serosanguineous and sanguineous fluid. Abdomen round, firm, tender to palpation, hypoactive bowel sounds. Caruso in place for retention, draining yellow urine. Midline incision approximated, [employer]PER[employer]OR [employer]ATE PREPARATION. Aliginate with ABD on rectal flap.
sanguineous drainage. PIVs and port patent, WNL. Amio gtt changed to 0.5 mg. LR at 100 ml/hr ongoing. Call barajas within reach.
[2025-01-17] MEDS: FLOMAX 0.4 MG PO (22:10)
[2025-01-18] VITALS (56 sets, daily range): BP systolic 95–151; BP diastolic 68–103; BMI 27.0
--- NOTE | 2025-01-18 | PTCARENOTE ---
Dilaudid given for pain, tums for heartburn. Repositioned, otherwise patient assessment unchanged from previous. Daughter in law and son updated on phone. Call barajas within reach.
[2025-01-18] MEDS: LR 1000 IV (00:19)
[2025-01-18] MEDS: DILAUDID 0.5 MG IV ×2 (00:19→07:28)
[2025-01-18] MEDS: ZOSYN 50 IV ×4 (01:47→20:26)
[2025-01-18] MEDS: TUMS CHEWABLE TABLET 200 MG PO (01:47)
[2025-01-18] MEDS: PEPCID 20 MG IV (03:41)
[2025-01-18 05:18] LABS: Hematocrit 30.8 % (39.0-52.0); Hemoglobin 10.6 g/dL (13.0-18.0); Mean Corp Hgb Conc. 34.4 g/dL (33.0-37.0); Mean Corpuscular Hgb 33.2 pg (27.0-31.0); Mean Corpuscular Volume 96.6 fL (80.0-94.0); Mean Platelet Volume 9.4 fL (7.4-10.4); Platelet Count 271 10^3/uL (130-400); Red Blood Cell Count 3.19 10^6/uL (4.70-6.10); Red Cell Dist. Width 13.5 % (11.5-14.5); White Blood Cell Count 12.1 10^3/uL (4.8-10.8)
[2025-01-18] MEDS: SYNTHROID PO ×2 (05:26→05:29)
[2025-01-18] MEDS: VANCOCIN 200 IV ×2 (05:27→18:12)
[2025-01-18 05:34] LABS: Blood Urea Nitrogen 17 mg/dl (9-20); Calcium 9.1 mg/dl (8.4-10.2); Carbon Dioxide 26 mmol/L (22-30); Chloride 96 mmol/L (98-107); Estimated Creatinine Clearance 57 ml/min; Glucose 134 mg/dl (70-99); Potassium 4.5 mmol/L (3.5-5.1); Sodium 130 mmol/L (135-145); eGFR > 60.00
--- NOTE | 2025-01-18 05:52 | PTCARENOTE ---
Patient still reporting heartburn, famotidine IV given. Patient sat on edge of bed for 15 minutes. Rectal dressing changed, moderate amount of sanguineous drainage. Otherwise patient assessment unchanged from previous.
[2025-01-18] MEDS: SENOKOT-S 1 TABLET PO (07:29)
[2025-01-18] MEDS: MYLICON 80 MG PO (07:31)
[2025-01-18 08:14] LABS: % Basophils 0.5 % (0-2); % Eosinophils 1.1 % (0-6); % Immature Granulocytes 0.3 % (0-0.5); % Lymphocytes 4.3 % (20.5-51.1); % Monocytes 7.3 % (1.7-9.3); % Neutrophils 86.5 % (42.2-75.2); Absolute Basophils 0.1 10^3/uL (0-0.2); Absolute Eosinophils 0.1 10^3/uL (0-0.7); Absolute Lymphocytes 0.5 10^3/uL (1.2-3.4); Absolute Monocytes 0.9 10^3/uL (0.1-0.6); Absolute Neutrophils 10.5 10^3/uL (1.4-6.5); Nucleated Red Blood Cells % 0 % (-)
--- NOTE | 2025-01-18 08:25 | CON.PS ---
Medical History
-
History of Present Illness:
Patient well-known to me for having recently undergone perineal reconstruction after APR. This was via VRAM flap. He followed a routine postoperative course without issues from a flap standpoint. He was discharged and bounce back due to
presumably ileus.
On discussion we reviewed avoidance of direct pressure on the flap via sitting.
He will be admitted for ileus. I am available as needed
Allergies / Home Medications
Allergy/AdvReac Type Severity Reaction Status Date / Time
No Known Allergies Allergy Verified 01/16/25 12:32
�Medication �Instructions �Recorded �Confirmed �Type
apixaban 5 mg tablet (Eliquis) 5 mg PO BID Blood Clot 12/15/23 01/16/25 History
Prevention/Tx
levothyroxine 100 mcg tablet 100 mcg PO DAILY Thyroid 12/15/23 01/16/25 History
tamsulosin 0.4 mg capsule 0.4 mg PO HS Urinary Issue 12/15/23 01/16/25 History
zolpidem 5 mg tablet (Ambien) 2.5 mg PO HSPRN PRN sleep 01/04/25 01/16/25 History
irbesartan 150 mg tablet 150 mg PO DAILY Blood Pressure #0 01/15/25 01/16/25 Rx
tabs
acetaminophen 325 mg tablet 650 mg PO Q6HPRN PRN mild pain 01/16/25 01/16/25 History
(Tylenol)
oxycodone 5 mg tablet 5 mg PO Q6HPRN PRN mild Pain 01/16/25 01/16/25 History
Physical Exam
Vital Signs
Temp 98.0 F 01/19/25 07:00
Temp route: Oral 01/19/25 07:00
Pulse 112 01/19/25 06:00
Rhythm: Atrial fibrillation 01/18/25 20:00
With- PAC's 01/17/25 08:10
Resp Rate 11 01/19/25 06:00
Blood pressure 107/73 01/19/25 06:00
Blood pressure extremity used: Left upper arm 01/18/25 08:00
Position: Lying 01/18/25 08:00
MAP (cuff-Benny Monitor) 83 01/19/25 06:00
SaO2 98 01/19/25 06:00
Nasal Cannula flow liters per minute 2 01/18/25 21:03
Oxygen Mode of Delivery Room air 01/17/25 11:05
Can the patient verbally communicate their pain? Yes 01/19/25 05:20
Pain scale rating: Asleep 01/19/25 05:20
Actual Weight 203 lb 14.841 oz 01/19/25 04:32
Body Mass Index (BMI) 27.7 01/19/25 04:32
Physical exam:
No acute distress
Distended abdomen
No evidence of incisional issues next
Ostomy
Perineal flap with intact cap refill, no evidence of venous congestion
Lab Results
01/19/25 04:48
01/19/25 04:48
Troponin I < 0.012 ng/ml 01/17/25 12:34
Assessment / Plan
-
Postoperative ileus
From flat perspective, he continues to do well. No evidence of issues with incisional healing.
--- NOTE | 2025-01-18 08:48 | W.PN.INTV ---
Today's Communication / Plan
Recommendations
-Infectious disease consult for gram-positive bacteremia, concern for line sepsis, right upper chest Mediport in place
-DC Eliquis start Lovenox SQ every 12, 1 mg/kg
-DC LR, start NS infusion at 75 an hour in view of mild hyponatremia
Assessment
-
Very pleasant 74-year-old gentleman post surgery for rectal adenocarcinoma was transferred from the floor to the ICU for tachyarrhythmias. Heart rate was more than 200 and patient responded to IV Lopressor and amiodarone push. Patient
#1. Narrow-complex tachycardia, appears to be atrial flutter versus SVT with aberrancy
-S/p amiodarone and metoprolol bolus followed by infusion of amiodarone, improving but still somewhat tachycardic
-Cardiology consult
-Continue telemetry monitoring
#1a. Gram-positive bacteremia with sepsis
-Patient s/p IV fluid resuscitation, serial lactate improving
-Blood cultures positive for gram-positive cocci
-Concern for line sepsis with right upper chest Mediport in place
-Continue broad-spectrum antibiotics, infectious disease consult
-Repeat blood cultures in 48 hours
#2. Rectal cancer s/p robotic APR with perineal reconstruction 01/11, increased abdominal pain
-No acute surgical intervention needed per colorectal surgery evaluation
-CT from 01/16, not suggestive of obstruction or abscess
-KUB suggestive of developing ileus versus small bowel obstruction, place NG tube to low intermittent suction
#3. History of paroxysmal atrial fibrillation
-Continue amiodarone infusion
-DC Eliquis and start Lovenox while patient is n.p.o.
-Continue to monitor closely in the ICU
Critical Care time 30 mins -- The patient is admitted for acute critical illness for the treatment of vital organ failure and/or prevention of further life-threatening conditions. Total care includes time spent in review of history, physical exam,
medications, hemodynamic/ventilator parameters, laboratory data, imaging and discussion with house staff, pharmacy, respiratory therapy, border measurer and cutter, and nursing.
CT Abd/Pelvis: 01/16:
Postsurgical change of the abdomen and pelvis including presacral edema, mild extraluminal air in the pelvis, percutaneous drainage catheters and subcutaneous emphysema.
No abscess identified.
Small bilateral pleural effusions.
Moderate bibasilar consolidation which may represent atelectasis or developing pneumonia.
Moderate fecal material in the colon. Mild diverticulosis..
Subjective Dataa
Subjective Data
Date of Service:
Date of Service: January 18, 2025
Subjective:
Patient comfortably sitting in bed, reports feeling better
Review of Systems
Genitourinary: Other (All 14 systems reviewed and negative except as stated above in the history of present illness.)
Objective Data
Data Reviewed
Vital Signs / I&O / Oxygen:
Vital Signs
Temp Pulse Resp BP Pulse Ox
97.0 F 148 13 100/82 99
01/18/25 07:53 01/18/25 05:45 01/18/25 05:45 01/18/25 05:30 01/18/25 05:45
Intake and Output
01/17/25 01/18/25 01/19/25
06:59 06:59 06:59
Intake Total 1000 / 1000 3871.9 / 3871.9
Output Total 345 / 345 1780 / 1780
Balance 655 / 655 2091.9 / 2091.9
SaO2 99
Nasal Cannula flow liters per 3
minute
Physical Exam
General: Comfortable
HEENT: Normocephalic
Cardiovascular: S1-S2 and Irregular Rhythm
Respiratory: Clear
GI: Distended
Neurology: Awake and Alert
Skin: Warm
Labs/Micro/Reports
Lab Data
01/18/25 04:56
01/18/25 04:56
Laboratory Results
01/17/25 01/17/25
12:34 13:31
PT 14.6
INR 1.09
APTT 39.5 H
pH 7.46 H
pCO2 32 L
pO2 103
HCO3 22.8
O2 Delivery Level
Microbiology
01/16/25 12:56 Blood/Venous Blood Culture - Preliminary
Positive culture in progress
01/16/25 12:56 Blood/Venous Gram Stain - Preliminary
01/16/25 12:56 Blood/Venous Blood Culture - Preliminary
Positive culture in progress
01/16/25 12:56 Blood/Venous Gram Stain - Preliminary
01/16/25 12:57 Nasal Swab Influenza Types A & B (CELIA) - Final
Negative for Influenza A & B, NAAT
Negative results must be combined with clinical observations
and patient history.
Nucleic Acid Amplification test (NAAT)performed on the
[employer] platform.
--- NOTE | 2025-01-18 09:13 | PHA.VAN.FU ---
Vancomycin Assessment / Plan
- Assessment
Renal Function: SCR Increasing
WBC's are: Trending Down
In the past 24 hrs, patient has been: Afebrile
Concomitant Antimicrobials: piperacillin/tazobactam
- Dosing Plan
Continue: Vanc 1000mg Q12H through 1800 dose then switch to dosing by level
SCR increased - unclear if possibly developing GRAY or part of fluctuation
Of note, patient did receive IV contrast 01/16/25
- Monitoring Plan
Peak Level: 01/18 21:00
Trough Level: 01/19 05:30
Monitoring Comments: levels to be drawn after 4th scheduled dose
Will keep on scheduled dosing through tonight then obtain peak/trough
Will switch to dose by level after tonight's dose in case SCR worsening so that levels can be evaluated prior to further dosing
- Follow Up
Pharmacy will continue to follow.
Vancomycin Follow UP
- -
Patient Age: 74
Patient Sex: Male
Vancomycin Day #: 2
Indication: Pulmonary/Respiratory
Requesting Provider: Dr. Gomez / Steve
Pertinent Antimicrobial Allergies:
NKDA
Height / Weight:
Height 6 ft
Actual Weight 90.3 kg
Pertinent Past Medical History: Colorectal carcinoma
- Vital Signs / Lab Results
Temp Pulse Resp BP Pulse Ox
97.0 F 148 13 100/82 99
01/18/25 07:53 01/18/25 05:45 01/18/25 05:45 01/18/25 05:30 01/18/25 05:45
Lab Results - Hematology
01/16/25 01/17/25 01/17/25
12:56 06:47 12:34
WBC 9.3 11.5 H 17.4 H
01/18/25
04:56
WBC 12.1 H
Lab Results - Chemistry
01/16/25 01/17/25 01/17/25
12:56 06:47 12:34
BUN 15 14 14
Creatinine 1.0 0.9 0.8
Estimated Creat Clear 77 86
Albumin 2.8 L 3.4 L
01/18/25
04:56
BUN 17
Creatinine 1.2
Estimated Creat Clear 57
Albumin
01/16/25 01/16/25 01/17/25
12:57 16:45 12:34
Lactic Acid 1.1 Cancelled 2.8 H
01/17/25
16:37
Lactic Acid 1.1
Microbiology Results
01/16/25 12:56 Blood Culture - Preliminary
Blood/Venous Positive culture in progress
Gram Stain - Preliminary
01/16/25 12:56 Blood Culture - Preliminary
Blood/Venous Positive culture in progress
Gram Stain - Preliminary
01/16/25 12:57 Influenza Types A & B (CELIA) - Final
Nasal Swab Negative for Influenza A & B, NAAT
Negative results must be combined with clinical observations
and patient history.
Nucleic Acid Amplification test (NAAT)performed on the
[employer] platform.
--- NOTE | 2025-01-18 09:29 | W.PN.CRS1 ---
Today's Communication / Plan
-
As below
Assessment/Plan
-
74-year-old male with PMH of A-fib (s/p cardioversion 2022, on Eliquis), HTN, hypothyroidism and anal adenocarcinoma, s/p DEIDRE with complete response, complicated by local recurrence, who underwent robotic APR, VRAM flap and end-colostomy on 01/11; he
did well post-operatively and was discharged on 01/16; however, he developed fever and chills and presented back to the ED on 01/17; WBC 11.5, Hb stable, CR 0.8, UA negative, CXR�concerning for left lower lobe pneumonia; CTAP showing postoperative
changes, no evident infections or abscess
POD 7 robotic APR with VRAM flap
AF, HR ranging 120s to 140s, normotensive
WBC 12.1 from 17, Hb 10.6 from 11.1, Cr 1.2 from 0.8, UOP 1.7 L
�SIRS response with uncertain source, possibly pneumonia, possibly postoperative ileus
�Recommend bilateral lower extremity duplex to rule out DVTs
�Continue empiric Zosyn and vancomycin
�Subcutaneous drain with murky output, but no obvious concern for wound infection
�Postoperative ileus
�Continue strict n.p.o.; recommend NGT to low continuous suction
�Switch p.o. meds to IV
�Okay for heparin drip; trend hemoglobin closely due to serosanguineous drainage from perineal wound
� Continue ERVIN to bulb suction
� Appreciate plastic surgery; flap well-perfused and no concern for infection
� Appreciate cardiology, continue amio drip
� Appreciate hospitalist
Subjective Data
Subjective Data
Date of Service: January 18, 2025
He was transferred to the ICU yesterday afternoon. Since then, he has been having some nausea, burping and acid reflux. No vomiting. No ostomy function.
Pain controlled.
+ Caruso
Pt is OOB.
Objective Data
-
Vital Signs
Temp Pulse Resp BP Pulse Ox
97.0 F 148 13 100/82 99
01/18/25 07:53 01/18/25 05:45 01/18/25 05:45 01/18/25 05:30 01/18/25 05:45
Intake & Output
01/17/25 01/18/25 01/19/25
06:59 06:59 06:59
Intake Total 1000 / 1000 3871.9 / 3871.9
Output Total 345 / 345 1780 / 1780
Balance 655 / 655 2091.9 / 2091.9
Intake:
Oral fluids 250 / 250 120 / 120
IV fluids (Total) 700 / 700 1966.9 / 1966.9
Lr 1,000 ml @ 100 mls/hr IV . 1600 / 1600
Q10H AZEEM Rx#:[id number]
amio 366.9 / 366.9
IV piggybacks 50 / 50 1750 / 1750
Amount instilled into Drain ( 35 / 35
Total)
Right Lower Abdomen Alberto- 15 / 15
Martinez A
Right Lower Abdomen Alberto- 20 / 20
Martinez B
Output:
Drain Output (Total) 95 / 95 80 / 80
Right Lower Abdomen Alberto- 55 / 55 55 / 55
Martinez A
Right Lower Abdomen Alberto- 40 / 40 25 / 25
Martinez B
Urine, Caruso 1700 / 1700
Urine, Voided 250 / 250 0 / 0
Other:
Number of approximated MODERATE 2
amounts of urine
Lab Results
01/18/25 04:56
01/18/25 04:56
Physical Exam
-
General: No Acute Distress and AOx3
Abdomen: Soft, Distended (Significantly distended, stable from yesterday, tympanitic), Tender (Appropriately tender near midline incision), No Guarding, No Rebound and Other (Ostomy pink, not productive of stool or flatus; ERVIN pelvis-serosanguineous
output, ERVIN subQ-murky serous output)
Rectal: Other (VRAM flap pink, good cap refill, small (about 1 to 2 cm) skin dehiscence posteriorly with serosanguineous drainage, remainder of skin closure well-approximated without purulent drainage)
Extremities: Symmetrical Edema (1+ pitting edema) and No Calf Tenderness
Wound: No Signs of Infection, No Skin Erythema and Other (Midline incision well-approximated without erythema or purulent drainage)
[2025-01-18] MEDS: NSS 1000 IV (10:30)
[2025-01-18] MEDS: DILAUDID 1 MG IV ×2 (10:37→15:37)
--- NOTE | 2025-01-18 10:57 | CON.ID ---
Addendum entered and electronically signed by Angelita Wilson MD 01/18/25 11:40:
Addendum:
HPI: Denies: headaches, sinus tenderness. + productive cough which began 01/17. +abdominal pain/distension - resolving with NGT placement with rapid return of bilious fluid. No dysuria. Has keita that was placed this visit. No new rashes or new
joint pains.
PE:
Abd: surgical site well approximated without erythema, warmth, dehiscence or drainage; stoma pink/budded
Perineal: surgical site well approximated without erythema, warmth, dehiscence, there is some bright red blood oozing from the superior most part of the perineal incision that resolves with pressure
DLOA:two drains in place one with murky fluid
Skin: no rashes, no cords, no phlebitis along the arms
Original Note:
Consultation
-
Date/Time Consultation Requested: 01/18/25 10:18
Date/Time Consultation Performed: 01/18/25 10:58
Requesting Provider: Dr Gomez
Performing Provider: Dr Wilson
Reason for Consultation: R facial nerve palsy
Chief Complaint / Past History
Chief Complaint
Fever and abdominal pain
History of Present Illness
Mr Farr is a 74 year old male with history of rectal adenocarcinoma s/p robotic APR with perineal reconstruction on 01/11 with flap reconstruction, bilateral ureteral stenting and colostomy and [address] - post operative course notable
for afib with RVR and mild hyponatremia - discharged 01/15. He represented the next day 01/16, 6 days post operatively, with fever, ongoing diffuse abdominal pain (unchanged post operatively). Denied: chest pain, shortness of breath, cough, dysuria.
Since arrival here tmax was 103.0 orally, no further pavel fevers, bp stable, HR 130s now back in a fib, wbc on arrival 9.3 and peaked 01/16 at 17.4 today 12.1, hgb 10.6, plt 271, L shift is noted, cr 0.8 yesterday today 1.2, na now 130, lactic acid
initially 1.1 peaked at 2.8 now 1.1, LFTs wenl, procalcitonin was sent 3.6 with normal renal function and was 5.4, ua >100 rbc/hpf and no pyuria, moderate bacteria, covid ag negative, CT a/p with IV and oral contrast: post surgical changes without
evidence of abscess, moderate bibasilar consolidation, constipation, 3/6 CXR: mild LLL pneumonia, 3/6 AXR: ileus, 3/6 venous US: no DVT, found to have s aureus bacteremia, blood cultures were not repeated before antibiotics started. Yesterday
patient with HR 200s and hypotension, CASINO ASSISTANT MANAGER called, SVT vs aflutter noted, no response to metoprolol, start on amiodarone and transferred to the ICU ID is consulted for assistance with management.
Past History
Additional Past Medical History:
Arrhythmia (Paroxysmal A-fib), HTN and Other (Colorectal carcinoma)
Additional Past Surgical History:
APR with perineal reconstruction
Allergy History:
No Known Allergies Allergy (Verified 01/16/25 12:32)
Medications Reviewed: Yes
Social History
Tobacco: Non-Smoker
Alcohol: None
Drug: None
Family History
Family History: Not Pertinent
Review of Systems
Review of Systems
General: Fever and Chills
All systems: All other systems were reviewed and were negative
Vital Signs
Temp Pulse Resp BP Pulse Ox
97.0 F 148 13 100/82 99
01/18/25 07:53 01/18/25 05:45 01/18/25 05:45 01/18/25 05:30 01/18/25 05:45
Physical Exam
Physical Exam
Constitutional: No Acute Distress and Chronically Ill
Cardiovascular: Regular Rate and S1/S2; Negative Murmur or Rub
Pulmonary: Clear and Symmetric; Negative Wheezes, Rales or Rhonchi
Gastrointestinal: Soft, Non Tender, Non Distended and Normal Bowel Sounds
Skin: Warm and Dry; Negative Rash or Jaundice
Lab / Diagnostic Study Results
01/18/25 04:56
01/18/25 04:56
Abs Immat Gran (auto) 0.0 10^3/uL (0-0.05) 01/18/25 04:56
Absolute Neuts (auto) 10.5 10^3/uL (1.4-6.5) H 01/18/25 04:56
Absolute Lymphs (auto) 0.5 10^3/uL (1.2-3.4) L 01/18/25 04:56
Absolute Monos (auto) 0.9 10^3/uL (0.1-0.6) H 01/18/25 04:56
Absolute Basos (auto) 0.1 10^3/uL (0-0.2) 01/18/25 04:56
Immature Gran % 0.3 % (0-0.5) 01/18/25 04:56
Neutrophils % 86.5 % (42.2-75.2) H 01/18/25 04:56
Lymphocytes % 4.3 % (20.5-51.1) L 01/18/25 04:56
Monocytes % 7.3 % (1.7-9.3) 01/18/25 04:56
Eosinophils % 1.1 % (0-6) 01/18/25 04:56
Basophils % 0.5 % (0-2) 01/18/25 04:56
PT 14.6 Sec (11.4-14.6) 01/17/25 12:34
INR 1.09 01/17/25 12:34
Lactic Acid 1.1 mmol/L (0.7-2.0) 01/17/25 16:37
Procalcitonin 5.38 ng/ml (0.0-0.25) H* 01/17/25 06:47
Ur Squamous Epith Cells 0-2 /LPF (Few) 01/16/25 12:57
Microbiology Results
Micro:
01/16/25 12:56 Blood Culture - Preliminary
Blood/Venous Staphylococcus aureus
Gram Stain - Preliminary
01/16/25 22:39 MRSA Screen - Pending
Nose
01/16/25 12:56 Blood Culture - Preliminary
Blood/Venous Positive culture in progress
Gram Stain - Preliminary
01/16/25 12:57 Urine Culture - Pending
Urine
01/16/25 12:57 Influenza Types A & B (CELIA) - Final
Nasal Swab Negative for Influenza A & B, NAAT
Negative results must be combined with clinical observations
and patient history.
Nucleic Acid Amplification test (NAAT)performed on the
[employer] platform.
Assessment / Plan
S aureus Bacteremia
Post Operative fever
Atelectasis vs pneumonia
narrow complex SVT on amiodarone
- note that both initial sets were obtained at the same time
- repeat blood cultures x2 now, then q48 hours until persistently clear
- UA without evidence of glomerulonephritis, no new blocks seen on EKG
- repeat TTE
- last CT a/p with IV and oral contrast done 01/16 - no evidence of abscess at that time; do note murky output from sq drain
- obtain sputum if able - reports he started with cough yesterday
- agree with vancomycin and zosyn - will deescalate as able
--- NOTE | 2025-01-18 12:00 | PTCARENOTE ---
pt awake and alert , Afib on monitor , rate 120-145, BP 128/97 , hes pain in is abdomen and complains of GERD along with rectal pain at his surgical site , he was given IV diludid for his pain control , he had a Worth Sump tube placed for bowel
decompression , he initally had 300 ml of bile , he was seen by [facility] an ECHO is pending , his blood cultures are positive for staph areus , ID is now consulted , his IVF are changed to NSS at 75 hour ,his Na is 130 from 128 .
--- NOTE | 2025-01-18 12:00 | W.PN.HOSP.TC ---
Today's Communication/Plan
-
Broad-spectrum antibiotics pending repeat cultures.
NG tube.
N.p.o./IV fluids.
Amiodarone drip.
Anticoagulation bridge with Lovenox
Assessment / Plan
Assessment / Plan
Impression:
Presentation with fever and abdominal pain.
SIRS present on admission
�postoperative fever
-Left lower lobe pneumonia versus atelectasis
-Blood culture positive for Staphylococcus:? Contaminant
Ileus.
SVT with transition to rapid A-fib and hemodynamic instability.
Hyponatremia
Lactic acidosis in the settings of hypotension
Leukocytosis
Conditions prior to admission
Status post robotic APR with perineal reconstruction on 01/11
Colorectal carcinoma status post chemo/radiation
Paroxysmal atrial fibrillation baseline anticoagulation with Eliquis
Essential hypertension
BPH
Hypothyroidism replacement
Right chest Chemo-Port in place
Plan:
SIRS present on admission.
-Postoperative fever
-Left lower lobe pneumonia versus atelectasis.
-Blood culture 01/16 2 out of 2 Staphylococcus pending final? Contaminant
COVID/influenza negative.
CT scan of the abdomen pelvis with no evidence of abscess.
Urine culture with no growth
Chemo-Port site looks clean
Follow-up final cultures
Currently on broad-spectrum antibiotics: Vancomycin, Zosyn
Appreciate ID input
Episode of narrow complex SVT with hemodynamic instability and hypotension on 01/17
Initiated on amiodarone drip.
Rate remains suboptimally controlled suspect secondary to pain.
Consider addition of calcium channel blockers or beta-blockers per
Anticoagulation: [id number] 3 (age x 2, hypertension)
Hold Eliquis due to acute GI issues.
Reach with Lovenox weight-based 90 mg SQ every 12 hours
Ileus
Abdominal pain persisted upon presentation
CT on presentation with no evidence of abscess
Follow-up abdominal x-ray consistent with ileus
NPO.
NG tube for decompression to be placed on 01/18
Minimize narcotics.
ERVIN drain remains in place.
Colostomy care
IV fluids and replete electrolytes.
Hold Eliquis acutely
Hyponatremia acute on chronic
Given hypotension likely prerenal causes.
Has been off of HCTZ.
Hold irbesartan to avoid hypotension
Continue lactated Ringer
Follow BMP
BPH on Flomax
Monitor for retention
Anticipated Discharge: > 48 hours
Subjective/Interval History
-
Date of Service: January 18, 2025
Objective Data
-
Labs:
Laboratory Results
01/18/25
04:56
WBC 12.1 H
Hgb 10.6 L
Hct 30.8 L
Plt Count 271
Sodium 130 L
Potassium 4.5
Chloride 96 L
Carbon Dioxide 26
BUN 17
Creatinine 1.2
Glucose 134 H
Calcium 9.1
Vital Signs:
Vital Signs
Temp Pulse Resp BP Pulse Ox
97.0 F 148 13 100/82 99
01/18/25 07:53 01/18/25 05:45 01/18/25 05:45 01/18/25 05:30 01/18/25 05:45
I&O
01/17/25 01/18/25 01/19/25
06:59 06:59 06:59
Intake Total 1000 / 1000 3871.9 / 3871.9
Output Total 345 / 345 1780 / 1780
Balance 655 / 655 2090.9 / 2090.9
[2025-01-18] MEDS: CORDARONE 518 MG IV (13:08)
[2025-01-18] MEDS: LOVENOX 90 MG SC (13:11)
[2025-01-18] MEDS: LR IV (13:17)
--- NOTE | 2025-01-18 14:15 | PTOTSP ---
Reviewed chart and noted pt transferred to ICU overnight and PT orders were continued upon transfer. S/w RN who wants to hold PT today as pt just had NG tube placed and needs to rest. Will follow up over weekend if stable. Would benefit from OT
evaluation as well, as pt will likely need SNF.
--- NOTE | 2025-01-18 14:33 | W.PN.CD ---
Today's Communication / Plan
-
Amio IV
Allow HR 110-120s in AFib, appropriate for his degree of illness
We can progress to NABILA if requested by ID
Watch for bradycardia
Agree with alternative systemic anticoagulation while NPO
Total time caring for pt today was 52 minutes
Impression / Plan
-
Background: 74-year-old male (known to Dr. Campbell, his primary Drum Sealer who just meant the patient and has only see him once in the office) with paroxysmal A fib (on Eliquis), HTN, mild/moderate MR and TR, mild AR, IVCD, colorectal cancer s/p
chemo, recent colectomy/colostomy/perineal reconstruction on 01/11/25 (Dr Santana) readmitted with developing sepsis. Cardiology consulted for tachycardia with heart rates of 235 bpm (narrow complex).
MRSA Staph Aureus bacteremia/sepsis
- ID involved
- For updated Echo
- Can progress to NABILA if requested by ID
- Surgical sites and CT do not suggest surgical site infection per my discussion with colorectal surgery
PSVT, perhaps an atrial flutter or SVT (see 12 lead EKG 01/17/2025 at 1225 hrs) => degenerated to AFib
PAF with RVR (he also had typical Atrial Flutter last admission as well)
-This episode precipitated by sepsis
-[id number] 3 (age x 2, hypertension)
-Anticoagulation: On Eliquis usually as outpatient
-Has used pill in the pocket Flecainide for many years
-In past just had highly symptomatic episodes about 1 time a year
Anal adenocarcinoma, S/p combined therapy (chemo/surgery
-Status-post surgical resection on 01/11/2025;
Hypertension
Subjective:
No CP or dyspnea
Physical Exam
Vital Signs/Labs
Vital Signs
Temp Pulse Resp BP Pulse Ox
98.0 F 126 14 122/72 96
01/18/25 12:05 01/18/25 14:00 01/18/25 14:00 01/18/25 14:00 01/18/25 13:30
01/17/25 01/18/25 01/19/25
06:59 06:59 06:59
Actual Weight 89.539 kg 90.3 kg
01/18/25 04:56
01/18/25 04:56
PT 14.6 Sec (11.4-14.6) 01/17/25 12:34
INR 1.09 01/17/25 12:34
APTT 39.5 Sec (23.4-35.0) H 01/17/25 12:34
LAB Results
01/17/25
12:34
Troponin I < 0.012
Physical Exam
Constitutional: No acute distress
Cardiovascular: Pedal edema is absent and Rhythm/rate is irregular (rapid)
Respiratory: Respiratory effort normal and Lungs clear to auscul.
GI: Soft and Distention absent
Neuro/Psych: AO x 3
Data Reviewed
-
Date of Service: January 18, 2025
--- NOTE | 2025-01-18 15:39 | CM ---
CM following re: discharge planning.
Discussed in rounds, reviewed pt's chart, met with pt.
Per Rounds meeting, pt is Broad-spectrum antibiotics, NG tube. N.p.o./IV fluids, continue supportive care.
Pt lives in an independent apartment at [facility], independent with functional ability.
D/C plan: return back to his living arrangements at [facility] with most likely VN services if indicated.
CM will follow with discharge plan updates as hospitalization progresses
--- NOTE | 2025-01-18 16:13 | PTCARENOTE ---
continues in a-fib 120-145, asymptomatic , his abdominal pain has improved since this a.m.
[2025-01-18] MEDS: LOPRESSOR 2.5 MG IV (16:23)
--- NOTE | 2025-01-18 20:15 | PTCARENOTE ---
AAOx3, following commands, denying pain. Afib 100s-130s, normothermic, BP stable. +1 LE edema and scrotal edema. Weak pedal pulses b/l. 98% on 2 liters, lung sounds diminished throughout, expiratory wheeze present. Abdomen round, tender, firm,
hypoactive bowel sounds. LUQ colostomy with serous output. Midline abdominal incision approximated, BASILIO. 2 ERVIN drains on right side, putting out brown and serosanguineous drainage. Caruso in place for retention draining yellow urine. Alginate and ABD
on rectal dressing. Right subcutaneous port and PIVs patent, WNL. Amio and NSS gtt ongoing per order. Call barajas within reach.
[2025-01-18] MEDS: FLOMAX PO (20:23)
[2025-01-18 21:43] LABS: Vancomycin Peak 24.2 ug/ml (18-26)
[2025-01-19] VITALS (39 sets, daily range): BP systolic 102–141; BP diastolic 62–104; BMI 27.7
[2025-01-19] MEDS: LOVENOX 90 MG SC (00:02)
--- NOTE | 2025-01-19 00:07 | PTCARENOTE ---
Patient assessment unchanged from previous, warm blanket given. Call barajas within reach.
[2025-01-19] MEDS: NSS 1000 IV ×2 (02:18→16:05)
[2025-01-19] MEDS: ZOSYN 50 IV ×2 (02:18→08:16)
[2025-01-19] MEDS: DILAUDID 0.5 MG IV ×3 (04:20→15:13)
--- NOTE | 2025-01-19 04:58 | PTCARENOTE ---
CHG bath done, labs sent, gown changed, sheets changed, rectal dressing changed. Repositioned, call barajas within reach.
[2025-01-19] MEDS: SYNTHROID PO (05:07)
[2025-01-19 05:12] LABS: % Basophils 0.4 % (0-2); % Eosinophils 3.4 % (0-6); % Immature Granulocytes 0.6 % (0-0.5); % Lymphocytes 3.1 % (20.5-51.1); % Monocytes 8.2 % (1.7-9.3); % Neutrophils 84.3 % (42.2-75.2); Absolute Eosinophils 0.4 10^3/uL (0-0.7); Absolute Immature Granulocytes 0.1 10^3/uL (0-0.05); Absolute Lymphocytes 0.3 10^3/uL (1.2-3.4); Absolute Monocytes 0.9 10^3/uL (0.1-0.6); Absolute Neutrophils 9.2 10^3/uL (1.4-6.5); Hematocrit 24.9 % (39.0-52.0); Hemoglobin 8.6 g/dL (13.0-18.0); Mean Corp Hgb Conc. 34.5 g/dL (33.0-37.0); Mean Corpuscular Hgb 33.1 pg (27.0-31.0); Mean Corpuscular Volume 95.8 fL (80.0-94.0); Mean Platelet Volume 8.9 fL (7.4-10.4); Nucleated Red Blood Cells % 0 % (-); Platelet Count 311 10^3/uL (130-400); Red Cell Dist. Width 13.7 % (11.5-14.5)
[2025-01-19 05:33] LABS: Vancomycin Trough 17.8 ug/ml (5-20)
[2025-01-19 05:38] LABS: Blood Urea Nitrogen 22 mg/dl (9-20); Calcium 8.3 mg/dl (8.4-10.2); Carbon Dioxide 22 mmol/L (22-30); Chloride 98 mmol/L (98-107); Estimated Creatinine Clearance 46 ml/min; Glucose 112 mg/dl (70-99); Sodium 129 mmol/L (135-145); eGFR 47.95
--- NOTE | 2025-01-19 07:29 | W.PN.INTV ---
Today's Communication / Plan
Recommendations
-Add Lopressor 2.5 mg IV every 6 scheduled in view of rapid ventricular rate
-Check portable chest x-ray in view of intermittent cough
-Follow-up CBC and electrolytes later today in view of ongoing bloody output noted in the drain
-Hold Lovenox in view of dropping hematocrit and blood noted in ERVIN drain
-Start IV PPI
Assessment
-
Very pleasant 74-year-old gentleman post surgery for rectal adenocarcinoma (12/2024) was transferred from the floor to the ICU for tachyarrhythmias. Heart rate was more than 200 and patient responded to IV Lopressor and amiodarone push. Patient
was felt to have SVT with aberrancy versus atrial flutter. In addition patient was noted to have elevated lactate and overall felt poorly. Patient was fluid resuscitated and started on antibiotics, and subsequently blood cultures came back
positive for gram-positive cocci. CT abdomen pelvis was pursued but did not show any abscess or indication for repeat surgery. Patient developed ileus which was managed with NG tube decompression.
Last 24 hours:
Patient having sanguinous output from ERVIN drain also some sanguinous output noted in the perianal area
Fluid balance, +1 L
Hemoglobin slight downtrend to 8.6, platelets stable at 311 and white count at 11
Electrolytes show a normal potassium of 4, BUN/creatinine 22 and 1.5 slight worsening from creatinine of 0.82 days ago
MRSA screen positive, blood cultures positive for Staph aureus, MRSA
#1. Narrow-complex tachycardia, appears to be atrial flutter versus SVT with aberrancy
-S/p amiodarone and metoprolol bolus followed by infusion of amiodarone, improving but still somewhat tachycardic
-Add Lopressor 2.5 mg IV scheduled Q6 will titrate as needed
-Cardiology consult
-Continue telemetry monitoring
-Echo shows normal ejection fraction
#1a. Gram-positive bacteremia with sepsis/MRSA bacteremia
-Patient s/p IV fluid resuscitation, serial lactate improving
-Concern for line sepsis with right upper chest Mediport in place
-Continue broad-spectrum antibiotics, infectious disease service on case
-Repeat blood cultures
-Check chest x-ray in view of mild cough
#2. Rectal cancer s/p robotic APR with perineal reconstruction 01/11, increased abdominal pain/ileus
-No acute surgical intervention needed per colorectal surgery evaluation
-CT from 01/16, not suggestive of obstruction or abscess
-KUB suggestive of developing ileus versus small bowel obstruction, placed NG tube to low intermittent suction
#3. History of paroxysmal atrial fibrillation
-Continue amiodarone infusion
-Since patient was n.p.o., Eliquis was stopped and the Lovenox was started 306
#4. Mild acute kidney injury
-Continue IV fluids for now, monitor creatinine closely
#5. Anemia, component of acute blood loss.
-Increased ERVIN drain sanguinous output noted,
-Hold therapeutic dose of Lovenox
-Check CBC later today and transfuse if hemoglobin below 7
-Follow labs closely
-Await further recommendations from surgery service.
-Empirically start IV PPI
-Continue to monitor closely in the ICU
Critical Care time 35 mins -- The patient is admitted for acute critical illness for the treatment of vital organ failure and/or prevention of further life-threatening conditions. Total care includes time spent in review of history, physical exam,
medications, hemodynamic/ventilator parameters, laboratory data, imaging and discussion with house staff, pharmacy, respiratory therapy, library cataloging technician, and nursing.
CT Abd/Pelvis: 01/16:
Postsurgical change of the abdomen and pelvis including presacral edema, mild extraluminal air in the pelvis, percutaneous drainage catheters and subcutaneous emphysema.
No abscess identified.
Small bilateral pleural effusions.
Moderate bibasilar consolidation which may represent atelectasis or developing pneumonia.
Moderate fecal material in the colon. Mild diverticulosis.
ECHO 01/18:
Left ventricular ejection fraction is 55-60%. Normal regional wall motion.
Normal right ventricular size and function.
No significant valvular disease.
No evidence for endocarditis (limited sensitivity via transthoracic modality).
Subjective Dataa
Subjective Data
Date of Service:
Date of Service: January 19, 2025
Subjective:
Patient appears uncomfortable, abdominal distention somewhat decreased however reports some back pain and discomfort around NG site
Review of Systems
Genitourinary: Other (All 14 systems reviewed and negative except as stated above in the history of present illness.)
Objective Data
Data Reviewed
Vital Signs / I&O / Oxygen:
Vital Signs
Temp Pulse Resp BP Pulse Ox
98.1 F 112 11 107/73 98
01/19/25 03:10 01/19/25 06:00 01/19/25 06:00 01/19/25 06:00 01/19/25 06:00
Intake and Output
01/18/25 01/19/25 01/20/25
06:59 06:59 07:59
Intake Total 3871.9 / 3988.6 2670.8 / 2670.8
Output Total 1780 / 1820 1550 / 1550
Balance 2091.9 / 2168.6 1120.8 / 1120.8
SaO2 98
Nasal Cannula flow liters per 2
minute
Physical Exam
General: Comfortable
HEENT: Normocephalic
Cardiovascular: S1-S2 and Irregular Rhythm
Respiratory: Clear
GI: Distended (Somewhat less distended since NG tube was placed)
Neurology: Awake and Alert
Skin: Warm
Labs/Micro/Reports
Lab Data
01/19/25 04:48
01/19/25 04:48
Microbiology
01/16/25 12:56 Blood/Venous Blood Culture - Preliminary
Staph aureus MRSA
01/16/25 12:56 Blood/Venous Gram Stain - Preliminary
01/16/25 12:56 Blood/Venous Blood Culture - Preliminary
Staph aureus MRSA
01/16/25 12:56 Blood/Venous Gram Stain - Preliminary
01/16/25 12:57 Urine Urine Culture - Final
NO GROWTH
01/16/25 22:39 Nose MRSA Screen - Final
Staph aureus MRSA
01/16/25 12:57 Nasal Swab Influenza Types A & B (CELIA) - Final
Negative for Influenza A & B, NAAT
Negative results must be combined with clinical observations
and patient history.
Nucleic Acid Amplification test (NAAT)performed on the
[employer] ([employer]) platform.
--- NOTE | 2025-01-19 08:45 | PTCARENOTE ---
Assumed care of pt at 0715 following shift report. Pt awake and resting in bed. C/o general abdominal, sacral and throat discomfort. Reports improvement in abdominal distention and tenderness since placement of NGT. Denies c/o nausea. NGT to LCWS
with green/brown drainage. Placement confirmed and irrigated w/ 30ml distilled H20. Pt remains on O2 at 2l/min w/ POx 98%. Occasional cough productive of thick leslie sputum. Oral hygiene completed by pt. ERVIN x2 to Rt abdomen w/ drain dressing
moderately saturated w/ sanguinous drainage. ERVIN drains emptied and recompressed. Physical assessment completed as documented. Pt remains in AFib w/ HR 110-130's at rest. Amiodarone gtt continues at 0.5mg/min via Rt SQ port. NS gtt at 75ml/hr. Pt
remains NPO per order. AM Hygiene/comfort care provided. Marcell Mireles and Arleth in room to evaluate pt. New orders noted. Plan of care discussed w/ pt, questions answered and emotional support provided. Call karl w/in pt reach and safe
environment maintained.
[2025-01-19] MEDS: NSS (PRESERVATIVE FREE) 10 ML IV (08:58)
[2025-01-19] MEDS: PROTONIX IV 40 MG IV (08:58)
[2025-01-19] MEDS: LOPRESSOR 2.5 MG IV ×5 (09:18→22:24)
--- NOTE | 2025-01-19 09:51 | PHA.VAN.FU ---
Vancomycin Assessment / Plan
- Assessment
Renal Function: Stable (SCr 1.2 -> 1.5, 1400 repeat lab stable SCr 1.5)
WBC's are: Stable (12.1 -> 11.0; repeat lab 1400, WBC 11.0)
In the past 24 hrs, patient has been: Afebrile
Concomitant Antimicrobials: Piperacillin/Tazobactam
- Assessment - Therapeutic Drug Monitoring
Extrapolated Cmax (mcg/mL): 24.2
Peak level was drawn: More than 3 hours after previous dose (~3hr after end of infusion, admin 01/18/251811, drawn 01/18/252117)
Extrapolated Cmin (mcg/mL): 17.8
Trough Drawn: Appropriately
Levels were drawn: At steady state (After 4th maintenance dose (NOT including loading dose))
Calculated AUC (mcg*h/mL): 510
Calculated ke: 0.0410
Calculated half life (H): 16.9
Calculated Vd (L): 95.69
Calculated Vanc CL (ml/min): 65.31
Patient seemingly at steady state and in therapeutic range per calculated P/T AUC.
- Dosing Plan
Adjust Regimen to: Dose by level
Dosing by Level: Re-dose today
Dosing Comments: Vanco 1000mg x1 at 01/19 1800
- Monitoring Plan
Random Level: Vanco Random level 01/20/25 0600
- Follow Up
Pharmacy will continue to follow.
Vancomycin Follow UP
- -
Patient Age: 74
Patient Sex: Male
Vancomycin Day #: 3
Indication: Pulmonary/Respiratory
Requesting Provider: Dr. Gomez / Steve
Pertinent Antimicrobial Allergies:
NKDA
Height / Weight:
Height 6 ft
Actual Weight 92.5 kg
Pertinent Past Medical History: Colorectal carcinoma
- Vital Signs / Lab Results
Temp Pulse Resp BP Pulse Ox
98.0 F 121 11 138/75 98
01/19/25 07:00 01/19/25 09:18 01/19/25 06:00 01/19/25 09:18 01/19/25 06:00
Lab Results - Hematology
01/16/25 01/17/25 01/17/25
12:56 06:47 12:34
WBC 9.3 11.5 H 17.4 H
01/18/25 01/19/25
04:56 04:48
WBC 12.1 H 11.0 H
Lab Results - Chemistry
01/16/25 01/17/25 01/17/25
12:56 06:47 12:34
BUN 15 14 14
Creatinine 1.0 0.9 0.8
Estimated Creat Clear 77 86
Albumin 2.8 L 3.4 L
01/18/25 01/18/25 01/19/25
04:56 23:30 04:48
BUN 17 Cancelled 22 H
Creatinine 1.2 Cancelled 1.5 H
Estimated Creat Clear 57 Cancelled 46
Albumin
01/16/25 01/16/25 01/17/25
12:57 16:45 12:34
Lactic Acid 1.1 Cancelled 2.8 H
01/17/25
16:37
Lactic Acid 1.1
Microbiology Results
01/16/25 12:56 Blood Culture - Preliminary
Blood/Venous Staph aureus MRSA
Gram Stain - Preliminary
01/16/25 12:56 Blood Culture - Preliminary
Blood/Venous Staph aureus MRSA
Gram Stain - Preliminary
01/16/25 12:57 Urine Culture - Final
Urine NO GROWTH
01/16/25 22:39 MRSA Screen - Final
Nose Staph aureus MRSA
Therapeutic Drug Monitoring
Vancomycin Peak 24.2 ug/ml (18-26) 01/18/25 21:18
Vancomycin Trough 17.8 ug/ml (5-20) 01/19/25 04:48
--- NOTE | 2025-01-19 10:04 | W.PN.CD ---
Today's Communication / Plan
-
- Transthoracic echocardiogram yesterday unremarkable.
- Transitioned to therapeutic Lovenox, but concern for active bleeding; anticoagulation now being held.
- A-fib with suboptimally controlled heart rates (130s).
- Continue amiodarone drip; adding 2.5 mg IV Lopressor Q6--will give a dose now.
Impression / Plan
-
Background: 74-year-old male (known to Dr. Campbell, his primary Outsole Cutter Machine who just meant the patient and has only see him once in the office) with paroxysmal A fib (on Eliquis), HTN, mild/moderate MR and TR, mild AR, IVCD, colorectal cancer s/p
chemo, recent colectomy/colostomy/perineal reconstruction on 01/11/25 (Dr Santana) readmitted with developing sepsis. Cardiology consulted for tachycardia with heart rates of 235 bpm (narrow complex).
MRSA Staph Aureus bacteremia/sepsis
- Continue antibiotics and recommendations as per ID.
- Transthoracic echocardiogram yesterday unremarkable.
- Can progress to NABILA if requested by ID.
PSVT, perhaps an atrial flutter or SVT (see 12 lead EKG 01/17/2025 at 1225 hrs) => degenerated to AFib
- Transitioned to therapeutic Lovenox, but concern for active bleeding; anticoagulation now being held.
- Continue to monitor hemoglobin; management as per primary team.
PAF with RVR (he also had typical Atrial Flutter last admission as well)
-This episode precipitated by sepsis
-[id number] 3 (age x 2, hypertension)
-Anticoagulation: On Eliquis usually as outpatient
-Has used pill in the pocket Flecainide for many years
-In past just had highly symptomatic episodes about 1 time a year
-Holding anticoagulation as above.
-A-fib with suboptimally controlled heart rates (130s).
-Continue amiodarone drip; adding 2.5 mg IV Lopressor Q6--will give a dose now.
Anal adenocarcinoma, S/p combined therapy (chemo/surgery):
-Status-post surgical resection on 01/11/2025.
-Recommendations as per Surgery.
Hypertension
-Blood pressure stable.
Physical Exam
Vital Signs/Labs
Vital Signs
Temp Pulse Resp BP Pulse Ox
98.0 F 118 18 118/104 99
01/19/25 07:00 01/19/25 10:00 01/19/25 10:00 01/19/25 10:00 01/19/25 09:15
01/18/25 01/19/25 01/20/25
06:59 06:59 07:59
Actual Weight 90.3 kg 92.5 kg
PT 14.6 Sec (11.4-14.6) 01/17/25 12:34
INR 1.09 01/17/25 12:34
APTT 39.5 Sec (23.4-35.0) H 01/17/25 12:34
LAB Results
01/17/25
12:34
Troponin I < 0.012
Physical Exam
Constitutional: No acute distress and Comfortable
EENT: Anicteric
Cardiovascular: Systolic murmur absent, Rhythm/rate is irregular, Pedal edema present (Trace) and S1S2 is normal
Respiratory: Respiratory effort normal and Lungs clear to auscul.
GI: Soft
Neuro/Psych: AO x 3
Other: Skin (Warm, dry)
Data Reviewed
-
Date of Service: January 19, 2025
EKG: Tracing Personally Visualized and interpreted (Telemetry: A-fib to 130s)
Echo: Tracing Personally Visualized and interpreted (Transthoracic echocardiogram (01/18/2025): EF 55-60%; no significant valvular disease; no evidence for endocarditis.)
Medical Tests (PFT, Pathology etc): Discussed with Nurse
Labs: Labs Reviewed by me
Critical Care Time (in minutes): 42
--- NOTE | 2025-01-19 10:20 | W.PN.ID1 ---
Date of Service
Date of Service: January 19, 2025
Today's Communication
- Continue with vancomycin.
-DC Zosyn
Assessment / Plan
MRSA Bacteremia x 2 sets, ? source ? lungs
Fever - resolved
Atelectasis vs pneumonia
narrow complex SVT on amiodarone
Ileus - NGT decompression
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
- repeat blood cultures x2 pending, then q48 hours until persistently clear
- UA without evidence of glomerulonephritis, no new blocks seen on EKG
- Ucx neg
- TTE no gross vege
- last CT a/p with IV and oral contrast done 01/16 - no evidence of abscess at that time; do note murky output from sq drain
- obtain sputum if able - reports he started with cough yesterday
- Continue with vancomycin.
-DC Zosyn
Chief Complaint
-: Pneumonia and Bacteremia
Subjective / Review of Systems
+ cough productive of thick sputum.
No surgical site pain.
Vital Signs / Physical Exam
Vital Signs
Vital Signs
Temp Pulse Resp BP Pulse Ox
98.0 F 118 18 118/104 99
01/19/25 07:00 01/19/25 10:00 01/19/25 10:00 01/19/25 10:00 01/19/25 09:15
Physical Exam
Constitutional: No Acute Distress and Comfortable
Head: Other (NGT in place)
Eyes: No Conjunctival Hemorrhage
Cardiovascular: S1/S2 and Other (tachycardic)
Pulmonary: Coarse (bases)
Gastrointestinal: Soft, Non Tender and Decreased Bowel Sounds
Genito-Urinary: Negative CVA Tenderness
Extremities: Edema
Neurological: AO x 3
Objective Data
Lab Data
PT 14.6 Sec (11.4-14.6) 01/17/25 12:34
INR 1.09 01/17/25 12:34
APTT 39.5 Sec (23.4-35.0) H 01/17/25 12:34
Estimated Creat Clear 46 ml/min 01/19/25 04:48
Lactic Acid 1.1 mmol/L (0.7-2.0) 01/17/25 16:37
Total Bilirubin 1.3 mg/dl (0.2-1.3) 01/17/25 12:34
AST 33 U/L (17-59) 01/17/25 12:34
ALT 23 U/L (0-50) 01/17/25 12:34
Alkaline Phosphatase 93 U/L (38-126) 01/17/25 12:34
Most recent labs reviewed.
Micro Results:
01/16/25 12:56 Blood Culture - Preliminary
Blood/Venous Staph aureus MRSA
Gram Stain - Preliminary
01/18/25 12:36 Blood Culture - Pending
Blood/Venous
01/18/25 12:36 Blood Culture - Pending
Blood/Venous
01/16/25 12:56 Blood Culture - Preliminary
Blood/Venous Staph aureus MRSA
Gram Stain - Preliminary
01/16/25 12:57 Urine Culture - Final
Urine NO GROWTH
01/16/25 22:39 MRSA Screen - Final
Nose Staph aureus MRSA
01/16/25 12:57 Influenza Types A & B (CELIA) - Final
Nasal Swab Negative for Influenza A & B, NAAT
Negative results must be combined with clinical observations
and patient history.
Nucleic Acid Amplification test (NAAT)performed on the
[employer] platform.
01/19/35 CXR: There is minimal bibasilar opacities with likely small bilateral pleural effusions, similar to prior
--- NOTE | 2025-01-19 10:25 | PTCARENOTE ---
Pt OOB to chair w/ assist of two staff and use of walker. HR max 150 w/ increased activity but returned to 110-120's once sitting in chair. Hygiene/comfort care provided. Air chair cushion in use. Call barajas w/in pt reach. IS use encouraged- pt
pulling 1500 x3 reps, refusing additional reps 'I'll do it later'. Education provided to pt on importance of IS use in preventing pulmonary complications- pt verbalized understanding.
--- NOTE | 2025-01-19 11:55 | PTCARENOTE ---
Pt returned to bed at his request.Tolerated increased activity w/o complication or new complaint. No changes from previous assessment findings. Dr Urrutia in room to see pt- updated on H/H, bloody drainage from perineal flap area and ERVIN drainage.
--- NOTE | 2025-01-19 11:55 | W.PN.GS2 ---
Today's Communication / Plan
-
`
Assessment / Plan
-
Assessment: 74-year-old male readmitted after RAL APR with VRAM flap
MRSA bacteremia -uncertain source but given current appearance of subcutaneous ERVIN drain suspicion for developing subcutaneous infection
Ileus is persistent and remains no ostomy output
ERVIN drain in pelvis bloody and hemoglobin dropped 2 g which may be reflective of acute blood loss anemia from pelvic drain-was receiving therapeutic Lovenox
Plan: Obtain culture from subcutaneous ERVIN given change in character now suspicious for possible infectious component
NG tube decompression until signs of GI function
Monitor ERVIN outputs and hemoglobin closely -therapeutic anticoagulation should be held until stabilized
Subjective Data
-
Date of Service: January 19, 2025
Patient seen and examined
Sitting in chair at bedside NG tube in place
Reports some incisional abdominal pain and perineal pain
No nausea
Objective Data
-
Intake and Output
01/18/25 01/19/25/08/08
06:59 06:59 07:59
Intake Total 3871.9 / 3988.6 2670.8 / 2762.5 366.8 / 366.8
Output Total 1780 / 1820 1550 / 1550
Balance 2091.9 / 2168.6 1120.8 / 1212.5 366.8 / 366.8
Intake:
Oral fluids 120 / 120
IV fluids (Total) 1966.9 / 2083.6 2300.8 / 2392.5 366.8 / 366.8
Lr 1,000 ml @ 100 mls/hr IV . 1600 / 1700 400 / 400
Q10H AZEEM Rx#:[id number]
Nss 1,000 ml @ 75 mls/hr IV . 1500 / 1575 300 / 300
[id number] AZEEM Rx#:[id number]
amio 366.9 / 383.6 400.8 / 417.5 66.8 / 66.8
IV piggybacks 1750 / 1750 250 / 250
Amount instilled into Drain ( 35 35 60 / 60
Total)
Right Lower Abdomen Alberto- 15 50 / 50
Martinez A
Right Lower Abdomen Alberto- 10
Martinez B
Amount instilled into GI Tube ( 60 / 60
Total)
[place] Sump 60 / 60
Output:
Drain Output (Total) 80 / 80 100 / 100
Right Lower Abdomen Alberto- 35 / 35
Martinez A
Right Lower Abdomen Alberto- 65 / 65
Martinez B
Gastrointestinal tube output ( 600 / 600
Total)
[place] Sump 600 / 600
Urine, [place] 1700 / 1740 850 / 850
Urine, Voided 0 / 0
Other:
Number of approximated MODERATE 2
amounts of urine
Vital Signs
Temp Pulse Resp BP Pulse Ox
97.7 F 118 18 118/104 99
01/19/25 11:21 01/19/25 10:00 01/19/25 10:00 01/19/25 10:00 01/19/25 09:15
Calcium 8.3 mg/dl (8.4-10.2) L 01/19/25 04:48
Total Bilirubin 1.3 mg/dl (0.2-1.3) 01/17/25 12:34
AST 33 U/L (17-59) 01/17/25 12:34
ALT 23 U/L (0-50) 01/17/25 12:34
Alkaline Phosphatase 93 U/L (38-126) 01/17/25 12:34
Total Protein 6.1 g/dl (6.3-8.2) L 01/17/25 12:34
Albumin 3.4 g/dl (3.5-5.0) L 01/17/25 12:34
Physical Exam
-
NAD AAO
ABD: Softly distended, incisional tenderness but no rebound rigidity or guarding.
Left-sided ostomy edematous and without any air or stool in appliance
Subcutaneous ERVIN -appears purulent/murky
Pelvic ERVIN -pavel blood
[2025-01-19 14:34] LABS: Hematocrit 23.8 % (39.0-52.0); Hemoglobin 8.1 g/dL (13.0-18.0); Mean Corpuscular Hgb 32.8 pg (27.0-31.0); Mean Corpuscular Volume 96.4 fL (80.0-94.0); Mean Platelet Volume 8.9 fL (7.4-10.4); Platelet Count 333 10^3/uL (130-400); Red Blood Cell Count 2.47 10^6/uL (4.70-6.10); Red Cell Dist. Width 13.4 % (11.5-14.5)
[2025-01-19 14:56] LABS: ALT (SGPT) 20 U/L (0-50); AST (SGOT) 25 U/L (17-59); Albumin 2.4 g/dl (3.5-5.0); Alkaline Phosphatase 85 U/L (38-126); Blood Urea Nitrogen 20 mg/dl (9-20); Calcium 8.2 mg/dl (8.4-10.2); Carbon Dioxide 26 mmol/L (22-30); Chloride 101 mmol/L (98-107); Estimated Creatinine Clearance 46 ml/min; Glucose 109 mg/dl (70-99); Sodium 130 mmol/L (135-145); Total Bilirubin 0.6 mg/dl (0.2-1.3); Total Protein 4.5 g/dl (6.3-8.2); eGFR 47.95
--- NOTE | 2025-01-19 14:58 | W.PN.HOSP.TC ---
Today's Communication/Plan
-
De-escalate analgesia (will leave Dilaudid for severe breakthrough pain only)
Transition to IV vancomycin
Follow-up ERVIN drain cultures and repeat blood cultures
Maintain NGT and monitor bowel status
Iron studies and B vitamins
Amiodarone drip and full dose Lovenox
Assessment / Plan
Assessment / Plan
#MRSA bacteremia
#Sepsis secondary to pneumonia v. intra-abdominal infection postoperatively
-Presented as postoperative fever, s/p APR with perineal reconstruction on 01/11 for anorectal cancer
-Blood cultures x 2 on admission positive for MRSA; signs of pneumonia on x-ray as well as worsening ERVIN output
-No signs of infection near Chemo-Port or ostomy; CT A/P without signs of abscess here
-Was started on broad-spectrum antibiotics; have been transitioned to IV vancomycin alone by ID
-Repeat blood cultures obtained; fevers have resolved as of 01/19, remains with leukocytosis that is improved
Plan
-Continue IV vancomycin and follow repeat blood cultures
-Follow-up ERVNI culture obtained on 01/19 per surgery recs
-Continue to trend CBC and temperature curve
-Repeat blood cultures every 48 hours until clear
-Holding antihypertensive agents for now
#Acute blood loss anemia
-Hemoglobin dropped from 10.6�8.6�8.1 from 01/18 into 01/19
-Has had worsening output of abdominal ERVIN drain
-LFTs unremarkable, no signs of hemolytic processes
-Will order iron studies and B vitamins to assess for deficiency
-Avoid anticoagulation, SCDs for DVT prophylaxis
-Hemoglobin goal >7 or absence of symptoms
#Atrial fibrillation with RVR
-Nonvalvular; [id number] 3; presented as SVT that degenerated to AF
-Home regimen includes Eliquis, currently on hold due to surgical abdominal issues
-Was started on amiodarone drip with improvement to his rates, transitioned to full dose Lovenox for AC
-As of the morning 01/19 remains in AF with RVR, heart rate near 110/min
-Hemodynamically stable at this time without vasopressors
-Heart rate goal <120/min with critical illness
#Acute on chronic hyponatremia
-Chronically has sodium in the range of 130-135, as low as 126 here
-Unclear cause of chronic hyponatremia; suspect acute worsening due to reduced intake with NGT
-As of this morning serum sodium 130, has been fairly stable with minimal fluctuation
-Suspect that this will improve when oral intake is restored
-Continue to trend BMP on maintenance IVF
-Order urine osmolality, urine sodium, serum osmolality if worsening
#Postoperative ileus
-Presented with abdomen pain; s/p NGT placed on 01/18
-Remains on strict n.p.o. status with NGT to low continuous wall suction
-Currently receiving Dilaudid for pain, will de-escalate at patient's request
-Currently on IV fluids and bowel regimen, consider escalating bowel regimen
-Minimize narcotics and anticholinergics
-Serial abdomen exams and monitor bowel status
#Anal cancer s/p robotic APR (01/11)
-Status post chemotherapy and surgical resection
-Currently with ostomy in place
-Colorectal surgery following
#BPH
-Remains on tamsulosin, no signs of urine retention
#Hypothyroidism
-Unclear cause, home regimen includes levothyroxine 100 mcg daily
-No signs or symptoms of thyroid dysfunction at this time (RVR due to critical illness)
DVT prophylaxis: SCDs
Diet: NPO
CODE STATUS: Full code
Anticipated Discharge: > 48 hours
Subjective/Interval History
-
Date of Service: January 19, 2025
Seen and examined at the bedside. No acute events reported overnight. AFVSS on room air
Patient request de-escalation of pain medications to try to accelerate recovery of bowel status
States that he feels generally unwell but denies anything acute
Objective Data
-
Labs:
Laboratory Results
01/19/25 01/19/25
04:48 14:16
WBC 11.0 H 11.0 H
Hgb 8.6 L 8.1 L
Hct 24.9 L 23.8 L
Plt Count 311 333
Sodium 129 L 130 L
Potassium 4.0 4.0
Chloride 98 101
Carbon Dioxide 22 26
BUN 22 H 20
Creatinine 1.5 H 1.5 H
Glucose 112 H 109 H
Calcium 8.3 L 8.2 L
Total Bilirubin 0.6
AST 25
ALT 20
Alkaline Phosphatase 85
Vital Signs:
Vital Signs
Temp Pulse Resp BP Pulse Ox
97.7 F 113 16 113/85 96
01/19/25 11:21 01/19/25 14:00 01/19/25 14:00 01/19/25 14:00 01/19/25 13:00
I&O
01/18/25 01/19/25 01/20/25
06:59 06:59 07:59
Intake Total 3871.9 / 3988.6 2670.8 / 2762.5 733.6 / 733.6
Output Total 1780 / 1820 1550 / 1550
Balance 2091.9 / 2168.6 1120.8 / 1212.5 733.6 / 733.6
Review of Systems
-
History Source: Patient
All other systems: Reviewed and negative
Physical Exam
-
General: Well Developed, Well Nourished and No Apparent Distress
HEENT: Normocephalic, Atraumatic, Moist Mucous Membranes and Anicteric
Respiratory: Clear to Auscultation and Non Labored Respirations
Cardiac: Regular Rhythm and S1/S2; Negative Murmur, Rub or Gallop
GI: Soft, Nondistended, Normal Bowel Sounds, Tender (Mild tender) and Other
Musculoskeletal: No Clubbing, No Cyanosis and No Edema
Skin: Warm, Dry and Normal Turgor; Negative Rash
Neuro: AO x 3 and Nonfocal/Grossly Intact
Psych: Calm
--- NOTE | 2025-01-19 16:00 | PTCARENOTE ---
Pt's son and dil here to visit- updated as requested. Pt medicated as request for c/o abdominal/perineal pain-see MAR. Assisted OOB to chair w/ use of walker. Tolerated activity well- HR max 150's- returned to 120-130's once at rest in chair. No
additional changes from previous assessment findings. Call barajas remains w/in pt reach.
[2025-01-19] MEDS: VANCOCIN 200 IV (16:52)
[2025-01-19] MEDS: FLOMAX PO (19:15)
[2025-01-19] MEDS: CORDARONE 518 MG IV (20:22)
--- NOTE | 2025-01-19 21:15 | PTCARENOTE ---
Assumed care of pt at 1900. Pt is A/O x4, cooperative with care, somewhat flat affect. Reports pain 'all over' but mostly to perirectal area and abd. NGT to right nare to low continuous suction with brown drainage. Pt AFib on monitor, rate in low
100s-110s at rest. Spot checking SPO2, 95% on RA. Assessment as documented in nursing shift assessment flowsheet. Amiodarone infusion at 0.5mg/min.
[2025-01-19] MEDS: MORPHINE SULFATE 1.5 MG IV (22:25)
[2025-01-20] VITALS (25 sets, daily range): BP systolic 114–153; BP diastolic 77–134; PULSE 115–135; BMI 27.5
--- NOTE | 2025-01-20 01:28 | PTCARENOTE ---
Midnight assessment unchanged. Pt medicated for pain with Morphine at 2225, see EMAR, pt then assisted to sit on side of bed and brushed his teeth. Pt then stood at the side of the bed for a few minutes with the walker. Linens changed, CHG cloth
bath done. HR up to 130s-140s with activity but decreased back to 110s when pt resting in bed. Pt now asleep.
[2025-01-20] MEDS: LOPRESSOR 2.5 MG IV ×6 (03:08→21:32)
[2025-01-20] MEDS: MORPHINE SULFATE 1.5 MG IV ×3 (03:16→21:27)
[2025-01-20] MEDS: SYNTHROID PO (04:59)
[2025-01-20 05:37] LABS: % Basophils 0.2 % (0-2); % Eosinophils 2.6 % (0-6); % Monocytes 7.9 % (1.7-9.3); % Neutrophils 85.3 % (42.2-75.2); Absolute Eosinophils 0.3 10^3/uL (0-0.7); Absolute Immature Granulocytes 0.1 10^3/uL (0-0.05); Absolute Lymphocytes 0.3 10^3/uL (1.2-3.4); Absolute Monocytes 0.8 10^3/uL (0.1-0.6); Hematocrit 23.4 % (39.0-52.0); Hemoglobin 7.9 g/dL (13.0-18.0); Mean Corp Hgb Conc. 33.8 g/dL (33.0-37.0); Mean Corpuscular Hgb 33.2 pg (27.0-31.0); Mean Corpuscular Volume 98.3 fL (80.0-94.0); Mean Platelet Volume 8.7 fL (7.4-10.4); Nucleated Red Blood Cells % 0 % (-); Platelet Count 376 10^3/uL (130-400); Red Blood Cell Count 2.38 10^6/uL (4.70-6.10); Red Cell Dist. Width 13.7 % (11.5-14.5); White Blood Cell Count 10.5 10^3/uL (4.8-10.8)
[2025-01-20 05:50] LABS: ALT (SGPT) 19 U/L (0-50); AST (SGOT) 21 U/L (17-59); Albumin 2.5 g/dl (3.5-5.0); Alkaline Phosphatase 94 U/L (38-126); Blood Urea Nitrogen 19 mg/dl (9-20); Calcium 8.4 mg/dl (8.4-10.2); Carbon Dioxide 24 mmol/L (22-30); Chloride 101 mmol/L (98-107); Estimated Creatinine Clearance 43 ml/min; Glucose 107 mg/dl (70-99); Iron 30 ug/dl (49-181); Potassium 3.8 mmol/L (3.5-5.1); Sodium 131 mmol/L (135-145); Total Bilirubin 0.6 mg/dl (0.2-1.3); Total Protein 4.7 g/dl (6.3-8.2); eGFR 44.38
[2025-01-20 05:57] LABS: Vancomycin Random 16.4 ug/ml
[2025-01-20 06:00] LABS: Percent Saturation 15 % (20-50); Total Iron Binding Capacity 199 ug/dl (261-462)
[2025-01-20] MEDS: NSS 1000 IV ×2 (06:12→17:53)
[2025-01-20 06:56] LABS: Folate 14.9 ng/ml (2.76-20); Vitamin B12 767 pg/ml (239-931)
--- NOTE | 2025-01-20 08:09 | PHA.VAN.FU ---
Vancomycin Assessment / Plan
- Assessment
Renal Function: SCR Increasing (1.5->1.6)
WBC's are: WNL (10.5)
In the past 24 hrs, patient has been: Afebrile
- Assessment - Therapeutic Drug Monitoring
Random Level: 16.4 ~12.5hrs after 1000mg dose 01/19/25 1652
- Dosing Plan
Continue: Vanco Dose by level
Dosing by Level: Re-dose today
Dosing Comments: Vanco 1000mg x1
- Monitoring Plan
Random Level: Vanco Random level 01/21 600
- Follow Up
Pharmacy will continue to follow.
Vancomycin Follow UP
- -
Patient Age: 74
Patient Sex: Male
Vancomycin Day #: 4
Indication: Pulmonary/Respiratory
Requesting Provider: Dr. Gomez / Steve
Pertinent Antimicrobial Allergies:
NKDA
Height / Weight:
Height 6 ft
Actual Weight 91.8 kg
Pertinent Past Medical History: Colorectal carcinoma
- Vital Signs / Lab Results
Temp Pulse Resp BP Pulse Ox
98.0 F 106 13 137/89 96
01/20/25 07:00 01/20/25 06:12 01/20/25 06:00 01/20/25 06:12 01/20/25 05:49
Lab Results - Hematology
01/17/25 01/17/25 01/18/25
06:47 12:34 04:56
WBC 11.5 H 17.4 H 12.1 H
01/19/25 01/19/25 01/20/25
04:48 14:16 05:18
WBC 11.0 H 11.0 H 10.5
Lab Results - Chemistry
01/17/25 01/17/25 01/18/25
06:47 12:34 04:56
BUN 14 14 17
Creatinine 0.9 0.8 1.2
Estimated Creat Clear 77 86 57
Albumin 3.4 L
01/18/25 01/19/25 01/19/25
23:30 04:48 14:16
BUN Cancelled 22 H 20
Creatinine Cancelled 1.5 H 1.5 H
Estimated Creat Clear Cancelled 46 46
Albumin 2.4 L
01/20/25
05:18
BUN 19
Creatinine 1.6 H
Estimated Creat Clear 43
Albumin 2.5 L
01/17/25 01/17/25
12:34 16:37
Lactic Acid 2.8 H 1.1
Microbiology Results
01/16/25 12:56 Blood Culture - Preliminary
Blood/Venous Staph aureus MRSA
Gram Stain - Preliminary
01/18/25 12:36 Blood Culture - Preliminary
Blood/Venous No Growth in 24 hours- Final report to follow
01/18/25 12:36 Blood Culture - Preliminary
Blood/Venous No Growth in 24 hours- Final report to follow
01/16/25 12:56 Blood Culture - Preliminary
Blood/Venous Staph aureus MRSA
Gram Stain - Preliminary
01/16/25 12:57 Urine Culture - Final
Urine NO GROWTH
01/16/25 22:39 MRSA Screen - Final
Nose Staph aureus MRSA
Therapeutic Drug Monitoring
Vancomycin Peak 24.2 ug/ml (18-26) 01/18/25 21:18
Vancomycin Trough 17.8 ug/ml (5-20) 01/19/25 04:48
Random Vancomycin 16.4 ug/ml 01/20/25 05:18
--- NOTE | 2025-01-20 08:49 | W.PN.INTV ---
Today's Communication / Plan
Recommendations
-Place PICC line
-Start TPN
-Replace potassium with KCl 40 mEq IV
-Likely can be downgraded to IMU
-[employer] Order Filler service will sign off, please consult as needed
Assessment
-
Very pleasant 74-year-old gentleman post surgery for rectal adenocarcinoma (12/2024) was transferred from the floor to the ICU for tachyarrhythmias. Heart rate was more than 200 and patient responded to IV Lopressor and amiodarone push. Patient
was felt to have SVT with aberrancy versus atrial flutter. In addition patient was noted to have elevated lactate and overall felt poorly. Patient was fluid resuscitated and started on antibiotics, and subsequently blood cultures came back
positive for gram-positive cocci. CT abdomen pelvis was pursued but did not show any abscess or indication for repeat surgery. Patient developed ileus which was managed with NG tube decompression.
Last 24 hours:
Decreased sanguinous output from ERVIN drain
No ostomy output, bilious output from NG suction
Fluid balance, +321 mL
Hemoglobin down trended to 7.9, white count improved 10.5, platelets stable at 376
Potassium 3.8, normal magnesium, creatinine at 1.6 essentially unchanged from yesterday
MRSA screen positive, blood cultures positive for Staph aureus, MRSA
#1. Narrow-complex tachycardia, appears to be atrial flutter versus SVT with aberrancy
-S/p amiodarone and metoprolol bolus followed by infusion of amiodarone, quite improved
-Continue Lopressor 2.5 mg IV Q4 scheduled while n.p.o.
-Cardiology consult
-Continue telemetry monitoring
-Echo shows normal ejection fraction
#1a. Gram-positive bacteremia with sepsis/MRSA bacteremia
-Patient s/p IV fluid resuscitation, serial lactate improving
-Concern for line sepsis with right upper chest Mediport in place, also concern for tract infection of ERVIN drain
-Continue vancomycin per ID service
-Repeat blood cultures negative so far
#2. Rectal cancer s/p robotic APR with perineal reconstruction 01/11, increased abdominal pain/ileus
-No acute surgical intervention needed per colorectal surgery evaluation
-CT from 01/16, not suggestive of obstruction or abscess
-KUB suggestive of developing ileus versus small bowel obstruction, placed NG tube to low intermittent suction
-Low threshold to repeat CT scan if no colostomy output for another 24 hours or any change in hemodynamic status
#3. History of paroxysmal atrial fibrillation
-Continue amiodarone infusion
-Since patient was n.p.o., Eliquis was stopped and the Lovenox was started 01/18, which has since been discontinued due to bleeding from ERVIN drain and drop in hematocrit
#4. Mild acute kidney injury
-Continue IV fluids for now, monitor creatinine closely
#5. Anemia, component of acute blood loss.
-With increased sanguinous output from ERVIN drain, improved since patient has been off Lovenox
-Stopped anticoagulation
-Mild drop in hematocrit, getting blood transfusion today
-Follow labs closely
-Continue PPI
-Add SCDs for DVT prophylaxis
Critical Care time mins -- The patient is admitted for acute critical illness for the treatment of vital organ failure and/or prevention of further life-threatening conditions. Total care includes time spent in review of history, physical exam,
medications, hemodynamic/ventilator parameters, laboratory data, imaging and discussion with house staff, pharmacy, respiratory therapy, bilingual recruiter, and nursing.
CT Abd/Pelvis: 01/16:
Postsurgical change of the abdomen and pelvis including presacral edema, mild extraluminal air in the pelvis, percutaneous drainage catheters and subcutaneous emphysema.
No abscess identified.
Small bilateral pleural effusions.
Moderate bibasilar consolidation which may represent atelectasis or developing pneumonia.
Moderate fecal material in the colon. Mild diverticulosis.
ECHO 01/18:
Left ventricular ejection fraction is 55-60%. Normal regional wall motion.
Normal right ventricular size and function.
No significant valvular disease.
No evidence for endocarditis (limited sensitivity via transthoracic modality).
Subjective Dataa
Subjective Data
Date of Service:
Date of Service: January 20, 2025
Subjective:
Comfortably lying in bed, no acute distress. NG tube in place to low intermittent suction.
Review of Systems
Genitourinary: Other (All 14 systems reviewed and negative except as stated above in the history of present illness.)
Objective Data
Data Reviewed
Vital Signs / I&O / Oxygen:
Vital Signs
Temp Pulse Resp BP Pulse Ox
98.0 F 106 13 137/89 96
01/20/25 07:00 01/20/25 06:12 01/20/25 06:00 01/20/25 06:12 01/20/25 05:49
Intake and Output
01/19/25 01/20/25 01/21/25
05:59 06:59 06:59
Intake Total
Output Total
Balance
SaO2 96
Nasal Cannula flow liters per 2
minute
Physical Exam
General: Comfortable
HEENT: Normocephalic
Cardiovascular: S1-S2 and Irregular Rhythm
Respiratory: Clear
GI: Distended (Somewhat less distended since NG tube was placed)
Neurology: Awake and Alert
Skin: Warm
Labs/Micro/Reports
Lab Data
01/20/25 05:18
01/20/25 05:18
Microbiology
01/16/25 12:56 Blood/Venous Blood Culture - Preliminary
Staph aureus MRSA
01/16/25 12:56 Blood/Venous Gram Stain - Preliminary
01/18/25 12:36 Blood/Venous Blood Culture - Preliminary
No Growth in 24 hours- Final report to follow
01/18/25 12:36 Blood/Venous Blood Culture - Preliminary
No Growth in 24 hours- Final report to follow
01/16/25 12:56 Blood/Venous Blood Culture - Preliminary
Staph aureus MRSA
01/16/25 12:56 Blood/Venous Gram Stain - Preliminary
01/16/25 12:57 Urine Urine Culture - Final
NO GROWTH
01/16/25 22:39 Nose MRSA Screen - Final
Staph aureus MRSA
[2025-01-20] MEDS: NSS (PRESERVATIVE FREE) 10 ML IV (08:54)
[2025-01-20] MEDS: VANCOCIN 200 IV (08:54)
[2025-01-20] MEDS: PROTONIX IV 40 MG IV (08:54)
--- NOTE | 2025-01-20 09:00 | PTCARENOTE ---
Assumed care of pt at 0715 following shift report. Pt awake and resting quietly in bed. Reports continued abdominal and sacral discomfort- medicated as documented in JAN. Amiodarone gtt continues at 0.5mg/min, NS @ 75ml/hr. Rt NGT placement
confirmed, irrigated as ordered w/ 30ml of H2O and remains to LCWS w/ sosa brown/green drainage. ERVIN drains x2 to Rt flank secure and bulbs compressed. #A w/ sanguinous drainage and #B w/ murky leslie drainage. Physical assessment completed as
documented. Call karl w/in pt reach and safe environment maintained.
--- NOTE | 2025-01-20 09:18 | W.PN.GS2 ---
Today's Communication / Plan
-
`
Assessment / Plan
-
Assessment: 74-year-old male readmitted after RAL APR with VRAM flap
MRSA bacteremia -uncertain source but given current appearance of subcutaneous ERVIN drain suspicion for developing subcutaneous infection; also has port in place
Ileus is persistent and remains no ostomy output
Acute blood loss anemia from pelvic drain-was receiving therapeutic Lovenox
This a.m. ERVIN quantity reducing and less bloody
Plan: ERVIN cultures from subcutaneous drain obtained yesterday -pending
--ID managing antibiotics
NG outputs remain bilious and no ostomy activity -Place PICC line and start TPN given prolonged n.p.o. status
--Consider repeat CT imaging if no signs of GI recovery over the next 24 to 36 hours
Transfuse 2 units PRBCs for hemoglobin 7.9
Continue to hold therapeutic anticoagulation until ERVIN output is less bloody and hemoglobin stabilizes
-- In the future would avoid Lovenox and utilize heparin as bridge
Subjective Data
-
Date of Service: January 20, 2025
Patient seen and examined.
Poor sleep, abdominal pain/incisional pain controlled
No nausea
Objective Data
-
Intake and Output
01/19/25 01/20/25 01/21/25
05:59 06:59 06:59
Intake Total
Output Total
Balance
Intake:
Oral fluids
IV fluids (Total)
Lr 1,000 ml @ 100 mls/hr IV .
Q10H AZEEM Rx#:[id number]
Nss 1,000 ml @ 75 mls/hr IV .
[id number] AZEEM Rx#:[id number]
amio
IV piggybacks
Amount instilled into Drain (
Total)
Right Lower Abdomen Alberto-
Martinez A
Right Lower Abdomen Alberto-
Martinez B
Amount instilled into GI Tube (
Total)
[place]
Output:
Drain Output (Total)
Right Lower Abdomen Alberto-
Martinez A
Right Lower Abdomen Alberto-
Martinez B
Gastrointestinal tube output (
Total)
[place]
Urine, Caruso
Vital Signs
Temp Pulse Resp BP Pulse Ox
98.0 F 106 13 137/89 96
01/20/25 07:00 01/20/25 06:12 01/20/25 06:00 01/20/25 06:12 01/20/25 05:49
Lab Results
01/20/25 05:18
01/20/25 05:18
Calcium 8.4 mg/dl (8.4-10.2) 01/20/25 05:18
Total Bilirubin 0.6 mg/dl (0.2-1.3) 01/20/25 05:18
AST 21 U/L (17-59) 01/20/25 05:18
ALT 19 U/L (0-50) 01/20/25 05:18
Alkaline Phosphatase 94 U/L (38-126) 01/20/25 05:18
Total Protein 4.7 g/dl (6.3-8.2) L 01/20/25 05:18
Albumin 2.5 g/dl (3.5-5.0) L 01/20/25 05:18
Physical Exam
-
NAD AAOx3, resting in hospital bed
ABD: Soft, tenderness palpation right abdomen and centrally. No rebound or guarding
Left-sided ostomy with pink mucosa and edematous, bowel sweat in ostomy appliance, no air, no stool
Subcutaneous ERVIN -murky
Intra-abdominal ERVIN -less bloody and less quantity
Subcutaneous closure midline incision intact
Perineum evaluated as well. Flap viable. No necrosis. Some serous drainage from edges but subcuticular closure generally appears intact.
--- NOTE | 2025-01-20 10:20 | PTCARENOTE ---
Dr Lobato in to evaluate pt and changed perineal dressing. New orders received. T&S drawn and sent to lab. IV Team aware of PICC order. Pt OOB to chair at 1015 w/ assistance and use of rolling walker. Pt tolerated activity well w/ reported minimal
dizziness, HR max 140's. AM Hygiene completed and bed linens changed. Call barajas remains w/in pt reach.
--- NOTE | 2025-01-20 10:51 | W.PN.HOSP.TC ---
Today's Communication/Plan
-
Continue vancomycin and follow cultures
Hold AC/transfuse 2 unit blood
Start TPN
De-escalate opiates as possible
Amiodarone drip
Supportive IVF and trend BMP/UOP
Assessment / Plan
Assessment / Plan
#MRSA bacteremia
#Sepsis secondary to pneumonia v. intra-abdominal infection postoperatively
-Presented as postoperative fever, s/p APR with perineal reconstruction on 01/11 for anorectal cancer
-Blood cultures x 2 on admission positive for MRSA; signs of pneumonia on x-ray as well as worsening ERVIN output
-No signs of infection near Chemo-Port or ostomy; CT A/P without signs of abscess here
-Was started on broad-spectrum antibiotics; have been transitioned to IV vancomycin alone by ID
-Repeat blood cultures obtained; fevers have resolved as of 01/19, remains with leukocytosis that is improved
Plan
-Continue IV vancomycin and follow repeat blood cultures
-Follow-up ERVIN culture obtained on 01/19 per surgery recs
-Continue to trend CBC and temperature curve
-Repeat blood cultures every 48 hours until clear
-Holding antihypertensive agents for now
#Acute blood loss anemia
-Hemoglobin dropped from 10.6�8.6�8.1�7.9 as of 01/20
-Has had worsening output of abdominal ERVIN drain
-LFTs unremarkable, no signs of hemolytic processes
-Iron studies with evidence of anemia of chronic disease
-S/p 2 unit PRBC on 01/20 at surgery's recommendation
-Avoid anticoagulation, SCDs for DVT prophylaxis
-Hemoglobin goal >7 or absence of symptoms
#Acute kidney injury
-Suspect mild septic ATN; persistent elevation despite hemodynamic stability
-Creatinine normal at baseline, recent labs with creatinine 1.5-1.7 over 3 lab draw
-Currently on maintenance IV fluids; TPN started on 01/20 as well for nutrition
-Urine output has been adequate, no signs of obstructive pathology
-Continue to monitor BMP and UOP on maintenance IVF
-Avoid nephrotoxic agents
#Atrial fibrillation with RVR
-Nonvalvular; [id number] 3; presented as SVT that degenerated to AF
-Home regimen includes Eliquis, currently on hold due to surgical abdominal issues
-Was started on amiodarone drip with improvement to his rates, transitioned to full dose Lovenox for AC
-As of the morning 01/19 remains in AF with RVR, heart rate near 110/min
-Lovenox was held on 01/19 due to ongoing bloody discharge from ERVIN drain
-Hemodynamically stable at this time without vasopressors
-Heart rate goal <120/min with critical illness
#Acute on chronic hyponatremia
-Chronically has sodium in the range of 130-135, as low as 126 here nut back to 131 as of 01/20
-Unclear cause of chronic hyponatremia; suspect acute worsening due to reduced intake with NGT
-As of this morning serum sodium 130, has been fairly stable with minimal fluctuation
-Suspect that this will improve when oral intake is restored
-Continue to trend BMP on maintenance IVF
-Order urine osmolality, urine sodium, serum osmolality if worsening
#Postoperative ileus
-Presented with abdomen pain; s/p NGT placed on 01/18
-Remains on strict n.p.o. status with NGT to low continuous wall suction
-Currently receiving Dilaudid for pain, will de-escalate at patient's request
-Currently on IV fluids and bowel regimen, consider escalating bowel regimen
-Minimize narcotics and anticholinergics
-Serial abdomen exams and monitor bowel status
#Anal cancer s/p robotic APR (01/11)
-Status post chemotherapy and surgical resection
-Currently with ostomy in place
-Colorectal surgery following
#BPH
-Remains on tamsulosin, no signs of urine retention
#Hypothyroidism
-Unclear cause, home regimen includes levothyroxine 100 mcg daily
-No signs or symptoms of thyroid dysfunction at this time (RVR due to critical illness)
DVT prophylaxis: SCDs
Diet: NPO, starting TPN 01/20
CODE STATUS: Full code
Anticipated Discharge: > 48 hours
Subjective/Interval History
-
Date of Service: January 20, 2025
Seen and examined at the bedside. No acute events reported overnight. AFVSS this morning
Remains with NGT in place. Renal function with elevated but stable creatinine. Hemoglobin down to 7.9 this morning, receiving 1 unit PRBC per surgery request. Sodium stable at 131
He denies any new complaints as of this morning. Pain adequately controlled on morphine. Has not passed flatus or stool
Objective Data
-
Labs:
Laboratory Results
01/20/25
05:18
WBC 10.5
Hgb 7.9 L
Hct 23.4 L
Plt Count 376
Sodium 131 L
Potassium 3.8
Chloride 101
Carbon Dioxide 24
BUN 19
Creatinine 1.6 H
Glucose 107 H
Calcium 8.4
Total Bilirubin 0.6
AST 21
ALT 19
Alkaline Phosphatase 94
Vital Signs:
Vital Signs
Temp Pulse Resp BP Pulse Ox
98.0 F 106 13 137/89 96
01/20/25 07:00 01/20/25 06:12 01/20/25 06:00 01/20/25 06:12 01/20/25 05:49
I&O
01/19/25 01/20/25 01/21/25
05:59 06:59 06:59
Intake Total 566.8 / 566.8
Output Total
Balance 566.8 / 566.8
Review of Systems
-
History Source: Patient
All other systems: Reviewed and negative
Physical Exam
-
General: Well Developed, No Apparent Distress and Appears Chronically Ill
HEENT: Normocephalic, Atraumatic, Moist Mucous Membranes and Anicteric
Respiratory: Clear to Auscultation and Non Labored Respirations
Cardiac: S1/S2, Irregular Rhythm and Tachycardic; Negative Murmur, Rub, JVD or Gallop
GI: Soft, Nondistended, Ostomy and Other (Mild general tenderness; absent bowel sounds; no peritoneal signs; bloody ERVIN drain output)
Musculoskeletal: No Clubbing, No Cyanosis and No Edema
Skin: Warm and Dry; Negative Rash
Neuro: AO x 3 and Nonfocal/Grossly Intact
Psych: Calm
Data Reviewed
-
Labs: Labs Reviewed by me, Discussed with Physician (Nail Artist) and Discussed with Patient
--- NOTE | 2025-01-20 10:58 | W.PN.ID1 ---
Date of Service
Date of Service: January 20, 2025
Today's Communication
Continue Vancomycin.
Assessment / Plan
MRSA Bacteremia x 2 sets
Fever - resolved
Leukocytosis resolved
Atelectasis vs pneumonia
narrow complex SVT on amiodarone
Ileus - NGT decompression
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
- repeat blood cultures x2 neg to date, then q48 hours until persistently clear
- Ucx neg
- TTE no gross vege
- Sputum cx pending
- last CT a/p with IV and oral contrast done 01/16 - no evidence of abscess at that time; do note murky output from sq drain
- Source of MRSA probably from subcutaneous abscess with ERVIN drain purulent fluid output. Surgery sent ERVIN drain fluid for culture, pending.
- Continue with vancomycin (d5)
Chief Complaint
-: Bacteremia
Subjective / Review of Systems
No abd pain. + cough.
Vital Signs / Physical Exam
Vital Signs
Vital Signs
Temp Pulse Resp BP Pulse Ox
98.0 F 106 13 137/89 96
01/20/25 07:00 01/20/25 06:12 01/20/25 06:00 01/20/25 06:12 01/20/25 05:49
Physical Exam
Constitutional: No Acute Distress
Head: Other (NGT in place)
Cardiovascular: Irregular Rate and Other (tachycardic)
Pulmonary: Other (Anterior lungs clear)
Gastrointestinal: Soft, Non Tender, Distended (mild), Decreased Bowel Sounds and Other (ERVIN drain in pelvis red-leslie fluid; ERVIN in subcutaneous medium thick cloudy yellow-leslie fluid)
Genito-Urinary: Other
Extremities: Negative Edema
Neurological: AO x 3
Objective Data
Lab Data
Lab Results
01/20/25 05:18
01/20/25 05:18
PT 14.6 Sec (11.4-14.6) 01/17/25 12:34
INR 1.09 01/17/25 12:34
APTT 39.5 Sec (23.4-35.0) H 01/17/25 12:34
Estimated Creat Clear 43 ml/min 01/20/25 05:18
Lactic Acid 1.1 mmol/L (0.7-2.0) 01/17/25 16:37
Total Bilirubin 0.6 mg/dl (0.2-1.3) 01/20/25 05:18
AST 21 U/L (17-59) 01/20/25 05:18
ALT 19 U/L (0-50) 01/20/25 05:18
Alkaline Phosphatase 94 U/L (38-126) 01/20/25 05:18
Most recent labs reviewed.
Micro Results:
01/19/25 18:26 Body Fluid Culture - Pending
Fluid Gram Stain - Pending
01/20/25 05:18 Blood Culture - Pending
Blood/Venous
01/20/25 05:18 Blood Culture - Pending
Blood/Venous
01/19/25 22:26 Respiratory Culture - Pending
Sputum Gram Stain - Pending
01/16/25 12:56 Blood Culture - Preliminary
Blood/Venous Staph aureus MRSA
Gram Stain - Preliminary
01/18/25 12:36 Blood Culture - Preliminary
Blood/Venous No Growth in 24 hours- Final report to follow
01/18/25 12:36 Blood Culture - Preliminary
Blood/Venous No Growth in 24 hours- Final report to follow
01/16/25 12:56 Blood Culture - Preliminary
Blood/Venous Staph aureus MRSA
Gram Stain - Preliminary
01/16/25 12:57 Urine Culture - Final
Urine NO GROWTH
01/16/25 22:39 MRSA Screen - Final
Nose Staph aureus MRSA
01/16/25 12:57 Influenza Types A & B ([facility]) - Final
Nasal Swab Negative for Influenza A & B, NAAT
Negative results must be combined with clinical observations
and patient history.
Nucleic Acid Amplification test (NAAT)performed on the
[employer] platform.
01/19/35 CXR: There is minimal bibasilar opacities with likely small bilateral pleural effusions, similar to prior
01/16/25 CT a/p: There is a percutaneous drainage catheter entering the lateral right abdominal wall. The tip rests in the right pelvis posteriorly.There is a second drainage catheter in the subcutaneous tissues with the tip in midline the upper
anterior abdominal wall.
--- NOTE | 2025-01-20 12:15 | PTCARENOTE ---
Pt continues to rest quietly w/o offered complaint or noted changes from previous assessment findings, 1st unit PRBC infusing w/o complication. Frequent comfort/oral care provided.
--- NOTE | 2025-01-20 12:46 | W.PN.CD ---
Today's Communication / Plan
-
- Concern for active bleeding; anticoagulation now being held.
- Being transfused 2 units of blood today.
- Continue amiodarone drip and 2.5 mg IV Lopressor Q4.
- NGT in place.
Impression / Plan
-
Background: 74-year-old male (known to Dr. Campbell, his primary Security Analyst who just meant the patient and has only see him once in the office) with paroxysmal A fib (on Eliquis), HTN, mild/moderate MR and TR, mild AR, IVCD, colorectal cancer s/p
chemo, recent colectomy/colostomy/perineal reconstruction on 01/11/25 (Dr Santana) readmitted with developing sepsis. Cardiology consulted for tachycardia with heart rates of 235 bpm (narrow complex).
MRSA Staph Aureus bacteremia/sepsis
- Continue antibiotics and recommendations as per ID.
- Transthoracic echocardiogram unremarkable.
PSVT, perhaps an atrial flutter or SVT (see 12 lead EKG 01/17/2025 at 1225 hrs) => degenerated to AFib
- Concern for active bleeding; anticoagulation now being held.
- Being transfused 2 units of blood today.
- Continue to monitor hemoglobin; management as per primary team.
PAF with RVR (he also had typical Atrial Flutter last admission as well)
-This episode precipitated by sepsis
-[id number] 3 (age x 2, hypertension)
-Anticoagulation: On Eliquis usually as outpatient
-Has used pill in the pocket Flecainide for many years
-In past just had highly symptomatic episodes about 1 time a year
-Holding anticoagulation as above.
-Continue amiodarone drip and 2.5 mg IV Lopressor Q4.
Colostomy:
-NGT in place.
-Management as per Surgery.
Anal adenocarcinoma, S/p combined therapy (chemo/surgery):
-Status-post surgical resection on 01/11/2025.
-Recommendations as per Surgery.
Hypertension
-Blood pressure remains stable.
Physical Exam
Vital Signs/Labs
Vital Signs
Temp Pulse Resp BP Pulse Ox
98.0 F 101 16 126/91 97
01/20/25 12:22 01/20/25 12:22 01/20/25 12:22 01/20/25 12:22 01/20/25 08:25
01/19/25 01/20/25 01/21/25
05:59 06:59 06:59
Actual Weight
01/20/25 05:18
01/20/25 05:18
PT 14.6 Sec (11.4-14.6) 01/17/25 12:34
INR 1.09 01/17/25 12:34
APTT 39.5 Sec (23.4-35.0) H 01/17/25 12:34
LAB Results
01/17/25
12:34
Troponin I < 0.012
Physical Exam
Constitutional: No acute distress and Comfortable
EENT: Anicteric
Cardiovascular: Pedal edema is absent, Systolic murmur absent, Rhythm/rate is irregular and S1S2 is normal
Respiratory: Respiratory effort normal and Lungs clear to auscul.
GI: Soft
Neuro/Psych: AO x 3
Other: Skin (Warm, dry)
Data Reviewed
-
Date of Service: January 20, 2025
EKG: Tracing Personally Visualized and interpreted (Telemetry: A-fib)
Labs: Labs Reviewed by me
Critical Care Time (in minutes): 36
[2025-01-20] MEDS: KCL 100 IV (14:29)
--- NOTE | 2025-01-20 16:00 | PTCARENOTE ---
2nd unit PRBC infusing w/o complication. Pt has been napping for long intervals this afternoon. No changes noted from previous assessment findings or new complaints received. Call barajas remains w/in pt reach and safe environment maintained.
--- NOTE | 2025-01-20 20:00 | PTCARENOTE ---
rec`pt at 1900. AAOx3. afib on monitor w/ amio gtt continued. scds. hr 100-130s. +2LEE and +3 scrotal edema. RA POX mid 90s. coarse lung sounds with a expria wheeze. pt suctions himself as needed. osotmy. NGT @55 to LUPILLO. urinal. jps draining.
rectal dressing c/d/i. rt dual luman picc. rt subQ port flushed and patent. call barajas in reach. safe environment maintained.
[2025-01-20] MEDS: Parenteral Nutrition, Central 1040 IV (21:13)
[2025-01-20] MEDS: FLOMAX PO (21:32)
[2025-01-21] VITALS (21 sets, daily range): BP systolic 114–160; BP diastolic 75–105; BMI 27.5
[2025-01-21] MEDS: CORDARONE 518 MG IV (00:40)
[2025-01-21] MEDS: DUONEB 3 ML INH (02:10)
[2025-01-21] MEDS: LOPRESSOR 2.5 MG IV ×6 (04:00→23:17)
[2025-01-21 04:54] LABS: % Basophils 0.3 % (0-2); % Eosinophils 1.4 % (0-6); % Immature Granulocytes 1.1 % (0-0.5); % Lymphocytes 3.1 % (20.5-51.1); % Monocytes 9.4 % (1.7-9.3); % Neutrophils 84.7 % (42.2-75.2); Absolute Eosinophils 0.2 10^3/uL (0-0.7); Absolute Immature Granulocytes 0.1 10^3/uL (0-0.05); Absolute Lymphocytes 0.3 10^3/uL (1.2-3.4); Absolute Neutrophils 8.8 10^3/uL (1.4-6.5); Hematocrit 27.3 % (39.0-52.0); Hemoglobin 9.2 g/dL (13.0-18.0); Mean Corp Hgb Conc. 33.7 g/dL (33.0-37.0); Mean Corpuscular Hgb 31.7 pg (27.0-31.0); Mean Corpuscular Volume 94.1 fL (80.0-94.0); Mean Platelet Volume 8.6 fL (7.4-10.4); Nucleated Red Blood Cells % 0 % (-); Platelet Count 361 10^3/uL (130-400); White Blood Cell Count 10.4 10^3/uL (4.8-10.8)
[2025-01-21 05:16] LABS: ALT (SGPT) 17 U/L (0-50); AST (SGOT) 22 U/L (17-59); Albumin 2.4 g/dl (3.5-5.0); Alkaline Phosphatase 88 U/L (38-126); Blood Urea Nitrogen 19 mg/dl (9-20); Calcium 8.4 mg/dl (8.4-10.2); Carbon Dioxide 23 mmol/L (22-30); Chloride 104 mmol/L (98-107); Estimated Creatinine Clearance 49 ml/min; Glucose 132 mg/dl (70-99); Magnesium 2.2 mg/dl (1.6-2.3); Phosphorus 2.7 mg/dl (2.5-4.5); Potassium 3.9 mmol/L (3.5-5.1); Sodium 134 mmol/L (135-145); Total Bilirubin 0.7 mg/dl (0.2-1.3); Total Protein 4.5 g/dl (6.3-8.2); Triglycerides 115 mg/dl (10-149); eGFR 52.09
[2025-01-21 05:23] LABS: Vancomycin Random 13.8 ug/ml
[2025-01-21] MEDS: NSS 1000 IV ×2 (06:19→21:10)
[2025-01-21] MEDS: SYNTHROID 100 MCG PO (06:19)
[2025-01-21] MEDS: PROTONIX IV 40 MG IV (07:21)
[2025-01-21] MEDS: NSS (PRESERVATIVE FREE) 10 ML IV (07:21)
--- NOTE | 2025-01-21 08:43 | PHA.VAN.FU ---
Vancomycin Assessment / Plan
- Assessment
Renal Function: SCR Decreasing
WBC's are: WNL
In the past 24 hrs, patient has been: Afebrile
- Assessment - Therapeutic Drug Monitoring
Random Level: 13.8 - drawn ~19.5H after previous dose of 1000mg
- Dosing Plan
Dosing by Level: Re-dose today (Vanc 1250mg)
Will increase dose slightly today
Unclear if decrease in level due to dose being administered later in day prior to level of 16.4 or if vanc clearance improving with decrease in SCR
- Monitoring Plan
Random Level: 01/22 0600
- Follow Up
Pharmacy will continue to follow.
Vancomycin Follow UP
- -
Patient Age: 74
Patient Sex: Male
Vancomycin Day #: 5
Indication: Pulmonary/Respiratory
Requesting Provider: Dr. Gomez / Steve
Pertinent Antimicrobial Allergies:
NKDA
Height / Weight:
Height 6 ft
Actual Weight 92 kg
Pertinent Past Medical History: Colorectal carcinoma
- Vital Signs / Lab Results
Temp Pulse Resp BP Pulse Ox
96.5 F L 110 20 137/81 96
01/21/25 07:37 01/21/25 06:00 01/21/25 06:00 01/21/25 06:00 01/20/25 20:00
Lab Results - Hematology
01/19/25 01/19/25 01/20/25
04:48 14:16 05:18
WBC 11.0 H 11.0 H 10.5
01/21/25
04:24
WBC 10.4
Lab Results - Chemistry
01/18/25 01/19/25 01/19/25
23:30 04:48 14:16
BUN Cancelled 22 H 20
Creatinine Cancelled 1.5 H 1.5 H
Estimated Creat Clear Cancelled 46 46
Albumin 2.4 L
01/20/25 01/21/25
05:18 04:24
BUN 19 19
Creatinine 1.6 H 1.4 H
Estimated Creat Clear 43 49
Albumin 2.5 L 2.4 L
Microbiology Results
01/20/25 05:18 Blood Culture - Preliminary
Blood/Venous No Growth in 24 hours- Final report to follow
01/20/25 05:18 Blood Culture - Preliminary
Blood/Venous No Growth in 24 hours- Final report to follow
01/19/25 22:26 Respiratory Culture - Final
Sputum Gram Stain - Final
01/19/25 18:26 Gram Stain - Preliminary
Fluid
01/18/25 12:36 Blood Culture - Preliminary
Blood/Venous No Growth in 48 hours- Final report to follow
01/18/25 12:36 Blood Culture - Preliminary
Blood/Venous No Growth in 48 hours- Final report to follow
01/16/25 12:56 Blood Culture - Preliminary
Blood/Venous Staph aureus MRSA
Gram Stain - Preliminary
01/16/25 12:56 Blood Culture - Preliminary
Blood/Venous Staph aureus MRSA
Gram Stain - Preliminary
Therapeutic Drug Monitoring
Vancomycin Peak 24.2 ug/ml (18-26) 01/18/25 21:18
Vancomycin Trough 17.8 ug/ml (5-20) 01/19/25 04:48
Random Vancomycin 13.8 ug/ml 01/21/25 04:24
--- NOTE | 2025-01-21 08:44 | W.PN.CD ---
Today's Communication / Plan
-
Continue IV Amio and metoprolol for rate control
Once taking PO will stop AMIO and use just metoprolol
No anticoagulation until more stable and OK'd with surgery
Hope he converts to sinus but if AFib persists then later will move to NABILA/Cardioversion vs 3 weeks anticoagulation and Cardioversion w/o NABILA
NABILA if requested by ID
Impression / Plan
-
Background: 74-year-old male (known to Dr. Campbell, his primary Staff Attorney, who just meant the patient and has only see him once in the office) with paroxysmal A fib (on Eliquis), HTN, mild/moderate MR and TR, mild AR, IVCD, colorectal cancer s/p
chemo, recent colectomy/colostomy/perineal reconstruction on 01/11/25 (Dr Santana) readmitted with developing sepsis. Cardiology consulted for tachycardia with heart rates of 235 bpm (narrow complex).
MRSA Staph Aureus bacteremia/sepsis
- Continue antibiotics and recommendations as per ID.
- Transthoracic echocardiogram unremarkable
- Can obtain NABILA if ID requests
PSVT, perhaps an atrial flutter or SVT (see 12 lead EKG 01/17/2025 at 1225 hrs) => degenerated to AFib
- Anticoagulation now being held for suspected bleeding => 2 U PRBC transfused 01/20/2025
PAF with RVR (he also had typical Atrial Flutter last admission as well)
-This episode precipitated by sepsis
-[id number] 3 (age x 2, hypertension)
-Anticoagulation: On Eliquis usually as outpatient => On hold now
-Has used pill in the pocket Flecainide for many years
-In past just had highly symptomatic episodes about 1 time a year
-Holding anticoagulation as above.
-Continue amiodarone drip and 2.5 mg IV Lopressor Q4. for now, once taking PO move to just metoprolol
-Hope he converts to sinus but if AFib persists then later will move to NABILA/Cardioversion vs 3 weeks anticoagulation and Cardioversion w/o NABILA
Colostomy:
-NGT in place.
-Management as per Surgery.
Anal adenocarcinoma, S/p combined therapy (chemo/surgery):
-Status-post surgical resection on 01/11/2025.
-Recommendations as per Surgery.
Hypertension
-Blood pressure remains stable.
Subjective:
No CP or palps.
Physical Exam
Vital Signs/Labs
Vital Signs
Temp Pulse Resp BP Pulse Ox
96.5 F L 110 20 137/81 96
01/21/25 07:37 01/21/25 06:00 01/21/25 06:00 01/21/25 06:00 01/20/25 20:00
01/20/25 01/21/25 01/22/25
06:59 06:59 06:59
Actual Weight 92 kg
01/21/25 04:24
01/21/25 04:24
PT 14.6 Sec (11.4-14.6) 01/17/25 12:34
INR 1.09 01/17/25 12:34
APTT 39.5 Sec (23.4-35.0) H 01/17/25 12:34
Magnesium 2.2 mg/dl (1.6-2.3) 01/21/25 04:24
Triglycerides 115 mg/dl (10-149) 01/21/25 04:24
Physical Exam
EENT: Anicteric
Cardiovascular: Systolic murmur absent and Rhythm/rate is irregular
Respiratory: Respiratory effort normal and Lungs clear to auscul.
GI: Soft and Distention absent
Neuro/Psych: Alert
Data Reviewed
-
Date of Service: January 21, 2025
EKG: Other (tele: Afib mostly low 100s, some likely aberration at faster rates seen)
--- NOTE | 2025-01-21 09:18 | W.PN.ID1 ---
Date of Service
Date of Service: January 21, 2025
Today's Communication
- Source of MRSA probably from subcutaneous abscess with ERVIN drain purulent fluid output. Surgery sent ERVIN drain fluid for culture, pending, gram stain with many GPCs
- can consider repeat CT a/p with IV contrast
- Continue with vancomycin (d6)
Assessment / Plan
MRSA Bacteremia x 2 sets
Fever - resolved
Leukocytosis resolved
Atelectasis vs pneumonia
narrow complex SVT on amiodarone
Ileus - NGT decompression
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
- 01/18 blood cultures tentatively clearing
- Ucx neg, sputum culture contaminated
- TTE no gross vege
- last CT a/p with IV and oral contrast done 01/16 - no evidence of abscess at that time; do note murky output from sq drain
- Source of MRSA probably from subcutaneous abscess with ERVIN drain purulent fluid output. Surgery sent ERVIN drain fluid for culture, pending, gram stain with many GPCs
- has PICC
- now on TPN - management per surgery
- can consider repeat CT a/p with IV contrast
- Continue with vancomycin (d6)
Chief Complaint
-: Bacteremia
Subjective / Review of Systems
remains afebrile
bp stable off of pressors
remains in a fib
blood transfusions yesterday noted
Vital Signs / Physical Exam
Vital Signs
Vital Signs
Temp Pulse Resp BP Pulse Ox
96.5 F L 110 20 137/81 96
01/21/25 07:37 01/21/25 06:00 01/21/25 06:00 01/21/25 06:00 01/20/25 20:00
Physical Exam
Constitutional: No Acute Distress
Cardiovascular: Regular Rate and S1/S2; Negative Murmur or Rub
Pulmonary: Clear and Symmetric; Negative Wheezes or Rales
Gastrointestinal: Soft, Non Tender, Non Distended and Normal Bowel Sounds
Skin: Warm and Dry; Negative Rash or Jaundice
Objective Data
Lab Data
Lab Results
01/21/25 04:24
01/21/25 04:24
PT 14.6 Sec (11.4-14.6) 01/17/25 12:34
INR 1.09 01/17/25 12:34
APTT 39.5 Sec (23.4-35.0) H 01/17/25 12:34
Estimated Creat Clear 49 ml/min 01/21/25 04:24
Lactic Acid 1.1 mmol/L (0.7-2.0) 01/17/25 16:37
Total Bilirubin 0.7 mg/dl (0.2-1.3) 01/21/25 04:24
AST 22 U/L (17-59) 01/21/25 04:24
ALT 17 U/L (0-50) 01/21/25 04:24
Alkaline Phosphatase 88 U/L (38-126) 01/21/25 04:24
Most recent labs reviewed.
Micro Results:
01/20/25 05:18 Blood Culture - Preliminary
Blood/Venous No Growth in 24 hours- Final report to follow
01/20/25 05:18 Blood Culture - Preliminary
Blood/Venous No Growth in 24 hours- Final report to follow
01/19/25 22:26 Respiratory Culture - Final
Sputum Gram Stain - Final
01/19/25 18:26 Body Fluid Culture - Pending
Fluid Gram Stain - Preliminary
01/18/25 12:36 Blood Culture - Preliminary
Blood/Venous No Growth in 48 hours- Final report to follow
01/18/25 12:36 Blood Culture - Preliminary
Blood/Venous No Growth in 48 hours- Final report to follow
01/16/25 12:56 Blood Culture - Preliminary
Blood/Venous Staph aureus MRSA
Gram Stain - Preliminary
01/16/25 12:56 Blood Culture - Preliminary
Blood/Venous Staph aureus MRSA
Gram Stain - Preliminary
01/16/25 12:57 Urine Culture - Final
Urine NO GROWTH
01/16/25 22:39 MRSA Screen - Final
Nose Staph aureus MRSA
01/16/25 12:57 Influenza Types A & B (CELIA) - Final
Nasal Swab Negative for Influenza A & B, NAAT
Negative results must be combined with clinical observations
and patient history.
Nucleic Acid Amplification test (NAAT)performed on the
[employer] platform.
01/19/35 CXR: There is minimal bibasilar opacities with likely small bilateral pleural effusions, similar to prior
01/16/25 CT a/p: There is a percutaneous drainage catheter entering the lateral right abdominal wall. The tip rests in the right pelvis posteriorly.There is a second drainage catheter in the subcutaneous tissues with the tip in midline the upper
anterior abdominal wall.
--- NOTE | 2025-01-21 10:23 | PTCARENOTE ---
pt aaox3. states having a head ache made aware. ngt in place placement checked and flushed. draining green. jpx2 to bulb suction. left abd colostomy bud red draining green liquid. amio, ivf and tpn running as ordered.
[2025-01-21] MEDS: VANCOCIN 275 MG IV (10:31)
--- NOTE | 2025-01-21 11:55 | W.PN.CRS1 ---
Today's Communication / Plan
-
maintain ngt
add Ofirmev
hold off on lovenox anotehr day
Assessment/Plan
-
Assessment: 74-year-old male readmitted after RAL APR with VRAM flap
MRSA bacteremia -uncertain source but given current appearance of subcutaneous ERVIN drain suspicion for developing subcutaneous infection; also has port in place
Stool output: 150ml
Hgb 9.2 (7.9), WBC 10.4
Plan: ERVIN cultures from subcutaneous drain obtained yesterday -pending
--ID managing antibiotics
--Maintain NGT given bloating
--Continue TPN
--Trend hemoglobin
--Will add IV Offirmiv for pain control
--Maintain drains
--Hold Lovenox another day until hemoglobin stablizes
Subjective Data
Subjective Data
Date of Service: January 21, 2025
Patient states he still feels a little bloated. He denies nausea or vomiting. He has had no further bleeding from the flap. He has mild pain but no further complaints.
Objective Data
-
Vital Signs
Temp Pulse Resp BP Pulse Ox
96.5 F L 104 18 124/85 96
01/21/25 07:37 01/21/25 10:31 01/21/25 10:00 01/21/25 10:31 01/20/25 20:00
Intake & Output
01/20/25 01/21/25 01/22/25
06:59 06:59 06:59
Intake Total 3162.8 / 3297.5 673.5 / 673.5
Output Total 1895 / 1895 300 / 300
Balance 1267.8 / 1402.5 373.5 / 373.5
Intake:
Oral fluids
IV fluids (Total) 1825.8 / 1917.5 458.5 / 458.5
Nss 1,000 ml @ 75 mls/hr IV . 1425 / 1500 375 / 375
[id number] [id number] Rx#:[id number]
amio 400.8 / 417.5 83.5 / 83.5
IV piggybacks 300 / 300
TPN/PPN 387 / 430 215 / 215
Amount instilled into GI Tube ( 150 / 150
Total)
[place] Sump 150 / 150
Blood Product Amount Infused ( 500 / 500
mL)
Packed Rbc Leukoreduced Unit 250 / 250
[id number]
Packed Rbc Leukoreduced Unit 250 / 250
[id number]
Output:
Liquid stool amount 150 / 150
Colostomy 150 / 150
Drain Output (Total) 120 / 120
Right Lower Abdomen Alberto- 40 / 40
Martinez A
Right Lower Abdomen Alberto- 80 / 80
Martinez B
Gastrointestinal tube output ( 150 / 150
Total)
[place] Sump 150 / 150
Urine, Caruso 1050 / 1050
Urine, Voided 425 / 425 300 / 300
Lab Results
01/21/25 04:24
01/21/25 04:24
Physical Exam
-
General: No Acute Distress and AOx3
Abdomen: Soft, Distended (mild) and Tender (mild)
Skin: Warm and Dry
Incision: Clear, Dry, Intact
[2025-01-21] MEDS: OFIRMEV 100 IV ×2 (12:17→20:30)
--- NOTE | 2025-01-21 12:42 | W.PN.HOSP.TC ---
Today's Communication/Plan
-
Continue NG tube for another 24 hours as per surgery
Monitor ostomy output
Monitor ERVIN drain output
IV vancomycin.
Follow drain cultures
Continue rate control with amiodarone drip and IV metoprolol.
Hold anticoagulation
Monitor hemoglobin
Assessment / Plan
Assessment / Plan
Impression
Presentation with fever and abdominal pain.
Sepsis present on admission
MRSA bacteremia.
Left lower lobe pneumonia versus atelectasis.
Ileus.
SVT with transition to rapid A-fib.
Hypotension secondary to SVT/rapid A-fib.
Acute blood loss anemia.
Other conditions:
Status post robotic APR with perineal reconstruction on 01/11
Colorectal carcinoma status post chemo/radiation
Paroxysmal atrial fibrillation baseline anticoagulation with Eliquis
Essential hypertension
BPH
Hypothyroidism replacement
Right chest Chemo-Port in place
Plan
#MRSA bacteremia
#Sepsis secondary to pneumonia v. intra-abdominal infection postoperatively
-Presented as postoperative fever, s/p APR with perineal reconstruction on 01/11 for anorectal cancer
-Blood cultures x 2 on admission positive for MRSA; signs of pneumonia on x-ray as well as worsening ERVIN output
-No signs of infection near Chemo-Port or ostomy; CT A/P without signs of abscess here
-Was started on broad-spectrum antibiotics; have been transitioned to IV vancomycin alone by ID
-Repeat blood cultures obtained and negative. Fevers have resolved as of 01/19, remains with leukocytosis that is improved
-TTE negative for vegetation. Considering NABILA
-Continue IV vancomycin and follow repeat blood cultures
-Follow-up ERVIN culture obtained on 01/19 per surgery recs
-Continue to trend CBC and temperature curve
-Repeat blood cultures every 48 hours until clear
-Holding antihypertensive agents for now
#Postoperative ileus
-Presented with abdomen pain; s/p NGT placed on 01/18
-Remains on strict n.p.o. status with NGT to low continuous wall suction
-Currently receiving Dilaudid for pain, will de-escalate at patient's request
-Currently on IV fluids and bowel regimen, consider escalating bowel regimen
-Minimize narcotics and anticholinergics
-Serial abdomen exams and monitor bowel status
#Acute blood loss anemia
-Hemoglobin dropped from 10.6�8.6�8.1�7.9 as of 01/20
-Has had worsening output of abdominal ERVIN drain
-LFTs unremarkable, no signs of hemolytic processes
-Iron studies with evidence of anemia of chronic disease
-S/p 2 unit PRBC on 01/20 at surgery's recommendation
-Avoid anticoagulation, SCDs for DVT prophylaxis
-Hemoglobin goal >7 or absence of symptoms
#Acute kidney injury
-Suspect mild septic ATN; persistent elevation despite hemodynamic stability
-Creatinine normal at baseline, recent labs with creatinine 1.5-1.7 over 3 lab draw
-Currently on maintenance IV fluids; TPN started on 01/20 as well for nutrition
-Urine output has been adequate, no signs of obstructive pathology
-Continue to monitor BMP and UOP on maintenance IVF
-Avoid nephrotoxic agents
#Atrial fibrillation with RVR
-Nonvalvular; [id number] 3; presented as SVT that degenerated to AF
-Home regimen includes Eliquis, currently on hold due to surgical abdominal issues
-Was started on amiodarone drip with improvement to his rates, transitioned to full dose Lovenox for AC
-As of the morning 01/19 remains in AF with RVR, heart rate near 110/min
-Lovenox was held on 01/19 due to ongoing bloody discharge from ERVIN drain
-Hemodynamically stable at this time without vasopressors
-Heart rate goal <120/min with critical illness
#Acute on chronic hyponatremia
-Chronically has sodium in the range of 130-135, as low as 126 here nut back to 131 as of 01/20
-Unclear cause of chronic hyponatremia; suspect acute worsening due to reduced intake with NGT
-As of this morning serum sodium 130, has been fairly stable with minimal fluctuation
-Suspect that this will improve when oral intake is restored
-Continue to trend BMP on maintenance IVF
-Order urine osmolality, urine sodium, serum osmolality if worsening
#Anal cancer s/p robotic APR (01/11)
-Status post chemotherapy and surgical resection
-Currently with ostomy in place
-Colorectal surgery following
#BPH
-Remains on tamsulosin, no signs of urine retention
#Hypothyroidism
-Unclear cause, home regimen includes levothyroxine 100 mcg daily
-No signs or symptoms of thyroid dysfunction at this time (RVR due to critical illness)
DVT prophylaxis: SCDs
Diet: NPO, starting TPN 01/20
CODE STATUS: Full code
Anticipated Discharge: > 48 hours
Subjective/Interval History
-
Date of Service: January 21, 2025
Objective Data
-
Labs:
Laboratory Results
01/21/25
04:24
WBC 10.4
Hgb 9.2 L
Hct 27.3 L
Plt Count 361
Sodium 134 L
Potassium 3.9
Chloride 104
Carbon Dioxide 23
BUN 19
Creatinine 1.4 H
Glucose 132 H
Calcium 8.4
Total Bilirubin 0.7
AST 22
ALT 17
Alkaline Phosphatase 88
Vital Signs:
Vital Signs
Temp Pulse Resp BP Pulse Ox
97.5 F 90 31 144/94 96
01/21/25 11:30 01/21/25 12:00 01/21/25 12:00 01/21/25 12:00 01/20/25 20:00
I&O
01/20/25 01/21/25 01/22/25
06:59 06:59 06:59
Intake Total 3162.8 / 3297.5 808.2 / 808.2
Output Total 1895 / 1895 300 / 300
Balance 1267.8 / 1402.5 508.2 / 508.2
Physical Exam
-
General: Well Developed, No Apparent Distress and Appears Chronically Ill
HEENT: Normocephalic, Atraumatic, Moist Mucous Membranes and Anicteric
Respiratory: Clear to Auscultation and Non Labored Respirations
Cardiac: S1/S2, Irregular Rhythm and Tachycardic; Negative Murmur, Rub, JVD or Gallop
GI: Soft, Nondistended, Ostomy and Other (Mild general tenderness; absent bowel sounds; no peritoneal signs; bloody ERVIN drain output)
Musculoskeletal: No Clubbing, No Cyanosis and No Edema
Skin: Warm and Dry; Negative Rash
Neuro: AO x 3 and Nonfocal/Grossly Intact
Psych: Calm
--- NOTE | 2025-01-21 14:09 | CM ---
CM following re: discharge planning.
Reviewed pt's chart, met with pt.
PT and OT evaluations noted - SNF level of are recommended. Pt is aware, expressed his agreement and pt requested [facility].
A referral to [facility] made.
D/C plan: [facility] when medically stable.
CM will follow to assist pt with discharge to [facility].
--- NOTE | 2025-01-21 16:06 | WOUNDNOTE ---
WO RN note: Patient's abdomen less distended than last . Stoma pink and budded. Peristoma skin intact. Changed appliance using [place] wafer # [id number] and [place] pouch # [id number]. Jasmine flap with moderate ss drainage, small clotted blood.
Dressing changed. Skin on heels intact. Heels off bed with pillows. Patient turned to L semi side lying position. Patient can turn self in bed. Next appliance change due end of the week. Patient observed appliance change. Will updated RN Issac.
--- NOTE | 2025-01-21 16:10 | WOUNDNOTE ---
WO RN note: Patient's abdomen less distended than last . Small amount of liquid brown stool in pouch. Stoma pink, swollen and budded. Peristomal skin intact. Changed appliance using [place] wafer # [id number] and Joe pouch # [id number]. Jasmine
flap with moderate ss drainage, small clotted blood. Dressing changed. Skin on heels intact. Heels off bed with pillows. Patient turned to L semi side lying position. Patient can turn self in bed. Next appliance change due end of the week. Patient
observed appliance change. Updated RN Issac.
[2025-01-21 18:07] LABS: Glucose - Point of Care 126 mg/dl (70-99)
[2025-01-21] MEDS: Parenteral Nutrition, Central 1360 IV (21:02)
[2025-01-21] MEDS: FLOMAX PO (21:45)
--- NOTE | 2025-01-21 22:59 | PTCARENOTE ---
Received pt from previous RN. Pt is AAOx3. Afib on the monitor. On RA O2 sat 97%, lungs diminished/coarse. Right nare NG @ 55 cm to cont suction. Colostomy. Pt uses the urinal. JPx2. NS infusing @ 75 ml/hr. Amio gtt @ 16.7 ml/hr. TPN @ 57 ml/hr. Pt
c/o pain, PRN Tylenol given (see MAR). Pt is laying in bed with call barajas in reach. Safe environment maintained.
[2025-01-22] VITALS (13 sets, daily range): BP systolic 126–166; BP diastolic 88–118; BMI 28.1
[2025-01-22 00:02] LABS: Glucose - Point of Care 134 mg/dl (70-99)
[2025-01-22] MEDS: OFIRMEV 100 IV ×3 (02:38→21:41)
[2025-01-22] MEDS: LOPRESSOR 2.5 MG IV ×6 (02:39→22:22)
[2025-01-22] MEDS: NSS IV (02:47)
[2025-01-22] MEDS: MORPHINE SULFATE 1.5 MG IV (04:51)
[2025-01-22] MEDS: NSS (PRESERVATIVE FREE) IV (05:07)
[2025-01-22 05:32] LABS: % Basophils 0.3 % (0-2); % Eosinophils 2.7 % (0-6); % Immature Granulocytes 1.4 % (0-0.5); % Lymphocytes 3.7 % (20.5-51.1); % Monocytes 9.4 % (1.7-9.3); % Neutrophils 82.5 % (42.2-75.2); Absolute Eosinophils 0.3 10^3/uL (0-0.7); Absolute Immature Granulocytes 0.2 10^3/uL (0-0.05); Absolute Lymphocytes 0.4 10^3/uL (1.2-3.4); Absolute Neutrophils 8.8 10^3/uL (1.4-6.5); Hematocrit 27.6 % (39.0-52.0); Hemoglobin 9.3 g/dL (13.0-18.0); Mean Corp Hgb Conc. 33.7 g/dL (33.0-37.0); Mean Corpuscular Hgb 32.5 pg (27.0-31.0); Mean Corpuscular Volume 96.5 fL (80.0-94.0); Mean Platelet Volume 8.8 fL (7.4-10.4); Nucleated Red Blood Cells % 0 % (-); Platelet Count 411 10^3/uL (130-400); Red Blood Cell Count 2.86 10^6/uL (4.70-6.10); Red Cell Dist. Width 14.8 % (11.5-14.5); White Blood Cell Count 10.7 10^3/uL (4.8-10.8)
[2025-01-22] MEDS: CORDARONE 518 MG IV (05:53)
[2025-01-22 05:54] LABS: ALT (SGPT) 19 U/L (0-50); AST (SGOT) 24 U/L (17-59); Albumin 2.5 g/dl (3.5-5.0); Alkaline Phosphatase 110 U/L (38-126); Blood Urea Nitrogen 23 mg/dl (9-20); Calcium 8.4 mg/dl (8.4-10.2); Carbon Dioxide 22 mmol/L (22-30); Chloride 106 mmol/L (98-107); Estimated Creatinine Clearance 57 ml/min; Glucose 134 mg/dl (70-99); Potassium 4.1 mmol/L (3.5-5.1); Sodium 135 mmol/L (135-145); Total Bilirubin 0.8 mg/dl (0.2-1.3); Total Protein 4.8 g/dl (6.3-8.2); eGFR > 60.00
[2025-01-22 05:55] LABS: Vancomycin Random 13.7 ug/ml
[2025-01-22 06:05] LABS: Glucose - Point of Care 117 mg/dl (70-99)
[2025-01-22] MEDS: SYNTHROID PO (06:05)
[2025-01-22] MEDS: NSS (PRESERVATIVE FREE) 10 ML IV (07:38)
[2025-01-22] MEDS: PROTONIX IV 40 MG IV (07:38)
--- NOTE | 2025-01-22 07:50 | PTCARENOTE ---
received patient from manufacturing supervisor 2nd shift patient is AAOx4, on room air, lungs diminished with slight expiratory wheeze. Patient is still in afib rhythm, remains on amio gtt. patient abdomen is firm, distended, minimal output from ostomy, using urinal
in bed. Patient is able to turn from side to side. will review orders, patient is currently IMU status.
--- NOTE | 2025-01-22 07:59 | W.PN.CRS1 ---
Today's Communication / Plan
-
as below
Assessment/Plan
-
74-year-old male with PMH of A-fib (s/p cardioversion 2022, on Eliquis), HTN, hypothyroidism and anal adenocarcinoma, s/p DEIDRE with complete response, complicated by local recurrence, who underwent robotic APR, VRAM flap and end-colostomy on 01/11; he
did well post-operatively and was discharged on 01/16; however, he developed fever and chills and presented back to the ED on 01/17; WBC 11.5, Hb stable, CR 0.8, UA negative, CXR�concerning for left lower lobe pneumonia; CTAP showing postoperative
changes, no evident infections or abscess; afib with RVR, better controlled with amio, still awaiting return of bowel function; s/p pRBC x2 on 01/20 for Hb downtrend; GRAY, now improving
POD 11 robotic APR with VRAM flap
AFVSS, NGT - 200
WBC 10.7 from 10.4, Hb 9.3 from 9.2, Cr 1.2 from 1.4
�SIRS response with uncertain source, possibly pneumonia, possibly postoperative ileus
-Appreciate ID, cont vanco
�Subcutaneous drain with serous output now, no concern for wound infection
�Postoperative ileus
-Obtain abdominal xray
�Continue strict n.p.o.; recommend NGT to low continuous suction
�Cont TPN
�Hold AC another day
-Recommend OOB, IS, appreciate PT, ambulate BID
� Continue ERVIN to bulb suction
� Appreciate plastic surgery; flap well-perfused and no concern for infection
� Appreciate cardiology, continue amio
� Appreciate hospitalist
Subjective Data
Subjective Data
Date of Service: January 22, 2025
No issues overnight. No nausea/vomiting. Only burped ostomy once, no stool from ostomy since yesterday. Pain controlled.
Objective Data
-
Vital Signs
Temp Pulse Resp BP Pulse Ox
98.1 F 81 17 149/104 97
01/22/25 07:37 01/22/25 06:00 01/22/25 06:00 01/22/25 06:00 01/21/25 23:51
Intake & Output
01/21/25 01/22/25 01/23/25
06:59 06:59 06:59
Intake Total 3162.8 / 3297.5 3662.8 / 3662.8
Output Total 1895 / 1895 2200 / 2200
Balance 1267.8 / 1402.5 1462.8 / 1462.8
Intake:
IV fluids (Total) 1825.8 / 1917.5 2200.8 / 2200.8
Nss 1,000 ml @ 75 mls/hr IV . 1425 / 1500 1800 / 1800
[id number] [id number] Rx#:[id number]
amio 400.8 / 417.5 400.8 / 400.8
IV piggybacks 300 / 300 200 / 200
TPN/PPN 387 / 430 1172 / 1172
Amount instilled into GI Tube ( 150 / 150 90 / 90
Total)
[place] Sump 150 / 150 90 / 90
Blood Product Amount Infused ( 500 / 500
mL)
Packed Rbc Leukoreduced Unit 250 / 250
[id number]
Packed Rbc Leukoreduced Unit 250 / 250
[id number]
Output:
Liquid stool amount 150 / 150 30 / 30
Colostomy 150 / 150 30 / 30
Drain Output (Total) 120 / 120 270 / 270
Right Lower Abdomen Alberto- 40 / 40 15 / 15
Martinez A
Right Lower Abdomen Alberto- 80 / 80 255 / 255
Martinez B
Gastrointestinal tube output ( 150 / 150 200 / 200
Total)
[place] Sump 150 / 150 200 / 200
Urine, Caruso 1050 / 1050
Urine, Voided 425 / 425 1700 / 1700
Lab Results
01/22/25 05:00
01/22/25 05:00
Physical Exam
-
General: No Acute Distress and AOx3
Abdomen: Soft, Distended (mild to moderately distended, tympanitic), Tender (appropriately ttp), No Guarding, No Rebound and Other (ERVIN A (pelvis) serosang, ERVIN B (subQ) - serous)
Rectal: Other (flap well-perfused, small (~1cm) skin dehiscence posteriorly, otherwise well-approximated)
Skin: Warm and Dry
Wound: No Signs of Infection and No Skin Erythema
--- NOTE | 2025-01-22 09:18 | W.PN.CD ---
Today's Communication / Plan
-
Continue IV amiodarone and metoprolol for rate control
Start AC tomorrow if okay with surgery (would recommend heparin as he had bleeding on Lovenox)
Impression / Plan
-
Background: 74-year-old male (known to Dr. Campbell, his primary Amplifier Mechanic, who just meant the patient and has only see him once in the office) with paroxysmal A fib (on Eliquis), HTN, mild/moderate MR and TR, mild AR, IVCD, colorectal cancer s/p
chemo, recent colectomy/colostomy/perineal reconstruction on 01/11/25 (Dr Santana) readmitted with developing sepsis. Cardiology consulted for tachycardia with heart rates of 235 bpm (narrow complex).
MRSA Staph Aureus bacteremia/sepsis
- Presumed source is subcutaneous abscess with ERVIN drain purulent fluid output
- Continue antibiotics and recommendations as per ID.
- Transthoracic echocardiogram unremarkable
- Can obtain NABILA if ID requests
PSVT, perhaps an atrial flutter or SVT (see 12 lead EKG 01/17/2025 at 1225 hrs) => degenerated to AFib
PAF with RVR (he also had typical Atrial Flutter last admission as well)
-This episode precipitated by sepsis
-[id number] 3 (age x 2, hypertension)
-Anticoagulation: On Eliquis usually as outpatient => On hold now (required 2U pRBCs on 01/20 after Lovenox). Surgery would like to hold AC for one more day
-Has used pill in the pocket Flecainide for many years. In past just had highly symptomatic episodes about 1 time a year
-Continue amiodarone drip and 2.5 mg IV Lopressor Q4. for now, once taking PO move to just metoprolol
-Hope he converts to sinus but if AFib persists then later will move to NABILA/Cardioversion vs 3 weeks anticoagulation and Cardioversion w/o NABILA
Colostomy:
-NGT in place.
-Management as per Surgery.
Anal adenocarcinoma, S/p combined therapy (chemo/surgery):
-Status-post surgical resection on 01/11/2025.
-Recommendations as per Surgery.
Hypertension
-Diastolic BPs are high
-Restart home irbesartan once able to take p.o.
Subjective:
No CP or palps. Abdomen is bloated. He is eager to get up and out of bed.
Physical Exam
Vital Signs/Labs
Vital Signs
Temp Pulse Resp BP Pulse Ox
98.1 F 81 17 149/104 97
01/22/25 07:37 01/22/25 06:00 01/22/25 06:00 01/22/25 06:00 01/21/25 23:51
01/21/25 01/22/25 01/23/25
06:59 06:59 06:59
Actual Weight 92 kg 93.9 kg
01/22/25 05:00
01/22/25 05:00
PT 14.6 Sec (11.4-14.6) 01/17/25 12:34
INR 1.09 01/17/25 12:34
APTT 39.5 Sec (23.4-35.0) H 01/17/25 12:34
Magnesium 2.2 mg/dl (1.6-2.3) 01/21/25 04:24
Triglycerides 115 mg/dl (10-149) 01/21/25 04:24
Physical Exam
Constitutional: No acute distress
Cardiovascular: Rhythm/rate is irregular, Pedal edema present, S1S2 is normal and Murmur/rub/gallop absent
Respiratory: Respiratory effort normal
GI: Distention present and Abdomen is tender
Neuro/Psych: AO x 3
Data Reviewed
-
Date of Service: January 22, 2025
Medical Decision Making: Reviewed Test Results, Independent Historian Assessment, Test Interpretation and Review of Case with other Provider
EKG: Tracing Personally Visualized and interpreted
Echo: Report Reviewed by me
Labs: Labs Reviewed by me
--- NOTE | 2025-01-22 09:32 | W.PN.ID1 ---
Date of Service
Date of Service: January 22, 2025
Today's Communication
- has PICC
- plan 2 weeks of vancomycin given bacteremia day 7
Assessment / Plan
MRSA Bacteremia x 2 sets
Fever - resolved
Leukocytosis resolved
Atelectasis vs pneumonia
Afib
Ileus - NGT decompression
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
- 3/7 blood cultures tentatively clearing
- TTE no gross vege
- drain culture also with MRSA
- has PICC
- plan 2 weeks of vancomycin given bacteremia day
- now on TPN - management per surgery
Chief Complaint
-: Bacteremia
Subjective / Review of Systems
afebrile
bp stable off of pressors
Vital Signs / Physical Exam
Vital Signs
Vital Signs
Temp Pulse Resp BP Pulse Ox
98.1 F 81 17 149/104 97
01/22/25 07:37 01/22/25 06:00 01/22/25 06:00 01/22/25 06:00 01/21/25 23:51
Physical Exam
Constitutional: No Acute Distress and Chronically Ill
Cardiovascular: Regular Rate and S1/S2; Negative Murmur or Rub
Pulmonary: Clear and Symmetric; Negative Wheezes or Rales
Gastrointestinal: Soft, Non Tender, Non Distended and Normal Bowel Sounds
Skin: Warm and Dry; Negative Rash or Jaundice
Wound: Other (abdominal surgical site no erythema, warmth, tenderness or drainage; stoma pink/budded)
Lines: Other (drain output now serosanguinous in one drain and clear in the other)
Objective Data
Lab Data
Lab Results
01/22/25 05:00
01/22/25 05:00
PT 14.6 Sec (11.4-14.6) 01/17/25 12:34
INR 1.09 01/17/25 12:34
APTT 39.5 Sec (23.4-35.0) H 01/17/25 12:34
Estimated Creat Clear 57 ml/min 01/22/25 05:00
Lactic Acid 1.1 mmol/L (0.7-2.0) 01/17/25 16:37
Total Bilirubin 0.8 mg/dl (0.2-1.3) 01/22/25 05:00
AST 24 U/L (17-59) 01/22/25 05:00
ALT 19 U/L (0-50) 01/22/25 05:00
Alkaline Phosphatase 110 U/L (38-126) 01/22/25 05:00
Most recent labs reviewed.
Fluid Cult/not urine Final 01/22/25-846
Many Staph aureus MRSA
Isolation Precautions Required
Organism 1 Staph aureus MRSA
1. Staph aureus MRSA
M.I.C. RX
--------- ---
Amoxicillin/Potas. Clavulanate <=4/2 R
Ampicillin >8 R
Clindamycin <=0.5 S
Gentamicin <=4 S
Erythromycin >4 R
Levofloxacin <=1 S
Oxacillin >2 R
Tetracycline 8 I
Trimethoprim/Sulfamethoxazole <=0.5/9.5 S
Vancomycin 1 S
Micro Results:
01/19/25 18:26 Body Fluid Culture - Final
Fluid Staph aureus MRSA
Gram Stain - Final
01/20/25 05:18 Blood Culture - Preliminary
Blood/Venous No Growth in 48 hours- Final report to follow
03/09/25 05:18 Blood Culture - Preliminary
Blood/Venous No Growth in 48 hours- Final report to follow
01/18/25 12:36 Blood Culture - Preliminary
Blood/Venous No Growth in 72 hours- Final report to follow
01/18/25 12:36 Blood Culture - Preliminary
Blood/Venous No Growth in 72 hours- Final report to follow
01/19/25 22:26 Respiratory Culture - Final
Sputum Gram Stain - Final
01/16/25 12:56 Blood Culture - Preliminary
Blood/Venous Staph aureus MRSA
Gram Stain - Preliminary
01/16/25 12:56 Blood Culture - Preliminary
Blood/Venous Staph aureus MRSA
Gram Stain - Preliminary
01/16/25 12:57 Urine Culture - Final
Urine NO GROWTH
01/16/25 22:39 MRSA Screen - Final
Nose Staph aureus MRSA
01/16/25 12:57 Influenza Types A & B (CELIA) - Final
Nasal Swab Negative for Influenza A & B, NAAT
Negative results must be combined with clinical observations
and patient history.
Nucleic Acid Amplification test (NAAT)performed on the
[employer] platform.
01/19/35 CXR: There is minimal bibasilar opacities with likely small bilateral pleural effusions, similar to prior
01/16/25 CT a/p: There is a percutaneous drainage catheter entering the lateral right abdominal wall. The tip rests in the right pelvis posteriorly.There is a second drainage catheter in the subcutaneous tissues with the tip in midline the upper
anterior abdominal wall.
--- NOTE | 2025-01-22 09:53 | PHA.VAN.FU ---
Vancomycin Assessment / Plan
- Assessment
Renal Function: SCR Decreasing
WBC's are: WNL
- Assessment - Therapeutic Drug Monitoring
Random Level: 13.7 - drawn ~18.5H after previous dose of 1250mg
- Dosing Plan
Dosing by Level: Re-dose today (Vanc 1500mg)
Increasing dose slightly as SCR continues to improve
- Monitoring Plan
Random Level: 01/23 0600
- Follow Up
Pharmacy will continue to follow.
Vancomycin Follow UP
- -
Patient Age: 74
Patient Sex: Male
Vancomycin Day #: 6
Indication: Pulmonary/Respiratory
Requesting Provider: Dr. Gomez / Steve
Pertinent Antimicrobial Allergies:
NKDA
Height / Weight:
Height 6 ft
Actual Weight 93.9 kg
Pertinent Past Medical History: Colorectal carcinoma
- Vital Signs / Lab Results
Temp Pulse Resp BP Pulse Ox
98.1 F 81 17 149/104 97
01/22/25 07:37 01/22/25 06:00 01/22/25 06:00 01/22/25 06:00 01/21/25 23:51
Lab Results - Hematology
01/19/25 01/20/25 01/21/25
14:16 05:18 04:24
WBC 11.0 H 10.5 10.4
01/22/25
05:00
WBC 10.7
Lab Results - Chemistry
01/19/25 01/20/25 01/21/25
14:16 05:18 04:24
BUN 20 19 19
Creatinine 1.5 H 1.6 H 1.4 H
Estimated Creat Clear 46 43 49
Albumin 2.4 L 2.5 L 2.4 L
01/22/25
05:00
BUN 23 H
Creatinine 1.2
Estimated Creat Clear 57
Albumin 2.5 L
Microbiology Results
01/19/25 18:26 Body Fluid Culture - Final
Fluid Staph aureus MRSA
Gram Stain - Final
01/20/25 05:18 Blood Culture - Preliminary
Blood/Venous No Growth in 48 hours- Final report to follow
01/20/25 05:18 Blood Culture - Preliminary
Blood/Venous No Growth in 48 hours- Final report to follow
01/18/25 12:36 Blood Culture - Preliminary
Blood/Venous No Growth in 72 hours- Final report to follow
01/18/25 12:36 Blood Culture - Preliminary
Blood/Venous No Growth in 72 hours- Final report to follow
01/19/25 22:26 Respiratory Culture - Final
Sputum Gram Stain - Final
01/16/25 12:56 Blood Culture - Preliminary
Blood/Venous Staph aureus MRSA
Gram Stain - Preliminary
01/16/25 12:56 Blood Culture - Preliminary
Blood/Venous Staph aureus MRSA
Gram Stain - Preliminary
Therapeutic Drug Monitoring
Vancomycin Peak 24.2 ug/ml (18-26) 01/18/25 21:18
Vancomycin Trough 17.8 ug/ml (5-20) 01/19/25 04:48
Random Vancomycin 13.7 ug/ml 01/22/25 05:00
[2025-01-22] MEDS: VANCOCIN 530 MG IV (11:25)
[2025-01-22 12:44] LABS: Glucose - Point of Care 106 mg/dl (70-99)
--- NOTE | 2025-01-22 12:45 | PTCARENOTE ---
patient assisted back to bed, stood and took steps with walker, stand by assist
--- NOTE | 2025-01-22 15:35 | W.PN.HOSP.TC ---
Today's Communication/Plan
-
Continue n.p.o./NG tube.
Continue IV fluids
Continue antibiotics/vancomycin.
Rate control with IV amiodarone.
Hopefully to remove NG tube in a.m. as patient clinically and radiologically improved.
Consider resume anticoagulation with unfractionated heparin in a.m. if stable from surgical point
Assessment / Plan
Assessment / Plan
Impression
Presentation with fever and abdominal pain.
Sepsis present on admission
MRSA bacteremia.
Left lower lobe pneumonia versus atelectasis.
Ileus.
SVT with transition to rapid A-fib.
Hypotension secondary to SVT/rapid A-fib.
Acute blood loss anemia.
Other conditions:
Status post robotic APR with perineal reconstruction on 01/11
Colorectal carcinoma status post chemo/radiation
Paroxysmal atrial fibrillation baseline anticoagulation with Eliquis
Essential hypertension
BPH
Hypothyroidism replacement
Right chest Chemo-Port in place
Plan
#MRSA bacteremia suspected secondary to infected wound.
#Sepsis secondary to pneumonia v. intra-abdominal infection postoperatively
-Presented as postoperative fever, s/p APR with perineal reconstruction on 01/11 for anorectal cancer
-Blood cultures x 2 on admission positive for MRSA; signs of pneumonia on x-ray as well as worsening ERVIN output
-No signs of infection near Chemo-Port or ostomy; CT A/P without signs of abscess here
-Was started on broad-spectrum antibiotics; have been transitioned to IV vancomycin alone by ID
-Repeat blood cultures obtained and negative. Fevers have resolved as of 01/19, remains with leukocytosis that is improved
-TTE negative for vegetation.
Repeat blood cultures negative to date
-Continue IV vancomycin to complete total of 14 days of antibiotic
-Follow-up ERVIN culture obtained on 01/19 per surgery recs
-Continue to trend CBC and temperature curve
-Repeat blood cultures every 48 hours until clear
-Holding antihypertensive agents for now
#Postoperative ileus
-Presented with abdomen pain; s/p NGT placed on 01/18
-Remains on strict n.p.o. status with NGT to low continuous wall suction
-Currently receiving Dilaudid for pain, will de-escalate at patient's request
-Currently on IV fluids and bowel regimen, consider escalating bowel regimen
-Minimize narcotics and anticholinergics
-Serial abdomen exams and monitor bowel status
#Acute blood loss anemia
-Hemoglobin dropped from 10.6�8.6�8.1�7.9 as of 01/20
-Has had worsening output of abdominal ERVIN drain
-LFTs unremarkable, no signs of hemolytic processes
-Iron studies with evidence of anemia of chronic disease
-S/p 2 unit PRBC on 01/20 at surgery's recommendation
-Avoid anticoagulation, SCDs for DVT prophylaxis
-Hemoglobin goal >7 or absence of symptoms
#Acute kidney injury
-Suspect mild septic ATN; persistent elevation despite hemodynamic stability
-Creatinine normal at baseline, recent labs with creatinine 1.5-1.7 over 3 lab draw
-Currently on maintenance IV fluids; TPN started on 01/20 as well for nutrition
-Urine output has been adequate, no signs of obstructive pathology
-Continue to monitor BMP and UOP on maintenance IVF
-Avoid nephrotoxic agents
#Atrial fibrillation with RVR
-Nonvalvular; [id number] 3; presented as SVT that degenerated to AF
-Home regimen includes Eliquis, currently on hold due to surgical abdominal issues
-Was started on amiodarone drip with improvement to his rates, transitioned to full dose Lovenox for AC
-As of the morning 01/19 remains in AF with RVR, heart rate near 110/min
-Lovenox was held on 01/19 due to ongoing bloody discharge from ERVIN drain
-Hemodynamically stable at this time without vasopressors
-Heart rate goal <120/min with critical illness
#Acute on chronic hyponatremia
-Chronically has sodium in the range of 130-135, as low as 126 here nut back to 131 as of 01/20
-Unclear cause of chronic hyponatremia; suspect acute worsening due to reduced intake with NGT
-As of this morning serum sodium 130, has been fairly stable with minimal fluctuation
-Suspect that this will improve when oral intake is restored
-Continue to trend BMP on maintenance IVF
-Order urine osmolality, urine sodium, serum osmolality if worsening
#Anal cancer s/p robotic APR (01/11)
-Status post chemotherapy and surgical resection
-Currently with ostomy in place
-Colorectal surgery following
#BPH
-Remains on tamsulosin, no signs of urine retention
#Hypothyroidism
-Unclear cause, home regimen includes levothyroxine 100 mcg daily
-No signs or symptoms of thyroid dysfunction at this time (RVR due to critical illness)
DVT prophylaxis: SCDs
Diet: NPO, starting TPN 01/20
CODE STATUS: Full code
Anticipated Discharge: > 48 hours
Subjective/Interval History
-
Date of Service: January 22, 2025
Objective Data
-
Labs:
Laboratory Results
01/22/25
05:00
WBC 10.7
Hgb 9.3 L
Hct 27.6 L
Plt Count 411 H
Sodium 135
Potassium 4.1
Chloride 106
Carbon Dioxide 22
BUN 23 H
Creatinine 1.2
Glucose 134 H
Calcium 8.4
Total Bilirubin 0.8
AST 24
ALT 19
Alkaline Phosphatase 110
Vital Signs:
Vital Signs
Temp Pulse Resp BP Pulse Ox
98.1 F 82 14 155/98 99
01/22/25 07:37 01/22/25 14:03 01/22/25 14:00 01/22/25 14:03 01/22/25 14:18
I&O
01/21/25 01/22/25 01/23/25
06:59 06:59 06:59
Intake Total 3162.8 / 3297.5 3662.8 / 3811.5 1412.2 / 1412.2
Output Total 1895 / 1895 2200 / 2200 630 / 630
Balance 1267.8 / 1402.5 1462.8 / 1611.5 782.2 / 782.2
Physical Exam
-
General: Well Developed, No Apparent Distress and Appears Chronically Ill
HEENT: Normocephalic, Atraumatic, Moist Mucous Membranes and Anicteric
Respiratory: Clear to Auscultation and Non Labored Respirations
Cardiac: S1/S2, Irregular Rhythm and Tachycardic; Negative Murmur, Rub, JVD or Gallop
GI: Soft, Nondistended, Ostomy and Other (Mild general tenderness; absent bowel sounds; no peritoneal signs; bloody ERVIN drain output)
Musculoskeletal: No Clubbing, No Cyanosis and No Edema
Skin: Warm and Dry; Negative Rash
Neuro: AO x 3 and Nonfocal/Grossly Intact
Psych: Calm
[2025-01-22] MEDS: NSS 1000 IV (15:38)
--- NOTE | 2025-01-22 15:49 | CM ---
CM following re: discharge planning.
Reviewed pt's chart, met with pt. Pt is on RA, remains on amio gtt, continue NGT, continue supportive care.
PT and OT continue recommending SNF level of care. Pt is aware that [facility] offered a bed based on bed availability on the day of discharge.
D/C plan: [facility] when medically stable.
CM will follow to assist pt with discharge to [facility] when medically stable.
--- NOTE | 2025-01-22 15:51 | PTCARENOTE ---
NGT removed per Dr Santana. Pt allowed ice chips, sips of clears but no medications.
--- NOTE | 2025-01-22 15:52 | PTCARENOTE ---
Assumed care of patient at aprox 1300. Pt in bed. NGT with continuous suction through right nare, pt with 2 ERVIN drains to right with drainage, colostomy with small amt of liquid stool. Pts vitals stable. He C/O no pain at this time. CHG wipes done.
[2025-01-22 17:53] LABS: Glucose - Point of Care 113 mg/dl (70-99)
[2025-01-22] MEDS: FLOMAX PO (19:08)
--- NOTE | 2025-01-22 21:30 | PTCARENOTE ---
Pt having some abd pain and sacral pain. Pt doesn't want the morphine ordered he would like the IV tylenol. A dose was given this am but not currently ordered. TT sent to [facility] for order. New TPN hung and patient turned at repositioned at
this time.
[2025-01-22] MEDS: Parenteral Nutrition, Central 1360 IV (22:07)
[2025-01-22 23:41] LABS: Glucose - Point of Care 133 mg/dl (70-99)
[2025-01-23] VITALS (16 sets, daily range): BP systolic 92–173; BP diastolic 84–114; BMI 28.4
[2025-01-23] MEDS: LOPRESSOR 2.5 MG IV ×6 (02:11→21:28)
[2025-01-23] MEDS: MORPHINE SULFATE 3 MG IV ×4 (02:17→22:37)
--- NOTE | 2025-01-23 03:32 | PTCARENOTE ---
Pt medicated with Morphine 3mg for right sided abd pain,pt reports where the ERVIN drains are.Relief achieved.
[2025-01-23] MEDS: NSS 1000 IV (05:40)
[2025-01-23 06:01] LABS: Glucose - Point of Care 119 mg/dl (70-99)
[2025-01-23 06:05] LABS: Blood Urea Nitrogen 24 mg/dl (9-20); Calcium 8.5 mg/dl (8.4-10.2); Carbon Dioxide 23 mmol/L (22-30); Chloride 107 mmol/L (98-107); Estimated Creatinine Clearance 57 ml/min; Glucose 128 mg/dl (70-99); Potassium 4.2 mmol/L (3.5-5.1); Sodium 137 mmol/L (135-145); eGFR > 60.00
[2025-01-23] MEDS: SYNTHROID PO (06:13)
[2025-01-23] MEDS: PROTONIX IV 40 MG IV (07:58)
--- NOTE | 2025-01-23 09:09 | W.PN.CD ---
Today's Communication / Plan
-
Continue IV amiodarone and metoprolol for rate control
Will touch base with surgery about resuming heparin for AC
Impression / Plan
-
Background: 74-year-old male (known to Dr. Campbell, his primary Ham Stringer, who just meant the patient and has only see him once in the office) with paroxysmal A fib (on Eliquis), HTN, mild/moderate MR and TR, mild AR, IVCD, colorectal cancer s/p
chemo, recent colectomy/colostomy/perineal reconstruction on 01/11/25 (Dr Santana) readmitted with developing sepsis. Cardiology consulted for tachycardia with heart rates of 235 bpm (narrow complex).
MRSA Staph Aureus bacteremia/sepsis
- Presumed source is subcutaneous abscess with ERVIN drain purulent fluid output
- Continue antibiotics and recommendations as per ID. Plan is for 14 days IV abx
- Transthoracic echocardiogram unremarkable
PSVT, perhaps an atrial flutter or SVT (see 12 lead EKG 01/17/2025 at 1225 hrs) => degenerated to AFib
PAF with RVR (he also had typical Atrial Flutter last admission as well)
-This episode precipitated by sepsis
-[id number] 3 (age x 2, hypertension)
-Anticoagulation: On Eliquis usually as outpatient => On hold now (required 2U pRBCs on 01/20 after Lovenox). Will discuss starting heparin with surgery
-Has used pill in the pocket Flecainide for many years. In past just had highly symptomatic episodes about 1 time a year
-Continue amiodarone drip and 2.5 mg IV Lopressor Q4. for now, once taking PO move to just metoprolol
-Hope he converts to sinus but if AFib persists then later will move to NABILA/Cardioversion vs 3 weeks anticoagulation and Cardioversion w/o NABILA
Colostomy:
-NGT removed 01/23
-Management as per Surgery.
Anal adenocarcinoma, S/p combined therapy (chemo/surgery):
-Status-post surgical resection on 01/11/2025.
-Recommendations as per Surgery.
Hypertension
-Diastolic BPs are high
-Restart home irbesartan once able to take p.o.
Subjective:
No CP or palps. NGT is out.
Physical Exam
Vital Signs/Labs
Vital Signs
Temp Pulse Resp BP Pulse Ox
97.5 F 86 21 146/99 95
01/23/25 07:30 01/23/25 06:00 01/23/25 06:00 01/23/25 06:00 01/23/25 01:56
01/22/25 01/23/25 01/24/25
06:59 06:59 06:59
Actual Weight 93.9 kg 95 kg
01/22/25 05:00
01/23/25 05:16
PT 14.6 Sec (11.4-14.6) 01/17/25 12:34
INR 1.09 01/17/25 12:34
APTT 39.5 Sec (23.4-35.0) H 01/17/25 12:34
Magnesium 2.2 mg/dl (1.6-2.3) 01/21/25 04:24
Triglycerides 115 mg/dl (10-149) 01/21/25 04:24
Physical Exam
Constitutional: No acute distress and Comfortable
Cardiovascular: Pedal edema present, S1S2 is normal and Murmur/rub/gallop absent
Respiratory: Respiratory effort normal and Crackles Present
Neuro/Psych: AO x 3
Data Reviewed
-
Date of Service: January 23, 2025
Medical Decision Making: Reviewed Test Results, Independent Historian Assessment, Test Interpretation and Review of Case with other Provider
EKG: Tracing Personally Visualized and interpreted
Echo: Report Reviewed by me
X-Ray/CT/US/MRI/NUC/PET: Report Reviewed by me
Labs: Labs Reviewed by me
--- NOTE | 2025-01-23 09:20 | W.PN.ID1 ---
Date of Service
Date of Service: January 23, 2025
Today's Communication
- would remove port given recent bacteremia with MRSA; patient is in agreement, report no further plans for future chemotherapy at this time
- had significant pain along the drain sites, previous drain culture with MRSA, has been a week since last abdominal imaging, will reimage at this point
- has PICC
- plan 2 weeks of vancomycin given bacteremia day
Assessment / Plan
MRSA Bacteremia x 2 sets
Fever - resolved
Afib
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
- 3 blood cultures tentatively clearing
- TTE no gross vege
- drain culture also with MRSA
- would remove port given recent bacteremia with MRSA; patient is in agreement, report no further plans for future chemotherapy at this time
- had significant pain along the drain sites, previous drain culture with MRSA, has been a week since last abdominal imaging, will reimage at this point
- has PICC
- plan 2 weeks of vancomycin given bacteremia day
Chief Complaint
-: Bacteremia
Subjective / Review of Systems
afebrile
bp stable
having significant pain at the drain site
Vital Signs / Physical Exam
Vital Signs
Vital Signs
Temp Pulse Resp BP Pulse Ox
97.5 F 86 21 146/99 95
01/23/25 07:30 01/23/25 06:00 01/23/25 06:00 01/23/25 06:00 01/23/25 01:56
Physical Exam
Constitutional: No Acute Distress
Cardiovascular: Regular Rate and S1/S2; Negative Murmur or Rub
Pulmonary: Clear and Symmetric; Negative Wheezes or Rales
Gastrointestinal: Soft, Non Tender, Non Distended and Normal Bowel Sounds
Skin: Warm and Dry; Negative Rash or Jaundice
Lines: Port (no erythema, warmth, tenderness or drainage) and Other (drains one bloody and one serosanguinous; tenderness around the sites; PICC: no erythema, warmth, tenderness or drainage)
Objective Data
Lab Data
Lab Results
01/22/25 05:00
01/23/25 05:16
PT 14.6 Sec (11.4-14.6) 01/17/25 12:34
INR 1.09 01/17/25 12:34
APTT 39.5 Sec (23.4-35.0) H 01/17/25 12:34
Estimated Creat Clear 57 ml/min 01/23/25 05:16
Lactic Acid 1.1 mmol/L (0.7-2.0) 01/17/25 16:37
Total Bilirubin 0.8 mg/dl (0.2-1.3) 01/22/25 05:00
AST 24 U/L (17-59) 01/22/25 05:00
ALT 19 U/L (0-50) 01/22/25 05:00
Alkaline Phosphatase 110 U/L (38-126) 01/22/25 05:00
Most recent labs reviewed.
note new thrombocytosis
Micro Results:
01/20/25 05:18 Blood Culture - Preliminary
Blood/Venous No Growth in 72 hours- Final report to follow
01/20/25 05:18 Blood Culture - Preliminary
Blood/Venous No Growth in 72 hours- Final report to follow
01/18/25 12:36 Blood Culture - Preliminary
Blood/Venous No Growth in 4 days- Final report to follow
01/18/25 12:36 Blood Culture - Preliminary
Blood/Venous No Growth in 4 days- Final report to follow
01/19/25 18:26 Body Fluid Culture - Final
Fluid Staph aureus MRSA
Gram Stain - Final
01/19/25 22:26 Respiratory Culture - Final
Sputum Gram Stain - Final
01/16/25 12:56 Blood Culture - Preliminary
Blood/Venous Staph aureus MRSA
Gram Stain - Preliminary
01/16/25 12:56 Blood Culture - Preliminary
Blood/Venous Staph aureus MRSA
Gram Stain - Preliminary
01/16/25 12:57 Urine Culture - Final
Urine NO GROWTH
01/16/25 22:39 MRSA Screen - Final
Nose Staph aureus MRSA
01/16/25 12:57 Influenza Types A & B (CELIA) - Final
Nasal Swab Negative for Influenza A & B, NAAT
Negative results must be combined with clinical observations
and patient history.
Nucleic Acid Amplification test (NAAT)performed on the
[employer] platform.
01/19/35 CXR: There is minimal bibasilar opacities with likely small bilateral pleural effusions, similar to prior
01/16/25 CT a/p: There is a percutaneous drainage catheter entering the lateral right abdominal wall. The tip rests in the right pelvis posteriorly.There is a second drainage catheter in the subcutaneous tissues with the tip in midline the upper
anterior abdominal wall.
Care Review
Plan reviewed with: Physician (Dr Griffiths - requested port removal)
--- NOTE | 2025-01-23 09:30 | PHA.VAN.FU ---
Vancomycin Assessment / Plan
- Assessment
Renal Function: Stable
WBC's are: WNL
In the past 24 hrs, patient has been: Afebrile
- Assessment - Therapeutic Drug Monitoring
Random Level: 15 - drawn ~17.5H after previous dose of 1500mg
- Dosing Plan
Dosing by Level: Re-dose today (Vanc 1250mg)
- Monitoring Plan
Random Level: 01/24 0600
- Follow Up
Pharmacy will continue to follow.
Vancomycin Follow UP
- -
Patient Age: 74
Patient Sex: Male
Vancomycin Day #: 7
Indication: Pulmonary/Respiratory
Requesting Provider: Dr. Gomez / Steve
Pertinent Antimicrobial Allergies:
NKDA
Height / Weight:
Height 6 ft
Actual Weight 95 kg
Pertinent Past Medical History: Colorectal carcinoma
- Vital Signs / Lab Results
Temp Pulse Resp BP Pulse Ox
97.5 F 86 21 146/99 95
01/23/25 07:30 01/23/25 06:00 01/23/25 06:00 01/23/25 06:00 01/23/25 01:56
Lab Results - Hematology
01/21/25 01/22/25
04:24 05:00
WBC 10.4 10.7
Lab Results - Chemistry
01/21/25 01/22/25 01/23/25
04:24 05:00 05:16
BUN 19 23 H 24 H
Creatinine 1.4 H 1.2 1.2
Estimated Creat Clear 49 57 57
Albumin 2.4 L 2.5 L
Microbiology Results
01/20/25 05:18 Blood Culture - Preliminary
Blood/Venous No Growth in 72 hours- Final report to follow
01/20/25 05:18 Blood Culture - Preliminary
Blood/Venous No Growth in 72 hours- Final report to follow
01/18/25 12:36 Blood Culture - Preliminary
Blood/Venous No Growth in 4 days- Final report to follow
01/18/25 12:36 Blood Culture - Preliminary
Blood/Venous No Growth in 4 days- Final report to follow
01/19/25 18:26 Body Fluid Culture - Final
Fluid Staph aureus MRSA
Gram Stain - Final
Therapeutic Drug Monitoring
Vancomycin Peak 24.2 ug/ml (18-26) 01/18/25 21:18
Vancomycin Trough 17.8 ug/ml (5-20) 01/19/25 04:48
Random Vancomycin 15.0 ug/ml 01/23/25 05:16
--- NOTE | 2025-01-23 09:48 | W.PN.CRS1 ---
Today's Communication / Plan
-
maintain npo
still oozing from flap - hold anticoagulation
Assessment/Plan
-
74-year-old male with PMH of A-fib (s/p cardioversion 2022, on Eliquis), HTN, hypothyroidism and anal adenocarcinoma, s/p DEIDRE with complete response, complicated by local recurrence, who underwent robotic APR, VRAM flap and end-colostomy on 01/11; he
did well post-operatively and was discharged on 01/16; however, he developed fever and chills and presented back to the ED on 01/17; WBC 11.5, Hb stable, CR 0.8, UA negative, CXR�concerning for left lower lobe pneumonia; CTAP showing postoperative
changes, no evident infections or abscess; afib with RVR, better controlled with amio, still awaiting return of bowel function; s/p pRBC x2 on 01/20 for Hb downtrend; GRAY, now improving
POD 12 robotic APR with VRAM flap
AFVSS
Cr 1.2 from 1.2
01/22- NGT removed. Xray showed mild to moderate gaseous distention of small bowel loops, slightly improved compared to previous abdominal radiographs.
�SIRS response with uncertain source, possibly pneumonia, possibly postoperative ileus
-Appreciate ID, cont vanco
�Subcutaneous drain with serous output now, no concern for wound infection
�Postoperative ileus
�Continue strict n.p.o. given distention
�Cont TPN
�Hold AC another day (he still has oozing from his flap)
-Recommend OOB, IS, appreciate PT, ambulate BID
� Continue ERVIN to bulb suction
� Appreciate plastic surgery; flap well-perfused and no concern for infection
� Appreciate cardiology, continue amio
� Appreciate hospitalist
Subjective Data
Subjective Data
Date of Service: January 23, 2025
Patient states he passed some flatus and had some stool in his bag. He still feels 'tight'. He is not hungry. He denies nausea or vomiting. He has no pain.
Objective Data
-
Vital Signs
Temp Pulse Resp BP Pulse Ox
97.5 F 72 21 164/91 95
01/23/25 07:30 01/23/25 09:34 01/23/25 06:00 01/23/25 09:34 01/23/25 01:56
Intake & Output
01/22/25 01/23/25 01/24/25
06:59 06:59 06:59
Intake Total 3662.8 / 3811.5 4297.6 / 4297.6
Output Total 2200 / 2200 1970 / 1970
Balance 1462.8 / 1611.5 2327.6 / 2327.6
Intake:
IV fluids (Total) 2200.8 / 2292.5 2291.6 / 2291.6
Nss 1,000 ml @ 75 mls/hr IV . 1800 / 1875 975 / 975
[id number] AZEEM Rx#:[id number]
Nss 1,000 ml @ 75 mls/hr IV . 900 / 900
[id number] AZEEM Rx#:[id number]
amio 400.8 / 417.5 416.6 / 416.6
IV piggybacks 200 / 200 520 / 520
TPN/PPN 1172 / 1229 1426 / 1426
Amount instilled into Drain ( 60 / 60
Total)
Right Lower Abdomen Alberto- 60 / 60
Martinez B
Amount instilled into GI Tube ( 90 / 90
Total)
[place] Sump 90 / 90
Output:
Liquid stool amount 30 / 30
Colostomy 30 / 30
Drain Output (Total) 270 / 270 295 / 295
Right Lower Abdomen Alberto- 15 / 15 20 / 20
Martinez A
Right Lower Abdomen Alberto- 255 / 255 275 / 275
Martinez B
Gastrointestinal tube output ( 200 / 200
Total)
[place] Sump 200 / 200
Urine, Voided 1700 / 1700 1675 / 1675
Lab Results
01/22/25 05:00
01/23/25 05:16
Physical Exam
-
General: No Acute Distress and AOx3
Abdomen: Distended and Other (colostomy warm and pink with gas)
Skin: Warm and Dry
Incision: Clear, Dry, Intact
[2025-01-23] MEDS: OMNIPAQUE 50 ML PO (11:05)
[2025-01-23] MEDS: VANCOCIN 275 MG IV (11:06)
[2025-01-23 12:39] LABS: Glucose - Point of Care 95 mg/dl (70-99)
--- NOTE | 2025-01-23 13:52 | CM ---
CM following re: discharge planning.
Reviewed pt's chart, met with pt. Pt is on RA, Continue ERVIN, continue supportive care.
PT and OT continue recommending SNF level of care.
Pt is aware that [facility] offered a bed based on bed availability on the day of discharge.
D/C plan: [facility] when medically stable.
CM will follow to assist pt with discharge to [facility] when medically stable.
--- NOTE | 2025-01-23 14:05 | PTCARENOTE ---
ordered CT of abd/pelvis. PO contrast admin. amio gtt d/c'd. patient c/o pain 8-07/24 IV Morphine PRN for pain given with positive pain relief. colostomy with pos flatus. ERVIN drains intact and I&Os in progress, see worklist. wound care completed to
sacral surgical wound. turned and positioned for comfort. cont to monitor
--- NOTE | 2025-01-23 15:18 | PTCARENOTE ---
IR procedure; as per Dr. Wilson no need to send tip of SQ port for culture.
[2025-01-23] MEDS: MORPHINE SULFATE 1.5 MG IV (15:48)
--- NOTE | 2025-01-23 16:10 | W.PN.HOSP.TC ---
Today's Communication/Plan
-
Plan is for attempt of percutaneous drain of the right lower quadrant collection.
Hold anticoagulation.
Continue vancomycin.
Rate control as per cardiology
TPN
Assessment / Plan
Assessment / Plan
Impression
Presentation with fever and abdominal pain.
Sepsis present on admission
MRSA bacteremia.
Left lower lobe pneumonia versus atelectasis.
Ileus.
SVT with transition to rapid A-fib.
Hypotension secondary to SVT/rapid A-fib.
Acute blood loss anemia.
Other conditions:
Status post robotic APR with perineal reconstruction on 01/11
Colorectal carcinoma status post chemo/radiation
Paroxysmal atrial fibrillation baseline anticoagulation with Eliquis
Essential hypertension
BPH
Hypothyroidism replacement
Right chest Chemo-Port in place
Plan
#MRSA bacteremia suspected secondary to infected wound.
#Sepsis secondary to pneumonia v. intra-abdominal infection postoperatively
-Presented as postoperative fever, s/p APR with perineal reconstruction on 01/11 for anorectal cancer
-Blood cultures x 2 on admission positive for MRSA; signs of pneumonia on x-ray as well as worsening ERVIN output
-No signs of infection near Chemo-Port or ostomy; CT A/P without signs of abscess here
-Was started on broad-spectrum antibiotics; have been transitioned to IV vancomycin alone by ID
-Repeat blood cultures obtained and negative. Fevers have resolved as of 01/19, remains with leukocytosis that is improved
-TTE negative for vegetation.
Repeat blood cultures negative to date
Repeat CT scan of the abdomen/pelvis on 01/23 with findings consistent of ill-defined right lower quadrant collection
Discussed with colorectal surgery with plan for [facility] consultation and hold for percutaneous drain
Chemo-Port had been removed on 01/23
-Continue IV vancomycin to complete total of 14 days of antibiotic
#Postoperative ileus
-Presented with abdomen pain; s/p NGT placed on 01/18
-Remains on strict n.p.o. status with NGT to low continuous wall suction
-Currently receiving Dilaudid for pain, will de-escalate at patient's request
-Currently on IV fluids and bowel regimen, consider escalating bowel regimen
-Minimize narcotics and anticholinergics
-Serial abdomen exams and monitor bowel status
#Acute blood loss anemia
-Hemoglobin dropped from 10.6�8.6�8.1�7.9 as of 01/20
-Has had worsening output of abdominal ERVIN drain
-LFTs unremarkable, no signs of hemolytic processes
-Iron studies with evidence of anemia of chronic disease
-S/p 2 unit PRBC on 01/20 at surgery's recommendation
-Avoid anticoagulation, SCDs for DVT prophylaxis
-Hemoglobin goal >7 or absence of symptoms
#Acute kidney injury
-Suspect mild septic ATN; persistent elevation despite hemodynamic stability
-Creatinine normal at baseline, recent labs with creatinine 1.5-1.7 over 3 lab draw
-Currently on maintenance IV fluids; TPN started on 01/20 as well for nutrition
-Urine output has been adequate, no signs of obstructive pathology
-Continue to monitor BMP and UOP on maintenance IVF
-Avoid nephrotoxic agents
#Atrial fibrillation with RVR
-Nonvalvular; [id number] 3; presented as SVT that degenerated to AF
-Home regimen includes Eliquis, currently on hold due to surgical abdominal issues
-Was started on amiodarone drip with improvement to his rates, transitioned to full dose Lovenox for AC
-As of the morning 01/19 remains in AF with RVR, heart rate near 110/min
-Lovenox was held on 01/19 due to ongoing bloody discharge from ERVIN drain
-Hemodynamically stable at this time without vasopressors
-Heart rate goal <120/min with critical illness
#Acute on chronic hyponatremia
-Chronically has sodium in the range of 130-135, as low as 126 here nut back to 131 as of 01/20
-Unclear cause of chronic hyponatremia; suspect acute worsening due to reduced intake with NGT
-As of this morning serum sodium 130, has been fairly stable with minimal fluctuation
-Suspect that this will improve when oral intake is restored
-Continue to trend BMP on maintenance IVF
-Order urine osmolality, urine sodium, serum osmolality if worsening
#Anal cancer s/p robotic APR (01/11)
-Status post chemotherapy and surgical resection
-Currently with ostomy in place
-Colorectal surgery following
#BPH
-Remains on tamsulosin, no signs of urine retention
#Hypothyroidism
-Unclear cause, home regimen includes levothyroxine 100 mcg daily
-No signs or symptoms of thyroid dysfunction at this time (RVR due to critical illness)
DVT prophylaxis: SCDs
Diet: NPO, starting TPN 01/20
CODE STATUS: Full code
Anticipated Discharge: > 48 hours
Subjective/Interval History
-
Date of Service: January 23, 2025
Objective Data
-
Labs:
Laboratory Results
01/23/25
05:16
Sodium 137
Potassium 4.2
Chloride 107
Carbon Dioxide 23
BUN 24 H
Creatinine 1.2
Glucose 128 H
Calcium 8.5
Vital Signs:
Vital Signs
Temp Pulse Resp BP Pulse Ox
97.9 F 96 18 155/102 96
01/23/25 14:18 01/23/25 15:15 01/23/25 15:15 01/23/25 15:15 01/23/25 14:18
I&O
01/22/25 01/23/25 01/24/25
06:59 06:59 06:59
Intake Total 3662.8 / 3811.5 4297.6 / 4297.6
Output Total 2200 / 2200 1970 / 1970 400 / 400
Balance 1462.8 / 1611.5 2327.6 / 2327.6 -400 / -400
Physical Exam
-
General: Well Developed, No Apparent Distress and Appears Chronically Ill
HEENT: Normocephalic, Atraumatic, Moist Mucous Membranes and Anicteric
Respiratory: Clear to Auscultation and Non Labored Respirations
Cardiac: S1/S2, Irregular Rhythm and Tachycardic; Negative Murmur, Rub, JVD or Gallop
GI: Soft, Nondistended, Ostomy and Other (Mild general tenderness; absent bowel sounds; no peritoneal signs; bloody ERVIN drain output)
Musculoskeletal: No Clubbing, No Cyanosis and No Edema
Skin: Warm and Dry; Negative Rash
Neuro: AO x 3 and Nonfocal/Grossly Intact
Psych: Calm
--- NOTE | 2025-01-23 16:32 | W.PN.PLAS ---
Progress Note
Objective Data
Vital Signs
Temp Pulse Resp BP Pulse Ox
97.9 F 96 18 155/102 96
01/23/25 14:18 01/23/25 15:15 01/23/25 15:15 01/23/25 15:15 01/23/25 14:18
Intake and Output
01/22/25 01/23/25 01/24/25
06:59 06:59 06:59
Intake Total 3662.8 / 3811.5 4297.6 / 4297.6
Output Total 2200 / 2200 1970 / 1970 400 / 400
Balance 1462.8 / 1611.5 2327.6 / 2327.6 -400 / -400
Intake:
IV fluids (Total) 2200.8 / 2292.5 2291.6 / 2291.6
Nss 1,000 ml @ 75 mls/hr IV . 1800 / 1875 975 / 975
[id number] AZEEM Rx#:[id number]
Nss 1,000 ml @ 75 mls/hr IV . 900 / 900
[id number] AZEEM Rx#:[id number]
amio 400.8 / 417.5 416.6 / 416.6
IV piggybacks 200 / 200 520 / 520
TPN/PPN 1172 / 1229 1426 / 1426
Amount instilled into Drain ( 60 / 60
Total)
Right Lower Abdomen Alberto- 60 / 60
Martinez B
Amount instilled into GI Tube ( 90 / 90
Total)
[place] Sump 90 / 90
Output:
Liquid stool amount 30 / 30
Colostomy 30 / 30
Drain Output (Total) 270 / 270 295 / 295
Right Lower Abdomen Alberto- 15 / 15 /
Martinez A
Right Lower Abdomen Alberto- 255 / 255 275 / 275
Martinez B
Gastrointestinal tube output ( 200 / 200
Total)
[place] Sump 200 / 200
Urine, Voided 1700 / 1700 1675 / 1675 400 / 400
Lab Results
01/22/25 05:00
01/23/25 05:16
Microbiology Results
01/18/25 12:36 Blood/Venous Blood Culture - Final
No Growth - Final Report
01/18/25 12:36 Blood/Venous Blood Culture - Final
No Growth - Final Report
01/16/25 12:56 Blood/Venous Blood Culture - Final
Staph aureus MRSA
01/16/25 12:56 Blood/Venous Gram Stain - Final
01/16/25 12:56 Blood/Venous Blood Culture - Final
Staph aureus MRSA
01/16/25 12:56 Blood/Venous Gram Stain - Final
01/20/25 05:18 Blood/Venous Blood Culture - Preliminary
No Growth in 72 hours- Final report to follow
01/20/25 05:18 Blood/Venous Blood Culture - Preliminary
No Growth in 72 hours- Final report to follow
Wound Documentation
01/21/25 16:12 Wound Note by Ailin Escobar
MICHAEL FLAP
Initialized on 01/21/25 16:12 - END OF NOTE
Size in centimeters (length/ about 32cm long
width/depth) [Middle Abdomen]
Size in centimeters (length/ about .8x.5cm, depth not probed
width/depth) [Perineum]
Last measured date [Middle 01/17/25
Abdomen]
Last measured date [Perineum] 01/21/25
Physical Exam
Wound:
Size in centimeters (length/ about 32cm long
width/depth) [Middle Abdomen]
Size in centimeters (length/ about .8x.5cm, depth not probed
width/depth) [Perineum]
Last measured date [Middle 01/17/25
Abdomen]
Last measured date [Perineum] 01/21/25
Assessment / Plan
Wound stable. Patient continues to improve. Doing well. Patient anxious to go.
Patient is stable. Will discharge to home once patient is able to ambulate, void, tolerate a PO diet and pain is adequately controlled.
Visiting Nurse care ordered / not ordered.
Wound care discussed with patient.
Follow up within days.
Follow up with family physician for any medical issues.
Patient given any appropriate scripts at office pre op visit.
[2025-01-23 17:57] LABS: Glucose - Point of Care 94 mg/dl (70-99)
--- NOTE | 2025-01-23 20:15 | PTCARENOTE ---
Pt received start of shift, HR afib 120s on telemetry. Family reports increased confusion, pt restless in bed. Thrashing around. Tachypneic. Pt states he feels 'lousy'. Pulsox check 87-88%. 2L NC placed on pt. SpO2 93-96%. BP 80/50. TT [employer] SAL[employer]GER Hephziba,
single dose midodrine ordered and administered. Incontinent roly urine. Pt oriented to self and location, not time. Confusion, stating he needs to 'get out of here', unable to say where 'here' is. Following directions.
Pt HR occaisonally going into 140s-160s afib. EVENT SALES MANAGER aware, at bedside.
[2025-01-23] MEDS: Parenteral Nutrition, Central 1360 IV (21:17)
[2025-01-23] MEDS: FLOMAX 0.4 MG PO (21:28)
[2025-01-24] VITALS (10 sets, daily range): BP systolic 131–172; BP diastolic 80–109; PULSE 106–135; BMI 28.3
[2025-01-24 00:08] LABS: Glucose - Point of Care 123 mg/dl (70-99)
[2025-01-24] MEDS: LOPRESSOR 2.5 MG IV ×6 (02:09→21:26)
[2025-01-24 05:04] LABS: Hematocrit 29.3 % (39.0-52.0); Hemoglobin 9.6 g/dL (13.0-18.0); Mean Corp Hgb Conc. 32.8 g/dL (33.0-37.0); Mean Corpuscular Hgb 34.2 pg (27.0-31.0); Mean Corpuscular Volume 104.3 fL (80.0-94.0); Mean Platelet Volume 9.1 fL (7.4-10.4); Platelet Count 495 10^3/uL (130-400); Red Blood Cell Count 2.81 10^6/uL (4.70-6.10); Red Cell Dist. Width 14.8 % (11.5-14.5); White Blood Cell Count 11.1 10^3/uL (4.8-10.8)
[2025-01-24] MEDS: SYNTHROID PO (05:53)
[2025-01-24 06:44] LABS: Glucose - Point of Care 113 mg/dl (70-99)
[2025-01-24 07:05] LABS: Blood Urea Nitrogen 25 mg/dl (9-20); Calcium 8.6 mg/dl (8.4-10.2); Carbon Dioxide 28 mmol/L (22-30); Chloride 106 mmol/L (98-107); Estimated Creatinine Clearance 53 ml/min; Glucose 108 mg/dl (70-99); Potassium 4.2 mmol/L (3.5-5.1); Sodium 138 mmol/L (135-145); eGFR 56.93
[2025-01-24] MEDS: PROTONIX IV 40 MG IV (08:13)
[2025-01-24] MEDS: NSS (PRESERVATIVE FREE) 10 ML IV (08:15)
--- NOTE | 2025-01-24 09:11 | W.PN.CD ---
Addendum entered and electronically signed by Leo Coker MD 01/24/25 09:20:
nOte : weight is up 9 Kg since 01/12/25
Original Note:
Today's Communication / Plan
-
Continue with rate control of atrial fibrillation for now.
Patient currently not on anticoagulation
As per colorectal surgery note 01/23/2025. No anticoagulation -since there was some evidence of blood from flap area 01/23/2025.
Impression / Plan
-
Background: 74-year-old male (known to Dr. Campbell, his primary Ceramic Saw Tender, who just meant the patient and has only see him once in the office) with paroxysmal A fib (on Eliquis), HTN, mild/moderate MR and TR, mild AR, IVCD, colorectal cancer s/p
chemo, recent colectomy/colostomy/perineal reconstruction on 01/11/25 (Dr Santana) readmitted with developing sepsis. Cardiology consulted for tachycardia with heart rates of 235 bpm (narrow complex).
MRSA Staph Aureus bacteremia/sepsis
- Presumed source is subcutaneous abscess with ERVIN drain purulent fluid output
- Continue antibiotics and recommendations as per ID. Plan is for 14 days IV abx
- Transthoracic echocardiogram unremarkable
PSVT, perhaps an atrial flutter or SVT (see 12 lead EKG 01/17/2025 at 1225 hrs) => degenerated to AFib
PAF with RVR (he also had typical Atrial Flutter last admission as well)
-This episode precipitated by sepsis
-[id number] 3 (age x 2, hypertension)
-Anticoagulation: On Eliquis usually as outpatient => On hold now (required 2U pRBCs on 01/20 after Lovenox). As per colorectal surgery note 01/23/2025. Since there was some evidence of blood from flap area.
-Has used pill in the pocket Flecainide for many years. In past just had highly symptomatic episodes about 1 time a year . No more use of flecainide at this time
-Patient was on amiodarone drip which was last given 01/21/2025 now remains on metoprolol IV.
-Remains in rate controlled A-fib. As patient recovers if he does not spontaneously convert to sinus rhythm then we will consider additional efforts at rhythm control. NABILA/Cardioversion vs 3 weeks anticoagulation and Cardioversion w/o NABILA
Edema up through thighs.. Now off IV fluids. I's and O's appear negative over the last 24 hours
-Consider use of diuretic
.
Colostomy:
-NGT removed 01/23
-Management as per Surgery.
Anal adenocarcinoma, S/p combined therapy (chemo/surgery):
-Status-post surgical resection on 01/11/2025.
-Recommendations as per Surgery.
Hypertension
-Diastolic BPs are high
-Restart home irbesartan once able to take p.o.
Subjective:
No CP or palps. Feeling better no chest pain or shortness of breath
Physical Exam
Vital Signs/Labs
Vital Signs
Temp Pulse Resp BP Pulse Ox
98.1 F 102 15 156/96 95
01/24/25 08:00 01/24/25 06:00 01/24/25 06:00 01/24/25 06:00 01/23/25 20:00
01/23/25 01/24/25 01/25/25
06:59 06:59 06:59
Actual Weight 95 kg 94.6 kg
01/24/25 04:49
01/24/25 06:38
PT 14.6 Sec (11.4-14.6) 01/17/25 12:34
INR 1.09 01/17/25 12:34
APTT 39.5 Sec (23.4-35.0) H 01/17/25 12:34
Magnesium 2.2 mg/dl (1.6-2.3) 01/21/25 04:24
Triglycerides 115 mg/dl (10-149) 01/21/25 04:24
Physical Exam
Constitutional: No acute distress
Cardiovascular: Rhythm/rate is irregular
Respiratory: Wheeze Absent and Rhonchi Absent
Neuro/Psych: Alert
Other: Other (Bilateral lower extremity edema extending up to the thighs)
Data Reviewed
-
Date of Service: January 24, 2025
Echo: Report Reviewed by me
X-Ray/CT/US/MRI/NUC/PET: Report Reviewed by me
Medical Tests (PFT, Pathology etc): Report Reviewed by me
Labs: Labs Reviewed by me
--- NOTE | 2025-01-24 09:44 | W.PN.ID1 ---
Date of Service
Date of Service: January 24, 2025
Today's Communication
- reviewed with Dr Stanford and Dr Santana the sq and pelvic drainage are quite distant to the posterior perineum hematoma; patient is for eventual removal of the SQ drain which grew the MRSA
- has PICC
- plan 2 weeks of vancomycin given bacteremia day 9 14
Assessment / Plan
MRSA Bacteremia x 2 sets
Fever - resolved
Afib
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
- 3/7 blood cultures tentatively clearing
- TTE no gross vege
- drain culture also with MRSA
- reviewed with Dr Stanford and Dr Santana the sq and pelvic drainage are quite distant to the posterior perineum hematoma; patient is for eventual removal of the SQ drain which grew the MRSA
- has PICC
- plan 2 weeks of vancomycin given bacteremia day 9 14
Chief Complaint
-: Bacteremia
Subjective / Review of Systems
afebrile
bp stable
tolerating current therapies
Vital Signs / Physical Exam
Vital Signs
Vital Signs
Temp Pulse Resp BP Pulse Ox
98.1 F 102 15 156/96 95
01/24/25 08:00 01/24/25 06:00 01/24/25 06:00 01/24/25 06:00 01/23/25 20:00
Physical Exam
Constitutional: No Acute Distress
Cardiovascular: Regular Rate and S1/S2; Negative Murmur or Rub
Pulmonary: Clear and Symmetric; Negative Wheezes or Rales
Gastrointestinal: Soft, Non Tender, Non Distended and Normal Bowel Sounds
Skin: Warm and Dry; Negative Rash or Jaundice
Lines: Other (one drain is serous and one bloody)
Objective Data
Lab Data
Lab Results
01/24/25 04:49
01/24/25 06:38
PT 14.6 Sec (11.4-14.6) 01/17/25 12:34
INR 1.09 01/17/25 12:34
APTT 39.5 Sec (23.4-35.0) H 01/17/25 12:34
Estimated Creat Clear 53 ml/min 01/24/25 06:38
Lactic Acid 1.1 mmol/L (0.7-2.0) 01/17/25 16:37
Total Bilirubin 0.8 mg/dl (0.2-1.3) 01/22/25 05:00
AST 24 U/L (17-59) 01/22/25 05:00
ALT 19 U/L (0-50) 01/22/25 05:00
Alkaline Phosphatase 110 U/L (38-126) 01/22/25 05:00
Most recent labs reviewed.
Micro Results:
01/20/25 05:18 Blood Culture - Preliminary
Blood/Venous No Growth in 4 days- Final report to follow
01/20/25 05:18 Blood Culture - Preliminary
Blood/Venous No Growth in 4 days- Final report to follow
01/18/25 12:36 Blood Culture - Final
Blood/Venous No Growth - Final Report
01/18/25 12:36 Blood Culture - Final
Blood/Venous No Growth - Final Report
01/16/25 12:56 Blood Culture - Final
Blood/Venous Staph aureus MRSA
Gram Stain - Final
01/16/25 12:56 Blood Culture - Final
Blood/Venous Staph aureus MRSA
Gram Stain - Final
01/19/25 18:26 Body Fluid Culture - Final
Fluid Staph aureus MRSA
Gram Stain - Final
01/19/25 22:26 Respiratory Culture - Final
Sputum Gram Stain - Final
01/16/25 12:57 Urine Culture - Final
Urine NO GROWTH
01/16/25 22:39 MRSA Screen - Final
Nose Staph aureus MRSA
01/16/25 12:57 Influenza Types A & B (CELIA) - Final
Nasal Swab Negative for Influenza A & B, NAAT
Negative results must be combined with clinical observations
and patient history.
Nucleic Acid Amplification test (NAAT)performed on the
[employer] platform.
01/19/35 CXR: There is minimal bibasilar opacities with likely small bilateral pleural effusions, similar to prior
01/16/25 CT a/p: There is a percutaneous drainage catheter entering the lateral right abdominal wall. The tip rests in the right pelvis posteriorly.There is a second drainage catheter in the subcutaneous tissues with the tip in midline the upper
anterior abdominal wall.
--- NOTE | 2025-01-24 09:57 | PHA.VAN.FU ---
Vancomycin Assessment / Plan
- Assessment
Renal Function: Stable
WBC's are: Trending Up
In the past 24 hrs, patient has been: Afebrile
- Assessment - Therapeutic Drug Monitoring
Random Level: 15 - drawn ~17H after previous dose of 1250mg
- Dosing Plan
Dosing by Level: Re-dose today (Vanc 1000mg)
Dosing Comments: patient appears to have had some accumulation - reduce dose slightly
- Monitoring Plan
Random Level: 01/25 06
- Follow Up
Pharmacy will continue to follow.
Vancomycin Follow UP
- -
Patient Age: 74
Patient Sex: Male
Vancomycin Day #: 8
Indication: Pulmonary/Respiratory
Requesting Provider: Dr. Gomez / Steve
Pertinent Antimicrobial Allergies:
NKDA
Height / Weight:
Height 6 ft
Actual Weight 94.6 kg
Pertinent Past Medical History: Colorectal carcinoma
- Vital Signs / Lab Results
Temp Pulse Resp BP Pulse Ox
98.1 F 102 15 156/96 95
01/24/25 08:00 01/24/25 06:00 01/24/25 06:00 01/24/25 06:00 01/23/25 20:00
Lab Results - Hematology
01/22/25 01/24/25
05:00 04:49
WBC 10.7 11.1 H
Lab Results - Chemistry
01/22/25 01/23/25 01/24/25
05:00 05:16 04:49
BUN 23 H 24 H Cancelled
Creatinine 1.2 1.2 Cancelled
Estimated Creat Clear 57 57 Cancelled
Albumin 2.5 L
01/24/25 01/24/25
05:38 06:38
BUN Cancelled 25 H
Creatinine Cancelled 1.3
Estimated Creat Clear Cancelled 53
Albumin
Microbiology Results
01/20/25 05:18 Blood Culture - Preliminary
Blood/Venous No Growth in 4 days- Final report to follow
01/20/25 05:18 Blood Culture - Preliminary
Blood/Venous No Growth in 4 days- Final report to follow
01/18/25 12:36 Blood Culture - Final
Blood/Venous No Growth - Final Report
01/18/25 12:36 Blood Culture - Final
Blood/Venous No Growth - Final Report
01/16/25 12:56 Blood Culture - Final
Blood/Venous Staph aureus MRSA
Gram Stain - Final
01/16/25 12:56 Blood Culture - Final
Blood/Venous Staph aureus MRSA
Gram Stain - Final
01/19/25 18:26 Body Fluid Culture - Final
Fluid Staph aureus MRSA
Gram Stain - Final
Therapeutic Drug Monitoring
Vancomycin Peak 24.2 ug/ml (18-26) 01/18/25 21:18
Vancomycin Trough 17.8 ug/ml (5-20) 01/19/25 04:48
Random Vancomycin 15.0 ug/ml 01/24/25 04:17
--- NOTE | 2025-01-24 10:42 | W.PN.CRS1 ---
Today's Communication / Plan
-
clears
continue tpn
tramadol
Assessment/Plan
-
74-year-old male with PMH of A-fib (s/p cardioversion 2022, on Eliquis), HTN, hypothyroidism and anal adenocarcinoma, s/p DEIDRE with complete response, complicated by local recurrence, who underwent robotic APR, VRAM flap and end-colostomy on 01/11; he
did well post-operatively and was discharged on 01/16; however, he developed fever and chills and presented back to the ED on 01/17; WBC 11.5, Hb stable, CR 0.8, UA negative, CXR�concerning for left lower lobe pneumonia; CTAP showing postoperative
changes, no evident infections or abscess; afib with RVR, better controlled with amio, still awaiting return of bowel function; s/p pRBC x2 on 01/20 for Hb downtrend; GRAY, now improving
POD 13 robotic APR with VRAM flap
AFVSS
01/22- NGT removed. Xray showed mild to moderate gaseous distention of small bowel loops, slightly improved compared to previous abdominal radiographs.
01/23-CT ordered by ID. 4.5 x 3.8 x 10.7 cm hyperdensity left pelvic soft tissue along the posterior peritoneum which may represent postoperative hematoma. Subcutaneous port removed by IR.
�Antibiotics per infectious disease
�Continue TPN
-Will start on clears with Ensure today as a trial given his bowel function
�Continue to hold anticoagulation as he is still having some oozing and clotting in his perineal flap
-Recommend OOB, IS, appreciate PT, ambulate BID
� Continue ERVIN to bulb suction
-Will add tramadol for pain
-No role for interventional radiology at this time
� Appreciate plastic surgery; flap well-perfused and no concern for infection
� Appreciate cardiology, continue amio
� Appreciate hospitalist
Subjective Data
Subjective Data
Date of Service: January 24, 2025
Patient states he is very thirsty. He has much less bloated today. He had a lot of flatus in his bag this morning and bowel movements in the bag as well. Overall he feels much better today.
Objective Data
-
Vital Signs
Temp Pulse Resp BP Pulse Ox
98.1 F 102 15 156/96 95
01/24/25 08:00 01/24/25 06:00 01/24/25 06:00 01/24/25 06:00 01/23/25 20:00
Intake & Output
01/23/25 01/24/25 01/25/25
06:59 06:59 06:59
Intake Total 4297.6 / 4297.6 684 / 684
Output Total 1969 / 1970 190 / 1899 60
Balance 2327.6 / 2327.6 -1216 / -1216 -60 / -60
Intake:
IV fluids (Total) 2291.6 / 2291.6
Nss 1,000 ml @ 75 mls/hr IV . 975 / 975
[id number] AZEEM Rx#:[id number]
Nss 1,000 ml @ 75 mls/hr IV . 900 / 900
[id number] AZEEM Rx#:[id number]
amio 416.6 / 416.6
IV piggybacks 520 / 520
TPN/PPN 1426 / 1426 684 / 684
Amount instilled into Drain (
Total)
Right Lower Abdomen Alberto- 60
Martinez B
Output:
Liquid stool amount 200 / 200
Colostomy 200 / 200
Drain Output (Total) 295 / 295 50 / 50 60 / 60
Right Lower Abdomen Alberto- 20 / 20 30 / 30
Martinez A
Right Lower Abdomen [place]- 275 / 275 / 20 60 / 60
Martinez B
Urine, Voided 1675 / 1675 1650 / 1650
Lab Results
01/24/25 04:49
01/24/25 06:38
Physical Exam
-
General: No Acute Distress and AOx3
Abdomen: Soft, Distended (Mild, much improved) and Other (Colostomy warm and pink with function. ERVIN drain 1 serous, ERVIN drain 2 serosanguineous)
Rectal: Other (Rectal flap with oozing, clot extruded when pressed)
Incision: Clear, Dry, Intact
[2025-01-24] MEDS: ULTRAM 50 MG PO (11:25)
[2025-01-24 11:48] LABS: Glucose - Point of Care 126 mg/dl (70-99)
[2025-01-24] MEDS: LASIX 20 MG IV (13:27)
[2025-01-24] MEDS: VANCOCIN 200 IV (13:28)
[2025-01-24 14:16] LABS: Magnesium 2.2 mg/dl (1.6-2.3); Phosphorus 3.7 mg/dl (2.5-4.5)
--- NOTE | 2025-01-24 14:16 | W.PN.HOSP.TC ---
Today's Communication/Plan
-
IV antibiotics.
Follow temperature curve and WBC.
Clear liquid diet.
TPN.
Lasix
Hold anticoagulation monitor hemoglobin and wound/flap site for excessive bleeding.
Assessment / Plan
Assessment / Plan
Impression
Presentation with fever and abdominal pain.
Sepsis present on admission
MRSA bacteremia.
Left lower lobe pneumonia versus atelectasis.
Ileus.
SVT with transition to rapid A-fib.
Hypotension secondary to SVT/rapid A-fib.
Acute blood loss anemia.
Other conditions:
Status post robotic APR with perineal reconstruction on 01/11
Colorectal carcinoma status post chemo/radiation
Paroxysmal atrial fibrillation baseline anticoagulation with Eliquis
Essential hypertension
BPH
Hypothyroidism replacement
Right chest Chemo-Port in place
Plan
#MRSA bacteremia suspected secondary to infected wound.
#Sepsis secondary to pneumonia v. intra-abdominal infection postoperatively
-Presented as postoperative fever, s/p APR with perineal reconstruction on 01/11 for anorectal cancer
-Blood cultures x 2 on admission positive for MRSA; signs of pneumonia on x-ray as well as worsening ERVIN output
-No signs of infection near Chemo-Port or ostomy; CT A/P without signs of abscess here
-Was started on broad-spectrum antibiotics; have been transitioned to IV vancomycin alone by ID
-Repeat blood cultures obtained and negative. Fevers have resolved as of 01/19, remains with leukocytosis that is improved
-TTE negative for vegetation.
Repeat blood cultures negative to date
Repeat CT scan of the abdomen/pelvis on 01/23 with findings consistent of ill-defined right lower quadrant collection
As per discussion with colorectal surgery plan is to observe and treat with antibiotics with no indication for drain.
Chemo-Port had been removed on 01/23
-Continue IV vancomycin to complete total of 14 days of antibiotic
Monitor temperature curve and WBC
#Postoperative ileus
-Presented with abdomen pain; s/p NGT placed on 01/18
-Remains on strict n.p.o. status with NGT to low continuous wall suction
-Currently receiving Dilaudid for pain, will de-escalate at patient's request
-Bowel function improving with noted improved output through colostomy.
-Clear liquid diet initiated on 01/24.
-Continue TPN
#Acute blood loss anemia
Initially with hemorrhagic output through ERVIN drain and minimal hemorrhage from skin flap
Requiring blood transfusion 2 units given 01/20
Hemoglobin stabilized at 9.6
-Iron studies with evidence of anemia of chronic disease
Has been off anticoagulation.
#Acute kidney injury
-Suspect mild septic ATN; persistent elevation despite hemodynamic stability
-Creatinine normal at baseline, recent labs with creatinine 1.5-1.7 over 3 lab draw
-Currently on maintenance IV fluids; TPN started on 01/20 as well for nutrition
-Urine output has been adequate, no signs of obstructive pathology
-Continue to monitor BMP and UOP on maintenance IVF
-Avoid nephrotoxic agents
#Atrial fibrillation with RVR
-Nonvalvular; [id number] 3; presented as SVT that degenerated to AF
-Home regimen includes Eliquis, currently on hold due to surgical abdominal issues
-Was started on amiodarone drip with improvement to his rates, transitioned to full dose Lovenox for AC
-Initially on amiodarone drip.
-Heart rate stabilized.
-Continue IV Lopressor while n.p.o.
-Hold anticoagulation given surgical issues as above
#Acute on chronic hyponatremia
Improved with IV hydration.
Hypertensive with peripheral edema.
Will start Lasix and monitor.
#Anal cancer s/p robotic APR (01/11)
-Status post chemotherapy and surgical resection
-Currently with ostomy in place
-Colorectal surgery following
#BPH
-Remains on tamsulosin, no signs of urine retention
#Hypothyroidism
-Unclear cause, home regimen includes levothyroxine 100 mcg daily
-No signs or symptoms of thyroid dysfunction at this time (RVR due to critical illness)
DVT prophylaxis: SCDs
Diet: NPO, starting TPN 01/20
CODE STATUS: Full code
Anticipated Discharge: > 48 hours
Subjective/Interval History
-
Date of Service: January 24, 2025
Objective Data
-
Labs:
Laboratory Results
01/24/25 01/24/25 01/24/25
04:49 05:38 06:38
WBC 11.1 H
Hgb 9.6 L
Hct 29.3 L
Plt Count 495 H D
Sodium Cancelled Cancelled 138
Potassium Cancelled Cancelled 4.2
Chloride Cancelled Cancelled 106
Carbon Dioxide Cancelled Cancelled 28
BUN Cancelled Cancelled 25 H
Creatinine Cancelled Cancelled 1.3
Glucose Cancelled Cancelled 108 H
Calcium Cancelled Cancelled 8.6
Vital Signs:
Vital Signs
Temp Pulse Resp BP Pulse Ox
97.5 F 102 15 156/96 95
01/24/25 11:39 01/24/25 06:00 01/24/25 06:00 01/24/25 06:00 01/23/25 20:00
I&O
01/23/25 01/24/25 01/25/25
06:59 06:59 06:59
Intake Total 4297.6 / 4297.6 684 / 684
Output Total 1969 / 1969 190 / 1899 60 / 60
Balance 2327.6 / 2327.6 -1216 / -1216 -60 / -60
Physical Exam
-
General: Well Developed, No Apparent Distress and Appears Chronically Ill
HEENT: Normocephalic, Atraumatic, Moist Mucous Membranes and Anicteric
Respiratory: Clear to Auscultation and Non Labored Respirations
Cardiac: S1/S2, Irregular Rhythm and Tachycardic; Negative Murmur, Rub, JVD or Gallop
GI: Soft, Nondistended, Ostomy and Other (Mild general tenderness; absent bowel sounds; no peritoneal signs; bloody ERVIN drain output)
Musculoskeletal: No Clubbing, No Cyanosis and No Edema
Skin: Warm and Dry; Negative Rash
Neuro: AO x 3 and Nonfocal/Grossly Intact
Psych: Calm
--- NOTE | 2025-01-24 15:01 | CM ---
chef manager reviewed patient's chart, patient with percutaneous drain, and may need IV ABX, PT/OT are recommending skilled placement.
chef manager and met with patient today, and case work aide discussed recommendations from physical therapy, and patient does not want to go to the [facility], he wants to return to home with [facility] if possible.
Plan; Home with [facility] when stable.
--- NOTE | 2025-01-24 16:06 | PTCARENOTE ---
patient oob to a chair with PT/OT. tolerated 2 hrs. CHG cloth wipes completed with a full linen change. wound care completed. patient is on CLD tolerating with some minor abdominal bloating. colostomy positive for stool and flatus. tele downgrade
orders placed and noted. cont to monitor
[2025-01-24 17:22] LABS: Glucose - Point of Care 109 mg/dl (70-99)
--- NOTE | 2025-01-24 19:26 | PTCARENOTE ---
Received report from [facility] [employer]CRA[employer] MAINTENANCE ENGINEER @ [phone]. Brought patient up to Rm 333 in bed. Pt aaox3, able to make needs known. See worklist for assessment. Tele monitor #15 applied, pt afib on monitor, HR 100-110s.
[2025-01-24] MEDS: FLOMAX 0.4 MG PO (21:27)
[2025-01-24] MEDS: Parenteral Nutrition, Central 1360 IV (21:29)
[2025-01-25] VITALS (7 sets, daily range): BP systolic 129–152; BP diastolic 64–82; PULSE 67; O2SAT 98–99; BMI 28.7
[2025-01-25] MEDS: MORPHINE SULFATE 1.5 MG IV ×2 (00:18→23:39)
[2025-01-25 00:28] LABS: Glucose - Point of Care 148 mg/dl (70-99)
[2025-01-25] MEDS: AMBIEN 2.5 MG PO ×2 (00:32→20:29)
[2025-01-25] MEDS: LOPRESSOR 2.5 MG IV ×4 (02:22→15:46)
[2025-01-25 06:03] LABS: Glucose - Point of Care 145 mg/dl (70-99)
[2025-01-25] MEDS: SYNTHROID 100 MCG PO (06:15)
[2025-01-25] MEDS: PROTONIX IV 40 MG IV (08:04)
[2025-01-25] MEDS: NSS (PRESERVATIVE FREE) 10 ML IV (08:04)
[2025-01-25 08:06] LABS: % Basophils 0.3 % (0-2); % Eosinophils 2.9 % (0-6); % Immature Granulocytes 1.8 % (0-0.5); % Lymphocytes 3.9 % (20.5-51.1); % Neutrophils 84.1 % (42.2-75.2); Absolute Eosinophils 0.4 10^3/uL (0-0.7); Absolute Immature Granulocytes 0.2 10^3/uL (0-0.05); Absolute Lymphocytes 0.5 10^3/uL (1.2-3.4); Absolute Monocytes 0.8 10^3/uL (0.1-0.6); Hematocrit 25.9 % (39.0-52.0); Hemoglobin 8.8 g/dL (13.0-18.0); Mean Corpuscular Hgb 32.4 pg (27.0-31.0); Mean Corpuscular Volume 95.2 fL (80.0-94.0); Mean Platelet Volume 8.9 fL (7.4-10.4); Nucleated Red Blood Cells % 0 % (-); Platelet Count 440 10^3/uL (130-400); Red Blood Cell Count 2.72 10^6/uL (4.70-6.10); Red Cell Dist. Width 14.5 % (11.5-14.5); White Blood Cell Count 11.9 10^3/uL (4.8-10.8)
[2025-01-25 08:25] LABS: Vancomycin Random 12.4 ug/ml
--- NOTE | 2025-01-25 09:18 | W.PN.CRS1 ---
Today's Communication / Plan
-
as below
Assessment/Plan
-
74-year-old male with PMH of A-fib (s/p cardioversion 2022, on Eliquis), HTN, hypothyroidism and anal adenocarcinoma, s/p DEIDRE with complete response, complicated by local recurrence, who underwent robotic APR, VRAM flap and end-colostomy on 01/11; he
did well post-operatively and was discharged on 01/16; however, he developed fever and chills and presented back to the ED on 01/17; WBC 11.5, Hb stable, CR 0.8, UA negative, CXR�concerning for left lower lobe pneumonia; CTAP showing postoperative
changes, no evident infections or abscess; afib with RVR, better controlled with amio, still awaiting return of bowel function; s/p pRBC x2 on 01/20 for Hb downtrend; GRAY, now improving
POD 14 robotic APR with VRAM flap
AFVSS
WBC 11.9 from 11.1, Hb 8.8 from 9.6, BMP pending
� SIRS response on admission
�Blood cultures 01/16 MRSA, 01/18 - ngtd, 01/20 - ngtd
�Initial CXR with concern for left pneumonia, sputum culture negative; repeat CXR showed no consolidations
� ERVIN from subQ culture showed MRSA
�No intra-abdominal abscess on CT; repeat CT showing pelvic hematoma
� Most likely, there was a brewing infection in the subcutaneous space of the midline incision; the fluid is now draining clear and there is no erythema or breakdown of the midline incision; monitor ERVIN output; once less than 20mL/day, will remove
(if greater than 20mL/day, higher risk of developing seroma)
�Appreciate ID; continue IV vanc
� Postoperative ileus, now resolved
� Advance to full liquids; continue TPN until tolerating solid food
� Ok for PO meds
� Continue pain control
�Continue to hold Eliquis due to bloody drainage from the perineal wound and slight drop in Hb
� Encourage IS, OOB; appreciate PT
�Appreciate cardiology
�Appreciate hospitalist
Subjective Data
Subjective Data
Date of Service: January 25, 2025
No overnight events.
Pain controlled.
Denies nausea/vomiting. Tolerating diet.
+ Ostomy function
Objective Data
-
Vital Signs
Temp Pulse Resp BP Pulse Ox
97.9 F 66 19 134/75 97
01/25/25 08:17 01/25/25 08:17 01/25/25 08:17 01/25/25 08:17 01/25/25 08:17
Intake & Output
01/24/25 01/25/25 01/26/25
06:59 06:59 06:59
Intake Total 684 / 684 2864 / 2864
Output Total 1900 / 1900 2135 / 2135 250 / 250
Balance -1216 / -1216 729 / 729 -250 / -250
Intake:
Oral fluids 1330 / 1330
IV piggybacks 250 / 250
TPN/PPN 684 / 684 1284 / 1284
Output:
Liquid stool amount 200 / 200
Colostomy 200 / 200
Drain Output (Total) 50 / 50 185 / 185
Right Lower Abdomen Alberto- 30 / 30 25 / 25
Martinez A
Right Lower Abdomen Alber[place]- 20 / 20 160 / 160
Martinez B
Urine, Voided 1650 / 1650 1950 / 1950 250 / 250
Lab Results
01/25/25 07:52
Physical Exam
-
General: No Acute Distress and AOx3
HEENT: Grossly Normal
Abdomen: Soft, Distended (Mildly distended, mild tympany), Tender (Appropriately tender near midline incision), No Guarding, No Rebound and Other (ERVIN subQ-160 mL serous output, ERVIN pelvis-25 serosanguineous output)
Rectal: Other (Perineal flap well-perfused, good cap refill, no purulent drainage; small posterior opening with serosang drainage)
Skin: Warm and Dry
Wound: No Signs of Infection, No Skin Erythema and Other (Midline incision well-approximated without erythema or drainage)
--- NOTE | 2025-01-25 09:22 | PHA.VAN.FU ---
Vancomycin Assessment / Plan
- Assessment
Renal Function: SCR Increasing
WBC's are: Trending Up
In the past 24 hrs, patient has been: Afebrile
- Assessment - Therapeutic Drug Monitoring
Random Level: 12.4 - drawn ~18.5H after previous dose of 1000mg
- Dosing Plan
Dosing by Level: Re-dose today (Vanc 1000mg)
- Monitoring Plan
Random Level: 01/26 0600
- Follow Up
Pharmacy will continue to follow.
Vancomycin Follow UP
- -
Patient Age: 74
Patient Sex: Male
Vancomycin Day #: 9
Indication: Pulmonary/Respiratory
Requesting Provider: Dr. Gomez / Steve
Pertinent Antimicrobial Allergies:
NKDA
Height / Weight:
Height 6 ft
Actual Weight 96.026 kg
Pertinent Past Medical History: Colorectal carcinoma
- Vital Signs / Lab Results
Temp Pulse Resp BP Pulse Ox
97.9 F 66 19 134/75 97
01/25/25 08:17 01/25/25 08:17 01/25/25 08:17 01/25/25 08:17 01/25/25 08:17
Lab Results - Hematology
01/24/25 01/25/25
04:49 07:52
WBC 11.1 H 11.9 H
Lab Results - Chemistry
01/23/25 01/24/25 01/24/25
05:16 04:49 05:38
BUN 24 H Cancelled Cancelled
Creatinine 1.2 Cancelled Cancelled
Estimated Creat Clear 57 Cancelled Cancelled
01/24/25
06:38
BUN 25 H
Creatinine 1.3
Estimated Creat Clear 53
Microbiology Results
01/20/25 05:18 Blood Culture - Final
Blood/Venous No Growth - Final Report
01/20/25 05:18 Blood Culture - Final
Blood/Venous No Growth - Final Report
01/18/25 12:36 Blood Culture - Final
Blood/Venous No Growth - Final Report
01/18/25 12:36 Blood Culture - Final
Blood/Venous No Growth - Final Report
01/16/25 12:56 Blood Culture - Final
Blood/Venous Staph aureus MRSA
Gram Stain - Final
01/16/25 12:56 Blood Culture - Final
Blood/Venous Staph aureus MRSA
Gram Stain - Final
Therapeutic Drug Monitoring
Vancomycin Peak 24.2 ug/ml (18-26) 01/18/25 21:18
Vancomycin Trough 17.8 ug/ml (5-20) 01/19/25 04:48
Random Vancomycin 12.4 ug/ml 01/25/25 07:52
[2025-01-25 09:37] LABS: Blood Urea Nitrogen 27 mg/dl (9-20); Calcium 8.6 mg/dl (8.4-10.2); Carbon Dioxide 27 mmol/L (22-30); Chloride 104 mmol/L (98-107); Estimated Creatinine Clearance 49 ml/min; Glucose 152 mg/dl (70-99); Potassium 3.9 mmol/L (3.5-5.1); Sodium 134 mmol/L (135-145); eGFR 52.09
[2025-01-25] MEDS: VANCOCIN 200 IV (11:40)
[2025-01-25 11:43] LABS: Glucose - Point of Care 124 mg/dl (70-99)
[2025-01-25] MEDS: ULTRAM 50 MG PO ×2 (11:55→20:28)
--- NOTE | 2025-01-25 12:41 | WOUNDNOTE ---
WOC RN note: Patient sitting in chair with air chair cushion. Air overlay applied on bed. Stoma less swollen, pink and functioning for liquid stool and gas. Slight mucocutaneous separation at 9 o'clock. Skin on heels intact. RN Carmenza changed artur
flap dressing this morning. Colorectal following. Reinstructed patient appliance change using Joe wafer # [id number], Shaista seal and Joe pouch # [id number]. Ostomy supplies placed in room. Next appliance change due Tuesday. Will follow as needed.
Nursing care assist with routine ostomy care.
--- NOTE | 2025-01-25 14:25 | W.PN.ID1 ---
Date of Service
Date of Service: January 25, 2025
Today's Communication
- has PICC
- plan 2 weeks of vancomycin given bacteremia day 10 of 14; if SQ drain cannot be removed prior to completion of vancomycin then can continue on doxycycline beyond the 14 day course
Assessment / Plan
MRSA Bacteremia x 2 sets
Fever - resolved
Afib
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
- 3/7 blood cultures tentatively clearing
- TTE no gross vege
- drain culture also with MRSA
- has PICC
- plan 2 weeks of vancomycin given bacteremia day 10 of 14; if SQ drain cannot be removed prior to completion of vancomycin then can continue on doxycycline beyond the 14 day course
Chief Complaint
-: Bacteremia
Subjective / Review of Systems
afebrile
bp stable
Vital Signs / Physical Exam
Vital Signs
Vital Signs
Temp Pulse Resp BP Pulse Ox
97.9 F 71 19 145/81 97
01/25/25 08:17 01/25/25 11:46 01/25/25 08:17 01/25/25 11:46 01/25/25 08:17
Physical Exam
Constitutional: No Acute Distress and Chronically Ill
Cardiovascular: Regular Rate and S1/S2; Negative Murmur or Rub
Pulmonary: Clear and Symmetric; Negative Wheezes or Rales
Gastrointestinal: Soft, Non Tender, Non Distended and Normal Bowel Sounds
Skin: Warm and Dry; Negative Rash or Jaundice
Objective Data
Lab Data
Lab Results
01/25/25 07:52
01/25/25 09:12
PT 14.6 Sec (11.4-14.6) 01/17/25 12:34
INR 1.09 01/17/25 12:34
APTT 39.5 Sec (23.4-35.0) H 01/17/25 12:34
Estimated Creat Clear 49 ml/min 01/25/25 09:12
Lactic Acid 1.1 mmol/L (0.7-2.0) 01/17/25 16:37
Total Bilirubin 0.8 mg/dl (0.2-1.3) 01/22/25 05:00
AST 24 U/L (17-59) 01/22/25 05:00
ALT 19 U/L (0-50) 01/22/25 05:00
Alkaline Phosphatase 110 U/L (38-126) 01/22/25 05:00
Most recent labs reviewed.
Micro Results:
01/20/25 05:18 Blood Culture - Final
Blood/Venous No Growth - Final Report
01/20/25 05:18 Blood Culture - Final
Blood/Venous No Growth - Final Report
01/18/25 12:36 Blood Culture - Final
Blood/Venous No Growth - Final Report
01/18/25 12:36 Blood Culture - Final
Blood/Venous No Growth - Final Report
01/16/25 12:56 Blood Culture - Final
Blood/Venous Staph aureus MRSA
Gram Stain - Final
01/16/25 12:56 Blood Culture - Final
Blood/Venous Staph aureus MRSA
Gram Stain - Final
01/19/25 18:26 Body Fluid Culture - Final
Fluid Staph aureus MRSA
Gram Stain - Final
01/19/25 22:26 Respiratory Culture - Final
Sputum Gram Stain - Final
01/16/25 12:57 Urine Culture - Final
Urine NO GROWTH
01/16/25 22:39 MRSA Screen - Final
Nose Staph aureus MRSA
01/16/25 12:57 Influenza Types A & B ([facility]EL[facility]) - Final
Nasal Swab Negative for Influenza A & B, NAAT
Negative results must be combined with clinical observations
and patient history.
Nucleic Acid Amplification test (NAAT)performed on the
Fast Fi[employer] platform.
01/19/35 CXR: There is minimal bibasilar opacities with likely small bilateral pleural effusions, similar to prior
01/16/25 CT a/p: There is a percutaneous drainage catheter entering the lateral right abdominal wall. The tip rests in the right pelvis posteriorly.There is a second drainage catheter in the subcutaneous tissues with the tip in midline the upper
anterior abdominal wall.
--- NOTE | 2025-01-25 14:48 | W.PN.CD ---
Addendum entered and electronically signed by TAYE Love 01/25/25 15:50:
Discussed below with Dr. Coker- Transition to PO metoprolol- will hold off on ordering Lasix
Original Note:
Today's Communication / Plan
-
-resume Eliquis when able (per surgery still need to hold due to decreased hgb and bloody drainage)
-now in SR. Continue metoprolol and follow telemetry.
-monitor volume- may give another dose lasix
Impression / Plan
-
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
developing sepsis. Cardiology consulted for tachycardia with heart rates of 235 bpm (narrow complex).
MRSA Staph Aureus bacteremia/sepsis
- Presumed source is subcutaneous abscess with ERVIN drain purulent fluid output
- Continue antibiotics and recommendations as per ID. Plan is for 14 days IV abx
- Transthoracic echocardiogram unremarkable
PSVT, perhaps an atrial flutter or SVT (see 12 lead EKG 01/17/2025 at 1225 hrs) => degenerated to AFib
PAF with RVR (he also had typical Atrial Flutter last admission as well)
-This episode precipitated by sepsis
-[id number] 3 (age x 2, hypertension)
-Anticoagulation: On Eliquis usually as outpatient => On hold now (required 2U pRBCs on 01/20 after Lovenox). As per colorectal surgery note 01/23/2025. Since there was some evidence of blood from flap area.
-Has used pill in the pocket Flecainide for many years. In past just had highly symptomatic episodes about 1 time a year . No more use of flecainide at this time
-Patient was on amiodarone drip which was last given 01/21/2025 now remains on metoprolol IV.
-He is now in SR
Edema up through thighs:
- Now off IV fluids. I's and O's appear negative over the last 24 hours
-s/p lasix. May benefit from another dose. Monitor volume.
Colostomy:
-NGT removed 01/23
-Management as per Surgery.
Anal adenocarcinoma, S/p combined therapy (chemo/surgery):
-Status-post surgical resection on 01/11/2025.
-Recommendations as per Surgery.
Hypertension
-improving
-on ARB as OP- resume when appropriate
Subjective:
Seems to be feeling well. No SOB. LE edema still present.
Physical Exam
Vital Signs/Labs
Vital Signs
Temp Pulse Resp BP Pulse Ox
97.9 F 67 18 140/82 97
01/25/25 14:42 01/25/25 14:42 01/25/25 14:42 01/25/25 14:42 01/25/25 14:42
01/24/25 01/25/25 01/26/25
06:59 06:59 06:59
Actual Weight 94.6 kg 96.026 kg
01/25/25 07:52
01/25/25 09:12
PT 14.6 Sec (11.4-14.6) 01/17/25 12:34
INR 1.09 01/17/25 12:34
APTT 39.5 Sec (23.4-35.0) H 01/17/25 12:34
Magnesium 2.2 mg/dl (1.6-2.3) 01/24/25 06:38
Triglycerides 115 mg/dl (10-149) 01/21/25 04:24
Physical Exam
Constitutional: No acute distress
EENT: Anicteric
Cardiovascular: Rhythm & rate is regular and Pedal edema present (moderate BLE edema)
Respiratory: Respiratory effort normal and Lungs clear to auscul.
Neuro/Psych: AO x 3
Other: Skin
Data Reviewed
-
Date of Service: January 25, 2025
EKG: Other ()
Labs: Labs Reviewed by me
--- NOTE | 2025-01-25 15:27 | W.PN.HOSP.TC ---
Today's Communication/Plan
-
Advance to full liquid
continue TPN
Hold Eliquis as per surgery
Repeat Lasix today
Flomax
Blader scan
Assessment / Plan
Assessment / Plan
Impression
Presentation with fever and abdominal pain.
Sepsis present on admission
MRSA bacteremia.
Left lower lobe pneumonia versus atelectasis.
Ileus.
SVT with transition to rapid A-fib.
Hypotension secondary to SVT/rapid A-fib.
Acute blood loss anemia.
Other conditions:
Status post robotic APR with perineal reconstruction on 01/11
Colorectal carcinoma status post chemo/radiation
Paroxysmal atrial fibrillation baseline anticoagulation with Eliquis
Essential hypertension
BPH
Hypothyroidism replacement
Right chest Chemo-Port in place
Plan
#MRSA bacteremia suspected secondary to infected wound.
#Sepsis secondary to pneumonia v. intra-abdominal infection postoperatively
-Presented as postoperative fever, s/p APR with perineal reconstruction on 01/11 for anorectal cancer
-Blood cultures x 2 on admission positive for MRSA; signs of pneumonia on x-ray as well as worsening ERVIN output
-No signs of infection near Chemo-Port or ostomy; CT A/P without signs of abscess here
-Was started on broad-spectrum antibiotics; have been transitioned to IV vancomycin alone by ID
-Repeat blood cultures obtained and negative. Fevers have resolved as of 01/19, remains with leukocytosis that is improved
-TTE negative for vegetation.
Repeat blood cultures negative to date
Repeat CT scan of the abdomen/pelvis on 01/23 with findings consistent of ill-defined right lower quadrant collection
As per discussion with colorectal surgery plan is to observe and treat with antibiotics with no indication for drain.
Chemo-Port had been removed on 01/23
-Continue IV vancomycin to complete total of 14 days of antibiotic
Monitor temperature curve and WBC
#Postoperative ileus
-Presented with abdomen pain; s/p NGT placed on 01/18
-Remains on strict n.p.o. status with NGT to low continuous wall suction
-Currently receiving Dilaudid for pain, will de-escalate at patient's request
-Bowel function improving with noted improved output through colostomy.
-Full liquid diet initiated on 01/25.
-Continue TPN until stable oral intake
#Acute blood loss anemia
Initially with hemorrhagic output through ERVIN drain and minimal hemorrhage from skin flap
Requiring blood transfusion 2 units given 01/20
Hemoglobin stabilized at 9.6
-Iron studies with evidence of anemia of chronic disease
Has been off anticoagulation.
#Acute kidney injury
-Suspect mild septic ATN; persistent elevation despite hemodynamic stability
-Creatinine normal at baseline, recent labs with creatinine 1.5-1.7 over 3 lab draw
-Currently on maintenance IV fluids; TPN started on 01/20 as well for nutrition
-Urine output has been adequate, no signs of obstructive pathology
-Continue to monitor BMP and UOP on maintenance IVF
-Avoid nephrotoxic agents
#Atrial fibrillation with RVR
-Nonvalvular; [id number] 3; presented as SVT that degenerated to AF
-Home regimen includes Eliquis, currently on hold due to surgical abdominal issues
-Was started on amiodarone drip with improvement to his rates, transitioned to full dose Lovenox for AC
-Initially on amiodarone drip.
-Heart rate stabilized.
-Continue IV Lopressor while n.p.o.
-Hold anticoagulation given surgical issues as above
#Acute on chronic hyponatremia
Improved with IV hydration.
Hypertensive with peripheral edema.
Will start Lasix and monitor.
#Anal cancer s/p robotic APR (01/11)
-Status post chemotherapy and surgical resection
-Currently with ostomy in place
-Colorectal surgery following
#BPH
-Remains on tamsulosin, no signs of urine retention
#Hypothyroidism
-Unclear cause, home regimen includes levothyroxine 100 mcg daily
-No signs or symptoms of thyroid dysfunction at this time (RVR due to critical illness)
DVT prophylaxis: SCDs
Diet: NPO, starting TPN 01/20
CODE STATUS: Full code
Anticipated Discharge: > 48 hours
Subjective/Interval History
-
Date of Service: January 25, 2025
Objective Data
-
Labs:
Laboratory Results
01/25/25 01/25/25
07:52 09:12
WBC 11.9 H
Hgb 8.8 L
Hct 25.9 L
Plt Count 440 H
Sodium 134 L
Potassium 3.9
Chloride 104
Carbon Dioxide 27
BUN 27 H
Creatinine 1.4 H
Glucose 152 H
Calcium 8.6
Vital Signs:
Vital Signs
Temp Pulse Resp BP Pulse Ox
97.9 F 67 18 140/82 97
01/25/25 14:42 01/25/25 14:42 01/25/25 14:42 01/25/25 14:42 01/25/25 14:42
I&O
01/24/25 01/25/25 01/26/25
06:59 06:59 06:59
Intake Total 684 / 684 2864 / 2864
Output Total 1900 / 1900 2135 / 2135 450 / 450
Balance -1216 / -1216 729 / 729 -450 / -450
Physical Exam
-
General: Well Developed, No Apparent Distress and Appears Chronically Ill
HEENT: Normocephalic, Atraumatic, Moist Mucous Membranes and Anicteric
Respiratory: Clear to Auscultation and Non Labored Respirations
Cardiac: S1/S2, Irregular Rhythm and Tachycardic; Negative Murmur, Rub, JVD or Gallop
GI: Soft, Nondistended, Ostomy and Other (Mild general tenderness; absent bowel sounds; no peritoneal signs; bloody ERVIN drain output)
Musculoskeletal: No Clubbing, No Cyanosis and No Edema
Skin: Warm and Dry; Negative Rash
Neuro: AO x 3 and Nonfocal/Grossly Intact
Psych: Calm
[2025-01-25] MEDS: LASIX 20 MG IV (15:47)
[2025-01-25 18:18] LABS: Glucose - Point of Care 154 mg/dl (70-99)
[2025-01-25] MEDS: LOPRESSOR 12.5 MG PO (20:29)
[2025-01-25] MEDS: Parenteral Nutrition, Central 1360 IV (20:35)
[2025-01-25] MEDS: FLOMAX 0.4 MG PO (20:35)
[2025-01-25 23:43] LABS: Glucose - Point of Care 130 mg/dl (70-99)
[2025-01-26] VITALS (7 sets, daily range): BP systolic 123–175; BP diastolic 66–88; BMI 28.9
[2025-01-26 06:23] LABS: Glucose - Point of Care 137 mg/dl (70-99)
[2025-01-26] MEDS: SYNTHROID 100 MCG PO (06:23)
[2025-01-26] MEDS: ULTRAM 50 MG PO (06:39)
--- NOTE | 2025-01-26 08:20 | W.PN.HOSP.TC ---
Today's Communication/Plan
-
see bold
Assessment / Plan
Assessment / Plan
Impression
Presentation with fever and abdominal pain.
Sepsis present on admission
MRSA bacteremia.
Left lower lobe pneumonia versus atelectasis.
Ileus.
SVT with transition to rapid A-fib.
Hypotension secondary to SVT/rapid A-fib.
Acute blood loss anemia.
Other conditions:
Status post robotic APR with perineal reconstruction on 01/11
Colorectal carcinoma status post chemo/radiation
Paroxysmal atrial fibrillation baseline anticoagulation with Eliquis
Essential hypertension
BPH
Hypothyroidism replacement
Right chest Chemo-Port in place
Plan
#MRSA bacteremia suspected secondary to infected wound.
#Sepsis secondary to pneumonia v. intra-abdominal infection postoperatively
-Presented as postoperative fever, s/p APR with perineal reconstruction on 01/11 for anorectal cancer
-Blood cultures x 2 on admission positive for MRSA; signs of pneumonia on x-ray as well as worsening ERVIN output
-No signs of infection near Chemo-Port or ostomy; CT A/P without signs of abscess here
-Was started on broad-spectrum antibiotics; have been transitioned to IV vancomycin alone by ID
-Repeat blood cultures obtained and negative. Fevers have resolved as of 01/19, remains with leukocytosis that is improved
-TTE negative for vegetation.
Repeat blood cultures negative to date
Repeat CT scan of the abdomen/pelvis on 01/23 with findings consistent of ill-defined right lower quadrant collection
As per discussion with colorectal surgery plan is to observe and treat with antibiotics with no indication for drain.
Chemo-Port had been removed on 01/23
-Continue IV vancomycin to complete total of 14 days of antibiotic as per ID
Monitor temperature curve and WBC
#Postoperative ileus
-Presented with abdomen pain; s/p NGT placed on 01/18
-Currently receiving Dilaudid for pain, will de-escalate at patient's request
-Bowel function improving with noted improved output through colostomy.
-Full liquid diet initiated on 01/25.
-Continue TPN until stable oral intake
#Acute blood loss anemia
Initially with hemorrhagic output through ERVIN drain and minimal hemorrhage from skin flap
Requiring blood transfusion 2 units given 01/20
-Iron studies with evidence of anemia of chronic disease
-Has been off anticoagulation.
-Trend hemoglobin, transfuse for hemoglobin less than 7.0
#Acute kidney injury
-Suspect mild septic ATN; persistent elevation despite hemodynamic stability
-Creatinine normal at baseline, recent labs with creatinine 1.5-1.7 over 3 lab draw
-Currently on maintenance IV fluids; TPN started on 01/20 as well for nutrition
-Urine output has been adequate, no signs of obstructive pathology
-Continue to monitor BMP and UOP on maintenance IVF
-Avoid nephrotoxic agents
#Atrial fibrillation with RVR
-Nonvalvular; [id number] 3; presented as SVT that degenerated to AF
-Home regimen includes Eliquis, currently on hold due to surgical abdominal issues
-Status post IV amiodarone drip
-Cardiology following, continue metoprolol tartrate 12.5 mg twice a day
#Acute on chronic hyponatremia
Improved with IV hydration.
Hypertensive with peripheral edema.
Will start Lasix and monitor.
#Anal cancer s/p robotic APR (01/11)
-Status post chemotherapy and surgical resection
-Currently with ostomy in place
-Colorectal surgery following
#BPH
-Remains on tamsulosin, no signs of urine retention
#Hypothyroidism
-Unclear cause, home regimen includes levothyroxine 100 mcg daily
-No signs or symptoms of thyroid dysfunction at this time (RVR due to critical illness)
#Neuropathy
-Check B12 levels
DVT prophylaxis�SCDs
Full code
Total time spent to see the patient on the floor, examine the patient, review data and lab results, discuss treatment plan with patient, nursing staff around 51 minutes.
Physical Exam
General: No acute distress
HEENT: Normocephalic, Atraumatic, EOMI, MMM
Respiratory: Clear to Auscultation bilaterally
Cardiac: Normal S1/S2, Regular Rate and Rhythm
GI: Soft, mildly distended, appropriately tender around incision site, ERVIN drains in place
Extremities: No Clubbing, Cyanosis, or Edema
Neuro: Nonfocal/Grossly Intact
Psych: Calm, Cooperative
Derm: No Visible lesions
Anticipated Discharge: > 48 hours
Subjective/Interval History
-
Date of Service: January 26, 2025
Patient complains of neuropathy. He has dyspnea with activity and cough. No fever, no vomiting. No chest pain.
Objective Data
-
Labs:
Laboratory Results
01/26/25
07:49
WBC Pending
Hgb Pending
Hct Pending
Plt Count Pending
Sodium Pending
Potassium Pending
Chloride Pending
Carbon Dioxide Pending
BUN Pending
Creatinine Pending
Glucose Pending
Calcium Pending
Vital Signs:
Vital Signs
Temp Pulse Resp BP Pulse Ox
98.9 F 69 16 142/72 94
01/26/25 07:42 01/26/25 07:42 01/26/25 07:42 01/26/25 07:42 01/26/25 07:42
I&O
01/25/25 01/26/25 01/27/25
06:59 06:59 06:59
Intake Total 2864 / 2864
Output Total 2134 / 2134 217 / 217
Balance 729 / 729 -2175 / -217
[2025-01-26 09:13] LABS: % Basophils 0.3 % (0-2); % Eosinophils 2.9 % (0-6); % Immature Granulocytes 1.2 % (0-0.5); % Lymphocytes 3.9 % (20.5-51.1); % Monocytes 9.3 % (1.7-9.3); % Neutrophils 82.4 % (42.2-75.2); Absolute Eosinophils 0.3 10^3/uL (0-0.7); Absolute Immature Granulocytes 0.1 10^3/uL (0-0.05); Absolute Lymphocytes 0.5 10^3/uL (1.2-3.4); Absolute Monocytes 1.1 10^3/uL (0.1-0.6); Absolute Neutrophils 9.6 10^3/uL (1.4-6.5); Hematocrit 24.3 % (39.0-52.0); Hemoglobin 8.3 g/dL (13.0-18.0); Mean Corp Hgb Conc. 34.2 g/dL (33.0-37.0); Mean Corpuscular Hgb 32.8 pg (27.0-31.0); Mean Platelet Volume 9.2 fL (7.4-10.4); Nucleated Red Blood Cells % 0 % (-); Platelet Count 423 10^3/uL (130-400); Red Blood Cell Count 2.53 10^6/uL (4.70-6.10); Red Cell Dist. Width 13.9 % (11.5-14.5); White Blood Cell Count 11.7 10^3/uL (4.8-10.8)
[2025-01-26] MEDS: NSS (PRESERVATIVE FREE) 10 ML IV (09:17)
[2025-01-26] MEDS: PROTONIX IV 40 MG IV (09:20)
[2025-01-26] MEDS: LOPRESSOR 12.5 MG PO ×2 (09:20→21:45)
[2025-01-26 09:38] LABS: Blood Urea Nitrogen 28 mg/dl (9-20); Calcium 8.1 mg/dl (8.4-10.2); Carbon Dioxide 27 mmol/L (22-30); Chloride 101 mmol/L (98-107); Estimated Creatinine Clearance 49 ml/min; Glucose 105 mg/dl (70-99); Potassium 4.5 mmol/L (3.5-5.1); Sodium 132 mmol/L (135-145); eGFR 52.09
[2025-01-26 09:50] LABS: Vancomycin Random 12.6 ug/ml
--- NOTE | 2025-01-26 11:10 | W.PN.CD ---
Addendum entered and electronically signed by Leo Coker MD 01/26/25 14:04:
I saw and examined the patient.
The GRAPHIC EDITOR's note was reviewed and I agree with the note.
Patient currently comfortable tolerating advancement in diet. Mild abdominal distention but otherwise feeling well. He still has significant lower extremity edema but has issues with urination. Would consider additional Lasix but would need to
consider how he will tolerate this with his urinary issues. Would get input from primary team prior to ordering.
PAF currently stable patient had few brief runs of narrow complex rhythm 4-8 beats asymptomatic continue low-dose beta-sean. We have been cautious with rate slowing meds since patient had sinus bradycardia preoperatively.
Eliquis remains on hold until safe from a postoperative standpoint and anemia is stable
Original Note:
Today's Communication / Plan
-
-continue metoprolol and monitor telemetry
-resume Eliquis when safe per surgery (not yet as hgb continues to drop)
Impression / Plan
-
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
developing sepsis. Cardiology consulted for tachycardia with heart rates of 235 bpm (narrow complex).
MRSA Staph Aureus bacteremia/sepsis
- Presumed source is subcutaneous abscess with ERVIN drain purulent fluid output
- Continue antibiotics and recommendations as per ID. Plan is for 14 days IV abx
- Transthoracic echocardiogram unremarkable
PSVT, perhaps an atrial flutter or SVT (see 12 lead EKG 01/17/2025 at 1225 hrs) => degenerated to AFib
PAF with RVR (he also had typical Atrial Flutter last admission as well)
-This episode precipitated by sepsis
-[id number] 3 (age x 2, hypertension)
-Anticoagulation: On Eliquis usually as outpatient => On hold now (required 2U pRBCs on 01/20 after Lovenox). Resume when safe per surgery- not yet as hgb continues to drop.
-Has used pill in the pocket Flecainide for many years. In past just had highly symptomatic episodes about 1 time a year . No more use of flecainide at this time
-Patient was on amiodarone drip which was last given 01/21/2025. He was then transitioned to metoprolol IV, which was changed to metoprolol PO yesterday, which he is tolerating. Hx bradycardia, but this is stable on monitor.
-He is now in SR, no palpitations
Edema up through thighs:
-s/p 2 doses IV lasix, edema still remains
Colostomy:
-NGT removed 01/23
-Management as per Surgery.
Anal adenocarcinoma, S/p combined therapy (chemo/surgery):
-Status-post surgical resection on 01/11/2025.
-Recommendations as per Surgery.
Hypertension
-improving
-on ARB as OP- resume when appropriate
Subjective:
No palpitations. LE edema still present.
Physical Exam
Vital Signs/Labs
Vital Signs
Temp Pulse Resp BP Pulse Ox
98.9 F 69 16 142/72 94
01/26/25 07:42 01/26/25 07:42 01/26/25 07:42 01/26/25 07:42 01/26/25 10:44
01/25/25 01/26/25 01/27/25
06:59 06:59 06:59
Actual Weight 96.026 kg 96.445 kg
01/26/25 07:49
PT 14.6 Sec (11.4-14.6) 01/17/25 12:34
INR 1.09 01/17/25 12:34
APTT 39.5 Sec (23.4-35.0) H 01/17/25 12:34
Magnesium 2.2 mg/dl (1.6-2.3) 01/24/25 06:38
Triglycerides 115 mg/dl (10-149) 01/21/25 04:24
Physical Exam
Constitutional: No acute distress
EENT: Anicteric
Cardiovascular: Rhythm & rate is regular
Respiratory: Respiratory effort normal and Lungs clear to auscul.
Neuro/Psych: AO x 3
Data Reviewed
-
Date of Service: January 26, 2025
EKG: Other (SR)
Labs: Labs Reviewed by me
--- NOTE | 2025-01-26 11:18 | PHA.VAN.FU ---
Vancomycin Assessment / Plan
- Assessment
Renal Function: Stable
WBC's are: Stable
In the past 24 hrs, patient has been: Afebrile
- Assessment - Therapeutic Drug Monitoring
Random Level: 12.6 - DRAWN ~19 HOURS AFTER PREVIOUS DOSE OF 1000MG
- Dosing Plan
Dosing by Level: Re-dose today (VANCO 1000MG X1)
- Monitoring Plan
Random Level: 01/27 @0600
MRSA Screen: Ordered per protocol
- Follow Up
Pharmacy will continue to follow.
Vancomycin Follow UP
- -
Patient Age: 74
Patient Sex: Male
Vancomycin Day #: 10
Indication: Pulmonary/Respiratory
Requesting Provider: Dr. Gomez / Steve
Pertinent Antimicrobial Allergies:
NKDA
Height / Weight:
Height 6 ft
Actual Weight 96.445 kg
Pertinent Past Medical History: Colorectal carcinoma
- Vital Signs / Lab Results
Temp Pulse Resp BP Pulse Ox
98.9 F 69 16 142/72 94
01/26/25 07:42 01/26/25 07:42 01/26/25 07:42 01/26/25 07:42 01/26/25 10:44
Lab Results - Hematology
01/24/25 01/25/25 01/26/25
04:49 07:52 07:49
WBC 11.1 H 11.9 H 11.7 H
Lab Results - Chemistry
01/24/25 01/24/25 01/24/25
04:49 05:38 06:38
BUN Cancelled Cancelled 25 H
Creatinine Cancelled Cancelled 1.3
Estimated Creat Clear Cancelled Cancelled 53
01/25/25 01/26/25
09:12 07:49
BUN 27 H 28 H
Creatinine 1.4 H 1.4 H
Estimated Creat Clear 49 49
Microbiology Results
01/20/25 05:18 Blood Culture - Final
Blood/Venous No Growth - Final Report
01/20/25 05:18 Blood Culture - Final
Blood/Venous No Growth - Final Report
Therapeutic Drug Monitoring
Vancomycin Peak 24.2 ug/ml (18-26) 01/18/25 21:18
Vancomycin Trough 17.8 ug/ml (5-20) 01/19/25 04:48
Random Vancomycin 12.6 ug/ml 01/26/25 07:49
[2025-01-26 11:57] LABS: Glucose - Point of Care 143 mg/dl (70-99)
[2025-01-26 12:07] LABS: Vitamin B12 469 pg/ml (239-931)
[2025-01-26] MEDS: VANCOCIN 200 IV (12:20)
[2025-01-26] MEDS: TYLENOL 650 MG PO (12:21)
--- NOTE | 2025-01-26 12:51 | W.PN.CRS1 ---
Addendum entered and electronically signed by Chester Santana MD 01/26/25 13:05:
I saw and examined the patient.
The CAN REFORMING MACHINE OPERATOR's note was reviewed and I agree with the note.
�If Hb stable on repeat labs at noon, okay to start hep drip
� Advance to regular diet, but cautioned with N/V; will repeat AXR to ensure no bowel dilation
�Will tweak his pain meds, add Tylenol ATC, DC tramadol and add oxycodone as needed
Original Note:
Today's Communication / Plan
-
advance diet, continue tpn until tolerating
continues to have intermittent bleeding from flap site, hold AC and trend h/h
Assessment/Plan
-
74-year-old male with PMH of A-fib (s/p cardioversion 2022, on Eliquis), HTN, hypothyroidism and anal adenocarcinoma, s/p DEIDRE with complete response, complicated by local recurrence, who underwent robotic APR, VRAM flap and end-colostomy on 01/11; he
did well post-operatively and was discharged on 01/16; however, he developed fever and chills and presented back to the ED on 01/17; WBC 11.5, Hb stable, CR 0.8, UA negative, CXR�concerning for left lower lobe pneumonia; CTAP showing postoperative
changes, no evident infections or abscess; afib with RVR, better controlled with amio, still awaiting return of bowel function; s/p pRBC x2 on 01/20 for Hb downtrend; GRAY, now improving
POD 15 robotic APR with VRAM flap
AFVSS
WBC 11.7 from 11.9, Hb 8.3 from 8.8 (9.6)
Cr at 1.4
� SIRS response on admission
�Blood cultures 01/16 MRSA, 01/18 - ngtd, 01/20 - ngtd
�Initial CXR with concern for left pneumonia, sputum culture negative; repeat CXR showed no consolidations
� ERVIN from subQ culture showed MRSA
�No intra-abdominal abscess on CT; repeat CT showing pelvic hematoma
� Most likely, there was a brewing infection in the subcutaneous space of the midline incision; the fluid is now draining clear and there is no erythema or breakdown of the midline incision; monitor ERVIN output; once less than 20mL/day, will remove
(if greater than 20mL/day, higher risk of developing seroma)
�Appreciate ID; continue IV vanc x2 weeks
� Ileus resolving, but still with distention. Check CXR
� Advance to LRD; continue TPN until tolerating solid food
� Continue analgesics
� Continue to hold Eliquis and full dose AC due to bloody drainage from the perineal wound with drifting h/h, repeat h/h at 1300
� Encourage IS, OOB; appreciate PT
�Appreciate cardiology
�Appreciate hospitalist
Subjective Data
Subjective Data
Date of Service: January 26, 2025
Patient seen and examined at bedside with Dr. Santana. Denies n/v. Abdomen still with distention. Poor appetite. Intermittent bloody drainage around skin flap
Objective Data
-
Vital Signs
Temp Pulse Resp BP Pulse Ox
99.8 F 59 16 139/78 96
01/26/25 11:21 01/26/25 11:21 01/26/25 11:21 01/26/25 11:21 01/26/25 11:21
Intake & Output
01/25/25 01/26/25 01/27/25
06:59 06:59 06:59
Intake Total 2864 / 2864
Output Total 2135 / 2135 2175 / 2175
Balance 729 / 729 -2175 / -2175
Intake:
Oral fluids 1330 / 1330
IV piggybacks 250 / 250
TPN/PPN 1284 / 1284
Output:
Drain Output (Total) 185 / 185 125 / 125
Right Lower Abdomen Alberto-
Martinez A
Right Lower Abdomen Alberto- 160 / 160 110 / 110
Martinez B
Urine, Voided 1949
Lab Results
01/26/25 07:49
Physical Exam
-
General: No Acute Distress and AOx3
HEENT: Grossly Normal
Abdomen: Soft, Distended (Mildly distended, mild tympany), Tender (Appropriately tender near midline incision), No Guarding, No Rebound, Bowel Movement (stoma pink/function with stool/flatus in appliance) and Other (ERVIN subQ-110 mL serous output, ERVIN
pelvis-15 serosanguineous output)
Rectal: Other (Perineal flap well-perfused, good cap refill, no purulent drainage; small posterior opening with serosang drainage)
Skin: Warm and Dry
Wound: No Signs of Infection, No Skin Erythema and Other (Midline incision well-approximated without erythema or drainage)
--- NOTE | 2025-01-26 13:33 | CM ---
Spoke with pt he agreed to [facility] at home for home TPN .
Spoke with Ashleigh at [facility] informed of pt dc needs.
Parenteral home nutritional form on chart. TT MD to complete form . CM fax to [facility] after completed.
PLAN Home with Home TPN with [facility] fax [phone]
[2025-01-26 16:14] LABS: Hematocrit 24.3 % (39.0-52.0); Hemoglobin 8.2 g/dL (13.0-18.0); Mean Corp Hgb Conc. 33.7 g/dL (33.0-37.0); Mean Corpuscular Hgb 33.1 pg (27.0-31.0); Platelet Count 410 10^3/uL (130-400); Red Blood Cell Count 2.48 10^6/uL (4.70-6.10); White Blood Cell Count 10.7 10^3/uL (4.8-10.8)
[2025-01-26] MEDS: TYLENOL 1000 MG PO ×2 (17:16→23:43)
[2025-01-26] MEDS: ROXICODONE 5 MG PO (17:23)
[2025-01-26 18:25] LABS: Glucose - Point of Care 132 mg/dl (70-99)
[2025-01-26] MEDS: FLOMAX 0.4 MG PO (21:45)
[2025-01-26] MEDS: Parenteral Nutrition, Central 1360 IV (21:46)
[2025-01-26] MEDS: AMBIEN 2.5 MG PO (21:54)
[2025-01-26 23:46] LABS: Glucose - Point of Care 129 mg/dl (70-99)
[2025-01-27 03:00] VITALS: BP 135/78
[2025-01-27] MEDS: TYLENOL 1000 MG PO ×4 (05:30→23:26)
[2025-01-27] MEDS: SYNTHROID 100 MCG PO (05:30)
[2025-01-27] MEDS: ROXICODONE 5 MG PO ×3 (05:53→19:52)
[2025-01-27 06:00] VITALS: BMI 28.9
[2025-01-27 06:04] LABS: Hematocrit 24.6 % (39.0-52.0); Hemoglobin 8.5 g/dL (13.0-18.0); Mean Corp Hgb Conc. 34.6 g/dL (33.0-37.0); Mean Corpuscular Hgb 32.8 pg (27.0-31.0); Platelet Count 391 10^3/uL (130-400); Red Blood Cell Count 2.59 10^6/uL (4.70-6.10); Red Cell Dist. Width 13.7 % (11.5-14.5); White Blood Cell Count 9.7 10^3/uL (4.8-10.8)
[2025-01-27 06:25] LABS: Blood Urea Nitrogen 28 mg/dl (9-20); Calcium 8.3 mg/dl (8.4-10.2); Carbon Dioxide 26 mmol/L (22-30); Chloride 98 mmol/L (98-107); Estimated Creatinine Clearance 53 ml/min; Glucose 119 mg/dl (70-99); Magnesium 2.2 mg/dl (1.6-2.3); Potassium 4.7 mmol/L (3.5-5.1); Sodium 131 mmol/L (135-145); eGFR 56.93
[2025-01-27 06:43] LABS: Vancomycin Random 12.6 ug/ml
[2025-01-27 06:47] LABS: Glucose - Point of Care 129 mg/dl (70-99)
--- NOTE | 2025-01-27 07:55 | PHA.VAN.FU ---
Vancomycin Assessment / Plan
- Assessment
Renal Function: SCR Decreasing
WBC's are: Trending Down
In the past 24 hrs, patient has been: Afebrile
- Assessment - Therapeutic Drug Monitoring
Random Level: 12.6
- Dosing Plan
Dosing by Level: Re-dose today (VANCO 1000MG X1)
- Monitoring Plan
Random Level: 01/28 0600
- Follow Up
Pharmacy will continue to follow.
Vancomycin Follow UP
- -
Patient Age: 74
Patient Sex: Male
Vancomycin Day #: 11
Indication: Pulmonary/Respiratory
Requesting Provider: Dr. Gomez / Steve
Pertinent Antimicrobial Allergies:
NKDA
Height / Weight:
Height 6 ft
Actual Weight 96.672 kg
Pertinent Past Medical History: Colorectal carcinoma
- Vital Signs / Lab Results
Temp Pulse Resp BP Pulse Ox
97.8 F 60 18 135/78 96
01/27/25 03:00 01/27/25 03:00 01/27/25 03:00 01/27/25 03:00 01/27/25 03:00
Lab Results - Hematology
01/25/25 01/26/25 01/26/25
07:52 07:49 15:58
WBC 11.9 H 11.7 H 10.7
01/27/25
05:48
WBC 9.7
Lab Results - Chemistry
01/25/25 01/26/25 01/27/25
09:12 07:49 05:48
BUN 27 H 28 H 28 H
Creatinine 1.4 H 1.4 H 1.3
Estimated Creat Clear 49 49 53
Microbiology Results
01/20/25 05:18 Blood Culture - Final
Blood/Venous No Growth - Final Report
01/20/25 05:18 Blood Culture - Final
Blood/Venous No Growth - Final Report
Therapeutic Drug Monitoring
Vancomycin Peak 24.2 ug/ml (18-26) 01/18/25 21:18
Vancomycin Trough 17.8 ug/ml (5-20) 01/19/25 04:48
Random Vancomycin 12.6 ug/ml 01/27/25 05:48
[2025-01-27 07:59] VITALS: BP 118/69
[2025-01-27] MEDS: VANCOCIN 200 IV (08:48)
[2025-01-27] MEDS: LOPRESSOR 12.5 MG PO ×2 (08:48→19:45)
[2025-01-27] MEDS: NSS (PRESERVATIVE FREE) 10 ML IV (08:49)
[2025-01-27] MEDS: PROTONIX IV 40 MG IV (08:49)
--- NOTE | 2025-01-27 09:13 | W.PN.HOSP.TC ---
Today's Communication/Plan
-
see bold
Assessment / Plan
Assessment / Plan
Impression
Presentation with fever and abdominal pain.
Sepsis present on admission
MRSA bacteremia.
Left lower lobe pneumonia versus atelectasis.
Ileus.
SVT with transition to rapid A-fib.
Hypotension secondary to SVT/rapid A-fib.
Acute blood loss anemia.
Other conditions:
Status post robotic APR with perineal reconstruction on 01/11
Colorectal carcinoma status post chemo/radiation
Paroxysmal atrial fibrillation baseline anticoagulation with Eliquis
Essential hypertension
BPH
Hypothyroidism replacement
Right chest Chemo-Port in place
Plan
#MRSA bacteremia suspected secondary to infected wound.
#Sepsis secondary to pneumonia v. intra-abdominal infection postoperatively
-Presented as postoperative fever, s/p APR with perineal reconstruction on 01/11 for anorectal cancer
-Blood cultures x 2 on admission positive for MRSA; signs of pneumonia on x-ray as well as worsening ERVIN output
-No signs of infection near Chemo-Port or ostomy; CT A/P without signs of abscess here
-Was started on broad-spectrum antibiotics; have been transitioned to IV vancomycin alone by ID
-Repeat blood cultures obtained and negative. Fevers have resolved as of 01/19, remains with leukocytosis that is improved
-TTE negative for vegetation.
Repeat blood cultures negative to date
Repeat CT scan of the abdomen/pelvis on 01/23 with findings consistent of ill-defined right lower quadrant collection
As per discussion with colorectal surgery plan is to observe and treat with antibiotics with no indication for drain.
Chemo-Port had been removed on 01/23
-Continue IV vancomycin to complete total of 14 days of antibiotic as per ID
Monitor temperature curve and WBC
#Postoperative ileus
-Presented with abdomen pain; s/p NGT placed on 01/18
-Currently receiving Dilaudid for pain, will de-escalate at patient's request
-Bowel function improving with noted improved output through colostomy.
-Currently on a regular diet, colorectal surgery recommends discontinuing TPN after current bag
#Acute blood loss anemia
Initially with hemorrhagic output through ERVIN drain and minimal hemorrhage from skin flap
Requiring blood transfusion 2 units given 01/20
-Iron studies with evidence of anemia of chronic disease
-Has been off anticoagulation.
-Trend hemoglobin, transfuse for hemoglobin less than 7.0
#Acute kidney injury
-Suspect mild septic ATN; persistent elevation despite hemodynamic stability
-Creatinine normal at baseline, recent labs with creatinine 1.5-1.7 over 3 lab draw
-Currently on maintenance IV fluids; TPN started on 01/20 as well for nutrition
-Urine output has been adequate, no signs of obstructive pathology
-Continue to monitor BMP and UOP on maintenance IVF
-Avoid nephrotoxic agents
#Atrial fibrillation with RVR
-Nonvalvular; [id number] 3; presented as SVT that degenerated to AF
-Status post IV amiodarone drip
-Home regimen includes Eliquis, currently on hold due to surgical abdominal issues
-Okay for IV heparin drip 01/27 as per colorectal surgery
-Cardiology following, continue metoprolol tartrate 12.5 mg twice a day
#Acute on chronic hyponatremia
#Bilateral lower extremity edema
Improved with IV hydration.
Hypertensive with peripheral edema.
Cardiology ordering IV Lasix for lower extremity edema
Start fluid restriction, trend sodium
#Anal cancer s/p robotic APR (01/11)
-Status post chemotherapy and surgical resection
-Currently with ostomy in place
-Colorectal surgery following
#BPH
-Patient complains of difficulty initiating stream with severe effort, postvoid residual 100 ml
� Continue Flomax, add Proscar 5 mg daily
#Hypothyroidism
-Unclear cause, home regimen includes levothyroxine 100 mcg daily
-No signs or symptoms of thyroid dysfunction at this time (RVR due to critical illness)
#Neuropathy
-B12 levels normal, trial of Lyrica 75 mg twice a day started 01/27
DVT prophylaxis�IV heparin drip
Full code
Total time spent to see the patient on the floor, examine the patient, review data and lab results, discuss treatment plan with patient, nursing staff around 51 minutes.
Physical Exam
General: No acute distress
HEENT: Normocephalic, Atraumatic, EOMI, MMM
Respiratory: Clear to Auscultation bilaterally
Cardiac: Normal S1/S2, Regular Rate and Rhythm
GI: Soft, mildly distended, appropriately tender around incision site, REVIN drains in place, colostomy noted
Extremities: No Clubbing, Cyanosis
Bilateral lower extremity edema noted
Neuro: Nonfocal/Grossly Intact
Psych: Calm, Cooperative
Derm: No Visible lesions
Anticipated Discharge: > 48 hours
Subjective/Interval History
-
Date of Service: January 27, 2025
Patient complains of difficulty urinating. Nursing staff reports postvoid residuals 100 cc. No chest pain, no shortness of breath at rest. He does have dyspnea with activity. No fever, no vomiting.
Objective Data
-
Labs:
Laboratory Results
01/27/25
05:48
WBC 9.7
Hgb 8.5 L
Hct 24.6 L
Plt Count 391
Sodium 131 L
Potassium 4.7
Chloride 98
Carbon Dioxide 26
BUN 28 H
Creatinine 1.3
Glucose 119 H
Calcium 8.3 L
Vital Signs:
Vital Signs
Temp Pulse Resp BP Pulse Ox
97.7 F 59 18 118/69 95
01/27/25 07:59 01/27/25 07:59 01/27/25 07:59 01/27/25 08:48 01/27/25 07:59
I&O
01/26/25 01/27/25 01/28/25
06:59 06:59 06:59
Intake Total 1919
Output Total 2174
Balance -2174 -2174 -
--- NOTE | 2025-01-27 10:08 | W.PN.CRS1 ---
Addendum entered and electronically signed by Chester Santana MD 01/27/25 19:50:
I saw and examined the patient.
The QA TECH's note was reviewed and I agree with the note.
Comment:
Patient tolerating diet without N/V. Having flatus and now more stool from the ostomy.
AFVSS, ABD soft, mildly distended, appropriately tender; ostomy pink; subQ ERVIN�110mL serous output, pelvic ERVIN�15 mL serosanguineous; perineal flap well-perfused
WBC 9.7, Hb stable, CR 1.3 from 1.4
� Continue regular diet; will stop the TPN
� Continue IV Vanco, appreciate ID
� Okay for hep drip
Original Note:
Today's Communication / Plan
-
OK for IV heparin, hold Eliquis
Stop TPN after today's bag
Assessment/Plan
-
74-year-old male with PMH of A-fib (s/p cardioversion 2022, on Eliquis), HTN, hypothyroidism and anal adenocarcinoma, s/p DEIDRE with complete response, complicated by local recurrence, who underwent robotic APR, VRAM flap and end-colostomy on 01/11; he
did well post-operatively and was discharged on 01/16; however, he developed fever and chills and presented back to the ED on 01/17; WBC 11.5, Hb stable, CR 0.8, UA negative, CXR�concerning for left lower lobe pneumonia; CTAP showing postoperative
changes, no evident infections or abscess; afib with RVR, better controlled with amio, still awaiting return of bowel function; s/p pRBC x2 on 01/20 for Hb downtrend; GRAY, now improving
01/11/25 robotic APR with VRAM flap
AFVSS
WBC 9.7 from 10.7, Hb 8.5 from 8.2
Cr at 1.3
Tolerating diet, good intake
� SIRS response on admission
�Blood cultures 01/16 MRSA, 01/18 - ngtd, 01/20 - ngtd
�Initial CXR with concern for left pneumonia, sputum culture negative; repeat CXR showed no consolidations
� ERVIN from subQ culture showed MRSA
�No intra-abdominal abscess on CT; repeat CT showing pelvic hematoma
� Most likely, there was a brewing infection in the subcutaneous space of the midline incision; the fluid is now draining clear and there is no erythema or breakdown of the midline incision; monitor ERVIN output; once less than 20mL/day, will remove
(if greater than 20mL/day, higher risk of developing seroma).
�Appreciate ID; continue IV vanc x2 weeks
� Ileus resolving, but still with some upper abdominal distention. Tolerating diet. No N/V. Stoma with stool/flatus.
� Continue regular diet. Complete todays TPN then discontinue
� Continue analgesics
� Continue to hold Eliquis but Ok to start on IV anticoagulation
� Encourage IS, OOB; appreciate PT
�Appreciate cardiology
�Appreciate hospitalist
Subjective Data
Procedure
01/11/25 Robotic APR, creation of end colostomy, exclusion of the pelvis, laparoscopic TAP block (Max)
Vertical rectus myocutaneous flap for perineal reconstruction (Gabriela)
Subjective Data
Date of Service: January 27, 2025
Patient seen and examined at bedside. Denies n/v. Finishing most of the food on his tray. Passing a lot of flatus via the stoma, especially with ambulation.
Objective Data
-
Vital Signs
Temp Pulse Resp BP Pulse Ox
97.7 F 59 18 118/69 95
01/27/25 07:59 01/27/25 07:59 01/27/25 07:59 01/27/25 08:48 01/27/25 07:59
Intake & Output
01/26/25 01/27/25 01/28/25
06:59 06:59 06:59
Intake Total 1919
Output Total 2174
Balance -2175 / -2175 -55 / -55
Intake:
Oral fluids 1919
Output:
Drain Output (Total) 125 / 125
Right Lower Abdomen Alberto-
Martinez A
Right Lower Abdomen Alberto- 110 / 110
Martinez B
Urine, Voided 2049
Lab Results
01/27/25 05:48
01/27/25 05:48
Physical Exam
-
General: No Acute Distress and AOx3
HEENT: Grossly Normal
Abdomen: Soft, Distended (Mildly distended upper abd, mild tympany), Non Tender, No Guarding, No Rebound, Bowel Movement (stoma pink/function with stool/flatus in appliance) and Other (ERVIN subQ serous output, ERVIN pelvis serosanguineous output)
Rectal: Other (Perineal flap well-perfused, good cap refill, no purulent drainage; small posterior opening with serosang drainage)
Skin: Warm and Dry
Wound: No Signs of Infection, No Skin Erythema and Other (Midline incision well-approximated without erythema or drainage)
[2025-01-27 11:21] VITALS: BP 160/91
[2025-01-27 11:53] LABS: Glucose - Point of Care 124 mg/dl (70-99)
[2025-01-27] MEDS: LYRICA 75 MG PO ×2 (12:03→19:45)
[2025-01-27] MEDS: PROSCAR 5 MG PO (12:03)
--- NOTE | 2025-01-27 12:22 | W.PN.CD ---
Today's Communication / Plan
-
-Significant weight gain since admission. Patient has bilateral lower extremity edema .
-Will give Lasix 20 mg IV now patient's had some urinary issues difficulty initiating stream but has had no urinary retention reviewed with hospitalist who agrees with use of Lasix. Will assess response
-A-fib is stable. Continue current dosing of beta-sean. Cautious use of beta-sean with history of sinus bradycardia prior to admit.
Impression / Plan
-
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
developing sepsis. Cardiology consulted for tachycardia with heart rates of 235 bpm (narrow complex).
MRSA Staph Aureus bacteremia/sepsis
- Presumed source is subcutaneous abscess with ERVIN drain purulent fluid output
- Continue antibiotics and recommendations as per ID. Plan is for 14 days IV abx
- Transthoracic echocardiogram unremarkable
PSVT, perhaps an atrial flutter or SVT (see 12 lead EKG 01/17/2025 at 1225 hrs) => degenerated to AFib
PAF with RVR (he also had typical Atrial Flutter last admission as well)
-This episode precipitated by sepsis
-[id number] 3 (age x 2, hypertension)
-Anticoagulation: On Eliquis usually as outpatient => On hold now (required 2U pRBCs on 01/20 after Lovenox). Resume when safe per surgery- not yet as hgb continues to drop.
-Has used pill in the pocket Flecainide for many years. In past just had highly symptomatic episodes about 1 time a year . No more use of flecainide at this time
-Patient was on amiodarone drip which was last given 01/21/2025. He was then transitioned to metoprolol IV, which was changed to metoprolol PO yesterday, which he is tolerating. Hx bradycardia, but this is stable on monitor.
-He is now in SR, no palpitations
Edema up through thighs: Weight is up significantly since admission
-Will give Lasix 20 mg IV now patient's had some urinary issues difficulty initiating stream but has had no urinary retention reviewed with hospitalist who agrees with use of Lasix. Will assess response.
.
Colostomy:
-NGT removed 01/23
-Management as per Surgery.
Anal adenocarcinoma, S/p combined therapy (chemo/surgery):
-Status-post surgical resection on 01/11/2025.
-Recommendations as per Surgery.
Hypertension
-improving
-on ARB as OP- resume when appropriate
Subjective:
No palpitations. LE edema still present.
Physical Exam
Vital Signs/Labs
Vital Signs
Temp Pulse Resp BP Pulse Ox
97.5 F 66 18 160/91 98
01/27/25 11:21 01/27/25 11:21 01/27/25 11:21 01/27/25 11:21 01/27/25 11:21
01/26/25 01/27/25 01/28/25
06:59 06:59 06:59
Actual Weight 96.445 kg 96.672 kg
01/27/25 05:48
01/27/25 05:48
PT 14.6 Sec (11.4-14.6) 01/17/25 12:34
INR 1.09 01/17/25 12:34
APTT 39.5 Sec (23.4-35.0) H 01/17/25 12:34
Magnesium 2.2 mg/dl (1.6-2.3) 01/27/25 05:48
Triglycerides 115 mg/dl (10-149) 01/21/25 04:24
Physical Exam
Constitutional: No acute distress
Cardiovascular: Rhythm & rate is regular
Respiratory: Respiratory effort normal
GI: Soft and Non tender
Neuro/Psych: Alert and Oriented
Data Reviewed
-
Date of Service: January 27, 2025
Medical Decision Making: Reviewed Test Results
Echo: Report Reviewed by me
Labs: Labs Reviewed by me
[2025-01-27] MEDS: LASIX 20 MG IV (12:44)
[2025-01-27 15:38] VITALS: BP 150/77
[2025-01-27 18:06] LABS: Glucose - Point of Care 111 mg/dl (70-99)
--- NOTE | 2025-01-27 18:08 | PTCARENOTE ---
heparin gtt order received. Ptt sent. Pt expressed understanding. No change in physical assessment. CB in reach
[2025-01-27 18:18] LABS: APTT 38.3 Sec (23.4-35.0)
[2025-01-27] MEDS: HEPARIN 25000 UNITS/250 ML IV (18:38)
[2025-01-27 19:00] VITALS: BP 151/73
[2025-01-27] MEDS: FLOMAX 0.4 MG PO (21:36)
--- NOTE | 2025-01-27 22:58 | PTCARENOTE ---
TPN d/c'd. Per pt, he is tolerating a regular diet. CRUTCH [employer]ER notified and Q6H AccuCheck discontinued. Plan of care ongoing.
[2025-01-27 23:00] VITALS: BP 128/75
[2025-01-28] VITALS (7 sets, daily range): BP systolic 112–146; BP diastolic 62–80; PULSE 62; O2SAT 96; BMI 28.8
[2025-01-28 00:27] LABS: APTT 41.4 Sec (23.4-35.0)
[2025-01-28] MEDS: SYNTHROID 100 MCG PO (05:37)
[2025-01-28] MEDS: TYLENOL 1000 MG PO ×4 (05:37→23:41)
[2025-01-28 07:56] LABS: Hematocrit 25.2 % (39.0-52.0); Hemoglobin 8.6 g/dL (13.0-18.0); Mean Corp Hgb Conc. 34.1 g/dL (33.0-37.0); Mean Corpuscular Hgb 32.3 pg (27.0-31.0); Mean Corpuscular Volume 94.7 fL (80.0-94.0); Mean Platelet Volume 9.2 fL (7.4-10.4); Platelet Count 418 10^3/uL (130-400); Red Blood Cell Count 2.66 10^6/uL (4.70-6.10); Red Cell Dist. Width 13.6 % (11.5-14.5); White Blood Cell Count 9.2 10^3/uL (4.8-10.8)
[2025-01-28 08:05] LABS: APTT 43.3 Sec (23.4-35.0)
[2025-01-28] MEDS: LYRICA 75 MG PO ×2 (08:06→21:09)
[2025-01-28] MEDS: ROXICODONE 5 MG PO ×2 (08:07→22:31)
[2025-01-28] MEDS: PROSCAR 5 MG PO (08:07)
[2025-01-28] MEDS: LOPRESSOR 12.5 MG PO ×2 (08:07→21:08)
[2025-01-28] MEDS: LASIX 20 MG IV (08:08)
[2025-01-28] MEDS: PROTONIX IV 40 MG IV (08:09)
[2025-01-28] MEDS: NSS (PRESERVATIVE FREE) 10 ML IV (08:09)
[2025-01-28 08:20] LABS: Vancomycin Random 12.4 ug/ml
[2025-01-28 08:49] LABS: ALT (SGPT) 47 U/L (0-50); AST (SGOT) 33 U/L (17-59); Albumin 2.3 g/dl (3.5-5.0); Alkaline Phosphatase 194 U/L (38-126); Blood Urea Nitrogen 25 mg/dl (9-20); Calcium 8.2 mg/dl (8.4-10.2); Carbon Dioxide 29 mmol/L (22-30); Chloride 101 mmol/L (98-107); Estimated Creatinine Clearance 49 ml/min; Glucose 90 mg/dl (70-99); Magnesium 2.2 mg/dl (1.6-2.3); Phosphorus 4.2 mg/dl (2.5-4.5); Potassium 4.5 mmol/L (3.5-5.1); Sodium 132 mmol/L (135-145); Total Bilirubin 0.5 mg/dl (0.2-1.3); Total Protein 4.7 g/dl (6.3-8.2); Triglycerides 83 mg/dl (10-149); eGFR 52.09
--- NOTE | 2025-01-28 09:28 | PHA.VAN.FU ---
Vancomycin Assessment / Plan
- Assessment
Renal Function: Stable
WBC's are: WNL
In the past 24 hrs, patient has been: Afebrile
- Assessment - Therapeutic Drug Monitoring
Random Level: 12.4 - drawn ~23H after previous dose of 1000mg
- Dosing Plan
Adjust Regimen to: Vanc 1000mg Q24H - first dose now then 01/29 0600
Dosing Comments: levels have been stable around ~12.5
Patient may require further dose adjustment if renal function changes
Given planned duration likely to complete in next few days - will schedule for now but consider somewhat frequent monitoring of levels
- Monitoring Plan
No level(s) ordered at this time: consider level in next few days
- Follow Up
Pharmacy will continue to follow.
Vancomycin Follow UP
- -
Patient Age: 74
Patient Sex: Male
Vancomycin Day #: 12
Indication: Pulmonary/Respiratory
Requesting Provider: Dr. Gomez / Steve
Pertinent Antimicrobial Allergies:
NKDA
Height / Weight:
Height 6 ft
Actual Weight 96.388 kg
Pertinent Past Medical History: Colorectal carcinoma
- Vital Signs / Lab Results
Temp Pulse Resp BP Pulse Ox
97.8 F 58 14 132/71 94
01/28/25 07:37 01/28/25 08:07 01/28/25 07:37 01/28/25 08:07 01/28/25 07:37
Lab Results - Hematology
01/26/25 01/26/25 01/27/25
07:49 15:58 05:48
WBC 11.7 H 10.7 9.7
01/28/25
07:41
WBC 9.2
Lab Results - Chemistry
01/25/25 01/26/25 01/27/25
09:12 07:49 05:48
BUN 27 H 28 H 28 H
Creatinine 1.4 H 1.4 H 1.3
Estimated Creat Clear 49 49 53
Albumin
01/28/25
07:41
BUN 25 H
Creatinine 1.4 H
Estimated Creat Clear 49
Albumin 2.3 L
Therapeutic Drug Monitoring
Vancomycin Peak 24.2 ug/ml (18-26) 01/18/25 21:18
Vancomycin Trough 17.8 ug/ml (5-20) 01/19/25 04:48
Random Vancomycin 12.4 ug/ml 01/28/25 07:41
--- NOTE | 2025-01-28 09:45 | W.PN.CRS1 ---
Today's Communication / Plan
-
as below
Assessment/Plan
-
74-year-old male with PMH of A-fib (s/p cardioversion 2022, on Eliquis), HTN, hypothyroidism and anal adenocarcinoma, s/p DEIDRE with complete response, complicated by local recurrence, who underwent robotic APR, VRAM flap and end-colostomy on 01/11; he
did well post-operatively and was discharged on 01/16; however, he developed fever and chills and presented back to the ED on 01/17; WBC 11.5, Hb stable, CR 0.8, UA negative, CXR�concerning for left lower lobe pneumonia; CTAP showing postoperative
changes, no evident infections or abscess; afib with RVR, better controlled with amio, still awaiting return of bowel function; s/p pRBC x2 on 01/20 for Hb downtrend; GRAY, now improving
POD 17 robotic APR with VRAM flap
AFVSS
WBC 9.2 from 9.7, Hb 8.5 from 8.6, Cr 1.4
� SIRS response on admission
�Blood cultures 01/16 MRSA, 01/18 - ngtd, 01/20 - ngtd; UCx neg; initial CXR w/ ? left pneumonia, sputum cx negative; repeat CXR showed no consolidations
� ERVIN from subQ culture showed MRSA, now clear
-Monitor ERVIN output; once less than 20mL/day, will remove (if greater than 20mL/day, higher risk of developing seroma)
�Appreciate ID; continue IV vanc x2 weeks
� Ileus resolved
� Continue regular diet
�GRAY, Cr at 1.3-1.4; will d/w hospitalist
�Fluid overload, s/p dose of Lasix; appreciate cardiology and hospitalist
� Continue analgesics
� Okay for Eliquis today
� Encourage IS, OOB; appreciate PT
�Appreciate hospitalist
Subjective Data
Procedure
01/11/25 Robotic APR, creation of end colostomy, exclusion of the pelvis, laparoscopic TAP block (Max)
Vertical rectus myocutaneous flap for perineal reconstruction (Gabriela)
Subjective Data
Date of Service: January 28, 2025
No overnight events. Feeling well today
Pain controlled.
Denies nausea/vomiting. Tolerating diet.
+flatus + ostomy function
Pt is OOB.
Objective Data
-
Vital Signs
Temp Pulse Resp BP Pulse Ox
97.8 F 58 14 132/71 94
01/28/25 07:37 01/28/25 08:07 01/28/25 07:37 01/28/25 08:07 01/28/25 07:37
Intake & Output
01/27/25 01/28/25 01/29/25
06:59 06:59 06:59
Intake Total 1919 / 1919 1500 / 1500
Output Total 1974 4650 / 4650
Balance -55 / -55 -3150 / -3150
Intake:
Oral fluids 0 / 1919 1500 / 1500
Output:
Liquid stool amount 40 / 40
Colostomy 40 / 40
Drain Output (Total) 80 / 80
Right Lower Abdomen Alberto- 20 / 20
Martinez A
Right Lower Abdomen Alberto- 60 / 60
Martinez B
Urine, Voided 1974 4530 / 4530
Lab Results
01/28/25 07:41
01/28/25 07:41
Physical Exam
-
General: No Acute Distress and AOx3
HEENT: Grossly Normal
Abdomen: Soft, Distended (Mildly to moderately distended, minimally tympanitic), Tender (Appropriately tender), No Guarding, No Rebound and Other (Ostomy pink and productive of stool; ERVIN subQ-serous output, ERVIN pelvis-serosanguineous output)
Rectal: Other (Peritoneal flap well-perfused, serosanguineous drainage noted on dressing)
Skin: Warm and Dry
Wound: No Signs of Infection and No Skin Erythema
[2025-01-28] MEDS: VANCOCIN 200 IV (09:53)
[2025-01-28] MEDS: MORPHINE SULFATE 3 MG IV (10:55)
--- NOTE | 2025-01-28 13:03 | W.PN.CD ---
Today's Communication / Plan
-
Continue metoprolol
Resume Eliquis tonight
IV Lasix
Impression / Plan
-
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
developing sepsis. Cardiology consulted for tachycardia with heart rates of 235 bpm (narrow complex).
MRSA Staph Aureus bacteremia/sepsis
- Presumed source is subcutaneous abscess with ERVIN drain purulent fluid output
- Continue antibiotics and recommendations as per ID. Plan is for 14 days IV abx
- Transthoracic echocardiogram unremarkable
PSVT, perhaps an atrial flutter or SVT (see 12 lead EKG 01/17/2025 at 1225 hrs) => degenerated to AFib
PAF with RVR (he also had typical Atrial Flutter last admission as well)
-This episode precipitated by sepsis
-[id number] 3 (age x 2, hypertension)
-Anticoagulation: Eliquis was on hold, but ok to resume per CRC note today
-Has used pill in the pocket Flecainide for many years. In past just had highly symptomatic episodes about 1 time a year . No more use of flecainide at this time
-He is now in SR, no palpitations
-Continue Metoprolol
Edema up through thighs: Weight is up significantly since admission
-Lasix 20mg IV daily (had 3L UOP to this dose yest)
Colostomy:
-NGT removed 01/23. Now on regular diet
-Management as per Surgery.
Anal adenocarcinoma, S/p combined therapy (chemo/surgery):
-Status-post surgical resection on 01/11/2025.
-Recommendations as per Surgery.
Hypertension
-improving
-on ARB as OP- resume when appropriate
Subjective:
No palpitations. LE edema still present. Having a lot of difficulty urinating.
Physical Exam
Vital Signs/Labs
Vital Signs
Temp Pulse Resp BP Pulse Ox
97.7 F 50 22 146/80 94
01/28/25 10:51 01/28/25 10:51 01/28/25 10:51 01/28/25 10:51 01/28/25 11:37
01/27/25 01/28/25 01/29/25
06:59 06:59 06:59
Actual Weight 96.672 kg 96.388 kg
01/28/25 07:41
01/28/25 07:41
PT 14.6 Sec (11.4-14.6) 01/17/25 12:34
INR 1.09 01/17/25 12:34
APTT 43.3 Sec (23.4-35.0) H 01/28/25 07:41
Magnesium 2.2 mg/dl (1.6-2.3) 01/28/25 07:41
Triglycerides 83 mg/dl (10-149) 01/28/25 07:41
Physical Exam
Constitutional: No acute distress and Comfortable
Cardiovascular: Rhythm/rate is irregular, Pedal edema present and S1S2 is normal
Respiratory: Respiratory effort normal and Lungs clear to auscul.
Data Reviewed
-
Date of Service: January 28, 2025
Medical Decision Making: Reviewed Test Results, Independent Historian Assessment, Test Interpretation and Review of Case with other Provider
EKG: Tracing Personally Visualized and interpreted
Echo: Report Reviewed by me
Labs: Labs Reviewed by me
--- NOTE | 2025-01-28 14:31 | W.PN.ID1 ---
Date of Service
Date of Service: January 28, 2025
Today's Communication
c/w vancomycin
Assessment / Plan
MRSA Bacteremia x 2 sets
Fever - resolved
Afib
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
- 3/7 blood cultures clearrf
- TTE no gross vege
- drain culture also with MRSA
- has PICC
- plan 2 weeks of vancomycin given bacteremia day 13 of 14; if SQ drain cannot be removed prior to completion of vancomycin then can continue on doxycycline beyond the 14 day course
Chief Complaint
-: Bacteremia
Subjective / Review of Systems
afebrile
TPN was dc'd yesterday
Vital Signs / Physical Exam
Vital Signs
Vital Signs
Temp Pulse Resp BP Pulse Ox
97.7 F 50 22 146/80 94
01/28/25 10:51 01/28/25 10:51 01/28/25 10:51 01/28/25 10:51 01/28/25 11:37
Physical Exam
Constitutional: No Acute Distress
Cardiovascular: Regular Rate
Pulmonary: Symmetric
Gastrointestinal: Non Distended
Neurological: Negative Awake
Objective Data
Lab Data
Lab Results
01/28/25 07:41
01/28/25 07:41
PT 14.6 Sec (11.4-14.6) 01/17/25 12:34
INR 1.09 01/17/25 12:34
APTT 43.3 Sec (23.4-35.0) H 01/28/25 07:41
Estimated Creat Clear 49 ml/min 01/28/25 07:41
Lactic Acid 1.1 mmol/L (0.7-2.0) 01/17/25 16:37
Total Bilirubin 0.5 mg/dl (0.2-1.3) 01/28/25 07:41
AST 33 U/L (17-59) 01/28/25 07:41
ALT 47 U/L (0-50) 01/28/25 07:41
Alkaline Phosphatase 194 U/L (38-126) H 01/28/25 07:41
Most recent labs reviewed.
Micro Results:
01/20/25 05:18 Blood Culture - Final
Blood/Venous No Growth - Final Report
01/20/25 05:18 Blood Culture - Final
Blood/Venous No Growth - Final Report
01/18/25 12:36 Blood Culture - Final
Blood/Venous No Growth - Final Report
01/18/25 12:36 Blood Culture - Final
Blood/Venous No Growth - Final Report
01/16/25 12:56 Blood Culture - Final
Blood/Venous Staph aureus MRSA
Gram Stain - Final
01/16/25 12:56 Blood Culture - Final
Blood/Venous Staph aureus MRSA
Gram Stain - Final
01/19/25 18:26 Body Fluid Culture - Final
Fluid Staph aureus MRSA
Gram Stain - Final
01/19/25 22:26 Respiratory Culture - Final
Sputum Gram Stain - Final
01/16/25 12:57 Urine Culture - Final
Urine NO GROWTH
01/16/25 22:39 MRSA Screen - Final
Nose Staph aureus MRSA
01/16/25 12:57 Influenza Types A & B ([facility]ELIA) - Final
Nasal Swab Negative for Influenza A & B, NAAT
Negative results must be combined with clinical observations
and patient history.
Nucleic Acid Amplification test (NAAT)performed on the
[employer] platform.
01/19/35 CXR: There is minimal bibasilar opacities with likely small bilateral pleural effusions, similar to prior
01/16/25 CT a/p: There is a percutaneous drainage catheter entering the lateral right abdominal wall. The tip rests in the right pelvis posteriorly.There is a second drainage catheter in the subcutaneous tissues with the tip in midline the upper
anterior abdominal wall.
--- NOTE | 2025-01-28 14:51 | PTCARENOTE ---
Per MD order, Heparin drip discontinued at this time. Patient informed of discontinuation on start of PO Eliquis this evening. Will continue ongoing care.
--- NOTE | 2025-01-28 15:47 | W.PN.HOSP.TC ---
Today's Communication/Plan
-
Continue IV vancomycin through 01/29 with transition to doxycycline after.
Gentle diuresis.
Reported urinary retention with PVR at 500s, continue straight cath, if consistent, will need Caruso catheter especially with rising creatinine.
Resume Eliquis tonight.
Assessment / Plan
Assessment / Plan
Impression
Presentation with fever and abdominal pain.
Sepsis present on admission
MRSA bacteremia.
Left lower lobe pneumonia versus atelectasis.
Ileus.
SVT with transition to rapid A-fib.
Hypotension secondary to SVT/rapid A-fib.
Acute blood loss anemia.
Other conditions:
Status post robotic APR with perineal reconstruction on 01/11
Colorectal carcinoma status post chemo/radiation
Paroxysmal atrial fibrillation baseline anticoagulation with Eliquis
Essential hypertension
BPH
Hypothyroidism replacement
Right chest Chemo-Port in place
Plan
#MRSA bacteremia suspected secondary to infected wound.
#Sepsis secondary to pneumonia v. intra-abdominal infection postoperatively
-Presented as postoperative fever, s/p APR with perineal reconstruction on 01/11 for anorectal cancer
-Blood cultures x 2 on admission positive for MRSA; signs of pneumonia on x-ray as well as worsening ERVIN output
-No signs of infection near Chemo-Port or ostomy; CT A/P without signs of abscess here
-Was started on broad-spectrum antibiotics; have been transitioned to IV vancomycin alone by ID
-Repeat blood cultures obtained and negative. Fevers have resolved as of 01/19, remains with leukocytosis that is improved
-TTE negative for vegetation.
Repeat blood cultures negative to date
Repeat CT scan of the abdomen/pelvis on 01/23 with findings consistent of ill-defined right lower quadrant collection
As per discussion with colorectal surgery plan is to observe and treat with antibiotics with no indication for drain.
Chemo-Port had been removed on 01/23
-Continue IV vancomycin to complete total of 14 days of antibiotic as per ID through 01/29 then transition to doxycycline.
Monitor temperature curve and WBC
#Postoperative ileus
-Presented with abdomen pain; s/p NGT placed on 01/18
-Currently receiving Dilaudid for pain, will de-escalate at patient's request
-Bowel function improving with noted improved output through colostomy.
-Currently on a regular diet, colorectal surgery recommends discontinuing TPN after current bag
#Acute blood loss anemia
Initially with hemorrhagic output through ERVIN drain and minimal hemorrhage from skin flap
Requiring blood transfusion 2 units given 01/20
-Iron studies with evidence of anemia of chronic disease
-Has been off anticoagulation.
-Trend hemoglobin, transfuse for hemoglobin less than 7.0
#Acute kidney injury
-Suspect mild septic ATN; persistent elevation despite hemodynamic stability
-Creatinine normal at baseline, recent labs with creatinine 1.5-1.7 over 3 lab draw
-Has been off IV fluids and TPN
-Reported urinary retention with PVR at 500s. Monitor closely. If consistent and rising creatinine consider Caruso catheter
-Continue Flomax
#Atrial fibrillation with RVR
-Nonvalvular; [id number] 3; presented as SVT that degenerated to AF
-Status post IV amiodarone drip
-Home regimen includes Eliquis, currently on hold due to surgical abdominal issues
-Off IV heparin restarted on Eliquis on 01/28.
#Acute on chronic hyponatremia
#Bilateral lower extremity edema
Improved with IV hydration.
Hypertensive with peripheral edema.
Continue gentle diuresis due to peripheral edema/volume overload
#Anal cancer s/p robotic APR (01/11)
-Status post chemotherapy and surgical resection
-Currently with ostomy in place
-Colorectal surgery following
#BPH
-Patient complains of difficulty initiating stream with severe effort, postvoid residual 100 ml
� Continue Flomax, add Proscar 5 mg daily
#Hypothyroidism
-Unclear cause, home regimen includes levothyroxine 100 mcg daily
-No signs or symptoms of thyroid dysfunction at this time (RVR due to critical illness)
#Neuropathy
-B12 levels normal, trial of Lyrica 75 mg twice a day started 01/27
DVT prophylaxis�IV heparin drip
Full code
Total time spent to see the patient on the floor, examine the patient, review data and lab results, discuss treatment plan with patient, nursing staff around 51 minutes.
Anticipated Discharge: > 48 hours
Subjective/Interval History
-
Date of Service: January 28, 2025
Objective Data
-
Labs:
Laboratory Results
01/28/25 01/28/25
07:41 14:08
WBC 9.2
Hgb 8.6 L
Hct 25.2 L
Plt Count 418 H
APTT 43.3 H 41.0 H
Sodium 132 L
Potassium 4.5
Chloride 101
Carbon Dioxide 29
BUN 25 H
Creatinine 1.4 H
Glucose 90
Calcium 8.2 L
Total Bilirubin 0.5
AST 33
ALT 47
Alkaline Phosphatase 194 H
Vital Signs:
Vital Signs
Temp Pulse Resp BP Pulse Ox
97.3 F 62 18 115/68 96
01/28/25 15:15 01/28/25 15:15 01/28/25 15:15 01/28/25 15:15 01/28/25 15:15
I&O
01/27/25 01/28/25 01/29/25
06:59 06:59 06:59
Intake Total 0 / 1920 1500 / 1500
Output Total 1974 4650 / 4650 500 / 500
Balance -55 / -55 -3150 / -3150 -500 / -500
Physical Exam
-
General: Well Developed, No Apparent Distress and Appears Chronically Ill
HEENT: Normocephalic, Atraumatic, Moist Mucous Membranes and Anicteric
Respiratory: Clear to Auscultation and Non Labored Respirations
Cardiac: S1/S2, Irregular Rhythm and Tachycardic; Negative Murmur, Rub, JVD or Gallop
GI: Soft, Nondistended, Ostomy and Other (Mild general tenderness; absent bowel sounds; no peritoneal signs; bloody ERVIN drain output)
Musculoskeletal: No Clubbing, No Cyanosis and No Edema
Skin: Warm and Dry; Negative Rash
Neuro: AO x 3 and Nonfocal/Grossly Intact
Psych: Calm
--- NOTE | 2025-01-28 17:40 | PTCARENOTE ---
Early this shift around 1200, patient started to vocalize complaints of pain and pressure in his lower abdomen. Patient described feeling as 8/10 pressure and pain. Tender on palpation. He states that it is a similar feeling to when he has a full
bladder. Throughout the shift thus far he has voided about 800 of clear, yellow urine into the urinal, not feeling relief post-void. Patient was then bladder scanned for 530 cc. MD notified, approving to straight cath. 500 cc drained from bladder.
Patient reports much relief and a lower pain level after the procedure, therapy and being able to move around in his room a bit more. Continues to urinate in urinal without difficulty or complaints. Plan of care ongoing.
[2025-01-28] MEDS: ELIQUIS 5 MG PO (21:08)
[2025-01-28] MEDS: FLOMAX 0.4 MG PO (21:09)
[2025-01-29 03:17] VITALS: BP 135/74
[2025-01-29] MEDS: SYNTHROID 100 MCG PO (05:33)
[2025-01-29] MEDS: TYLENOL 1000 MG PO ×4 (05:34→23:37)
[2025-01-29] MEDS: VANCOCIN 200 IV (05:34)
[2025-01-29] MEDS: ROXICODONE 5 MG PO ×4 (05:57→23:37)
[2025-01-29 06:00] VITALS: BMI 27.0
[2025-01-29 06:09] LABS: Hematocrit 25.4 % (39.0-52.0); Hemoglobin 8.8 g/dL (13.0-18.0); Mean Corp Hgb Conc. 34.6 g/dL (33.0-37.0); Mean Corpuscular Volume 95.1 fL (80.0-94.0); Mean Platelet Volume 9.3 fL (7.4-10.4); Platelet Count 442 10^3/uL (130-400); Red Blood Cell Count 2.67 10^6/uL (4.70-6.10); Red Cell Dist. Width 13.6 % (11.5-14.5); White Blood Cell Count 9.4 10^3/uL (4.8-10.8)
[2025-01-29 07:59] VITALS: BP 136/72
--- NOTE | 2025-01-29 08:17 | W.PN.CD ---
Today's Communication / Plan
-
Cont IV diuresis
Impression / Plan
-
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
developing sepsis. Cardiology consulted for tachycardia with heart rates of 235 bpm (narrow complex).
MRSA Staph Aureus bacteremia/sepsis
- Presumed source is subcutaneous abscess with ERVIN drain purulent fluid output
- Continue antibiotics and recommendations as per ID. Plan is for 14 days IV abx
- Transthoracic echocardiogram unremarkable
PSVT, perhaps an atrial flutter or SVT (see 12 lead EKG 01/17/2025 at 1225 hrs) => degenerated to AFib
PAF with RVR (he also had typical Atrial Flutter last admission as well)
-This episode precipitated by sepsis
-[id number] 3 (age x 2, hypertension)
-Anticoagulation: Eliquis is back
-Has used pill in the pocket Flecainide for many years. In past just had highly symptomatic episodes about 1 time a year . No more use of flecainide at this time
-He is now in SR, no palpitations
-Continue Metoprolol
Edema up through thighs: Weight is up significantly since admission
-Lasix 20mg IV daily (had 3L UOP to this dose yest)
Colostomy:
-NGT removed 01/23. Now on regular diet
-Management as per Surgery.
Anal adenocarcinoma, S/p combined therapy (chemo/surgery):
-Status-post surgical resection on 01/11/2025.
-Recommendations as per Surgery.
Hypertension
-improving
-on ARB as OP- resume when appropriate
Subjective:
No palpitations. LE edema still present feels well
Physical Exam
Vital Signs/Labs
Vital Signs
Temp Pulse Resp BP Pulse Ox
98 F 60 16 136/72 97
01/29/25 07:59 01/29/25 07:59 01/29/25 07:59 01/29/25 07:59 01/29/25 07:59
01/28/25 01/29/25 01/30/25
06:59 06:59 06:59
Actual Weight 212 lb 8 oz 198 lb 9.6 oz
01/29/25 05:42
01/28/25 07:41
PT 14.6 Sec (11.4-14.6) 01/17/25 12:34
INR 1.09 01/17/25 12:34
APTT 41.0 Sec (23.4-35.0) H 01/28/25 14:08
Magnesium 2.2 mg/dl (1.6-2.3) 01/28/25 07:41
Triglycerides 83 mg/dl (10-149) 01/28/25 07:41
Physical Exam
Constitutional: No acute distress
EENT: Anicteric
Cardiovascular: Rhythm & rate is regular and Pedal edema present (1+)
Respiratory: Respiratory effort normal and Lungs clear to auscul.
GI: Soft
Neuro/Psych: AO x 3
Data Reviewed
-
Date of Service: January 29, 2025
EKG: Tracing Personally Visualized and interpreted (sr)
Echo: Report Reviewed by me
Labs: Labs Reviewed by me
--- NOTE | 2025-01-29 08:41 | PHA.VAN.FU ---
Vancomycin Assessment / Plan
- Assessment
Renal Function: Stable
WBC's are: WNL
In the past 24 hrs, patient has been: Afebrile
- Dosing Plan
Continue: Vanc 1000mg Q24H
- Monitoring Plan
No level(s) ordered at this time: consider levels in next few days if vancomycin continued
- Follow Up
Pharmacy will continue to follow.
Vancomycin Follow UP
- -
Patient Age: 74
Patient Sex: Male
Vancomycin Day #: 13
Indication: Pulmonary/Respiratory
Requesting Provider: Dr. Gomez / Steve
Pertinent Antimicrobial Allergies:
NKDA
Height / Weight:
Height 6 ft
Actual Weight 90.083 kg
Pertinent Past Medical History: Colorectal carcinoma
- Vital Signs / Lab Results
Temp Pulse Resp BP Pulse Ox
98 F 60 16 136/72 97
01/29/25 07:59 01/29/25 07:59 01/29/25 07:59 01/29/25 07:59 01/29/25 07:59
Lab Results - Hematology
01/26/25 01/26/25 01/27/25
07:49 15:58 05:48
WBC 11.7 H 10.7 9.7
01/28/25 01/29/25
07:41 05:42
WBC 9.2 9.4
Lab Results - Chemistry
01/26/25 01/27/25 01/28/25
07:49 05:48 07:41
BUN 28 H 28 H 25 H
Creatinine 1.4 H 1.3 1.4 H
Estimated Creat Clear 49 53 49
Albumin 2.3 L
Therapeutic Drug Monitoring
Vancomycin Peak 24.2 ug/ml (18-26) 01/18/25 21:18
Vancomycin Trough 17.8 ug/ml (5-20) 01/19/25 04:48
Random Vancomycin 12.4 ug/ml 01/28/25 07:41
[2025-01-29] MEDS: PROTONIX IV 40 MG IV (09:05)
[2025-01-29] MEDS: PROSCAR 5 MG PO (09:06)
[2025-01-29] MEDS: LOPRESSOR 12.5 MG PO ×2 (09:06→19:22)
[2025-01-29] MEDS: NSS (PRESERVATIVE FREE) 10 ML IV (09:06)
[2025-01-29] MEDS: LYRICA 75 MG PO ×2 (09:06→19:22)
[2025-01-29] MEDS: LASIX 20 MG IV (09:07)
[2025-01-29] MEDS: ELIQUIS 5 MG PO ×2 (09:07→19:22)
--- NOTE | 2025-01-29 10:16 | W.PN.CRS1 ---
Today's Communication / Plan
-
cont current management
overall doing well
await creatinine
Assessment/Plan
-
74-year-old male with PMH of A-fib (s/p cardioversion 2022, on Eliquis), HTN, hypothyroidism and anal adenocarcinoma, s/p DEIDRE with complete response, complicated by local recurrence, who underwent robotic APR, VRAM flap and end-colostomy on 01/11; he
did well post-operatively and was discharged on 01/16; however, he developed fever and chills and presented back to the ED on 01/17; WBC 11.5, Hb stable, CR 0.8, UA negative, CXR�concerning for left lower lobe pneumonia; CTAP showing postoperative
changes, no evident infections or abscess; afib with RVR, better controlled with amio, still awaiting return of bowel function; s/p pRBC x2 on 01/20 for Hb downtrend; GRAY, now improving
POD 18 robotic APR with VRAM flap
AFVSS
WBC 9.4 from 9.2, Hb 8.8 from 8.5, Cr pending (1.4)
� SIRS response on admission
�Blood cultures 01/16 MRSA, 01/18 - ngtd, 01/20 - ngtd; UCx neg; initial CXR w/ ? left pneumonia, sputum cx negative; repeat CXR showed no consolidations
� ERVIN from subQ culture showed MRSA, now clear
-Monitor ERVIN output; once less than 20mL/day, will remove (if greater than 20mL/day, higher risk of developing seroma)
�Appreciate ID; continue IV vanc x2 weeks
� Ileus resolved
� Continue regular diet
�GRAY, Cr at 1.3-1.4; await this morning's labs
�Fluid overload, s/p dose of Lasix; appreciate cardiology and hospitalist
� Continue analgesics
� Eliquis restarted 01/28
� Encourage IS, OOB; appreciate PT
�Appreciate hospitalist
Subjective Data
Procedure
01/11/25 Robotic APR, creation of end colostomy, exclusion of the pelvis, laparoscopic TAP block (Max)
Vertical rectus myocutaneous flap for perineal reconstruction (Gabriela)
Subjective Data
Date of Service: January 29, 2025
Patient states he feels well. His pain is controlled. He denies nausea or vomiting. He has bowel function.
Objective Data
-
Vital Signs
Temp Pulse Resp BP Pulse Ox
98 F 60 16 136/72 97
01/29/25 07:59 01/29/25 07:59 01/29/25 07:59 01/29/25 07:59 01/29/25 07:59
Intake & Output
01/28/25 01/29/25 01/30/25
06:59 06:59 06:59
Intake Total 1500 / 1500 1400 / 1400
Output Total 4650 / 4650 3915 / 3915
Balance -3150 / -3150 -2515 / -2515
Intake:
Oral fluids 1500 / 1500 1200 / 1200
IV piggybacks 200 / 200
Output:
Liquid stool amount 40 / 40 5 / 5
Colostomy 40 / 40 5 / 5
Drain Output (Total) 80 / 80 85 / 85
Right Lower Abdomen Alberto- 20 / 20 35 / 35
Martinez A
Right Lower Abdomen Alberto- 60 / 60 50 / 50
Martinez B
Urine, Voided 4530 / 4530 3325 / 3325
Straight cath output 500 / 500
Lab Results
01/29/25 05:42
Physical Exam
-
General: No Acute Distress and AOx3
Abdomen: Soft, Non Distended, Non Tender and Other ([address], 1 serosanginous, 1 serous)
Skin: Warm and Dry
Incision: Clear, Dry, Intact
--- NOTE | 2025-01-29 10:23 | CM ---
Reviewed the chart notes and spoke with the patient at the bedside. Patient tolerating regular diet. Last day of IV abx. No longer on TPN. Continues with IV Lasix. Patient anticipates being discharged to home with VN services. Referral had
previously been sent for VN and was accepted on [facility]. and accepted. CM continues to be available to patient/family and is monitoring medical plan for needs at discharge.
Plan: Discharge to home when medically stable with VN services.
--- NOTE | 2025-01-29 10:30 | WOUNDNOTE ---
WON RN NOTE: Appliance changed and reviewed techniques with patient. Able to open and close tail end, states he has been emptying on own. Stoma pink slightly prolapsed, peristomal skin intact. Supplies at bedside, aware can take upon discharge.
Patient is on air overlay with adequate inflation and turning schedule in effect. Answered all questions and will follow as needed.
[2025-01-29 11:24] VITALS: BP 139/81
[2025-01-29 11:32] LABS: Blood Urea Nitrogen 24 mg/dl (9-20); Calcium 8.4 mg/dl (8.4-10.2); Carbon Dioxide 25 mmol/L (22-30); Chloride 99 mmol/L (98-107); Estimated Creatinine Clearance 46 ml/min; Glucose 107 mg/dl (70-99); Potassium 4.7 mmol/L (3.5-5.1); Sodium 131 mmol/L (135-145); eGFR 47.95
[2025-01-29 15:16] VITALS: BP 127/64
--- NOTE | 2025-01-29 16:51 | W.PN.HOSP.TC ---
Today's Communication/Plan
-
Acute urinary retention requiring Caruso catheter placement
Monitor creatinine with Caruso placement and while on IV Lasix.
Transition off IV vancomycin to doxycycline
Continue ERVIN drain as per colorectal surgery per
Monitor for recurrent bleeding while on anticoagulation
Continue physical therapy
Assessment / Plan
Assessment / Plan
Impression
Presentation with fever and abdominal pain.
Sepsis present on admission
MRSA bacteremia.
Left lower lobe pneumonia versus atelectasis.
Ileus.
SVT with transition to rapid A-fib.
Hypotension secondary to SVT/rapid A-fib.
Acute blood loss anemia.
Other conditions:
Status post robotic APR with perineal reconstruction on 01/11
Colorectal carcinoma status post chemo/radiation
Paroxysmal atrial fibrillation baseline anticoagulation with Eliquis
Essential hypertension
BPH
Hypothyroidism replacement
Right chest Chemo-Port in place
Plan
#MRSA bacteremia suspected secondary to infected wound.
#Sepsis secondary to pneumonia v. intra-abdominal infection postoperatively
-Presented as postoperative fever, s/p APR with perineal reconstruction on 01/11 for anorectal cancer
-Blood cultures x 2 on admission positive for MRSA; signs of pneumonia on x-ray as well as worsening ERVIN output
-No signs of infection near Chemo-Port or ostomy; CT A/P without signs of abscess here
-Was started on broad-spectrum antibiotics; have been transitioned to IV vancomycin alone by ID
-Repeat blood cultures obtained and negative. Fevers have resolved as of 01/19, remains with leukocytosis that is improved
-TTE negative for vegetation.
Repeat blood cultures negative to date
Repeat CT scan of the abdomen/pelvis on 01/23 with findings consistent of ill-defined right lower quadrant collection
As per discussion with colorectal surgery plan is to observe and treat with antibiotics with no indication for drain.
Chemo-Port had been removed on 01/23
-Completed course IV vancomycin to complete total of 14 days of antibiotic as per ID through 01/29. Transition to doxycycline on 01/29. Plan to continue as long as ERVIN drain remains in place.
Monitor temperature curve and WBC
#Postoperative ileus
-Presented with abdomen pain; s/p NGT placed on 01/18
-Currently receiving Dilaudid for pain, will de-escalate at patient's request
-Bowel function improving with noted improved output through colostomy.
-Currently on a regular diet, colorectal surgery recommends discontinuing TPN after current bag
#Acute blood loss anemia
Initially with hemorrhagic output through ERVIN drain and minimal hemorrhage from skin flap
Requiring blood transfusion 2 units given 01/20
-Iron studies with evidence of anemia of chronic disease
-Has been off anticoagulation.
-Trend hemoglobin, transfuse for hemoglobin less than 7.0
#Acute kidney injury
-Suspect mild septic ATN; persistent elevation despite hemodynamic stability
-Creatinine normal at baseline, recent labs with creatinine 1.5-1.7 over 3 lab draw
-Has been off IV fluids and TPN
-Reported urinary retention with PVR at 500s.
Caruso catheter to be placed on 01/29
-Continue Flomax
#Atrial fibrillation with RVR
-Nonvalvular; [id number] 3; presented as SVT that degenerated to AF
-Status post IV amiodarone drip
-Home regimen includes Eliquis, currently on hold due to surgical abdominal issues
-Off IV heparin restarted on Eliquis on 01/28.
#Acute on chronic hyponatremia
#Bilateral lower extremity edema
Improved with IV hydration.
Hypertensive with peripheral edema.
Continue gentle diuresis due to peripheral edema/volume overload
#Anal cancer s/p robotic APR (01/11)
-Status post chemotherapy and surgical resection
-Currently with ostomy in place
-Colorectal surgery following
#BPH
-Patient complains of difficulty initiating stream with severe effort, postvoid residual 100 ml
� Continue Flomax, add Proscar 5 mg daily
#Hypothyroidism
-Unclear cause, home regimen includes levothyroxine 100 mcg daily
-No signs or symptoms of thyroid dysfunction at this time (RVR due to critical illness)
#Neuropathy
-B12 levels normal, trial of Lyrica 75 mg twice a day started 01/27
DVT prophylaxis�IV heparin drip
Full code
Total time spent to see the patient on the floor, examine the patient, review data and lab results, discuss treatment plan with patient, nursing staff around 51 minutes.
Anticipated Discharge: 24 - 48 hours
Subjective/Interval History
-
Date of Service: January 29, 2025
Objective Data
-
Labs:
Laboratory Results
01/29/25 01/29/25
05:42 10:26
WBC 9.4
Hgb 8.8 L
Hct 25.4 L
Plt Count 442 H
Sodium 131 L
Potassium 4.7
Chloride 99
Carbon Dioxide 25
BUN 24 H
Creatinine 1.5 H
Glucose 107 H
Calcium 8.4
Vital Signs:
Vital Signs
Temp Pulse Resp BP Pulse Ox
98.2 F 59 18 127/64 97
01/29/25 15:16 01/29/25 15:16 01/29/25 15:16 01/29/25 15:16 01/29/25 15:16
I&O
01/28/25 01/29/25 01/30/25
06:59 06:59 06:59
Intake Total 1500 / 1500 1400 / 1400
Output Total 4650 / 4650 3915 / 3915
Balance -3150 / -3150 -2515 / -2515
Physical Exam
-
General: Well Developed, No Apparent Distress and Appears Chronically Ill
HEENT: Normocephalic, Atraumatic, Moist Mucous Membranes and Anicteric
Respiratory: Clear to Auscultation and Non Labored Respirations
Cardiac: S1/S2, Irregular Rhythm and Tachycardic; Negative Murmur, Rub, JVD or Gallop
GI: Soft, Nondistended, Ostomy and Other (Mild general tenderness; absent bowel sounds; no peritoneal signs; bloody ERVIN drain output)
Musculoskeletal: No Clubbing, No Cyanosis and No Edema
Skin: Warm and Dry; Negative Rash
Neuro: AO x 3 and Nonfocal/Grossly Intact
Psych: Calm
[2025-01-29] MEDS: VIBRAMYCIN 100 MG PO (19:22)
[2025-01-29 23:13] VITALS: BP 121/58
[2025-01-29] MEDS: FLOMAX 0.4 MG PO (23:37)
--- NOTE | 2025-01-30 04:23 | DOWNTIME ---
There was a [employer] Downtime on 01/30/2025 from 0100 to 01/31/2024 at 0420 . Downtime documentation of patient's care, including medication administrations, has been reconciled in the electronic record per guidelines. Refer to the
patient's paper chart under the miscellaneous tab to see printed paper medication records and downtime forms.
[2025-01-30 05:40] LABS: % Basophils 0.4 % (0-2); % Eosinophils 2.5 % (0-6); % Immature Granulocytes 0.8 % (0-0.5); % Lymphocytes 5.6 % (20.5-51.1); % Monocytes 12.4 % (1.7-9.3); % Neutrophils 78.3 % (42.2-75.2); Absolute Eosinophils 0.2 10^3/uL (0-0.7); Absolute Immature Granulocytes 0.1 10^3/uL (0-0.05); Absolute Lymphocytes 0.5 10^3/uL (1.2-3.4); Absolute Monocytes 1.2 10^3/uL (0.1-0.6); Absolute Neutrophils 7.5 10^3/uL (1.4-6.5); Hematocrit 24.4 % (39.0-52.0); Hemoglobin 8.2 g/dL (13.0-18.0); Mean Corp Hgb Conc. 33.6 g/dL (33.0-37.0); Mean Corpuscular Hgb 32.2 pg (27.0-31.0); Mean Corpuscular Volume 95.7 fL (80.0-94.0); Mean Platelet Volume 9.3 fL (7.4-10.4); Nucleated Red Blood Cells % 0 % (-); Platelet Count 393 10^3/uL (130-400); Red Blood Cell Count 2.55 10^6/uL (4.70-6.10); Red Cell Dist. Width 13.6 % (11.5-14.5); White Blood Cell Count 9.6 10^3/uL (4.8-10.8)
[2025-01-30 05:53] LABS: Blood Urea Nitrogen 24 mg/dl (9-20); Calcium 8.2 mg/dl (8.4-10.2); Carbon Dioxide 30 mmol/L (22-30); Chloride 99 mmol/L (98-107); Estimated Creatinine Clearance 43 ml/min; Glucose 95 mg/dl (70-99); Potassium 4.3 mmol/L (3.5-5.1); Sodium 132 mmol/L (135-145); eGFR 44.38
[2025-01-30 06:00] VITALS: BMI 27.0
[2025-01-30] MEDS: TYLENOL 1000 MG PO ×4 (06:11→23:02)
[2025-01-30] MEDS: SYNTHROID 100 MCG PO (06:11)
[2025-01-30 07:38] VITALS: BP 119/60
[2025-01-30] MEDS: VANCOCIN IV (07:41)
[2025-01-30] MEDS: ELIQUIS 5 MG PO ×2 (08:11→19:45)
--- NOTE | 2025-01-30 08:11 | W.PN.CD ---
Today's Communication / Plan
-
IV Lasix
Impression / Plan
-
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
developing sepsis. Cardiology initially consulted for tachycardia with heart rates of 235 bpm (narrow complex), resolved. Now undergoing diuresis.
MRSA Staph Aureus bacteremia/sepsis
- Presumed source is subcutaneous abscess with ERVIN drain purulent fluid output
- Continue antibiotics and recommendations as per ID. Plan is for 14 days IV abx
- Transthoracic echocardiogram unremarkable
PSVT, perhaps an atrial flutter or SVT (see 12 lead EKG 01/17/2025 at 1225 hrs) => degenerated to AFib
PAF with RVR (he also had typical Atrial Flutter last admission as well)
-This episode precipitated by sepsis
-[id number] 3 (age x 2, hypertension)
-Anticoagulation: Eliquis is back on. hgb stable
-Has used pill in the pocket Flecainide for many years. In past just had highly symptomatic episodes about 1 time a year . No more use of flecainide at this time
-He is now in SR, no palpitations
-Continue Metoprolol
Edema up through thighs: Weight is up significantly since admission
-Lasix 20mg IV daily (had 3L UOP to this dose yest)
Colostomy:
-NGT removed 01/23. Now on regular diet
-Management as per Surgery.
Anal adenocarcinoma, S/p combined therapy (chemo/surgery):
-Status-post surgical resection on 01/11/2025.
-Recommendations as per Surgery.
Hypertension
-improving
-on ARB as OP- resume when appropriate
Subjective:
Caruso in place. Up and moving around a lot yesterday. No CV complaints.
Physical Exam
Vital Signs/Labs
Vital Signs
Temp Pulse Resp BP Pulse Ox
98.5 F 64 18 119/60 96
01/30/25 07:38 01/30/25 07:38 01/30/25 07:38 01/30/25 07:38 01/30/25 07:38
01/29/25 01/30/25 01/31/25
06:59 06:59 06:59
Actual Weight 90.083 kg
01/30/25 05:14
01/30/25 05:14
PT 14.6 Sec (11.4-14.6) 01/17/25 12:34
INR 1.09 01/17/25 12:34
APTT 41.0 Sec (23.4-35.0) H 01/28/25 14:08
Magnesium 2.2 mg/dl (1.6-2.3) 01/28/25 07:41
Triglycerides 83 mg/dl (10-149) 01/28/25 07:41
Physical Exam
Constitutional: No acute distress and Comfortable
Cardiovascular: Rhythm & rate is regular, Pedal edema present, S1S2 is normal and Murmur/rub/gallop absent
Respiratory: Respiratory effort normal and Lungs clear to auscul.
GI: Distention present
Neuro/Psych: AO x 3
Data Reviewed
-
Date of Service: January 30, 2025
Medical Decision Making: Reviewed Test Results, Independent Historian Assessment, Test Interpretation and Review of Case with other Provider
EKG: Tracing Personally Visualized and interpreted
Echo: Report Reviewed by me
Labs: Labs Reviewed by me
[2025-01-30] MEDS: LASIX 20 MG IV (08:12)
[2025-01-30] MEDS: PROSCAR 5 MG PO (08:12)
[2025-01-30] MEDS: LYRICA 75 MG PO ×2 (08:12→19:45)
[2025-01-30] MEDS: VIBRAMYCIN 100 MG PO ×2 (08:12→19:45)
[2025-01-30] MEDS: PROTONIX IV 40 MG IV (08:12)
[2025-01-30] MEDS: LOPRESSOR 12.5 MG PO ×2 (08:12→19:46)
[2025-01-30] MEDS: NSS (PRESERVATIVE FREE) 10 ML IV (08:13)
--- NOTE | 2025-01-30 09:59 | W.PN.CRS1 ---
Today's Communication / Plan
-
will remove pelvic drain prior to discharge
continue other measures
Assessment/Plan
-
74-year-old male with PMH of A-fib (s/p cardioversion 2022, on Eliqu), HTN, hypothyroidism and anal adenocarcinoma, s/p DEIDRE with complete response, complicated by local recurrence, who underwent robotic APR, VRAM flap and end-colostomy on 01/11; he
did well post-operatively and was discharged on 01/16; however, he developed fever and chills and presented back to the ED on 01/17; WBC 11.5, Hb stable, CR 0.8, UA negative, CXR�concerning for left lower lobe pneumonia; CTAP showing postoperative
changes, no evident infections or abscess; afib with RVR, better controlled with amio, still awaiting return of bowel function; s/p pRBC x2 on 01/20 for Hb downtrend; GRAY, now improving
POD 19 robotic APR with VRAM flap
AFVSS
WBC 9.6 from 9.4, Hb 8.2 from 8.8, Cr 1.6
� Drains: Pelvic drain to be removed prior to discharge. Subq drain will be left in until less than 20ml output.
� Continue regular diet
�GRAY, keita inserted yesterday.
�Appreciate cardiology and hospitalist
� Continue analgesics
� Eliquis restarted 01/28
� Encourage IS, OOB; appreciate PT
�Appreciate hospitalist
Subjective Data
Procedure
01/11/25 Robotic APR, creation of end colostomy, exclusion of the pelvis, laparoscopic TAP block (Max)
Vertical rectus myocutaneous flap for perineal reconstruction (Gabriela)
Subjective Data
Date of Service: January 30, 2025
Patient states he feels well. His pain is controlled. He has no complaints.
Objective Data
-
Vital Signs
Temp Pulse Resp BP Pulse Ox
98.5 F 64 18 119/60 96
01/30/25 07:38 01/30/25 08:12 01/30/25 07:38 01/30/25 08:12 01/30/25 07:38
Intake & Output
01/29/25 01/30/25 01/31/25
06:59 06:59 06:59
Intake Total 1400 / 1400 300 / 300
Output Total 3915 / 3915 1745 / 3350 1605 / 1605
Balance -2515 / -2515 -1445 / -3050 -1605 / -1605
Intake:
Oral fluids 1200 / 1200 300 / 300
IV piggybacks 200 / 200
Output:
Liquid stool amount 5 / 5
Colostomy 5 / 5
Drain Output (Total) 85 / 85 55 / 55
Right Lower Abdomen Alberto- 35 / 35
Martinez A
Right Lower Abdomen Alberto- 50 / 50 30 / 30
Martinez B
Urine, Keita 620 / 620
Urine, Voided 3325 / 3325 1125 / 2675 1550 / 1550
Straight cath output 500 / 500
Lab Results
01/30/25 05:14
01/30/25 05:14
Physical Exam
-
General: No Acute Distress and AOx3
Abdomen: Soft, Non Distended, Non Tender and Other (Drains in place. Surgical drain serosanguinous, 2nd drain serous)
Skin: Warm and Dry
--- NOTE | 2025-01-30 11:30 | WOUNDNOTE ---
COCCYX/MICHAEL FLAP
--- NOTE | 2025-01-30 14:31 | W.PN.HOSP.TC ---
Today's Communication/Plan
-
Transition to doxycycline.
Subcutaneous ERVIN drain remains in place.
Remains on IV Lasix with good diuresis
Creatinine hopefully plateau 1.5�1.6
Caruso catheter placed on 01/29 for acute retention.
Given all of above most likely home with VNA and Caruso catheter in place for outpatient trial of voiding.
Discharge planing
Assessment / Plan
Assessment / Plan
Impression
Presentation with fever and abdominal pain.
Sepsis present on admission
MRSA bacteremia.
Left lower lobe pneumonia versus atelectasis.
Ileus.
SVT with transition to rapid A-fib.
Hypotension secondary to SVT/rapid A-fib.
Acute blood loss anemia.
Other conditions:
Status post robotic APR with perineal reconstruction on 01/11
Colorectal carcinoma status post chemo/radiation
Paroxysmal atrial fibrillation baseline anticoagulation with Eliquis
Essential hypertension
BPH
Hypothyroidism replacement
Right chest Chemo-Port in place
Plan
#MRSA bacteremia suspected secondary to infected wound.
#Sepsis secondary to pneumonia v. intra-abdominal infection postoperatively
-Presented as postoperative fever, s/p APR with perineal reconstruction on 01/11 for anorectal cancer
-Blood cultures x 2 on admission positive for MRSA; signs of pneumonia on x-ray as well as worsening ERVIN output
-No signs of infection near Chemo-Port or ostomy; CT A/P without signs of abscess here
-Was started on broad-spectrum antibiotics; have been transitioned to IV vancomycin alone by ID
-Repeat blood cultures obtained and negative. Fevers have resolved as of 01/19, remains with leukocytosis that is improved
-TTE negative for vegetation.
Repeat blood cultures negative to date
Repeat CT scan of the abdomen/pelvis on 01/23 with findings consistent of ill-defined right lower quadrant collection
As per discussion with colorectal surgery plan is to observe and treat with antibiotics with no indication for drain.
Chemo-Port had been removed on 01/23
-Completed course IV vancomycin to complete total of 14 days of antibiotic as per ID through 01/29. Transition to doxycycline on 01/29. Plan to continue as long as ERVIN drain remains in place.
Monitor temperature curve and WBC
#Postoperative ileus
-Presented with abdomen pain; s/p NGT placed on 01/18
-Currently receiving Dilaudid for pain, will de-escalate at patient's request
-Bowel function improving with noted improved output through colostomy.
-Currently on a regular diet, colorectal surgery recommends discontinuing TPN after current bag
#Acute blood loss anemia
Initially with hemorrhagic output through ERVIN drain and minimal hemorrhage from skin flap
Requiring blood transfusion 2 units given 01/20
-Iron studies with evidence of anemia of chronic disease
-Has been off anticoagulation.
-Trend hemoglobin, transfuse for hemoglobin less than 7.0
#Acute kidney injury
-Suspect mild septic ATN; persistent elevation despite hemodynamic stability
-Creatinine normal at baseline, recent labs with creatinine 1.5-1.7 over 3 lab draw
-Has been off IV fluids and TPN
-Reported urinary retention with PVR at 500s.
Caruso catheter to be placed on 01/29
-Continue Flomax
#Atrial fibrillation with RVR
-Nonvalvular; [id number] 3; presented as SVT that degenerated to AF
-Status post IV amiodarone drip
-Home regimen includes Eliquis, currently on hold due to surgical abdominal issues
-Off IV heparin restarted on Eliquis on 01/28.
#Acute on chronic hyponatremia
#Bilateral lower extremity edema
Improved with IV hydration.
Hypertensive with peripheral edema.
Continue gentle diuresis due to peripheral edema/volume overload
#Anal cancer s/p robotic APR (01/11)
-Status post chemotherapy and surgical resection
-Currently with ostomy in place
-Colorectal surgery following
#BPH
-Patient complains of difficulty initiating stream with severe effort, postvoid residual 100 ml
� Continue Flomax, add Proscar 5 mg daily
#Hypothyroidism
-Unclear cause, home regimen includes levothyroxine 100 mcg daily
-No signs or symptoms of thyroid dysfunction at this time (RVR due to critical illness)
#Neuropathy
-B12 levels normal, trial of Lyrica 75 mg twice a day started 01/27
DVT prophylaxis�IV heparin drip
Full code
Total time spent to see the patient on the floor, examine the patient, review data and lab results, discuss treatment plan with patient, nursing staff around 51 minutes.
Anticipated Discharge: 24 - 48 hours
Subjective/Interval History
-
Date of Service: January 30, 2025
Objective Data
-
Labs:
Laboratory Results
01/30/25
05:14
WBC 9.6
Hgb 8.2 L
Hct 24.4 L
Plt Count 393
Sodium 132 L
Potassium 4.3
Chloride 99
Carbon Dioxide 30
BUN 24 H
Creatinine 1.6 H
Glucose 95
Calcium 8.2 L
Vital Signs:
Vital Signs
Temp Pulse Resp BP Pulse Ox
98.5 F 64 18 119/60 96
01/30/25 07:38 01/30/25 08:12 01/30/25 07:38 01/30/25 08:12 01/30/25 07:38
I&O
01/29/25 01/30/25 01/31/25
06:59 06:59 06:59
Intake Total 1400 / 1400 300 / 300
Output Total 3915 / 3915 1745 / 3350 2775 / 2775
Balance -2515 / -2515 -1445 / -3050 -2775 / -2775
Physical Exam
-
General: Well Developed, No Apparent Distress and Appears Chronically Ill
HEENT: Normocephalic, Atraumatic, Moist Mucous Membranes and Anicteric
Respiratory: Clear to Auscultation and Non Labored Respirations
Cardiac: S1/S2, Irregular Rhythm and Tachycardic; Negative Murmur, Rub, JVD or Gallop
GI: Soft, Nondistended, Ostomy and Other (Mild general tenderness; absent bowel sounds; no peritoneal signs; bloody ERVIN drain output)
Musculoskeletal: No Clubbing, No Cyanosis and No Edema
Skin: Warm and Dry; Negative Rash
Neuro: AO x 3 and Nonfocal/Grossly Intact
Psych: Calm
--- NOTE | 2025-01-30 14:55 | WOUNDNOTE ---
[facility] RN note: Patient seen about 11:30am during pressure injury prevention rounds with nurse operations project manager Yumi and nurse educator Chantale. Sacral and heel skin is intact. Proximal end of artur flap continues to drain bloody drainage. Dressing changed
with help from nurse educator Chantale. Scant pin point adhesive skin tear occurred L lower buttocks from removal of Medipore tape. 1.6x2 inch silicone border foam applied. Silicone tape used to secure artur dressing along with mesh underwear. R
anterior ankle small stage 1 pressure injury resolving, dry discolored skin appearance. Discussed with RN Hattie. Updated Felicity Oakes colorectal PA via tiger text re: artur flap continues with large amount of bloody drainage with photo
included. Felicity requested to pass onto Dr. Ochoa. Elba texted update to Dr. Ochoa re: patient's artur flap still has a large amount of bloody drainage and included picture of flap with drainage on removed ABD.
--- NOTE | 2025-01-30 15:15 | PTCARENOTE ---
After ambulating in hallway, patient's ERVIN B site draining around insertion site/dressing saturated. Notified colorectal Twila Springer Stripped ERVIN, cleansed area and redressed.
[2025-01-30 15:18] VITALS: BP 142/78
--- NOTE | 2025-01-30 15:34 | CM ---
Chart reviewed
PT rec HH
referral in [facility] & accepted
Plan: Discharge to home when medically stable with [facility].
--- NOTE | 2025-01-30 16:43 | W.PN.ID1 ---
Date of Service
Date of Service: January 30, 2025
Today's Communication
- can continue on doxycycline 14 days 01/29-02/11
Assessment / Plan
MRSA Bacteremia x 2 sets
Fever - resolved
Afib
Anal adenocarcinoma s/p robotic APR, end colostomy, bilateral ureter stents, VRAM reconstruction 01/09/25
- 3 blood cultures clearrf
- TTE no gross vege
- drain culture also with MRSA
- has PICC - from ID perspective could be removed at dc
- can continue on doxycycline 14 days 01/29-02/11
Chief Complaint
-: Bacteremia
Subjective / Review of Systems
afebrile
bp stable
up and walking with walker
Vital Signs / Physical Exam
Vital Signs
Vital Signs
Temp Pulse Resp BP Pulse Ox
98.2 F 71 18 142/78 97
01/30/25 15:18 01/30/25 15:18 01/30/25 15:18 01/30/25 15:18 01/30/25 15:18
Physical Exam
Constitutional: No Acute Distress
Cardiovascular: Regular Rate
Pulmonary: Symmetric
Gastrointestinal: Non Distended
Genito-Urinary: Other
Skin: Dry; Negative Rash or Jaundice
Wound: Other (abdominal surgical site no erythema, warmth, tenderness or drainage; stoma pink/budded)
Objective Data
Lab Data
Lab Results
01/30/25 05:14
01/30/25 05:14
PT 14.6 Sec (11.4-14.6) 01/17/25 12:34
INR 1.09 01/17/25 12:34
APTT 41.0 Sec (23.4-35.0) H 01/28/25 14:08
Estimated Creat Clear 43 ml/min 01/30/25 05:14
Lactic Acid 1.1 mmol/L (0.7-2.0) 01/17/25 16:37
Total Bilirubin 0.5 mg/dl (0.2-1.3) 01/28/25 07:41
AST 33 U/L (17-59) 01/28/25 07:41
ALT 47 U/L (0-50) 01/28/25 07:41
Alkaline Phosphatase 194 U/L (38-126) H 01/28/25 07:41
Most recent labs reviewed.
Micro Results:
01/20/25 05:18 Blood Culture - Final
Blood/Venous No Growth - Final Report
01/20/25 05:18 Blood Culture - Final
Blood/Venous No Growth - Final Report
01/18/25 12:36 Blood Culture - Final
Blood/Venous No Growth - Final Report
01/18/25 12:36 Blood Culture - Final
Blood/Venous No Growth - Final Report
01/16/25 12:56 Blood Culture - Final
Blood/Venous Staph aureus MRSA
Gram Stain - Final
01/16/25 12:56 Blood Culture - Final
Blood/Venous Staph aureus MRSA
Gram Stain - Final
01/19/25 18:26 Body Fluid Culture - Final
Fluid Staph aureus MRSA
Gram Stain - Final
01/19/25 22:26 Respiratory Culture - Final
Sputum Gram Stain - Final
01/16/25 12:57 Urine Culture - Final
Urine NO GROWTH
01/16/25 22:39 MRSA Screen - Final
Nose Staph aureus MRSA
01/16/25 12:57 Influenza Types A & B (CELIA) - Final
Nasal Swab Negative for Influenza A & B, NAAT
Negative results must be combined with clinical observations
and patient history.
Nucleic Acid Amplification test (NAAT)performed on the
[employer] platform.
01/19/35 CXR: There is minimal bibasilar opacities with likely small bilateral pleural effusions, similar to prior
01/16/25 CT a/p: There is a percutaneous drainage catheter entering the lateral right abdominal wall. The tip rests in the right pelvis posteriorly.There is a second drainage catheter in the subcutaneous tissues with the tip in midline the upper
anterior abdominal wall.
[2025-01-30] MEDS: MYLICON 80 MG PO (17:44)
[2025-01-30] MEDS: ROXICODONE 5 MG PO (17:44)
[2025-01-30] MEDS: FLOMAX 0.4 MG PO (21:01)
[2025-01-30 23:34] VITALS: BP 122/62
[2025-01-31] MEDS: ROXICODONE 5 MG PO ×2 (01:13→23:05)
[2025-01-31] MEDS: SYNTHROID 100 MCG PO (05:35)
[2025-01-31] MEDS: TYLENOL 1000 MG PO ×4 (05:35→23:01)
[2025-01-31 06:19] VITALS: BMI 26.0
[2025-01-31 07:05] VITALS: BP 142/70
--- NOTE | 2025-01-31 08:11 | W.PN.CD ---
Today's Communication / Plan
-
-Continue Lasix 20mg IV daily while inpatient; change to Lasix 20 mg PO daily on discharge.
Impression / Plan
-
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
developing sepsis. Cardiology initially consulted for tachycardia with heart rates of 235 bpm (narrow complex), resolved. Now undergoing diuresis.
MRSA Staph Aureus bacteremia/sepsis
- Presumed source is subcutaneous abscess with ERVIN drain purulent fluid output
- Continue antibiotics and recommendations as per ID. Plan is for 14 days IV abx; now on doxycycline.
- Transthoracic echocardiogram unremarkable
PSVT, perhaps an atrial flutter or SVT (see 12 lead EKG 01/17/2025 at 1225 hrs) => degenerated to AFib
PAF with RVR (he also had typical Atrial Flutter last admission as well)
-This episode precipitated by sepsis
-[id number] 3 (age x 2, hypertension)
-Anticoagulation: Eliquis is back on. hgb stable
-Has used pill in the pocket Flecainide for many years. In past just had highly symptomatic episodes about 1 time a year . No more use of flecainide at this time
-He is now in SR, no palpitations
-Continue current dose of metoprolol to tartrate.
Edema up through thighs: Weight is up significantly since admission
-Continue Lasix 20mg IV daily while inpatient; change to Lasix 20 mg PO daily on discharge.
Colostomy:
-NGT removed 01/23. Now on regular diet
-Management as per Surgery.
Anal adenocarcinoma, S/p combined therapy (chemo/surgery):
-Status-post surgical resection on 01/11/2025.
-Recommendations as per Surgery.
Hypertension
-improving
-on ARB as OP; will not resume given CKD, blood pressure is fairly controlled.
Physical Exam
Vital Signs/Labs
Vital Signs
Temp Pulse Resp BP Pulse Ox
97.5 F 63 18 142/70 97
01/31/25 07:05 01/31/25 07:05 01/31/25 07:05 01/31/25 07:05 01/31/25 07:05
01/30/25 01/31/25 02/01/25
06:59 06:59 06:59
Actual Weight 90.2 kg 86.999 kg
01/30/25 05:14
01/30/25 05:14
PT 14.6 Sec (11.4-14.6) 01/17/25 12:34
INR 1.09 01/17/25 12:34
APTT 41.0 Sec (23.4-35.0) H 01/28/25 14:08
Magnesium 2.2 mg/dl (1.6-2.3) 01/28/25 07:41
Triglycerides 83 mg/dl (10-149) 01/28/25 07:41
Physical Exam
Constitutional: No acute distress and Comfortable
EENT: Anicteric
Cardiovascular: Rhythm & rate is regular, Systolic murmur absent, Pedal edema present (1-2+) and S1S2 is normal
Respiratory: Respiratory effort normal and Lungs clear to auscul.
GI: Distention present
Neuro/Psych: AO x 3
Other: Skin (Warm, dry)
Data Reviewed
-
Date of Service: January 31, 2025
Medical Tests (PFT, Pathology etc): Discussed with Patient
Labs: Labs Reviewed by me
[2025-01-31] MEDS: VIBRAMYCIN 100 MG PO ×2 (08:41→21:01)
[2025-01-31] MEDS: LOPRESSOR 12.5 MG PO ×2 (08:41→21:02)
[2025-01-31] MEDS: PROSCAR 5 MG PO (08:41)
[2025-01-31] MEDS: PROTONIX IV 40 MG IV (08:42)
[2025-01-31] MEDS: NSS (PRESERVATIVE FREE) 10 ML IV (08:42)
[2025-01-31] MEDS: LYRICA 75 MG PO ×2 (08:42→21:01)
[2025-01-31] MEDS: LASIX 20 MG IV (08:43)
[2025-01-31] MEDS: ELIQUIS 5 MG PO ×2 (08:43→21:01)
[2025-01-31] MEDS: FLUSH (NSS) 2 FLUSH IV (08:44)
[2025-01-31 09:32] LABS: Blood Urea Nitrogen 21 mg/dl (9-20); Calcium 8.1 mg/dl (8.4-10.2); Carbon Dioxide 28 mmol/L (22-30); Chloride 98 mmol/L (98-107); Estimated Creatinine Clearance 43 ml/min; Glucose 144 mg/dl (70-99); Potassium 4.3 mmol/L (3.5-5.1); Sodium 130 mmol/L (135-145); eGFR 44.38
[2025-01-31] MEDS: OMNIPAQUE 50 ML PO (10:40)
--- NOTE | 2025-01-31 11:03 | CM ---
CM following re: discharge planning.
Reviewed pt's chart, met with pt.
PT and OT evaluations noted - home PT/OT recommended. Pt is aware, expressed his agreement and he stated he is current with VN. [facility] liaison following.
IMM reviewed, placed on chart, pt has a copy.
D/C plan: home with [facility] and family support. Son to transport at discharge.
CM will follow with discharge plan updates as hospitalization progresses
--- NOTE | 2025-01-31 11:10 | W.PN.CRS1 ---
Addendum entered and electronically signed by Chester Santana MD 01/31/25 18:58:
Saw patient and discussed results of CT. Currently, tolerating diet and having ostomy function. Cont reg diet for now, but cautioned about N/V. Will need renal consult for rising Cr despite keita placement.
Original Note:
Today's Communication / Plan
-
CT A/P
consider urology/nephrology
Assessment/Plan
-
74-year-old male with PMH of A-fib (s/p cardioversion 2022, on Eliquis), HTN, hypothyroidism and anal adenocarcinoma, s/p DEIDRE with complete response, complicated by local recurrence, who underwent robotic APR, VRAM flap and end-colostomy on 01/11; he
did well post-operatively and was discharged on 01/16; however, he developed fever and chills and presented back to the ED on 01/17; WBC 11.5, Hb stable, CR 0.8, UA negative, CXR�concerning for left lower lobe pneumonia; CTAP showing postoperative
changes, no evident infections or abscess; afib with RVR, better controlled with amio, still awaiting return of bowel function; s/p pRBC x2 on 01/20 for Hb downtrend; GRAY, now improving
POD 20 robotic APR with VRAM flap
AFVSS
no CBC, Cr 1.6
� Drains: Pelvic drain to be removed prior to discharge. Subq drain will be left in until less than 20ml output.
� Continue regular diet
�GRAY, keita inserted 01/29. Consider urology/nephrology.
�Appreciate cardiology and hospitalist
� Continue analgesics
� Eliquis restarted 01/28
� Encourage IS, OOB; appreciate PT
�Appreciate hospitalist
- Due to bleeding flap/urinary retention, will order CT A/P IV and po.
-His subq drain has significant leakage around the site, I notified Dr. Robertson.
Subjective Data
Procedure
01/11/25 Robotic APR, creation of end colostomy, exclusion of the pelvis, laparoscopic TAP block (Max)
Vertical rectus myocutaneous flap for perineal reconstruction (Gabriela)
Subjective Data
Date of Service: January 31, 2025
Patient states he feels well. He did not notice any bleeding from his flap today, although he did last night. He denies pain. He is tolerating a diet. He has no nausea or vomiting.
Objective Data
-
Vital Signs
Temp Pulse Resp BP Pulse Ox
97.5 F 63 18 142/70 97
01/31/25 07:05 01/31/25 08:41 01/31/25 07:05 01/31/25 08:41 01/31/25 07:05
Intake & Output
01/30/25 01/31/25 02/01/25
06:59 06:59 06:59
Intake Total 300 / 300 900 / 900
Output Total 1745 / 3350 4905 / 4905
Balance -1445 / -3050 -4005 / -4005
Intake:
Oral fluids 300 / 300 900 / 900
Output:
Drain Output (Total) 255 / 255
Right Lower Abdomen Alberto- 55 / 55
Martinez A
Right Lower Abdomen Alberto- 200 / 200
Martinez B
Urine, Keita 620 / 620 3100 / 3100
Urine, Voided 1125 / 2675 1550 / 1550
Lab Results
01/30/25 05:14
01/31/25 09:04
Physical Exam
-
General: No Acute Distress and AOx3
Abdomen: Soft, Non Distended, Non Tender and Other ([address] - one serous, one serosanginous)
Rectal: Other (flap warm and pink, no bleeding)
Skin: Warm and Dry
[2025-01-31] MEDS: NORMOSOL-R/PLASMALYTE-A 1000 IV ×2 (11:25→21:29)
[2025-01-31 13:25] VITALS: BP 145/79
--- NOTE | 2025-01-31 13:30 | PTCARENOTE ---
Pt ambulating in hallway. Pt found kneeling on floor with hands and knees placed on ground. Pt stated, 'I did not hit my head' and 'I have neuropathy so I cannot feel when I am losing balance so I became weak'. PCT assisted patient to sitting
position. PCT stated, 'I saw him hit the front of his head on the floor'. Pt stated, 'I did not hit my head but I hit my right elbow, right shoulder and right knee'. Right knee, right shoulder and right elbow assessed. Mild bruising noted on right
knee. Head assessed, no bumps or bruising assessed. Pt assisted back to room and into bed. No complaints of pain. made aware. Pt instructed to ring call barajas for assistance OOB. Pt verbalized understanding. Call barajas within close reach.
--- NOTE | 2025-01-31 14:11 | W.PN.HOSP.TC ---
Today's Communication/Plan
-
Continue oral antibiotics.
Continue gentle diuresis.
Repeat CT showed stable pelvic hematoma. Will discuss with plastics/colorectal surgery possible options. Perineal drain remains in place.
Continue abdominal ERVIN drain.
Assessment / Plan
Assessment / Plan
Impression
Presentation with fever and abdominal pain.
Sepsis present on admission
MRSA bacteremia.
Left lower lobe pneumonia versus atelectasis.
Ileus.
SVT with transition to rapid A-fib.
Hypotension secondary to SVT/rapid A-fib.
Acute blood loss anemia.
Other conditions:
Status post robotic APR with perineal reconstruction on 01/11
Colorectal carcinoma status post chemo/radiation
Paroxysmal atrial fibrillation baseline anticoagulation with Eliquis
Essential hypertension
BPH
Hypothyroidism replacement
Right chest Chemo-Port in place
Plan
#MRSA bacteremia suspected secondary to infected wound.
#Sepsis secondary to pneumonia v. intra-abdominal infection postoperatively
-Presented as postoperative fever, s/p APR with perineal reconstruction on 01/11 for anorectal cancer
-Blood cultures x 2 on admission positive for MRSA; signs of pneumonia on x-ray as well as worsening ERVIN output
-No signs of infection near Chemo-Port or ostomy; CT A/P without signs of abscess here
-Was started on broad-spectrum antibiotics; have been transitioned to IV vancomycin alone by ID
-Repeat blood cultures obtained and negative. Fevers have resolved as of 01/19, remains with leukocytosis that is improved
-TTE negative for vegetation.
Repeat blood cultures negative to date
Repeat CT scan of the abdomen/pelvis on 01/23 with findings consistent of ill-defined right lower quadrant collection
As per discussion with colorectal surgery plan is to observe and treat with antibiotics with no indication for drain.
Chemo-Port had been removed on 01/23
-Completed course IV vancomycin to complete total of 14 days of antibiotic as per ID through 01/29. Transition to doxycycline on 01/29. Plan to continue as long as ERVIN drain remains in place.
Monitor temperature curve and WBC
#Postoperative ileus
-Presented with abdomen pain; s/p NGT placed on 01/18
-Currently receiving Dilaudid for pain, will de-escalate at patient's request
-Bowel function improving with noted improved output through colostomy.
-Currently on a regular diet, colorectal surgery recommends discontinuing TPN after current bag
#Acute blood loss anemia
Initially with hemorrhagic output through ERVIN drain and minimal hemorrhage from skin flap
Requiring blood transfusion 2 units given 01/20
-Iron studies with evidence of anemia of chronic disease
-Has been off anticoagulation.
-Trend hemoglobin, transfuse for hemoglobin less than 7.0
-Repeat CT scan of the abdomen and pelvis on 01/31 showing stable pelvic collection likely hematoma
#Acute kidney injury
-Suspect mild septic ATN; persistent elevation despite hemodynamic stability
-Creatinine normal at baseline, recent labs with creatinine 1.5-1.7 over 3 lab draw
-Has been off IV fluids and TPN
-Reported urinary retention with PVR at 500s.
Caruso catheter to be placed on 01/29
-Continue Flomax
#Atrial fibrillation with RVR
-Nonvalvular; [id number] 3; presented as SVT that degenerated to AF
-Status post IV amiodarone drip
-Home regimen includes Eliquis, currently on hold due to surgical abdominal issues
-Off IV heparin restarted on Eliquis on 01/28.
#Acute on chronic hyponatremia
#Bilateral lower extremity edema
Improved with IV hydration.
Hypertensive with peripheral edema.
Continue gentle diuresis due to peripheral edema/volume overload
#Anal cancer s/p robotic APR (01/11)
-Status post chemotherapy and surgical resection
-Currently with ostomy in place
-Colorectal surgery following
#BPH
-Patient complains of difficulty initiating stream with severe effort, postvoid residual 100 ml
� Continue Flomax, add Proscar 5 mg daily
#Hypothyroidism
-Unclear cause, home regimen includes levothyroxine 100 mcg daily
-No signs or symptoms of thyroid dysfunction at this time (RVR due to critical illness)
#Neuropathy
-B12 levels normal, trial of Lyrica 75 mg twice a day started 01/27
DVT prophylaxis�IV heparin drip
Full code
Total time spent to see the patient on the floor, examine the patient, review data and lab results, discuss treatment plan with patient, nursing staff around 51 minutes.
Anticipated Discharge: 24 - 48 hours
Subjective/Interval History
-
Date of Service: January 31, 2025
Objective Data
-
Labs:
Laboratory Results
01/31/25
09:04
Sodium 130 L
Potassium 4.3
Chloride 98
Carbon Dioxide 28
BUN 21 H
Creatinine 1.6 H
Glucose 144 H
Calcium 8.1 L
Vital Signs:
Vital Signs
Temp Pulse Resp BP Pulse Ox
97.5 F 80 17 145/79 96
01/31/25 13:25 01/31/25 13:25 01/31/25 13:25 01/31/25 13:25 01/31/25 13:25
I&O
01/30/25 01/31/25 02/01/25
06:59 06:59 06:59
Intake Total 300 / 300 900 / 900
Output Total 1745 / 3350 4905 / 4905
Balance -1445 / -3050 -4005 / -4005
Physical Exam
-
General: Well Developed, No Apparent Distress and Appears Chronically Ill
HEENT: Normocephalic, Atraumatic, Moist Mucous Membranes and Anicteric
Respiratory: Clear to Auscultation and Non Labored Respirations
Cardiac: S1/S2, Irregular Rhythm and Tachycardic; Negative Murmur, Rub, JVD or Gallop
GI: Soft, Nondistended, Ostomy and Other (Mild general tenderness; absent bowel sounds; no peritoneal signs; bloody ERVIN drain output)
Musculoskeletal: No Clubbing, No Cyanosis and No Edema
Skin: Warm and Dry; Negative Rash
Neuro: AO x 3 and Nonfocal/Grossly Intact
Psych: Calm
--- NOTE | 2025-01-31 14:33 | W.PN.ID1 ---
Date of Service
Date of Service: January 31, 2025
Today's Communication
- CT a/p reviewed - management per surgery
- has PICC - from ID perspective could be removed at dc
- can continue on doxycycline 14 days 01/29-02/11
Assessment / Plan
MRSA Bacteremia x 2 sets
Fever - resolved
Afib
Anal adenocarcinoma s/p robotic APR, end colostomy, bilateral ureter stents, VRAM reconstruction 01/09/25
- CT a/p reviewed - management per surgery
- has PICC - from ID perspective could be removed at dc
- can continue on doxycycline 14 days 01/29-02/11
Chief Complaint
-: Bacteremia
Subjective / Review of Systems
afebrile
bp stable
lost his balance and fell to his knees this afternoon
ongoing moderate drainage in the the drains in the context of anasarca
Vital Signs / Physical Exam
Vital Signs
Vital Signs
Temp Pulse Resp BP Pulse Ox
97.5 F 80 17 145/79 96
01/31/25 13:25 01/31/25 13:25 01/31/25 13:25 01/31/25 13:25 01/31/25 13:25
Physical Exam
Constitutional: No Acute Distress
Head: Other (NGT in place)
Eyes: No Conjunctival Hemorrhage
Cardiovascular: Regular Rate
Pulmonary: Symmetric
Gastrointestinal: Non Distended
Genito-Urinary: Other
Extremities: Negative Edema
Skin: Dry; Negative Rash or Jaundice
Wound: Other (sacral surgical site mild serous drainage, no erythema, warmth or tenderness; abdominal drain reinforced, stoma pink)
Neurological: Negative Awake
Objective Data
Lab Data
Lab Results
01/30/25 05:14
01/31/25 09:04
PT 14.6 Sec (11.4-14.6) 01/17/25 12:34
INR 1.09 01/17/25 12:34
APTT 41.0 Sec (23.4-35.0) H 01/28/25 14:08
Estimated Creat Clear 43 ml/min 01/31/25 09:04
Lactic Acid 1.1 mmol/L (0.7-2.0) 01/17/25 16:37
Total Bilirubin 0.5 mg/dl (0.2-1.3) 01/28/25 07:41
AST 33 U/L (17-59) 01/28/25 07:41
ALT 47 U/L (0-50) 01/28/25 07:41
Alkaline Phosphatase 194 U/L (38-126) H 01/28/25 07:41
Most recent labs reviewed.
CT Scan: Image Reviewed (CT with anasarca, enhancing collection) and Report Reviewed
Micro Results:
01/20/25 05:18 Blood Culture - Final
Blood/Venous No Growth - Final Report
01/20/25 05:18 Blood Culture - Final
Blood/Venous No Growth - Final Report
01/18/25 12:36 Blood Culture - Final
Blood/Venous No Growth - Final Report
01/18/25 12:36 Blood Culture - Final
Blood/Venous No Growth - Final Report
01/16/25 12:56 Blood Culture - Final
Blood/Venous Staph aureus MRSA
Gram Stain - Final
01/16/25 12:56 Blood Culture - Final
Blood/Venous Staph aureus MRSA
Gram Stain - Final
01/19/25 18:26 Body Fluid Culture - Final
Fluid Staph aureus MRSA
Gram Stain - Final
01/19/25 22:26 Respiratory Culture - Final
Sputum Gram Stain - Final
01/16/25 12:57 Urine Culture - Final
Urine NO GROWTH
01/16/25 22:39 MRSA Screen - Final
Nose Staph aureus MRSA
01/16/25 12:57 Influenza Types A & B (CELIA) - Final
Nasal Swab Negative for Influenza A & B, NAAT
Negative results must be combined with clinical observations
and patient history.
Nucleic Acid Amplification test (NAAT)performed on the
[employer] platform.
01/19/35 CXR: There is minimal bibasilar opacities with likely small bilateral pleural effusions, similar to prior
01/16/25 CT a/p: There is a percutaneous drainage catheter entering the lateral right abdominal wall. The tip rests in the right pelvis posteriorly.There is a second drainage catheter in the subcutaneous tissues with the tip in midline the upper
anterior abdominal wall.
[2025-01-31 15:05] VITALS: BP 122/66
[2025-01-31] MEDS: FLOMAX 0.4 MG PO (21:01)
[2025-01-31 23:00] VITALS: BP 125/56
[2025-02-01] MEDS: NORMOSOL-R/PLASMALYTE-A 1000 IV (05:08)
[2025-02-01] MEDS: TYLENOL 1000 MG PO ×4 (05:08→23:38)
[2025-02-01] MEDS: SYNTHROID 100 MCG PO (05:08)
[2025-02-01 05:33] LABS: % Basophils 0.3 % (0-2); % Eosinophils 4.5 % (0-6); % Immature Granulocytes 0.4 % (0-0.5); % Monocytes 10.9 % (1.7-9.3); % Neutrophils 75.9 % (42.2-75.2); Absolute Eosinophils 0.3 10^3/uL (0-0.7); Absolute Lymphocytes 0.6 10^3/uL (1.2-3.4); Absolute Monocytes 0.8 10^3/uL (0.1-0.6); Absolute Neutrophils 5.4 10^3/uL (1.4-6.5); Hematocrit 24.8 % (39.0-52.0); Hemoglobin 8.4 g/dL (13.0-18.0); Mean Corp Hgb Conc. 33.9 g/dL (33.0-37.0); Mean Corpuscular Hgb 32.2 pg (27.0-31.0); Mean Platelet Volume 9.2 fL (7.4-10.4); Nucleated Red Blood Cells % 0 % (-); Platelet Count 330 10^3/uL (130-400); Red Blood Cell Count 2.61 10^6/uL (4.70-6.10); Red Cell Dist. Width 13.2 % (11.5-14.5); White Blood Cell Count 7.2 10^3/uL (4.8-10.8)
[2025-02-01 05:59] LABS: Blood Urea Nitrogen 20 mg/dl (9-20); Carbon Dioxide 30 mmol/L (22-30); Chloride 97 mmol/L (98-107); Estimated Creatinine Clearance 46 ml/min; Glucose 95 mg/dl (70-99); Potassium 4.2 mmol/L (3.5-5.1); Sodium 132 mmol/L (135-145); eGFR 47.95
[2025-02-01 06:00] VITALS: BMI 28.1
[2025-02-01 07:05] VITALS: BP 134/68
[2025-02-01] MEDS: LASIX 20 MG IV (08:13)
[2025-02-01] MEDS: ELIQUIS 5 MG PO ×2 (08:14→20:05)
[2025-02-01] MEDS: NSS (PRESERVATIVE FREE) 10 ML IV (08:14)
[2025-02-01] MEDS: PROTONIX IV 40 MG IV (08:14)
[2025-02-01] MEDS: LYRICA 75 MG PO ×2 (08:14→20:05)
[2025-02-01] MEDS: VIBRAMYCIN 100 MG PO ×2 (08:14→20:05)
[2025-02-01] MEDS: LOPRESSOR 12.5 MG PO (08:15)
[2025-02-01] MEDS: PROSCAR 5 MG PO (08:15)
--- NOTE | 2025-02-01 08:51 | W.PN.CD ---
Today's Communication / Plan
-
transition metoprolol to succinate 25 mg qhs.
can consider adding back in ARB if bp allows and renal function stable at discharge
continue iv lasix 20mg iv while inpatient transition to po for discharge
Compression to le
no further cardiac recommendations, I will sign off
please call with any further questions
Impression / Plan
-
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
developing sepsis. Cardiology initially consulted for tachycardia with heart rates of 235 bpm (narrow complex), resolved. Now undergoing diuresis.
MRSA Staph Aureus bacteremia/sepsis
- Presumed source is subcutaneous abscess with ERVIN drain purulent fluid output
- Continue antibiotics and recommendations as per ID. Plan is for 14 days IV abx; now on doxycycline.
- Transthoracic echocardiogram unremarkable
PSVT, perhaps an atrial flutter or SVT (see 12 lead EKG 01/17/2025 at 1225 hrs) => degenerated to AFib
PAF with RVR (he also had typical Atrial Flutter last admission as well)
-precipitated by sepsis
-[id number] 3 (age x 2, hypertension)
-Anticoagulation: Eliquis
-abandon pill in the pocket moving forward
-transition metoprolol to succinate 25mg daily qhs.
Edema up through thighs: Weight is up significantly since admission
-wt up but I/O negative
-this is 3rd spacing post op
-add compression
-Continue Lasix 20mg IV daily while inpatient; change to Lasix 20 mg PO daily on discharge.
-continue to intensively monitor renal function while using IV diuresis
Colostomy:
-NGT removed 01/23. Now on regular diet
-Management as per Surgery.
Anal adenocarcinoma, S/p combined therapy (chemo/surgery):
-Status-post surgical resection on 01/11/2025.
-Recommendations as per Surgery.
Hypertension
-improving
-on ARB as OP; will not resume given CKD, blood pressure is fairly controlled.
Subjective:
no sob, lying flat without any dyspnea, swelling in the legs 'up and down'.
Physical Exam
Vital Signs/Labs
Vital Signs
Temp Pulse Resp BP Pulse Ox
97.8 F 64 18 134/68 95
02/01/25 07:05 02/01/25 07:05 02/01/25 07:05 02/01/25 07:05 02/01/25 07:05
01/31/25 02/01/25 02/02/25
06:59 06:59 06:59
Actual Weight 86.999 kg 93.758 kg
02/01/25 05:13
02/01/25 05:13
PT 14.6 Sec (11.4-14.6) 01/17/25 12:34
INR 1.09 01/17/25 12:34
APTT 41.0 Sec (23.4-35.0) H 01/28/25 14:08
Magnesium 2.2 mg/dl (1.6-2.3) 01/28/25 07:41
Triglycerides 83 mg/dl (10-149) 01/28/25 07:41
Physical Exam
Constitutional: No acute distress
Cardiovascular: Rhythm & rate is regular, JVD pressure is normal, Systolic murmur absent, Diastolic murmur absent and Pedal edema present (1+ b/l)
Respiratory: Respiratory effort normal, Lungs clear to auscul., Wheeze Absent, Crackles Absent and Rhonchi Absent
Neuro/Psych: AO x 3
Data Reviewed
-
Date of Service: February 01, 2025
Medical Decision Making: Review of Case with other Provider (Dr Gomez, continue current meds home on po lasix, can consider adding back in arb on d/c)
--- NOTE | 2025-02-01 09:10 | WOUNDNOTE ---
[facility] RN NOTE: Patient visited for pouch change. Stoma pink, slightly prolapsed with some bleeding noted on lateral aspect of stoma. Patient reports small amount of output and mostly gas. His abdomen is distended and he reports fair appetite with
regular diet. Pouch changed with Hewitt barrier #[id number] and pouch #[id number]. Patient states that he empties pouch. Heels assessed on 01/31 and adhesive foam intact. Heels off-loaded on pillows. Patient did not want to turn for sacral assessment and
stated his sacrum gets assessed often. Per chart review, patient had a fall to right knee and elbow yesterday. Patient denied fall and declined to have elbow or knee assessed by this scenario writer. Static air overlay properly inflated. More ostomy supplies
ordered and are at bedside. Will follow as needed.
--- NOTE | 2025-02-01 11:07 | W.PN.CRS1 ---
Today's Communication / Plan
-
remove pelvic drain later today
Assessment/Plan
-
74-year-old male with PMH of A-fib (s/p cardioversion 2022, on Eliquis), HTN, hypothyroidism and anal adenocarcinoma, s/p DEIDRE with complete response, complicated by local recurrence, who underwent robotic APR, VRAM flap and end-colostomy on 01/11; he
did well post-operatively and was discharged on 01/16; however, he developed fever and chills and presented back to the ED on 01/17; WBC 11.5, Hb stable, CR 0.8, UA negative, CXR�concerning for left lower lobe pneumonia; CTAP showing postoperative
changes, no evident infections or abscess; afib with RVR, better controlled with amio, still awaiting return of bowel function; s/p pRBC x2 on 01/20 for Hb downtrend; GRAY, now improving
POD 21 robotic APR with VRAM flap
AFVSS
Hgb 8.4, creatinine 1.5
� Drains: Pelvic drain to be removed prior to discharge. Subq drain will be left in until less than 20ml output (will eval as an outpatient)
� Continue regular diet
�GRAY, keita inserted 01/29. Consider urology/nephrology.
�Appreciate cardiology and hospitalist
� Continue analgesics
� Eliquis restarted 01/28
� Encourage IS, OOB; appreciate PT
�Appreciate hospitalist
-Dispo per primary team, pelvic drain to be removed prior to d/c
Subjective Data
Procedure
01/11/25 Robotic APR, creation of end colostomy, exclusion of the pelvis, laparoscopic TAP block (Max)
Vertical rectus myocutaneous flap for perineal reconstruction (Palshwetha)
Subjective Data
Date of Service: February 01, 2025
Patient states he feels well today. He has no complaints.
Objective Data
-
Vital Signs
Temp Pulse Resp BP Pulse Ox
97.8 F 64 18 134/68 95
02/01/25 07:05 02/01/25 07:05 02/01/25 07:05 02/01/25 07:05 02/01/25 07:05
Intake & Output
01/31/25 02/01/25 02/02/25
06:59 06:59 06:59
Intake Total 900 / 900 3500 / 3500
Output Total 4905 / 4905 4466 / 4466
Balance -4005 / -4005 -966 / -966
Intake:
Oral fluids 900 / 900 2700 / 2700
IV fluids (Total) 800 / 800
Output:
Liquid stool amount 200 / 200
Colostomy 200 / 200
Drain Output (Total) 255 / 255 366 / 366
Right Lower Abdomen Alberto- 55 / 55 23 / 23
Martinez A
Right Lower Abdomen Alberto- 200 / 200 343 / 343
Martinez B
Urine, Keita 3100 / 3100 3900 / 3900
Urine, Voided 1550 / 1550
Lab Results
02/01/25 05:13
02/01/25 05:13
Physical Exam
-
General: No Acute Distress and AOx3
Abdomen: Soft, Non Distended, Non Tender and Other (2 surgical drains. Subq - serous, pelvic - serosanginous)
Skin: Warm and Dry
--- NOTE | 2025-02-01 12:44 | CM ---
Patient seen at bedside
PT rec HH
referral in [facility] - accepted
Caruso d/c today - void trial
PLAN: Home, VN
son to transport.
--- NOTE | 2025-02-01 13:37 | W.PN.HOSP.TC ---
Today's Communication/Plan
-
Oral antibiotics/doxycycline through 02/11.
Continue right lower quadrant ERVIN drain monitoring output.
Wound care/dressing changes.
Pelvic drain to be removed today.
Continue Eliquis and monitor hemoglobin.
Trial of voiding.
Discharge planning involving visiting nurse care
Assessment / Plan
Assessment / Plan
Impression
Presentation with fever and abdominal pain.
Sepsis present on admission
MRSA bacteremia.
Left lower lobe pneumonia versus atelectasis.
Ileus.
SVT with transition to rapid A-fib.
Hypotension secondary to SVT/rapid A-fib.
Acute blood loss anemia.
Other conditions:
Status post robotic APR with perineal reconstruction on 01/11
Colorectal carcinoma status post chemo/radiation
Paroxysmal atrial fibrillation baseline anticoagulation with Eliquis
Essential hypertension
BPH
Hypothyroidism replacement
Right chest Chemo-Port in place
Plan
#MRSA bacteremia suspected secondary to infected wound.
#Sepsis secondary to pneumonia v. intra-abdominal infection postoperatively
-Presented as postoperative fever, s/p APR with perineal reconstruction on 01/11 for anorectal cancer
-Blood cultures x 2 on admission positive for MRSA; signs of pneumonia on x-ray as well as worsening ERVIN output
-No signs of infection near Chemo-Port or ostomy; CT A/P without signs of abscess here
-Was started on broad-spectrum antibiotics; have been transitioned to IV vancomycin alone by ID
-Repeat blood cultures obtained and negative. Fevers have resolved as of 01/19, remains with leukocytosis that is improved
-TTE negative for vegetation.
Repeat blood cultures negative to date
Repeat CT scan of the abdomen/pelvis on 01/23 with findings consistent of ill-defined right lower quadrant collection
As per discussion with colorectal surgery plan is to observe and treat with antibiotics with no indication for drain.
Chemo-Port had been removed on 01/23
-Completed course IV vancomycin to complete total of 14 days of antibiotic as per ID through 01/29. Transitioned to doxycycline on 01/29 through 02/11
Monitor temperature curve and WBC
#Postoperative ileus, improved
-Currently on a regular diet, colorectal surgery recommends discontinuing TPN after current bag
#Acute blood loss anemia
Initially with hemorrhagic output through ERVIN drain and minimal hemorrhage from skin flap
Requiring blood transfusion 2 units given 01/20
-Iron studies with evidence of anemia of chronic disease
-Has been off anticoagulation.
-Trend hemoglobin, transfuse for hemoglobin less than 7.0
-Repeat CT scan of the abdomen and pelvis on 01/31 showing stable pelvic collection likely hematoma
#Acute kidney injury
-Suspect mild septic ATN; persistent elevation despite hemodynamic stability
Creatinine plateaued at 1.5.
Discontinued irbesartan and HCTZ.
BPH
-Reported urinary retention with PVR at 500s.
Caruso catheter placed on 01/29
Trial of voiding on 02/01
-Continue Flomax and Proscar
Generalized edema and volume retention with no evidence of CHF.
Continue gentle diuresis, currently on Lasix IV 20 mg a day with plan to transition to oral Lasix at 20 mg daily upon discharge.
# Paroxysmal atrial fibrillation with RVR
-Nonvalvular; [id number] 3; presented as SVT that degenerated to AF
Rate controlled transition to metoprolol succinate
-Back on Eliquis after heparin bridging
#Anal cancer s/p robotic APR (01/11)
-Status post chemotherapy and surgical resection
-Currently with ostomy in place
Remains with right lower quadrant ERVIN drain. Monitor output
Pelvic drain around flap to be removed on 02/01
#Hypothyroidism on replacement
#Neuropathy
-B12 levels normal, trial of Lyrica 75 mg twice a day started 01/27
DVT prophylaxis�IV heparin drip
Full code
Anticipated Discharge: 24 - 48 hours
Subjective/Interval History
-
Date of Service: February 01, 2025
Objective Data
-
Labs:
Laboratory Results
02/01/25
05:13
WBC 7.2
Hgb 8.4 L
Hct 24.8 L
Plt Count 330
Sodium 132 L
Potassium 4.2
Chloride 97 L
Carbon Dioxide 30
BUN 20
Creatinine 1.5 H
Glucose 95
Calcium 8.0 L
Vital Signs:
Vital Signs
Temp Pulse Resp BP Pulse Ox
97.8 F 64 18 134/68 95
02/01/25 07:05 02/01/25 07:05 02/01/25 07:05 02/01/25 07:05 02/01/25 07:05
I&O
01/31/25 02/01/25 02/02/25
06:59 06:59 06:59
Intake Total 900 / 900 3500 / 3500
Output Total 4905 / 4905 4466 / 4466
Balance -4005 / -4005 -966 / -966
Physical Exam
-
General: Well Developed, No Apparent Distress and Appears Chronically Ill
HEENT: Normocephalic, Atraumatic, Moist Mucous Membranes and Anicteric
Respiratory: Clear to Auscultation and Non Labored Respirations
Cardiac: S1/S2, Irregular Rhythm and Tachycardic; Negative Murmur, Rub, JVD or Gallop
GI: Soft, Nondistended, Ostomy and Other (Mild general tenderness; absent bowel sounds; no peritoneal signs; bloody ERVIN drain output)
Musculoskeletal: No Clubbing, No Cyanosis and No Edema
Skin: Warm and Dry; Negative Rash
Neuro: AO x 3 and Nonfocal/Grossly Intact
Psych: Calm
[2025-02-01 15:05] VITALS: BP 101/57
[2025-02-01] MEDS: NORMOSOL-R/PLASMALYTE-A IV (17:06)
[2025-02-01] MEDS: TOPROL XL 25 MG PO (18:06)
--- NOTE | 2025-02-01 20:24 | PTCARENOTE ---
Assumed care of pt from previous nurse. Pt denies pain. Pt dressings reinforced. Pt call barajas is within reach, pt rings amrik. will cont to monitor.
[2025-02-01] MEDS: FLOMAX 0.4 MG PO (21:51)
[2025-02-01 22:55] VITALS: BP 141/64
[2025-02-02 05:38] VITALS: BMI 25.8
[2025-02-02] MEDS: TYLENOL 1000 MG PO ×2 (05:41→13:04)
[2025-02-02] MEDS: SYNTHROID 100 MCG PO (05:41)
[2025-02-02 06:34] LABS: Blood Urea Nitrogen 19 mg/dl (9-20); Calcium 8.1 mg/dl (8.4-10.2); Carbon Dioxide 32 mmol/L (22-30); Chloride 98 mmol/L (98-107); Estimated Creatinine Clearance 43 ml/min; Glucose 93 mg/dl (70-99); Potassium 4.4 mmol/L (3.5-5.1); Sodium 133 mmol/L (135-145); eGFR 44.38
[2025-02-02 07:11] VITALS: BP 128/80
[2025-02-02] MEDS: LYRICA 75 MG PO (08:25)
[2025-02-02] MEDS: PROSCAR 5 MG PO (08:25)
[2025-02-02] MEDS: VIBRAMYCIN 100 MG PO (08:25)
[2025-02-02] MEDS: ELIQUIS 5 MG PO (08:25)
[2025-02-02] MEDS: LASIX 20 MG IV (08:25)
[2025-02-02] MEDS: PROTONIX 40 MG PO (08:25)
--- NOTE | 2025-02-02 09:29 | W.PN.HOSP.TC ---
Today's Communication/Plan
-
Discharge
Assessment / Plan
Assessment / Plan
Physical Exam
-
General: Well Developed, No Apparent Distress and Appears Chronically Ill
HEENT: Normocephalic, Atraumatic, Moist Mucous Membranes and Anicteric
Respiratory: Clear to Auscultation and Non Labored Respirations
Cardiac: S1/S2, Irregular Rhythm and Tachycardic; Negative Murmur, Rub, JVD or Gallop
GI: Soft, Nondistended, Ostomy viable with good output and Other (no tenderness; absent bowel sounds; no peritoneal signs; .
Musculoskeletal: No Clubbing, No Cyanosis and No Edema
Skin: Warm and Dry; Negative Rash
Neuro: AO x 3 and Nonfocal/Grossly Intact.
Psych: Calm
Impression
Presentation with fever and abdominal pain.
Sepsis present on admission
MRSA bacteremia.
Left lower lobe pneumonia versus atelectasis.
Ileus.
SVT with transition to rapid A-fib.
Hypotension secondary to SVT/rapid A-fib.
Acute blood loss anemia.
Other conditions:
Status post robotic APR with perineal reconstruction on 01/11
Colorectal carcinoma status post chemo/radiation
Paroxysmal atrial fibrillation baseline anticoagulation with Eliquis
Essential hypertension
BPH
Hypothyroidism replacement
Right chest Chemo-Port in place
Plan
#MRSA bacteremia suspected secondary to infected wound.
#Sepsis secondary to pneumonia v. intra-abdominal infection postoperatively
-Presented as postoperative fever, s/p APR with perineal reconstruction on 01/11 for anorectal cancer
-Blood cultures x 2 on admission positive for MRSA; signs of pneumonia on x-ray as well as worsening ERVIN output
-No signs of infection near Chemo-Port or ostomy; CT A/P without signs of abscess here
-Was started on broad-spectrum antibiotics; have been transitioned to IV vancomycin alone by ID
-Repeat blood cultures obtained and negative. Fevers have resolved as of 01/19, remains with leukocytosis that is improved
-TTE negative for vegetation.
Repeat blood cultures negative to date
Repeat CT scan of the abdomen/pelvis on 01/23 with findings consistent of ill-defined right lower quadrant collection
As per discussion with colorectal surgery plan is to observe and treat with antibiotics with no indication for drain.
Chemo-Port had been removed on 01/23
-Completed course IV vancomycin to complete total of 14 days of antibiotic as per ID through 01/29. Transitioned to doxycycline on 01/29 through 02/11
No fever. No leukocytosis
#Postoperative ileus, resolved, tolerating diet
#Acute blood loss anemia
Initially with hemorrhagic output through ERVIN drain and minimal hemorrhage from skin flap
Requiring blood transfusion 2 units given 01/20
-Iron studies with evidence of anemia of chronic disease
-Repeat CT scan of the abdomen and pelvis on 01/31 showing stable pelvic collection likely hematoma
Hemoglobin stable
#Acute kidney injury
-Suspect mild septic ATN; persistent elevation despite hemodynamic stability
Creatinine plateaued at 1.5.
Discontinued irbesartan and HCTZ.
BPH
-Reported urinary retention with PVR at 500s.
Caruso catheter placed on 01/29
Trial of voiding on 02/01
-Continue Flomax and Proscar
Generalized edema and volume retention with no evidence of CHF.
Continue gentle diuresis, currently on Lasix IV 20 mg a day with plan to transition to oral Lasix at 20 mg daily upon discharge.
# Paroxysmal atrial fibrillation with RVR
-Nonvalvular; [id number] 3; presented as SVT that degenerated to AF
Rate controlled transition to metoprolol succinate
-Back on Eliquis after heparin bridging
#Anal cancer s/p robotic APR (01/11)
-Status post chemotherapy and surgical resection
-Currently with ostomy in place
Remains with right lower quadrant ERVIN drain. Monitor output
Pelvic drain around flap to be removed on 02/01
#Hypothyroidism on replacement
#Neuropathy
-B12 levels normal, trial of Lyrica 75 mg twice a day started 01/27
DVT prophylaxis�IV heparin drip
Full code
Total discharge time spent to see the patient, examine the patient, review data and lab results, discuss discharge plan with patient and nursing staff around 65 minutes
Anticipated Discharge: Today
Subjective/Interval History
-
Date of Service: February 02, 2025
He is anxious to go home. Reports tolerating diet and feeling normal
No urinary retention per nursing staff
Objective Data
-
Labs:
Laboratory Results
02/02/25
05:34
Sodium 133 L
Potassium 4.4
Chloride 98
Carbon Dioxide 32 H
BUN 19
Creatinine 1.6 H
Glucose 93
Calcium 8.1 L
Vital Signs:
Vital Signs
Temp Pulse Resp BP Pulse Ox
97.6 F 57 18 128/80 100
02/02/25 07:11 02/02/25 07:11 02/02/25 07:11 02/02/25 07:11 02/02/25 07:11
I&O
02/01/25 02/02/25 02/03/25
06:59 06:59 06:59
Intake Total 3500 / 3500 2820 / 2820
Output Total 4466 / 4466 4955 / 4955
Balance -966 / -966 -2135 / -2135
--- NOTE | 2025-02-02 12:43 | W.DCSUMMARY ---
Discharge Summary
Discharge Data
Date of Admission: 01/16/25
Date of Discharge: 02/02/25
-
Pending Results: No
Hospital Course
74 years old male who underwent robotic APR, creation of end colostomy, exclusion of the pelvis, laparoscopic TAP block; cystoscopy with bilateral ureteral stents by urology; VRAM reconstruction of perineal wound by plastics recurrent distal rectal
cancer following total neoadjuvant therapy including chemoradiation and chemotherapy on 01/09/25 presented to the hospital with abdominal pain, fever and chills. His white blood cell count was normal, hemoglobin of 9.6. Electrolytes were normal
with exception of mild hyponatremia. Chest radiography showed suggested possible left lower pneumonia. Patient did not have hypoxia. Scan of the abdomen and pelvis with contrast did not show localized abscess. Patient was admitted to the
hospital and was started on intravenous antibiotics. He was noted to have postoperative ileus with tachycardia. His condition worsened and he started to have hypotension with tachycardia. He was initially diagnosed with supraventricular
tachycardia with a transition to rapid atrial fibrillation. Rapid response was called. Patient was transferred to intensive care unit he was given intravenous fluid. Patient was given intravenous metoprolol and intravenous amiodarone at 150
milligram. Patient was placed on amiodarone drip to avoid hypotension. Patient had abdominal distention and nasogastric tube was placed for treatment of ileus. Patient was followed by surgery.. Blood culture showed MRSA bacteremia. Patient was
seen by infectious diseases [facility] ascp consultant. Patient was maintained on supportive care with bowel rest. He was placed on total parenteral nutrition. Source of bacteremia was found secondary to infected wound. Repeat blood culture showed clearance of
infection. Patient had acute blood loss anemia was given 2 units of blood transfusion. He had mild acute kidney injury and was treated with intravenous fluid. Ileus started to improve with removal of nasogastric tube. Patient was started on
slowly advance oral diet. Heart rate was controlled with oral medication. Anticoagulation therapy was resumed in form of IV heparin then started back on Eliquis. Hemoglobin remained stable. Patient was noted to have mild urinary retention but
later resolved. He was maintained on Flomax and Proscar was added. Patient finished the course of intravenous vancomycin in the hospital was transitioned to oral doxycycline through February 11. Pelvic drain was removed on 02/01. Stoma was viable
with good output. Kidney function stabilized with creatinine around 1.6. Patient remained hemodynamically stable and was tolerating diet well. Physical therapy and case management were involved in discharge planning. Recommended home care
services. Patient remained hemodynamically stable was discharged home with home care services in a stable condition.
Discharge Plan
-
Patient Disposition: Home with Home Care
Discharge Diagnosis/Procedures: Sepsis present on admission
MRSA bacteremia.
Left lower lobe pneumonia versus atelectasis.
Ileus.
SVT with transition to rapid A-fib.
Hypotension secondary to SVT/rapid A-fib.
Acute blood loss anemia.
Condition: Good
Diet: Regular
Activity: No strenuous activity
Additional Activity: do not lift over 10lbs (gallon of milk)
Driving Restrictions: Wait until off narcotics/comfortable twisting
Bathing Restrictions: OK to Shower
Activity Restrictions/Additional Instructions:
Perineal flap local care as per surgeon's instructions.
Colostomy supplies: [place] wafer # [id number] and Joe pouch # [id number]. Change 2 times a week and as needed for leakage. Use Shaista seal if leakage becomes a problem.
Call supply [employer] (list in folder provided) for monthly Ostomy supplies after discharge (ask VN to order supplies while on service).
Follow up with surgeon.
Call [facility] RN nurse for ostomy pouching concerns or leakage problems [phone] or [phone] or [phone].
Perineum flap-local care as per colorectal surgeon's instructions.
Referrals:
Connie King CRNP [Family Provider] -
Tad Ochoa MD [Active] - in less than 1 week
Chester Santana MD [Active] - in two weeks
Additional Discharge Medication Instructions: stop Irbesartan
Prescriptions:
New
doxycycline hyclate 100 mg Capsule
100 mg PO Q12 Qty: 20 0RF
metoprolol succinate 25 mg Tablet Extended Release 24 Hr
25 mg PO QPM Qty: 30 0RF
finasteride 5 mg Tablet
5 mg PO DAILY Qty: 30 0RF
furosemide [Lasix] 20 mg tablet
20 mg PO DAILY Qty: 30 0RF
Continued
levothyroxine 100 mcg Tablet
100 mcg PO DAILY
tamsulosin 0.4 mg Capsule
0.4 mg PO HS
Eliquis 5 mg Tablet
5 mg PO BID
zolpidem [Ambien] 5 mg Tablet
2.5 mg PO HSPRN PRN (Reason: sleep)
acetaminophen [Tylenol] 325 mg Tablet
650 mg PO Q6HPRN PRN (Reason: mild pain)
oxycodone 5 mg tablet
5 mg PO Q6HPRN PRN (Reason: mild Pain)
Discontinued
irbesartan 150 mg Tablet
150 mg PO DAILY Qty: 0 0RF
Discharge Orders:
Discharge Patient (As Directed); Ordered 02/02/25
Ordered By: Armen Graham
Discharge Date and Time
Discharge Date/Time: 02/02/25 14:52
Print Language: PRYDEINIG
--- NOTE | 2025-02-02 13:58 | W.PN.GS2 ---
Today's Communication / Plan
-
dispo planning
Assessment / Plan
-
Assessment: 74-year-old male readmitted after RAL APR with VRAM flap (POD #22) for MRSA bacteremia (treated) and ileus (resolved)
SQ drain with serous output
Tolerating diet, good bowel recovery
AFVSS
Plan:
--c/w current diet
-- C/W SQ ERVIN upon discharge, VNA consulted
--OP follow up with CRS and Plastics
--antibiotics as per ID
--Ok for d/c from surgical standpoint
Subjective Data
-
Date of Service: February 02, 2025
Patient seen and examined at bedside with Dr. Mahoney. passing stool/flatus via stoma, tolerating diet. denies pain. Still with some drainage from VRAM flap site.
Objective Data
-
Intake and Output
02/01/25 02/02/25 02/03/25
06:59 06:59 06:59
Intake Total 3500 / 3500 2820 / 2820
Output Total 4466 / 4466 4955 / 4955
Balance -966 / -966 -2135 / -2135
Intake:
Oral fluids 2700 / 2700 2820 / 2820
IV fluids (Total) 800 / 800
Output:
Liquid stool amount 200 / 200 200 / 200
Colostomy 200 / 200 200 / 200
Drain Output (Total) 366 / 366 255 / 255
Right Lower Abdomen Alberto- / 23
Martinez A
Right Lower Abdomen Alberto- 343 / 343 235 / 235
Martinez B
Urine, Caruso 3900 / 3900 2000 / 1999
Urine, Voided 2500 / 2500
Vital Signs
Temp Pulse Resp BP Pulse Ox
97.6 F 57 18 128/80 100
02/02/25 07:11 02/02/25 07:11 02/02/25 07:11 02/02/25 07:11 02/02/25 07:11
Lab Results
02/01/25 05:13
02/02/25 05:34
Calcium 8.1 mg/dl (8.4-10.2) L 02/02/25 05:34
Phosphorus 4.2 mg/dl (2.5-4.5) 01/28/25 07:41
Magnesium 2.2 mg/dl (1.6-2.3) 01/28/25 07:41
Total Bilirubin 0.5 mg/dl (0.2-1.3) 01/28/25 07:41
AST 33 U/L (17-59) 01/28/25 07:41
ALT 47 U/L (0-50) 01/28/25 07:41
Alkaline Phosphatase 194 U/L (38-126) H 01/28/25 07:41
Total Protein 4.7 g/dl (6.3-8.2) L 01/28/25 07:41
Albumin 2.3 g/dl (3.5-5.0) L 01/28/25 07:41
Physical Exam
-
NAD, ox3
ABD soft, minimal upper abd distention, nt
Stoma pink/viable with stool/flatus in appliance
ERVIN with serous fluid
[2025-02-02 14:49] VITALS: BP 127/67
--- NOTE | 2025-02-02 15:18 | CM ---
earlier in day saw patient while he was on phone. left IMM with him. Later in day went back and he said he signed and gave to staff.
== END 2025-02-02 14:52 | disposition home health service (06) | DRG 871 ==
LOC: 3 WEST ACU 13:24
PROVIDERS: Family Medicine; Internal Medicine; Internal Medicine Infectious Disease; Nurse Practitioner Gerontology; Physician Assistant; Radiology Diagnostic Radiology; Registered Nurse; Surgery; ADMITTING PHYSICIAN Internal Medicine; ATTENDING PHYSICIAN Internal Medicine; CONSULT PHYSICIAN Internal Medicine; CONSULT PHYSICIAN Surgery; EMERGENCY PHYSICIAN Emergency Medicine; FAMILY PHYSICIAN Nurse Practitioner Family; OTHER PHYSICIAN Student in an Organized Health Care Education/Training Program; OTHER PHYSICIAN Surgery Plastic and Reconstructive Surgery
PROC: 3E0436Z Introduction of Nutritional Substance into Central Vein, Percutaneous Approach (ICD-10-PCS; 2025-01-20)
PROC: 30233N1 Transfusion of Nonautologous Red Blood Cells into Peripheral Vein, Percutaneous Approach (ICD-10-PCS; 2025-01-20)
PROC: 02HV33Z Insertion of Infusion Device into Superior Vena Cava, Percutaneous Approach (ICD-10-PCS; 2025-01-20)
PROC: 0JPT0WZ Removal of Totally Implantable Vascular Access Device from Trunk Subcutaneous Tissue and Fascia, Open Approach (ICD-10-PCS; 2025-01-23)
PROC: 02PY33Z Removal of Infusion Device from Great Vessel, Percutaneous Approach (ICD-10-PCS; 2025-01-23)
DX: A41.02 Sepsis due to Methicillin resistant Staphylococcus aureus (principal); J18.9 Pneumonia, unspecified organism; N17.0 Acute kidney failure with tubular necrosis; T81.41XA Infection following a procedure, superficial incisional surgical site, initial encounter; J98.11 Atelectasis; K56.7 Ileus, unspecified; I47.10 Supraventricular tachycardia, unspecified; D62 Acute posthemorrhagic anemia; E87.1 Hypo-osmolality and hyponatremia; I48.92 Unspecified atrial flutter; K91.89 Other postprocedural complications and disorders of digestive system; C19 Malignant neoplasm of rectosigmoid junction; T81.44XA Sepsis following a procedure, initial encounter; E87.20 Acidosis, unspecified; I48.0 Paroxysmal atrial fibrillation; R65.20 Severe sepsis without septic shock; I95.89 Other hypotension; I10 Essential (primary) hypertension; E86.0 Dehydration; N40.1 Benign prostatic hyperplasia with lower urinary tract symptoms; R33.8 Other retention of urine; E03.9 Hypothyroidism, unspecified; G89.18 Other acute postprocedural pain; R00.1 Bradycardia, unspecified; Y83.8 Other surgical procedures as the cause of abnormal reaction of the patient, or of later complication, without mention of misadventure at the time of the procedure; R60.0 Localized edema; Z11.52 Encounter for screening for COVID-19; Z93.3 Colostomy status; Z79.01 Long term (current) use of anticoagulants; Z92.21 Personal history of antineoplastic chemotherapy; G62.9 Polyneuropathy, unspecified
CPT/HCPCS: 93308; 36590; 51798; 71045; 71046; 74018; 74019; 74177; 77001; 80048; 80053; 80202; 81003; 81015; 82607; 82728; 82746; 82805; 82962; 83540; 83550; 83605; 83735; 84100; 84145; 84478; 84484; 85025; 85027; 85610; 85730; 86850; 86900; 86901; 86920; 87015; 87040; 87070; 87086; 87147; 87186; 87205; 87502; 87811; 93005; 93321; 93325; 93970; 94640; 94760; 96365; 96366; 96367; 97110; 97116; 97163; 97167; 97530; 97535; 99285; J2997; P9016; Q9967

== ENCOUNTER → 2025-02-27 15:23 | Outpatient (REF) | payer MEDICARE, SELFPAY ==
[2025-02-27 15:03] LABS: Hematocrit 25.3 % (39.0-52.0); Mean Corp Hgb Conc. 31.6 g/dL (33.0-37.0); Mean Corpuscular Hgb 30.7 pg (27.0-31.0); Mean Corpuscular Volume 96.9 fL (80.0-94.0); Mean Platelet Volume 9.2 fL (7.4-10.4); Platelet Count 328 10^3/uL (130-400); Red Blood Cell Count 2.61 10^6/uL (4.70-6.10); Red Cell Dist. Width 13.3 % (11.5-14.5); White Blood Cell Count 6.2 10^3/uL (4.8-10.8)
[2025-02-27 15:53] LABS: ALT (SGPT) 14 U/L (0-50); AST (SGOT) 17 U/L (17-59); Albumin 3.7 g/dl (3.5-5.0); Alkaline Phosphatase 100 U/L (38-126); Blood Urea Nitrogen 18 mg/dl (9-20); Calcium 8.9 mg/dl (8.4-10.2); Carbon Dioxide 26 mmol/L (22-30); Chloride 101 mmol/L (98-107); Glucose 110 mg/dl (70-99); Iron 43 ug/dl (49-181); Potassium 4.6 mmol/L (3.5-5.1); Sodium 136 mmol/L (135-145); Total Bilirubin 0.4 mg/dl (0.2-1.3); Total Protein 6.3 g/dl (6.3-8.2); eGFR > 60.00
[2025-02-27 16:02] LABS: Percent Saturation 18 % (20-50); Total Iron Binding Capacity 236 ug/dl (261-462)
[2025-02-27 16:27] LABS: CEA 1.79 ng/ml
== END ==
LOC: OIDL 15:23
PROVIDERS: ATTENDING PHYSICIAN Internal Medicine Hematology & Oncology
DX: C20 Malignant neoplasm of rectum (principal); R19.7 Diarrhea, unspecified
CPT/HCPCS: 80053; 82378; 82728; 83540; 83550; 85027

== ENCOUNTER 2025-03-01 20:38 | Inpatient (IN) | payer MEDICARE, SELFPAY ==
[2025-03-01] VITALS (8 sets, daily range): BP systolic 133–167; BP diastolic 69–83; BMI 23.7
--- NOTE | 2025-03-01 17:13 | ED.GENMED ---
History of Present Illness
<Rosalinda Stephen MD, Resident - Last Filed: 03/01/25 19:21>
General
Chief Complaint: Ostomy Problem
Time Seen by Provider: 03/01/25 16:51
History of Present Illness
History of Present Illness:
75-year-old male with history of paroxysmal atrial fibrillation, rectal adenocarcinoma s/p robotic APR and VRAM perineal reconstruction on 01/09/25 for recurrent distal rectal cancer who presents to the ER for prolapsed ostomy. Patient reports he
noticed his ostomy bag was prolapsed at 12 noon today. He reports watery ostomy output mixed with blood. Reports tenderness on back. Denies nausea, vomiting, chills, fever.
Past History
<Rosalinda Stephen MD, Resident - Last Filed: 03/01/25 19:21>
Past History
ED Past Medical History: Arrthythmia (Atrial fibrillation/flutter), HTN, Valvular disease and Hypothyroidism; Negative Hypercholesterolemia, IDDM, NIDDM or NC
Social History
Tobacco: Non-smoker
Alcohol: None
Drug: None
Living: care home
Phy Exam
<Rosalinda Stephen MD, Resident - Last Filed: 03/01/25 19:21>
General Physical Exam
General Presentation: well appearing and no apparent distress
Cardiovascular Exam
Cardiovascular Exam: regular rate/rhythm and no edema
Pulmonary Exam
Pulmonary Exam: lungs clear and no respiratory distress
Gastrointestinal Exam
Gastrointestinal Exam: normal bowel sounds, soft and other (3cm prolapsed bowel which is visible through ostomy, tenderness around ostomy bag. visible blood in bag and from ostomy site. )
Psychiatric Exam
Psychiatric Exam: normal mood/affect
Course
<Rosalinda Stephen MD, Resident - Last Filed: 03/01/25 19:21>
Orders/Labs/Results
Orders:
Orders
03/01/25 18:40
Complete Blood Count/With Diff Urgent
Comprehensive Metabolic Panel Urgent
03/01/25 18:51
Consult Colorectal Surgery [ColoRectal Surgery Consult] Urgent
Consulting Provider: Jose Paredes
Was physician already notified: Yes
Vital Signs
Initial and Last Documented VS:
Initial Vital Signs
Temp Pulse Resp BP Pulse Ox
98.5 F 74 18 167/83 98
03/01/25 15:09 03/01/25 15:09 03/01/25 15:09 03/01/25 15:09 03/01/25 15:09
Last Documented Vital Signs
Temp Pulse Resp BP Pulse Ox
98.3 F 74 16 138/69 99
03/01/25 16:54 03/01/25 15:09 03/01/25 16:54 03/01/25 18:00 03/01/25 18:00
<Salomón Riddle MD - Last Filed: 03/01/25 19:01>
Orders/Labs/Results
Orders:
Orders
03/01/25 18:40
Complete Blood Count/With Diff Urgent
Comprehensive Metabolic Panel Urgent
03/01/25 18:51
Consult Colorectal Surgery [ColoRectal Surgery Consult] Urgent
Consulting Provider: Jose Paredes
Was physician already notified: Yes
Vital Signs
Initial and Last Documented VS:
Initial Vital Signs
Temp Pulse Resp BP Pulse Ox
98.5 F 74 18 167/83 98
03/01/25 15:09 03/01/25 15:09 03/01/25 15:09 03/01/25 15:09 03/01/25 15:09
Last Documented Vital Signs
Temp Pulse Resp BP Pulse Ox
98.3 F 74 16 138/69 99
03/01/25 16:54 03/01/25 15:09 03/01/25 16:54 03/01/25 18:00 03/01/25 18:00
<Rosalinda Stephen MD, Resident - Last Filed: 03/01/25 19:21>
*Critical Care Note
Total Time (30-74mins, 75-104mins- exclusive of procedures): Not Applicable
ED Attending Note
<Rosalinda Stephen MD, Resident - Last Filed: 03/01/25 19:21>
-
Portions of this chart may have been created with voice recognition software.� Occasional wrong word or��sound alike� substitutions may have occurred due to the inherent limitations of voice recognition software.
<Salomón Riddle MD - Last Filed: 03/01/25 19:01>
ED Attending Note
Patient seen and examined by attending physician: Yes
I performed a history and physical exam of patient and discussed management with resident, I reviewed resident's note and agree with documented findings and plan of care.: Yes
ED Attending Note:
I have seen and evaluated the patient with a [id number] encounter. I have spoken to the resident and involved in the medical history, the physical exam, medical decision making.
Evaluation and management service: agree unless noted differently below.
Results interpretation: agree unless noted differently below.
Focused HPI: 75-year-old male with history as noted presents to the ER for evaluation of prolapsed ostomy. He says it was normal at lunchtime and after lunch he noticed that large segment had prolapsed and that it was bleeding. He is on Eliquis
for A-fib. Just had surgery for anal cancer with Dr. Paredes/Max 01/11/2025.
Physical exam: Awake and alert. Approximately 3 to 5 cm segment of prolapsed bowel through ostomy visible. Red with brisk capillary refill. There is some slow oozing of blood from the ostomy site. Not easily reducible at bedside. Abdomen
otherwise nontender.
Medical Decision Makin-year-old male presents with prolapse of colostomy. Having some oozing of blood from prolapse site. Discussed with colorectal surgery will admit to hospitalist, colorectal surgery consultation.
Discharge Plan
Departure
Patient Disposition: Admit
Date of Disposition: 03/01/25
Time of Disposition: 18:54
Admit to doctor: Armando
Presentation/result/management discussed w/ accepting MD/DO: Hospitalist
Discharge Problem:
Colostomy prolapse
Prescriptions:
No Action
levothyroxine 100 mcg Tablet
100 mcg PO DAILY
tamsulosin 0.4 mg Capsule
0.4 mg PO HS
zolpidem [Ambien] 5 mg Tablet
5 mg PO HSPRN PRN (Reason: sleep)
oxycodone 5 mg tablet
5 mg PO Q6HPRN PRN (Reason: severe Pain)
metoprolol succinate 25 mg Tablet Extended Release 24 Hr
25 mg PO QPM Qty: 30 0RF
finasteride 5 mg Tablet
5 mg PO DAILY Qty: 30 0RF
furosemide [Lasix] 20 mg tablet
20 mg PO DAILY Qty: 30 0RF
acetaminophen [Tylenol Extra Strength] 500 mg Tablet
1,000 mg PO HS
Referrals:
Connie King CRNP [Family Provider] -
Interventions
Interventions:
*Risk Screen - Suicide Last Done: 03/01/25 16:32
*General Assessment Last Done: 03/01/25 16:32
*Neglect/Abuse Screening Last Done: 03/01/25 16:32
*ED- Fall Risk Assessment Last Done: 03/01/25 16:32
AF-Qileie-Fbpjoztitk Assessment Last Done: 03/01/25 16:32
ED-Male Genitourinary Assessment Last Done: 03/01/25 16:32
Discharge Date and Time
Print Language: FIJIAN
--- NOTE | 2025-03-01 19:40 | HPS.HSE ---
Family Physician
-
Family Physician: TAYE Kimble
Chief Complaint
-
Prolapse ostomy
History of Present Illness
75-year-old male stating he noticed his ostomy bag was prolapsed at noon today he reports watery ostomy output mixed with blood. It is currently red maroonish in color with some blood in his colostomy bag. He denies fever, chills, nausea,
vomiting, diarrhea, chest pain, palpitations, cough, shortness of breath, urinary symptoms, rash, drainage from perineal wound. He had history of rectal adenocarcinoma status post chemoradiation and chemotherapy from February to July of 2024 then
status post robotic APR, creation of end colostomy, exclusion of the pelvis, laparoscopic TAP block; cystoscopy with bilateral ureteral stents by urology; VRAM reconstruction of perineal wound ( which occasionally drains blood versus serous
drainage versus dried blood.) by plastics recurrent distal rectal cancer on 01/11/2025 He had surgery complicated with MRSA bacteremia and infected wound from presumed subcutaneous abscess on 01/16/2025 that required ERVIN drain which was treated with IV
antibiotics drain was pulled on 02/11/2025. His surgery was also complicated with blood loss anemia he was given 2 units of blood on 01/20/2025. His Eliquis was resumed and he was stable on discharge. He did develop GRAY during his January stay and
required a Caruso catheter Kidney function stabilized with IV fluids and Caruso catheter was DC'd
He has past medical history of A-fib, new diagnosis January 2025 a flutter, HTN, hypothyroidism, BPH, third spacing bilateral lower legs postop.
Medical History
Past Medical History
Past Medical History: Reports Other
Additional Past Medical History:
Rectal adenocarcinoma status post chemoradiation and chemotherapy from February to July of 2024
01/11/2025 status post robotic APR, creation of end colostomy, exclusion of the pelvis, laparoscopic TAP block; cystoscopy with bilateral ureteral stents by urology; VRAM reconstruction of perineal wound ( which occasionally drains blood versus
serous drainage versus dried blood.) by plastics recurrent distal rectal cancer
MRSA bacteremia and infected wound from presumed subcutaneous abscess on 01/16/2025 that required ERVIN drain which was treated with IV antibiotics drain was pulled on 02/11/2025.
HTN
A-fib
Episode SVT January 2025
Hypothyroidism
BPH
third spacing bilateral lower legs postop
Former smoker 15-year 1.5 pack a day
Past Surgical History: Reports Other
Additional Past Surgical History:
01/11/2025 status post robotic APR, creation of end colostomy, exclusion of the pelvis, laparoscopic TAP block; cystoscopy with bilateral ureteral stents by urology; VRAM reconstruction of perineal wound ( which occasionally drains blood versus
serous drainage versus dried blood.) by plastics recurrent distal rectal cancer
MRSA bacteremia and infected wound from presumed subcutaneous abscess on 01/16/2025 that required ERVIN drain which was treated with IV antibiotics drain was pulled on 02/11/2025.
Social History
Tobacco: Former Smoker (15-year 1.5 pack a day quit 25 years ago)
Alcohol: None
Drug: None
Employment: Retired
Family History
Family History: Other (Mother age 88 lung cancer history of rheumatic fever, father age 92 Alzheimer's patient with 1 brother living BPH 1 sister living unsure)
Allergies / Home Medications
Allergies reflects when Allergies were last updated in [facility].
Home Medications with original date entered in [facility]
Allergy/Medication List:
Allergies
Allergy/AdvReac Type Severity Reaction Status Date / Time
No Known Allergies Allergy Verified 03/01/25 16:22
Home Medications
levothyroxine 100 mcg tablet 100 mcg PO DAILY Thyroid 12/15/23
tamsulosin 0.4 mg capsule 0.4 mg PO HS Urinary Issue 12/15/23
zolpidem 5 mg tablet (Ambien) 5 mg PO HSPRN PRN sleep 01/04/25
oxycodone 5 mg tablet 5 mg PO Q6HPRN PRN severe Pain 01/16/25
finasteride 5 mg tablet 5 mg PO DAILY #30 tabs 02/01/25
furosemide 20 mg tablet (Lasix) 20 mg PO DAILY #30 tabs 02/01/25
metoprolol succinate 25 mg tablet,extended release 24 hr 25 mg PO QPM #30 tabs 02/01/25
acetaminophen 500 mg tablet (Tylenol Extra Strength) 1,000 mg PO HS 03/01/25
apixaban 5 mg tablet (Eliquis) 5 mg PO BID 03/01/25
Review of Systems
-
History Source: Patient
A 12 point ROS was completed and negative except as noted: Yes
Constitutional: Denies Fever or Chills
EENT: Denies Sore Throat or Runny Nose
Respiratory: Denies Cough or Trouble Breathing
Cardiac: Denies Chest Pain or Syncope
Abdomen/GI: Reports Other (Prolapsed ostomy); Denies Abdominal Pain, Nausea or Vomiting
: Denies Dysuria, Frequency, Flank Pain, Incontinence, Difficulty Voiding, Urgency, Bleeding or Dark Urine
Musculoskeletal: Denies Joint Pain or Edema
Skin: Denies Itching or Rash
Neurological: Denies Dizzy, Headache or Weakness
Endocrine: Reports No Symptoms
Hematologic/Lymphatic: Reports No Symptoms
Psych: Reports Calm
Physical Exam
Vital Signs
Vital Signs
Temp Pulse Resp BP Pulse Ox
98.3 F 74 16 138/69 99
03/01/25 16:54 03/01/25 15:09 03/01/25 16:54 03/01/25 18:00 03/01/25 18:00
Physical Exam
General: Conversant; No Pain, Fever or Chills
HEENT: NormoCephalic, Anicteric, Moist mucous membranes, PERRLA, [place] Conjunctivae and No Ptosis
Respiratory: Clear; No Wheezes, Rales or Rhonchi
Cardiac: S1/S2 and Regular Rhythm; No Murmur, Rub, Gallop or Peripheral Edema
Breast: Deferred by me
GI: Soft, Non Tender, Non Distended, Normal Bowel Sounds and Ostomy
Impression/Plan
-
Impression/plan:
Admit to TELE
# Colostomy prolapse
#Hx rectal adenocarcinoma status post robotic APR/end colostomy 01/11/2025
# 01/03/2025 VRAM reconstruction of perineal wound by plastics recurrent distal rectal cancer�complicated surgery complicated with MRSA bacteremia and infected wound 01/17/2025 requiring pelvic drain placement/removal
02/11/2025
*Completed chemoradiation and chemotherapy from February to July of 2024
- Consult colorectal-seen by Dr. Paredes
-N.p.o.
Check CBC, CMP, coags, type and screen
#Chronic perineal wound with VRAm reconstruction with on and off drainage
Currently no drainage
#History of colostomy surgery complicated by blood loss anemia January
Required 2 units of PRBC on 01/20/2025
Hgb 8
#Hx PSVT perhaps a flutter or SVT on 01/17/2025 degenerated to A-fib
Did require IV amiodarone, IV heparin drip then to oral Eliquis
# Chronic A-fib/a flutter January 2025
Patient took Eliquis 5 mg this a.m. then held after speaking with colorectal surgery
#HTN
BP 137/78
-Continue metoprolol succinate 25 mg p.o. every afternoon
#Hypothyroidism
-Continue levothyroxine 100 mcg p.o. daily
#History of third spacing edema bilateral legs through thighs
Takes Lasix 20 mg daily
#Insomnia
Continue Ambien 5 mg at bedtime as needed
#BPH
Continue finasteride 5 mg daily, tamsulosin 0.4 mg at bedtime
#Prior nicotine abuse
15-year 1/2 pack a day quit 25 years ago
DVT prophylaxis
Hold Eliquis
Apply SCDs
Full code
--- NOTE | 2025-03-01 19:58 | CON.CRS ---
Consultation
-
Date/Time Consultation Requested: 03/01/25 @17:18
Date/Time Consultation Performed: 03/01/25 @ 17:40
Requesting Provider: Salomón Riddle MD
Performing Provider: Stanton Paredes MD
Reason for Consultation: Prolapsed colostomy
Medical History
-
Chief Complaint: Prolapsed colostomy
History of Present Illness:
75-year-old male known to CRS service after undergoing a robotic APR with VRAM perineal reconstruction for recurrent distal rectal cancer following DEIDRE on 01/11/25, who developed the acute onset of swelling at the colostomy this afternoon. He was
doing well at home and noticed a protrusion from the colostomy. There was no change in the output and no inciting events. At present he has minimal discomfort. He denies any nausea or vomiting.
Past Medical History
Past Medical History: Arrhythmias (atrial fibrillation), HTN and Hypothyroidism
Past Surgical History: Bowel Resection (as per the HPI)
Social History
Tobacco: Non-Smoker
Alcohol: None
Employment: Retired
Family History
Family History: Reviewed & Not Pertinent
Allergies / Home Medications
Allergy/AdvReac Type Severity Reaction Status Date / Time
No Known Allergies Allergy Verified 03/01/25 16:22
�Medication �Instructions �Recorded �Confirmed �Type
levothyroxine 100 mcg tablet 100 mcg PO DAILY Thyroid 12/15/23 03/01/25 History
tamsulosin 0.4 mg capsule 0.4 mg PO HS Urinary Issue 12/15/23 03/01/25 History
zolpidem 5 mg tablet (Ambien) 5 mg PO HSPRN PRN sleep 01/04/25 03/01/25 History
oxycodone 5 mg tablet 5 mg PO Q6HPRN PRN severe Pain 01/16/25 03/01/25 History
finasteride 5 mg tablet 5 mg PO DAILY #30 tabs 02/01/25 03/01/25 Rx
furosemide 20 mg tablet (Lasix) 20 mg PO DAILY #30 tabs 02/01/25 03/01/25 Rx
metoprolol succinate 25 mg 25 mg PO QPM #30 tabs 02/01/25 03/01/25 Rx
tablet,extended release 24 hr
acetaminophen 500 mg tablet 1,000 mg PO HS 03/01/25 03/01/25 History
(Tylenol Extra Strength)
Review of Systems
-
History Source: Patient
A 10 point review of systems was completed, and was negative except as per HPI.
Physical Exam
Vital Signs
Temp 98 F 03/01/25 19:51
Pulse 56 03/01/25 19:51
Resp Rate 20 03/01/25 19:51
Blood pressure 137/78 03/01/25 19:51
SaO2 98 03/01/25 19:51
02/28/25 03/01/25 03/02/25
06:59 06:59 06:59
Actual Weight 79.2 kg
Body Mass Index (BMI) 23.7
Lab Results / Allergies
Allergy/AdvReac Type Severity Reaction Status Date / Time
No Known Allergies Allergy Verified 03/01/25 16:22
Physical Exam
General: Well Developed, Well Nourished and No Apparent Distress
HEENT: Anicteric
Respiratory: Clear
Cardiac: Regular Rhythm
GI: Soft, Non Tender, Non Distended and Other (there is a prolapsed segment of colon measuring approximately 4cm; it is erythematous and inflamed but not necrotic. The base is pink and healthy)
Neuro: Awake and Alert
Data Reviewed
-
Labs: Labs Reviewed by me and Discussed with Patient
Assessment / Plan
-
Colostomy prolapse. It is inflamed but not necrotic.
I reviewed the treatment options including nonoperative management versus surgery (colostomy revision). I do not feel there is an urgent indication for surgery but if it doesn't improve, or if it worsens, surgery is recommended. The plan is to admit
and hold the Eliquis. If improved over the next day or 2, he can be discharged. If surgery is recommended, risks include, but are not limited to, bleeding, infection, recurrence, stenosis, retraction, parastomal hernia, DVT, cardiopulmonary
complications and the risks of anesthesia. All questions answered. NPO fo now.
--- NOTE | 2025-03-01 20:22 | W.PN.UPDATE ---
Addendum entered and electronically signed by Dayna Roberts MD 03/01/25 20:30:
Keep NPO for now.
Original Note:
Update Note
Progress Note Update
This is an addendum to the H&P written by Amara Kay on 03/01/2025. Patient seen and examined independently with ACCOUNT SPECIALIST.
75-year-old male past medical history of anorectal carcinoma status post chemotherapy/radiation status post robotic APR with peritoneal reconstruction with colostomy on 01/11 complicated by MRSA bacteremia secondary to infected wound, blood loss
anemia, BPH, paroxysmal atrial fibrillation on Eliquis, hypothyroidism, neuropathy, presenting for prolapsed ostomy.
He reports that he had some pain around the outside of the ostomy. He had bleeding from the ostomy site. No nausea or vomiting or fevers or chills.
Vital signs normal.
Labs pending.
Colorectal surgery consulted. Hold Eliquis.
[2025-03-01 20:23] LABS: % Basophils 0.1 % (0-2); % Eosinophils 2.1 % (0-6); % Immature Granulocytes 0.1 % (0-0.5); % Lymphocytes 11.4 % (20.5-51.1); % Monocytes 10.9 % (1.7-9.3); % Neutrophils 75.4 % (42.2-75.2); Absolute Eosinophils 0.1 10^3/uL (0-0.7); Absolute Lymphocytes 0.8 10^3/uL (1.2-3.4); Absolute Monocytes 0.7 10^3/uL (0.1-0.6); Hematocrit 24.9 % (39.0-52.0); Hemoglobin 8.4 g/dL (13.0-18.0); Mean Corp Hgb Conc. 33.7 g/dL (33.0-37.0); Mean Corpuscular Hgb 31.7 pg (27.0-31.0); Mean Platelet Volume 9.2 fL (7.4-10.4); Nucleated Red Blood Cells % 0 % (-); Platelet Count 312 10^3/uL (130-400); Red Blood Cell Count 2.65 10^6/uL (4.70-6.10); Red Cell Dist. Width 13.3 % (11.5-14.5); White Blood Cell Count 6.7 10^3/uL (4.8-10.8)
[2025-03-01 20:33] LABS: PT 16.5 Sec (11.4-14.6)
[2025-03-01 20:46] LABS: ALT (SGPT) 18 U/L (0-50); AST (SGOT) 21 U/L (17-59); Albumin 3.4 g/dl (3.5-5.0); Alkaline Phosphatase 102 U/L (38-126); Blood Urea Nitrogen 16 mg/dl (9-20); Calcium 8.6 mg/dl (8.4-10.2); Carbon Dioxide 27 mmol/L (22-30); Chloride 102 mmol/L (98-107); Estimated Creatinine Clearance 62 ml/min; Glucose 102 mg/dl (70-99); Potassium 3.9 mmol/L (3.5-5.1); Sodium 136 mmol/L (135-145); Total Bilirubin 0.5 mg/dl (0.2-1.3); Total Protein 5.9 g/dl (6.3-8.2); eGFR > 60.00
[2025-03-01] MEDS: ROXICODONE 5 MG PO (22:12)
[2025-03-01] MEDS: FLOMAX 0.4 MG PO (23:27)
--- NOTE | 2025-03-02 01:02 | PTCARENOTE ---
Addendum entered by Payton Mejias RN 03/02/25 05:37:
Per [facility] note from previous admission, appliance- Joe barrier #[id number] and pouch #[id number].
Original Note:
03/01 at 2225- Patient received via stretcher from ED, x1 assist to the bed. Telemetry order> Sinus Bradycardia w/ BBC on monitor (strip placed in chart) Afebrile, HR 63, BP 159/82, Pox 100% room air. Pain 3/10 stoma (Oxycodone 5mg administered in
ED). Patient admitted for prolapsed segment of colon ( w/ colostomy). This RN measured approximately 5cm of stoma-erythematous, artur area C/D/I- site cleaned. Bag emptied for 75ml dark bloody liquid. Colostomy appliance changed. Patient states
relief. Patient seen by Dr. Paredes, Colorectal surgery in the ED and placed NPO, meds ok. Eliquis on hold. Patient states last dose 03/01 at 0900. Plan of care discussed. PMH and medications reviewed by this RN and patient. Patient oriented to room,
call barajas within reach.
[2025-03-02 03:45] VITALS: BP 131/68
[2025-03-02] MEDS: SYNTHROID 100 MCG PO (05:16)
[2025-03-02 06:00] VITALS: BMI 23.0
[2025-03-02] MEDS: PROSCAR 5 MG PO (07:22)
[2025-03-02] MEDS: LASIX 20 MG PO (07:22)
--- NOTE | 2025-03-02 07:36 | W.PN.CRS1 ---
Today's Communication / Plan
-
Advance diet.
Ok for discharge.
Outpatient management.
Assessment/Plan
-
Stoma prolapse - stable
Subjective Data
Subjective Data
Date of Service: March 02, 2025
No complaints. He has no pain. No nausea.
Objective Data
-
Vital Signs
Temp Pulse Resp BP Pulse Ox
98.3 F 51 20 130/68 97
03/02/25 03:45 03/02/25 07:22 03/01/25 21:45 03/02/25 07:22 03/02/25 03:45
Intake & Output
03/01/25 03/02/25 03/03/25
06:59 06:59 06:59
Output Total 475 / 475
Balance -475 / -475
Output:
Liquid stool amount 75 / 75
Colostomy 75 / 75
Urine, Voided 400 / 400
Physical Exam
-
General: No Acute Distress
Abdomen: Soft, Non Distended, Non Tender and Other (the stoma is slightly prolapsed but the inflammation has resolved)
Extremities: No Calf Tenderness
[2025-03-02 07:43] LABS: % Basophils 0.4 % (0-2); % Eosinophils 2.6 % (0-6); % Immature Granulocytes 0.9 % (0-0.5); % Lymphocytes 11.5 % (20.5-51.1); % Monocytes 13.5 % (1.7-9.3); % Neutrophils 71.1 % (42.2-75.2); Absolute Eosinophils 0.1 10^3/uL (0-0.7); Absolute Lymphocytes 0.5 10^3/uL (1.2-3.4); Absolute Monocytes 0.6 10^3/uL (0.1-0.6); Absolute Neutrophils 3.3 10^3/uL (1.4-6.5); Hemoglobin 7.3 g/dL (13.0-18.0); Mean Corp Hgb Conc. 33.2 g/dL (33.0-37.0); Mean Corpuscular Hgb 31.3 pg (27.0-31.0); Mean Corpuscular Volume 94.4 fL (80.0-94.0); Mean Platelet Volume 9.3 fL (7.4-10.4); Nucleated Red Blood Cells % 0 % (-); Platelet Count 265 10^3/uL (130-400); Red Blood Cell Count 2.33 10^6/uL (4.70-6.10); Red Cell Dist. Width 13.5 % (11.5-14.5); White Blood Cell Count 4.6 10^3/uL (4.8-10.8)
[2025-03-02 08:12] LABS: ALT (SGPT) 14 U/L (0-50); AST (SGOT) 16 U/L (17-59); Albumin 2.8 g/dl (3.5-5.0); Alkaline Phosphatase 95 U/L (38-126); Blood Urea Nitrogen 14 mg/dl (9-20); Calcium 8.6 mg/dl (8.4-10.2); Carbon Dioxide 28 mmol/L (22-30); Chloride 103 mmol/L (98-107); Estimated Creatinine Clearance 61 ml/min; Glucose 93 mg/dl (70-99); Potassium 4.2 mmol/L (3.5-5.1); Sodium 137 mmol/L (135-145); Total Bilirubin 0.6 mg/dl (0.2-1.3); Total Protein 5.2 g/dl (6.3-8.2); eGFR > 60.00
--- NOTE | 2025-03-02 08:16 | W.PN.HOSP.TC ---
Addendum entered and electronically signed by Marli Turner MD 03/02/25 13:36:
total DC time 40 min
Original Note:
Today's Communication/Plan
-
see A/P
DC after diet today
Assessment / Plan
Assessment / Plan
75-year-old male past medical history of anorectal carcinoma status post chemotherapy/radiation, status post robotic APR with peritoneal reconstruction with colostomy on 01/11, complicated by MRSA bacteremia secondary to infected wound, blood loss
anemia, BPH, paroxysmal atrial fibrillation on Eliquis, hypothyroidism, neuropathy, presented for prolapsed ostomy.
He reports that he had some pain around the outside of the ostomy. He had bleeding from the ostomy site. No nausea or vomiting or fevers or chills.
A/P:
# Colostomy prolapse, stable with resolved inflammation
CRS on board, cleared for diet and DC
Follow up outpatient
DW CRS today
Anticipated Discharge: Today
Subjective/Interval History
-
Date of Service: March 02, 2025
Objective Data
-
Labs:
Laboratory Results
03/01/25 03/02/25
20:15 06:44
WBC 6.7 4.6 L
Hgb 8.4 L 7.3 L
Hct 24.9 L 22.0 L
Plt Count 312 265
PT 16.5 H
INR 1.30
Sodium 136 137
Potassium 3.9 4.2
Chloride 102 103
Carbon Dioxide 27 28
BUN 16 14
Creatinine 1.1 1.1
Glucose 102 H 93
Calcium 8.6 8.6
Total Bilirubin 0.5 0.6
AST 21 16 L
ALT 18 14
Alkaline Phosphatase 102 95
Vital Signs:
Vital Signs
Temp Pulse Resp BP Pulse Ox
36.8 C 51 20 130/68 97
03/02/25 03:45 03/02/25 07:22 03/01/25 21:45 03/02/25 07:22 03/02/25 03:45
I&O
03/01/25 03/02/25 03/03/25
06:59 06:59 06:59
Output Total 475 / 475
Balance -475 / -475
Review of Systems
-
All other systems: Reviewed and negative
Physical Exam
-
General: Well Developed, No Apparent Distress and Comfortable
HEENT: Normocephalic, Atraumatic and Moist Mucous Membranes
Respiratory: Clear to Auscultation and Non Labored Respirations; Negative Accessory Resp Muscle Use
Cardiac: Regular Rhythm, S1/S2 and Tachycardic; Negative Gallop
GI: Soft, Nondistended and Ostomy
Musculoskeletal: No Clubbing, No Cyanosis and No Edema
Skin: Warm and Dry; Negative Rash
Neuro: AO x 3
Psych: Calm and Intact Judgement/Insight
Data Reviewed
-
Labs: Labs Reviewed by me
--- NOTE | 2025-03-02 09:17 | CM ---
Reviewed the chart notes and spoke with the patient at the bedside. IMM reviewed. The patient resides alone in an independent apartment at [facility]. The patient reports no DME. Patient has had [facility] in the past and been to [facility]. The
patient confirmed his pharmacy of choice [facility]. The patient is for discharge to home today. Patient will drive self home. CM continues to be available to patient/family and is monitoring medical plan for needs at discharge.
Plan: Discharge to home today with no additional needs being identified at this time.
--- NOTE | 2025-03-02 13:28 | W.DCSUMMARY ---
Discharge Summary
Discharge Data
Date of Admission: 03/01/25
Date of Discharge: 03/02/25
-
Pending Results: No
Hospital Course
Principal Diagnosis:
Colostomy prolapse, stable with resolved inflammation
Chronic Diagnoses:�
anorectal carcinoma status post chemotherapy/radiation,
status post robotic APR with peritoneal reconstruction with colostomy on 01/11, complicated by MRSA bacteremia secondary to infected wound,
blood loss anemia,
BPH,
paroxysmal atrial fibrillation on Eliquis,
hypothyroidism,
neuropathy
Consultations:�
Colorectal surgery
Procedures:�
None
Clinical course:�
This is a 75-year-old male with past medical history as stated above, who presented with prolapsed ostomy.
Problem 1:
Colostomy prolapse, stable with resolved inflammation per colorectal surgery, hence he was cleared to resume diet and for discharge.
He has a follow-up appointment in coming week, and he can continue outpatient follow-up with his colorectal surgery.
As for the rest of his medical problems, they were stable during his hospital stay.
Discharge Plan
-
Patient Disposition: Home (Routine Discharge)
Discharge Diagnosis/Procedures: Colostomy prolapse, stable with resolved inflammation
Condition: Fair
Diet: As tolerated
Activity: As tolerated
Driving Restrictions: As prior to admission
Referrals:
Connie King CRNP [Family Provider] - in less than 1 week
Prescriptions:
Continued
levothyroxine 100 mcg Tablet
100 mcg PO DAILY
tamsulosin 0.4 mg Capsule
0.4 mg PO HS
zolpidem [Ambien] 5 mg Tablet
5 mg PO HSPRN PRN (Reason: sleep)
oxycodone 5 mg tablet
5 mg PO Q6HPRN PRN (Reason: severe Pain)
metoprolol succinate 25 mg Tablet Extended Release 24 Hr
25 mg PO QPM Qty: 30 0RF
finasteride 5 mg Tablet
5 mg PO DAILY Qty: 30 0RF
furosemide [Lasix] 20 mg tablet
20 mg PO DAILY Qty: 30 0RF
acetaminophen [Tylenol Extra Strength] 500 mg Tablet
1,000 mg PO HS
Eliquis 5 mg Tablet
5 mg PO BID
Discharge Orders:
Discharge Patient (As Directed); Ordered 03/02/25
Ordered By: Marli Turner
Discharge Date and Time
Discharge Date/Time: 03/02/25 10:17
Print Language: CHINESE
== END 2025-03-02 10:17 | disposition home or self-care (01) | DRG 394 ==
LOC: 2 NORTH 20:38
PROVIDERS: Clinical Nurse Specialist Family Health; ADMITTING PHYSICIAN Hospitalist; ATTENDING PHYSICIAN Internal Medicine; CONSULT PHYSICIAN Surgery; EMERGENCY PHYSICIAN Emergency Medicine; FAMILY PHYSICIAN Nurse Practitioner Family
DX: K94.03 Colostomy malfunction (principal); C20 Malignant neoplasm of rectum; I48.92 Unspecified atrial flutter; Y84.8 Other medical procedures as the cause of abnormal reaction of the patient, or of later complication, without mention of misadventure at the time of the procedure; Y92.9 Unspecified place or not applicable; I48.0 Paroxysmal atrial fibrillation; E03.9 Hypothyroidism, unspecified; G47.00 Insomnia, unspecified; G62.9 Polyneuropathy, unspecified; N40.0 Benign prostatic hyperplasia without lower urinary tract symptoms; I10 Essential (primary) hypertension; Z79.01 Long term (current) use of anticoagulants; Z79.890 Hormone replacement therapy; Z92.3 Personal history of irradiation; Z92.21 Personal history of antineoplastic chemotherapy; Z87.891 Personal history of nicotine dependence; Z82.0 Family history of epilepsy and other diseases of the nervous system; Z80.1 Family history of malignant neoplasm of trachea, bronchus and lung
CPT/HCPCS: 80053; 82378; 82728; 83540; 83550; 85025; 85027; 85610; 86850; 86900; 86901; 99284

== ENCOUNTER → 2025-05-20 08:16 | Outpatient (REF) | payer MEDICARE, SELFPAY | LOC: RAD 08:16 | PROVIDERS: ATTENDING PHYSICIAN Internal Medicine Hematology & Oncology; FAMILY PHYSICIAN Nurse Practitioner Family | DX: R19.7 Diarrhea, unspecified (principal) | CPT/HCPCS: 71260; 74177; Q9967 ==

== ENCOUNTER → 2025-10-18 11:08 | Outpatient (REF) | payer MEDICARE, SELFPAY ==
[2025-10-18 11:24] LABS: Hematocrit 32.8 % (39.0-52.0); Hemoglobin 11.1 g/dL (13.0-18.0); Mean Corp Hgb Conc. 33.8 g/dL (33.0-37.0); Mean Corpuscular Volume 95.6 fL (80.0-94.0); Nucleated Red Blood Cells % 0 % (-); Platelet Count 165 10^3/uL (130-400); Red Cell Dist. Width 13.9 % (11.5-14.5)
[2025-10-18 11:48] LABS: Blood Urea Nitrogen 18 mg/dl (9-20); Calcium 8.5 mg/dl (8.4-10.2); Carbon Dioxide 27 mmol/L (22-30); Chloride 108 mmol/L (98-107); Glucose 88 mg/dl (70-99); HDL Cholesterol 59 mg/dl; Iron 102 ug/dl (49-181); LDL Cholesterol, Calculated 68 mg/dl; Potassium 4.7 mmol/L (3.5-5.1); Sodium 136 mmol/L (135-145); Very Low Density Lipoprotein 15 mg/dl (0-30); eGFR > 60.00
[2025-10-18 11:59] LABS: Total Iron Binding Capacity 244 ug/dl (261-462)
[2025-10-18 12:19] LABS: Ferritin 128.0 ng/ml (17.9-464.0)
== END ==
LOC: OLABPV 11:08
PROVIDERS: ATTENDING PHYSICIAN Internal Medicine Cardiovascular Disease
DX: I48.0 Paroxysmal atrial fibrillation (principal); Z79.899 Other long term (current) drug therapy; D62 Acute posthemorrhagic anemia
CPT/HCPCS: 36415; 80048; 80061; 82728; 83540; 83550; 85025